=== PATIENT | female | born 1935 | race Caucasian/White ===

== ENCOUNTER 2018-03-27 13:38 | Inpatient (IN) | payer MEDICARE, SELFPAY ==
[2018-03-27 14:05] VITALS: BP 131/97; PULSE 110; TEMP 36.4; O2SAT 95
--- NOTE | 2018-03-27 14:31 | DI.CT_ITS ---
SYMPTOM/DIAGNOSIS: COLOSTOMY, RLQ ABD PAIN 3 WEEKS, WORSENING ABDOMINAL AND PELVIC CT: 03/27 CT examination of the abdomen and pelvis was performed with oral contrast only. Examination is compared with examination of 02/04/15. Images obtained through the lung bases are unremarkable. There is a nodular hepatic contour consistent with cirrhosis. No focal hepatic lesion seen. Multiple splenic calcified granuloma noted. Gallbladder not clearly visualized. Common duct measures about 1 cm which would be within normal range for post cholecystectomy patient but abnormal if the patient has not had a previous cholecystectomy. Pancreas is atrophic but otherwise unremarkable. No gross abnormality of the stomach or duodenum noted. Abdominal aorta is of normal diameter. There is grossly unremarkable appearance of adrenals and kidneys. No urinary tract calcification or obstruction. No gross abdominal or pelvic adenopathy seen. There are multiple complex ventral hernias and a left colostomy. Colostomy appears unremarkable with no evidence of obstruction at the colostomy site. Portion of the descending colon lies in a left lateral ventral hernia sac and is unobstructed. There is moderate dilatation of mid small bowel, distal small bowel is decompressed. There is marked wall thickening of mid small bowel proximal and distal to ventral hernia site. The possibility of inflammatory or ischemic process is raised. CONCLUSION: Multiple complex ventral hernias, normal left colostomy, Moderate small bowel dilatation with wall thickening of approximately 15-20 cm segment of mid small bowel which is associated with ventral hernia sac but wall thickening also involves intraperitoneal small bowel in the main abdominal cavity. The findings are nonspecific but may represent inflammatory ischemic or mechanical process. Surgical consultation recommended and appropriate follow up examinations should be obtained.
[2018-03-27 14:40] LABS: Bilirubin Small (Negative); Blood Negative (Negative); Clarity Clear; Glucose 500 mg/dL (Negative); Ketones Negative (Negative); Leukocyte Esterase Negative (Negative); Nitrite Negative (Negative); Specific Gravity >= 1.030 (1.005-1.025); Urobilinogen 0.2 EU/dL (Up TO 0.2); pH 5.5 (5-8)
[2018-03-27 14:49] LABS: Bacteria Few HPF (Negative); C & S Indicated? No; Casts Negative LPF (Negative); Crystals Few Amorphous HPF (Negative); Epithelial Cells Few HPF (Negative); Mucus Negative (Negative); Other Cells Few Renal (Negative); RBC 0-2 (0-2); WBC 0-2 HPF (0-5)
[2018-03-27] MEDS: Normal Saline 1,000 ML 1000 ML IV (14:49)
[2018-03-27 14:53] LABS: Abs Immature Grans 0.01 k/cumm (0.0-0.09); Absolute Basophil Count 0.02 k/cumm (0.0-0.2); Absolute Eosinophil Count 0.09 k/cumm (0.0-0.7); Absolute Lymphocyte Count 1.41 k/cumm (1.2-3.4); Absolute Monocyte Count 0.51 k/cumm (0.11-0.7); Absolute Neutrophil Count 5.27 k/cumm (1.2-6.7); Basophils % 0.3; Eosinophils % 1.2; HGB 13.1 g/dL (12.0-15.5); Immature Grans % 0.1; Lymphocytes % 19.3; Mean Corp. HGB Concentration 33.6 g/dL (32.0-36.0); Mean Corpuscular Hemoglobin 29.8 pg (27.0-33.0); Mean Corpuscular Volume 88.6 fL (80-95); Mean Platelet Volume 10.9 fL (8.0-11.0); Neutrophils % 72.1; Platelet Count 168 x1000/uL (130-400); RBC Distribution Width 13.6 % (11.7-14.6); White Blood Cell Count 7.31 k/cumm (4.4-10.8)
[2018-03-27 15:05] LABS: ALT 25 U/L (12-78); AST 17 U/L (15-37); Albumin 3.4 g/dL (3.4-5.0); Alkaline Phosphatase 111 U/L (46-116); Anion Gap 10.6 mmol/L (3-11); BUN 35 mg/dL (7-18); Bilirubin, Total 1.6 mg/dL (0.2-1.0); CO2 20.4 mmol/L (21.0-32.0); CREATININE 1.64 mg/dL (0.55-1.02); Calcium 8.8 mg/dL (8.5-10.1); Chloride 101 mmol/L (98-107); Estimated GFR 30.14 (mL/min/1.73m2); Glucose 394 mg/dL (70-100); Lipase 107 U/L (73-393); Potassium 4.4 mmol/L (3.5-5.1); Sodium 132 mmol/L (136-145); Total Protein 7.4 g/dL (6.4-8.2)
[2018-03-27 16:12] VITALS: BP 95/58; PULSE 80; RESP 16; TEMP 36.4; O2SAT 97
--- NOTE | 2018-03-27 17:46 | DI.VRAD_ITS ---
EXAM: CT Abdomen and Pelvis Without Intravenous Contrast EXAM DATE/TIME: 03/27/2018 3:25 PM CLINICAL HISTORY: 82 years old, female; Pain; Abdominal pain; Localized; Right lower quadrant (rlq); Prior surgery; Patient HX: Colostomy; Rlq pain 3 weeks, worsening; Additional info: Po contrast only TECHNIQUE: Axial computed tomography images of the abdomen and pelvis without intravenous contrast. Coronal and sagittal reformatted images were created and reviewed. COMPARISON: CT ABD PELVIS WO CONTRAST 02/04/2015 10:19 AM FINDINGS: Limitations: Evaluation of the intra-abdominal organs and vasculature is limited secondary to the lack of IV contrast. The evaluation of the pelvis is limited secondary to unopacified/collapsed loops of bowel. Lower thorax: Linear atelectasis or scarring at the lung bases. ABDOMEN: Liver: The liver has somewhat nodular margins which should be correlated with any concern for cirrhosis. Gallbladder and bile ducts: The gallbladder is not clearly identified. The common bile duct measures 1 cm, dilated. If the patient has had a cholecystectomy, this may be secondary to the patient's cholecystectomy status. Correlation with history and lab values suggested. Pancreas: Atrophic pancreas. Spleen: Calcifications in the spleen suggestive of old granulomatous disease. Adrenals: Normal adrenal glands. Kidneys and ureters: Trace bilateral perinephric stranding, similar to prior examination. Stomach and bowel: There is some wall prominence to the second portion of the duodenum which can be seen with peristalsis, inflammation, or pathology. There are dilated loops of small bowel most consistent with an obstructive process.The small bowel is very tortuous in appearance and difficult to follow. It appears to enter and exit several anterior abdominal wall hernias which could be contributing to the obstructive process. The most concerning hernia is identified inferiorly on series 3 image 70. There is significant caliber reduction of the bowel as it exits this hernia suggesting that it is the point of the most significant obstruction. A segment of small bowel in the right hemiabdomen on series 3 image 51 demonstrates wall thickening. This is worrisome for bowel compromise. Thickening can also be seen with infection or inflammation. Near this finding, Series 3 image 51 demonstrates a double ring appearance to the small bowel in the right hemiabdomen concerning for an intussusception. Intussusceptions could be transient or persistent. Correlation suggested. There is focal soft tissue density in this region for which a lead point/lesion is possible. An ostomy is noted in the left hemiabdomen with a peristomal hernia. Appendix: Appendix not clearly seen. PELVIS: Bladder: Urinary bladder within normal limits. Reproductive: See Subperitoneal Space Finding. Subperitoneal space: There is presacral stranding with an associated U. shaped density identified on series 3 image 63, similar to prior exam. This could represent postsurgical change or an atrophic uterus. ABDOMEN and PELVIS: Intraperitoneal space: No free air. Bones/joints: Skeletal degenerative changes. Soft tissues: Several anterior abdominal wall hernias containing loops of bowel. Vasculature: Vascular calcifications. Lymph nodes: No enlarged lymph nodes. IMPRESSION: 1. There are dilated loops of small bowel most consistent with an obstructive process.The small bowel is very tortuous in appearance and difficult to follow. It appears to enter and exit several anterior abdominal wall hernias which could be contributing somewhat to the obstructive process. The most concerning hernia is identified inferiorly on series 3 image 70. There is significant caliber reduction of the bowel as it exits this hernia suggesting that it is the point of the most significant obstruction. 2. A segment of small bowel in the right hemiabdomen demonstrates wall thickening. This is worrisome for bowel compromise.Near this finding, the small bowel demonstrates a double ring appearance concerning for an intussusception. Intussusceptions could be transient or persistent. Correlation suggested. There is focal soft tissue density in this region for which a lead point/lesion is possible. 3. Dilated appearance to the common bile duct. Correlation with lab values suggested. Some wall prominence to the duodenum are Other findings as above. Dictated and Authenticated by: Heidy Spear MD. Ordering:NICOLE HERNANDEZ MD
[2018-03-27 17:52] VITALS: BP 100/62; PULSE 92; RESP 16; TEMP 37; O2SAT 95
--- NOTE | 2018-03-27 17:59 | W.ED.GENAD ---
Discharge Plan Disposition Patient Disposition: [facility] INPATIENT Condition: Stable Discharge Details Chief Complaint: Abd Prob Clinical Impression: SBO (small bowel obstruction), Intussusception Primary Care Provider: Stephanie Erwin ED Provider: Endy Corral Home Meds and New Rx's Prescriptions: No Action cholecalciferol (vitamin D3) 1,000 UNIT capsule 1,000 unit PO DAILY RF: 0 colostomy bags [Karaya 5 Drainable Pouch] 1 EACH misc 1 ea Miscellaneous Q72H Qty: 60 RF: 3 insulin syringe-needle U-100 [Comfort EZ Syringe] 1 EACH syringe 1 ea Miscellaneous DAILY Qty: 100 RF: 12 insulin glargine [Lantus U-100 Insulin] 100 UNIT/1 ML solution 55 u Sub-Q DAILY Qty: 5 RF: 5 blood sugar diagnostic [GetO2uch Ultra Test] 1 EACH strip 1 ea Miscellaneous TID Qty: 300 RF: 3 lancets [AzubuTouch UltraSoft Lancets] 1 EACH misc 1 ea Miscellaneous TID Qty: 300 RF: 3 levothyroxine 100 MCG tablet 100 mcg PO DAILY Qty: 90 RF: 3 pregabalin [Lyrica] 75 MG capsule 75 mg PO BID Qty: 60 RF: 3 enalapril maleate 2.5 MG tablet 2.5 mg PO DAILY Qty: 90 RF: 3 magnesium oxide 400 MG tablet 400 mg PO DAILY Qty: 90 RF: 1 epinephrine [EpiPen 2-Mayur] 0.3 MG/0.3 ML auto-injector 0.3 mg IJ DIRECTED Qty: 1 RF: 0 sitagliptin [Januvia] 100 MG tablet 100 mg PO DAILY Qty: 90 RF: 3 meclizine 12.5 MG tablet 12.5 mg PO BID Qty: 10 RF: 0 glimepiride 4 MG tablet 4 mg PO DAILY Qty: 30 RF: 3 Varicella-Zoster Ge/As01b/Pf [Shingrix Vial Kit] 50 MCG INJ 50 mcg IM ONCE Qty: 1 RF: 1 acetaminophen [Mapap Extra Strength] 500 MG tablet 1,000 mg PO Q8H PRN PRNQty: 0 RF: 0 Medical Decision Making This is a pleasant 82-year-old female who presents with abdominal pain distention for the last 3 weeks which is gradually been worsening. She has been able to eat, including yesterday. She has been having liquid stool coming from her ostomy site. She denies any vomiting in the last 24-48 hours. Physical exam demonstrates a distended abdomen. She does have dry mucous membranes. No other significant abnormalities on exam. Laboratory workup was performed she demonstrates evidence of no significant leukocytosis no elevated WBC count. Normal electrolytes, creatinine is 1.64, which is near her baseline. Total bilirubin is slightly elevated at 1.6, however AST, ALT and alk phos are normal. Urinalysis shows no signs of significant infection. CT scan results have returned and demonstrate evidence of small loops of bowel consistent consistent with an obstructive process per virtual radiology. It appears that the focus of this is 1 of the patient's multiple hernias. There is also concern for potential intussusception. These results were reviewed with me by the radiologist. I did contact the surgeon rehab consultant Dr. Oliveira and discussed the case with her. She agrees with the current assessment and plan and the need for admission. Patient will be admitted to [facility] for further surgical evaluation. I have extensively reviewed the treatment plan with the patient. I have addressed all patient concerns at this time. I have also discussed the plan with the admitting physician and they agree with the current assessment and plan and have agreed to assume responsibility for the patient. All parties demonstrate verbal understanding and agreement with our assessment and plan at this time. I did discuss NG tube at this time with Dr. Oliveira, and she agrees that we can hold off secondary to no vomiting currently. Impression: 1. There are dilated loops of small bowel most consistent with an obstructive process.The small bowel is very tortuous in appearance and difficult to follow. It appears to enter and exit several anterior abdominal wall hernias which could be contributing somewhat to the obstructive process. The most concerning hernia is identified inferiorly on series 3 image 70. There is significant caliber reduction of the bowel as it exits this hernia suggesting that it is the point of the most significant obstruction. 2. A segment of small bowel in the right hemiabdomen demonstrates wall thickening. This is worrisome for bowel compromise.Near this finding, the small bowel demonstrates a double ring appearance concerning for an intussusception. Intussusceptions could be transient or persistent. Correlation suggested. There is focal soft tissue density in this region for which a lead point/lesion is possible. 3. Dilated appearance to the common bile duct. Correlation with lab values suggested. Some wall prominence to the duodenum are Other findings as above. Dictated and Authenticated by: Heidy Spear MD. [facility] General Date/Time Provider Initiated Documentation: 03/27/18 14:30. [facility] Narrative: This is an 82-year-old female with a past medical history of colostomy in 1979 secondary to colon cancer, as well as diabetes. She presents today for 3 weeks of abdominal pain that is gradually been worsening. She did have one episode of vomiting 1-2 weeks ago. Over the last 2-3 days she has been having worsening of her abdominal pain, associated nausea, and clear liquid from her ostomy site. She denies any blood or melena. She did eat yesterday without any significant vomiting. She denies any chest back leg or arm pain. She denies any melena, hematochezia, hematemesis. She denies any blood thinner use. She denies any other complaints at this time. She denies any IV or illicit drug use she denies any pertinent family hist Related Data Home Medications Medication Instructions Recorded Confirmed cholecalciferol (vitamin D3) 1,000 unit PO DAILY 11/29/13 02/17/15 acetaminophen [Mapap Extra 1,000 mg PO Q8H PRN PRN #0 02/20/15 02/17/15 Strength] colostomy bags [Karaya Drainable #60 ea 07/08/16 Ostomy Pouch] insulin syringe-needle U-100 #100 syringe 02/24/17 [Comfort Ez] insulin glargine [Lantus Vial] 55 u SUB-Q DAILY #5 vial 08/03/17 blood sugar diagnostic [Onetouch #300 strip 09/09/17 Ultra Test Strips] lancets [Onetouch Lancets] #300 ea 09/09/17 levothyroxine 100 mcg PO DAILY #90 tab-cap 10/05/17 pregabalin [Lyrica] 75 mg PO BID #60 tab-cap 11/24/17 enalapril maleate 2.5 mg PO DAILY #90 tab-cap 12/20/17 epinephrine [Epipen 2-Mayur] 0.3 mg IJ DIRECTED #1 pkt 12/20/17 magnesium oxide 400 mg PO DAILY #90 tab 12/20/17 meclizine 12.5 mg PO BID #10 tab-cap 12/20/17 sitagliptin [Januvia] 100 mg PO DAILY #90 tab-cap 12/20/17 glimepiride 4 mg PO DAILY #30 tab-cap 01/28/18 Previous Rx's Medication Instructions Recorded acetaminophen [Mapap Extra 1,000 mg PO Q8H PRN PRN #0 02/20/15 Strength] insulin glargine [Lantus Vial] 55 u SUB-Q DAILY #5 vial 08/03/17 blood sugar diagnostic [Onetouch #300 strip 09/09/17 Ultra Test Strips] lancets [Onetouch Lancets] #300 ea 09/09/17 levothyroxine 100 mcg PO DAILY #90 tab-cap 10/05/17 pregabalin [Lyrica] 75 mg PO BID #60 tab-cap 11/24/17 enalapril maleate 2.5 mg PO DAILY #90 tab-cap 12/20/17 epinephrine [Epipen 2-Mayur] 0.3 mg IJ DIRECTED #1 pkt 12/20/17 magnesium oxide 400 mg PO DAILY #90 tab 12/20/17 meclizine 12.5 mg PO BID #10 tab-cap 12/20/17 sitagliptin [Januvia] 100 mg PO DAILY #90 tab-cap 12/20/17 glimepiride 4 mg PO DAILY #30 tab-cap 01/28/18 Allergies Allergy/AdvReac Type Severity Reaction Status Date / Time aspartame Allergy Severe anaphylacti Unverified 03/27/18 14:08 c blueberry Allergy Severe anaphylacti Unverified 03/27/18 14:08 c shellfish derived Allergy Severe Anaphylaxsi Unverified 03/27/18 14:08 s banana Allergy hives Unverified 03/27/18 14:08 aspirin AdvReac Severe vomiting/gi Unverified 03/27/18 14:08 bleed/ulcer meperidine AdvReac Severe vomiting Unverified 03/27/18 14:08 docusate AdvReac Mild tinnitus Unverified 03/27/18 14:08 naproxen AdvReac Mild gi upset Unverified 03/27/18 14:08 lorazepam AdvReac Unknown hallucinati Unverified 03/27/18 14:08 ons artificial sugar Allergy Severe anaphylacti Uncoded 03/27/18 14:08 c General Stated Complaint: Abd Prob STEVEN: 3 Review of Systems Review of Systems All systems reviewed & are unremarkable except as noted in HPI and below PFSH Family History Grandmother Personal history of malignant neoplasm Sister No problems noted. Medical History Colorectal cancer Peristomal hernia Small bowel obstruction due to adhesions Tendonitis breast cancer (~1997) rib fractures (01/27/15) type II diabetes Social History Smoking/Tobacco Use Status: Never Surgical History Breast, Lumpectomy Colectectomy External fixator removal, ORIF of left tibia nad fibula (02/14/15) Laparotomy (02/04/15) Left trimalleolar comminuted fracture (01/27/15) Exam Narrative Exam Narrative: 1.Const: Well-nourished, Well-developed, appearing stated age 2.Eyes: PERRL, no conjunctival injection, and symmetrical lids. 3.ENT: Atraumatic external nose and ears. Dry MM. Neck: Symmetric, trachea midline, No thyromegaly. 4.CVS: +S1/S2, No murmurs or gallops. Peripheral pulses 2+ and equal in all extremities. Brisk capillary refill in all extremities. 5.RESP: Unlabored respiratory effort. Clear to auscultation bilaterally. No wheezes rales or rhonchi 6.GI: Soft, distended, multiple scars. Ostomy is in place. Bowel sounds are present. Generalized tenderness on palpation throughout. Ostomy site is pink, no blood. Liquid clear stool is noted coming from ostomy site. Small amount of stool at the edge of the ostomy site. Multiple atypical anterior abdominal hernias. 7.MSK: Normocephalic/Atraumatic, Extremities w/o deformity or ttp No cyanosis or clubbing, Normal movement of all extremities 8.Skin: Warm, Dry. No rashes or lesions. 9.Neuro: motor mechanic II-XII grossly intact. Sensation grossly intact, no focal neurologic deficits. 10.Psych: (AAO) x3. Appropriate mood and affect Course Vital Signs Temperature 36.4 C L 03/27/18 14:05 Pulse 110 H 03/27/18 14:05 Blood Pressure 131/97 H 03/27/18 14:05 Pulse Oximetry 95 03/27/18 14:05 Temperature 37.0 C 03/27/18 17:52 Temperature Source Skin 03/27/18 17:52 Pulse 92 H 03/27/18 17:52 Respiratory Rate 16 03/27/18 17:52 Blood Pressure 100/62 03/27/18 17:52 Blood Pressure Position Sitting 03/27/18 14:05 Pulse Oximetry 95 03/27/18 17:52 Oxygen Delivery Method Room Air 03/27/18 17:52 Oxygen Flow Rate 0 03/27/18 17:52 Pain Level 1 03/27/18 17:52 Comment 03/27/18 17:52 Lab/Test Results Lab/Test Results: Laboratory Tests Range/Units 03/27/18 03/27/18 03/27/18 14:25 14:40 14:40 WBC (4.4-10.8) k/cumm 7.31 RBC (4.00-5.20) m/cumm 4.40 Hgb (12.0-15.5) g/dL 13.1 Hct (36.0-46.0) % 39.0 MCV (80-95) fL 88.6 MCH (27.0-33.0) pg 29.8 MCHC (32.0-36.0) g/dL 33.6 RDW (11.7-14.6) % 13.6 Plt Count (130-400) x1000/uL 168 MPV (8.0-11.0) fL 10.9 Immature Gran % 0.1 Neutrophils % 72.1 Lymphocytes % 19.3 Monocytes % 7.0 Eosinophils % 1.2 Basophils % 0.3 Absolute Neutrophils (1.2-6.7) k/cumm 5.27 Absolute Lymphocytes (1.2-3.4) k/cumm 1.41 Absolute Monocytes (0.11-0.7) k/cumm 0.51 Absolute Eosinophils (0.0-0.7) k/cumm 0.09 Absolute Basophils (0.0-0.2) k/cumm 0.02 Sodium (136-145) mmol/L 132 L Potassium (3.5-5.1) mmol/L 4.4 Chloride (98-107) mmol/L 101 Carbon Dioxide (21.0-32.0) mmol/L 20.4 L Anion Gap (3-11) mmol/L 10.6 BUN (7-18) mg/dL 35 H Creatinine (0.55-1.02) mg/dL 1.64 H Estimated GFR/1.73 m2 (mL/min/1.73m2) 30.14 Glucose (70-100) mg/dL 394 H Calcium (8.5-10.1) mg/dL 8.8 Total Bilirubin (0.2-1.0) mg/dL 1.6 H AST (15-37) U/L 17 ALT (12-78) U/L 25 Alkaline Phosphatase (46-116) U/L 111 Total Protein (6.4-8.2) g/dL 7.4 Albumin (3.4-5.0) g/dL 3.4 Lipase (73-393) U/L 107 Urine Color (Yellow) Yellow Urine Clarity Clear Urine pH (5-8) 5.5 Ur Specific Marshall (1.005-1.025) >= 1.030 H Urine Protein (Negative) mg/dL 30 H Urine Ketones (Negative) mg/dL Negative Urine Blood (Negative) Negative Urine Nitrite (Negative) Negative Urine Bilirubin (Negative) Small H Urine Urobilinogen (Up TO 0.2) EU/dL 0.2 Ur Leukocyte Esterase (Negative) Negative Urine RBC (0-2) 0-2 Urine WBC (0-5) HPF 0-2 Ur Epithelial Cells (Negative) HPF Few Urine Crystals (Negative) HPF Few amorphous Urine Bacteria (Negative) HPF Few Urine Casts (Negative) LPF Negative Urine Mucus (Negative) Negative Urine Other (Negative) Few renal Ur Culture Indicated? No Urine Glucose (Negative) mg/dL 500 H
--- NOTE | 2018-03-27 18:08 | ED.GENADUL_ITS ---
Discharge Plan Disposition Patient Disposition: [facility] INPATIENT Condition: Stable Discharge Details Chief Complaint: Abd Prob Clinical Impression: SBO (small bowel obstruction), Intussusception Primary Care Provider: Stephanie Erwin ED Provider: Endy Corral Home Meds and New Rx's Prescriptions: No Action cholecalciferol (vitamin D3) 1,000 UNIT capsule 1,000 unit PO DAILY RF: 0 colostomy bags [Karaya 5 Drainable Pouch] 1 EACH misc 1 ea Miscellaneous Q72H Qty: 60 RF: 3 insulin syringe-needle U-100 [Comfort EZ Syringe] 1 EACH syringe 1 ea Miscellaneous DAILY Qty: 100 RF: 12 insulin glargine [Lantus U-100 Insulin] 100 UNIT/1 ML solution 55 u Sub-Q DAILY Qty: 5 RF: 5 blood sugar diagnostic [Optimal Radiologyuch Ultra Test] 1 EACH strip 1 ea Miscellaneous TID Qty: 300 RF: 3 lancets [ShareTheTouch UltraSoft Lancets] 1 EACH misc 1 ea Miscellaneous TID Qty: 300 RF: 3 levothyroxine 100 MCG tablet 100 mcg PO DAILY Qty: 90 RF: 3 pregabalin [Lyrica] 75 MG capsule 75 mg PO BID Qty: 60 RF: 3 enalapril maleate 2.5 MG tablet 2.5 mg PO DAILY Qty: 90 RF: 3 magnesium oxide 400 MG tablet 400 mg PO DAILY Qty: 90 RF: 1 epinephrine [EpiPen 2-Mayur] 0.3 MG/0.3 ML auto-injector 0.3 mg IJ DIRECTED Qty: 1 RF: 0 sitagliptin [Januvia] 100 MG tablet 100 mg PO DAILY Qty: 90 RF: 3 meclizine 12.5 MG tablet 12.5 mg PO BID Qty: 10 RF: 0 glimepiride 4 MG tablet 4 mg PO DAILY Qty: 30 RF: 3 Varicella-Zoster Ge/As01b/Pf [Shingrix Vial Kit] 50 MCG INJ 50 mcg IM ONCE Qty: 1 RF: 1 acetaminophen [Mapap Extra Strength] 500 MG tablet 1,000 mg PO Q8H PRN PRNQty: 0 RF: 0 Medical Decision Making This is a pleasant 82-year-old female who presents with abdominal pain distention for the last 3 weeks which is gradually been worsening. She has been able to eat, including yesterday. She has been having liquid stool coming from her ostomy site. She denies any vomiting in the last 24-48 hours. Physical exam demonstrates a distended abdomen. She does have dry mucous membranes. No other significant abnormalities on exam. Laboratory workup was performed she demonstrates evidence of no significant leukocytosis no elevated WBC count. Normal electrolytes, creatinine is 1.64, which is near her baseline. Total bilirubin is slightly elevated at 1.6, however AST, ALT and alk phos are normal. Urinalysis shows no signs of significant infection. CT scan results have returned and demonstrate evidence of small loops of bowel consistent consistent with an obstructive process per virtual radiology. It appears that the focus of this is 1 of the patient's multiple hernias. There is also concern for potential intussusception. These results were reviewed with me by the radiologist. I did contact the surgeon reservoir engineering consultant Dr. Oliveira and discussed the case with her. She agrees with the current assessment and plan and the need for admission. Patient will be admitted to [facility] for further surgical evaluation. I have extensively reviewed the treatment plan with the patient. I have addressed all patient concerns at this time. I have also discussed the plan with the admitting physician and they agree with the current assessment and plan and have agreed to assume responsibility for the patient. All parties demonstrate verbal understanding and agreement with our assessment and plan at this time. I did discuss NG tube at this time with Dr. Oliveira, and she agrees that we can hold off secondary to no vomiting currently. Impression: 1. There are dilated loops of small bowel most consistent with an obstructive process.The small bowel is very tortuous in appearance and difficult to follow. It appears to enter and exit several anterior abdominal wall hernias which could be contributing somewhat to the obstructive process. The most concerning hernia is identified inferiorly on series 3 image 70. There is significant caliber reduction of the bowel as it exits this hernia suggesting that it is the point of the most significant obstruction. 2. A segment of small bowel in the right hemiabdomen demonstrates wall thickening. This is worrisome for bowel compromise.Near this finding, the small bowel demonstrates a double ring appearance concerning for an intussusception. Intussusceptions could be transient or persistent. Correlation suggested. There is focal soft tissue density in this region for which a lead point/lesion is possible. 3. Dilated appearance to the common bile duct. Correlation with lab values suggested. Some wall prominence to the duodenum are Other findings as above. Dictated and Authenticated by: Heidy Spear MD. [facility] General Date/Time Provider Initiated Documentation: 03/27/18 14:30 . [facility] Narrative: This is an 82-year-old female with a past medical history of colostomy in 1979 secondary to colon cancer, as well as diabetes. She presents today for 3 weeks of abdominal pain that is gradually been worsening. She did have one episode of vomiting 1-2 weeks ago. Over the last 2 -3 days she has been having worsening of her abdominal pain, associated nausea, and clear liquid from her ostomy site. She denies any blood or melena. She did eat yesterday without any significant vomiting. She denies any chest back leg or arm pain. She denies any melena, hematochezia, hematemesis. She denies any blood thinner use. She denies any other complaints at this time. She denies any IV or illicit drug use she denies any pertinent family hist Related Data Home Medications Medication Instructions Recorded Confirmed cholecalciferol (vitamin D3) 1,000 unit PO DAILY 11/29/13 02/17/15 acetaminophen [Mapap Extra 1,000 mg PO Q8H PRN PRN #0 02/20/15 02/17/15 Strength] colostomy bags [Karaya Drainable #60 ea 07/08/16 Ostomy Pouch] insulin syringe-needle U-100 #100 syringe 02/24/17 [Comfort Ez] insulin glargine [Lantus Vial] 55 u SUB-Q DAILY #5 vial 08/03/17 blood sugar diagnostic [Onetouch #300 strip 09/09/17 Ultra Test Strips] lancets [Onetouch Lancets] #300 ea 09/09/17 levothyroxine 100 mcg PO DAILY #90 tab-cap 10/05/17 pregabalin [Lyrica] 75 mg PO BID #60 tab-cap 11/24/17 enalapril maleate 2.5 mg PO DAILY #90 tab-cap 12/20/17 epinephrine [Epipen 2-Mayur] 0.3 mg IJ DIRECTED #1 pkt 12/20/17 magnesium oxide 400 mg PO DAILY #90 tab 12/20/17 meclizine 12.5 mg PO BID #10 tab-cap 12/20/17 sitagliptin [Januvia] 100 mg PO DAILY #90 tab-cap 12/20/17 glimepiride 4 mg PO DAILY #30 tab-cap 01/28/18 Previous Rx's Medication Instructions Recorded acetaminophen [Mapap Extra 1,000 mg PO Q8H PRN PRN #0 02/20/15 Strength] insulin glargine [Lantus Vial] 55 u SUB-Q DAILY #5 vial 08/03/17 blood sugar diagnostic [Onetouch #300 strip 09/09/17 Ultra Test Strips] lancets [Onetouch Lancets] #300 ea 09/09/17 levothyroxine 100 mcg PO DAILY #90 tab-cap 10/05/17 pregabalin [Lyrica] 75 mg PO BID #60 tab-cap 11/24/17 enalapril maleate 2.5 mg PO DAILY #90 tab-cap 12/20/17 epinephrine [Epipen 2-Mayur] 0.3 mg IJ DIRECTED #1 pkt 12/20/17 magnesium oxide 400 mg PO DAILY #90 tab 12/20/17 meclizine 12.5 mg PO BID #10 tab-cap 12/20/17 sitagliptin [Januvia] 100 mg PO DAILY #90 tab-cap 12/20/17 glimepiride 4 mg PO DAILY #30 tab-cap 01/28/18 Allergies Allergy/AdvReac Type Severity Reaction Status Date / Time aspartame Allergy Severe anaphylacti Unverified 03/27/18 14:08 c blueberry Allergy Severe anaphylacti Unverified 03/27/18 14:08 c shellfish derived Allergy Severe Anaphylaxsi Unverified 03/27/18 14:08 s banana Allergy hives Unverified 03/27/18 14:08 aspirin AdvReac Severe vomiting/gi Unverified 03/27/18 14:08 bleed/ulcer meperidine AdvReac Severe vomiting Unverified 03/27/18 14:08 docusate AdvReac Mild tinnitus Unverified 03/27/18 14:08 naproxen AdvReac Mild gi upset Unverified 03/27/18 14:08 lorazepam AdvReac Unknown hallucinati Unverified 03/27/18 14:08 ons artificial sugar Allergy Severe anaphylacti Uncoded 03/27/18 14:08 c General Stated Complaint: Abd Prob STEVEN: 3 Review of Systems Review of Systems All systems reviewed & are unremarkable except as noted in HPI and below PFSH Family History Grandmother Personal history of malignant neoplasm Sister No problems noted. Medical History Colorectal cancer Peristomal hernia Small bowel obstruction due to adhesions Tendonitis breast cancer (~1997) rib fractures (01/27/15) type II diabetes Social History Smoking/Tobacco Use Status: Never Surgical History Breast, Lumpectomy Colectectomy External fixator removal, ORIF of left tibia nad fibula (02/14/15) Laparotomy (02/04/15) Left trimalleolar comminuted fracture (01/27/15) Exam Narrative Exam Narrative: 1.Const: Well-nourished, Well-developed, appearing stated age 2.Eyes: PERRL, no conjunctival injection, and symmetrical lids. 3.ENT: Atraumatic external nose and ears. Dry MM. Neck: Symmetric, trachea midline, No thyromegaly. 4.CVS: +S1/S2, No murmurs or gallops. Peripheral pulses 2+ and equal in all extremities. Brisk capillary refill in all extremities. 5.RESP: Unlabored respiratory effort. Clear to auscultation bilaterally. No wheezes rales or rhonchi 6.GI: Soft, distended, multiple scars. Ostomy is in place. Bowel sounds are present. Generalized tenderness on palpation throughout. Ostomy site is pink, no blood. Liquid clear stool is noted coming from ostomy site. Small amount of stool at the edge of the ostomy site. Multiple atypical anterior abdominal hernias. 7.MSK: Normocephalic/Atraumatic, Extremities w/o deformity or ttp No cyanosis or clubbing, Normal movement of all extremities 8.Skin: Warm, Dry. No rashes or lesions. 9.Neuro: douper II-XII grossly intact. Sensation grossly intact, no focal neurologic deficits. 10.Psych: (AAO) x3. Appropriate mood and affect Course Vital Signs Temperature 36.4 C L 03/27/18 14:05 Pulse 110 H 03/27/18 14:05 Blood Pressure 131/97 H 03/27/18 14:05 Pulse Oximetry 95 03/27/18 14:05 Temperature 37.0 C 03/27/18 17:52 Temperature Source Skin 03/27/18 17:52 Pulse 92 H 03/27/18 17:52 Respiratory Rate 16 03/27/18 17:52 Blood Pressure 100/62 03/27/18 17:52 Blood Pressure Position Sitting 03/27/18 14:05 Pulse Oximetry 95 03/27/18 17:52 Oxygen Delivery Method Room Air 03/27/18 17:52 Oxygen Flow Rate 0 03/27/18 17:52 Pain Level 1 03/27/18 17:52 Comment 03/27/18 17:52 Lab/Test Results Lab/Test Results: Laboratory Tests Range/Units 03/27/18 03/27/18 03/27/18 14:25 14:40 14:40 WBC (4.4-10.8) k/cumm 7.31 RBC (4.00-5.20) m/cumm 4.40 Hgb (12.0-15.5) g/dL 13.1 Hct (36.0-46.0) % 39.0 MCV (80-95) fL 88.6 MCH (27.0-33.0) pg 29.8 MCHC (32.0-36.0) g/dL 33.6 RDW (11.7-14.6) % 13.6 Plt Count (130-400) x1000/uL 168 MPV (8.0-11.0) fL 10.9 Immature Gran % 0.1 Neutrophils % 72.1 Lymphocytes % 19.3 Monocytes % 7.0 Eosinophils % 1.2 Basophils % 0.3 Absolute Neutrophils (1.2-6.7) k/cumm 5.27 Absolute Lymphocytes (1.2-3.4) k/cumm 1.41 Absolute Monocytes (0.11-0.7) k/cumm 0.51 Absolute Eosinophils (0.0-0.7) k/cumm 0.09 Absolute Basophils (0.0-0.2) k/cumm 0.02 Sodium (136-145) mmol/L 132 L Potassium (3.5-5.1) mmol/L 4.4 Chloride (98-107) mmol/L 101 Carbon Dioxide (21.0-32.0) mmol/L 20.4 L Anion Gap (3-11) mmol/L 10.6 BUN (7-18) mg/dL 35 H Creatinine (0.55-1.02) mg/dL 1.64 H Estimated GFR/1.73 m2 (mL/min/1.73m2) 30.14 Glucose (70-100) mg/dL 394 H Calcium (8.5-10.1) mg/dL 8.8 Total Bilirubin (0.2-1.0) mg/dL 1.6 H AST (15-37) U/L 17 ALT (12-78) U/L 25 Alkaline Phosphatase (46-116) U/L 111 Total Protein (6.4-8.2) g/dL 7.4 Albumin (3.4-5.0) g/dL 3.4 Lipase (73-393) U/L 107 Urine Color (Yellow) Yellow Urine Clarity Clear Urine pH (5-8) 5.5 Ur Specific [place] (1.005-1.025) >= 1.030 H Urine Protein (Negative) mg/dL 30 H Urine Ketones (Negative) mg/dL Negative Urine Blood (Negative) Negative Urine Nitrite (Negative) Negative Urine Bilirubin (Negative) Small H Urine Urobilinogen (Up TO 0.2) EU/dL 0.2 Ur Leukocyte Esterase (Negative) Negative Urine RBC (0-2) 0-2 Urine WBC (0-5) HPF 0-2 Ur Epithelial Cells (Negative) HPF Few Urine Crystals (Negative) HPF Few amorphous Urine Bacteria (Negative) HPF Few Urine Casts (Negative) LPF Negative Urine Mucus (Negative) Negative Urine Other (Negative) Few renal Ur Culture Indicated? No Urine Glucose (Negative) mg/dL 500 H
[2018-03-27] MEDS: Lactated Ringers 1,000 ML 1000 ML IV (18:22)
[2018-03-27 18:45] VITALS: BP 108/83; PULSE 83; RESP 14; TEMP 36.7; O2SAT 98
[2018-03-27 19:06] VITALS: BP 113/65; PULSE 77; RESP 18; TEMP 36.9; O2SAT 98
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
[2018-03-27] MEDS: Normal Saline 1,000 ML 125 ML IV (22:22)
[2018-03-28] VITALS (8 sets, daily range): BP systolic 98–134; BP diastolic 59–73; PULSE 78–97; RESP 16–20; TEMP 36.6–37.4; O2SAT 93–98
[2018-03-28] MEDS: Dextrose 50%-Water 25 GM/50 ML SYR IVP ×2 (02:05→06:26)
[2018-03-28] MEDS: Normal Saline 1,000 ML 125 ML IV ×2 (05:51→14:20)
[2018-03-28] MEDS: Normal Saline Flush 10 ML SYR IVP ×2 (06:29→17:24)
--- NOTE | 2018-03-28 07:00 | DI.RAD_ITS ---
SYMPTOM/DIAGNOSIS: ABDOMINAL DISTENTION ABDOMEN: 03/28 Two views were obtained. No gross free intraperitoneal air is seen on the upright view. Moderate small bowel dilatation again noted as seen on yesterday's CT. No additional new findings.
[2018-03-28 07:01] LABS: HCT 35.5 % (36.0-46.0); HGB 11.8 g/dL (12.0-15.5); Mean Corp. HGB Concentration 33.2 g/dL (32.0-36.0); Mean Corpuscular Hemoglobin 29.7 pg (27.0-33.0); Mean Corpuscular Volume 89.4 fL (80-95); Platelet Count 135 x1000/uL (130-400); RBC 3.97 m/cumm (4.00-5.20); RBC Distribution Width 13.6 % (11.7-14.6); White Blood Cell Count 7.62 k/cumm (4.4-10.8)
[2018-03-28 07:11] LABS: ALT 18 U/L (12-78); AST 20 U/L (15-37); Albumin 3.1 g/dL (3.4-5.0); Alkaline Phosphatase 90 U/L (46-116); Anion Gap 11.9 mmol/L (3-11); BUN 28 mg/dL (7-18); Bilirubin, Total 1.3 mg/dL (0.2-1.0); CO2 18.1 mmol/L (21.0-32.0); Calcium 8.6 mg/dL (8.5-10.1); Chloride 107 mmol/L (98-107); Estimated GFR 39.41 (mL/min/1.73m2); Glucose 207 mg/dL (70-100); Potassium 4.1 mmol/L (3.5-5.1); Sodium 137 mmol/L (136-145); Total Protein 6.6 g/dL (6.4-8.2)
--- NOTE | 2018-03-28 07:36 | W.PM.PROGNOT ---
Assessment and Plan (1) Bowel obstruction: Current visit: Yes Status: Acute Possible small bowel obstruction/intussusception- DIET- continue NPO. Accuchecks and sliding scale coverage while NPO. May need NG if nausea/vomiting recurs. IMAGING- Follow-up abdominal xrays (Currently Pending) to evaluate passage of oral contrast/bowel distention May consider small bowel series for further evaluation if needed. ACTIVITY- Encouraged ambulation with nsg as tolerated. Subjective Patient reports: denies nausea, vomiting and fever Interval history since last seen: Mrs. Rodriguez reports that she continues to feel uncomfortable and bloated. She denies nausea, vomiting or abdominal pain. She states that her symptoms feel about the same compared to the past few days. Exam Const General: cooperative and comfortable Orientation: alert and awake Resp Effort & Inspection: normal respiratory effort Auscultation: clear to auscultation bilaterally Cardio Rate: regular rate Rhythm: regular rhythm Heart Sounds: no murmurs and no rubs GI Inspection: distended and scar (Midline incision scar with several incisional hernia's that are easily reducible.) Palpation: soft and tender (Mildly tender with palpation. ) in the LLQ and in the RLQ Auscultation: normal bowel sounds Objective Objective Clinical Data: Abnormal lab results 03/27/18 03/27/18 03/28/18 Range/Units 14:25 14:40 06:30 RBC (4.00-5.20) m/cumm Hgb (12.0-15.5) g/dL Hct (36.0-46.0) % Sodium 132 L (136-145) mmol/L Carbon Dioxide 20.4 L 18.1 L (21.0-32.0) mmol/L Anion Gap 11.9 H (3-11) mmol/L BUN 35 H 28 H (7-18) mg/dL Creatinine 1.64 H 1.30 H (0.55-1.02) mg/dL Glucose 394 H 207 H D (70-100) mg/dL Total Bilirubin 1.6 H 1.3 H (0.2-1.0) mg/dL Albumin 3.1 L (3.4-5.0) g/dL Ur Specific [place] >= 1.030 H (1.005-1.025) Urine Protein 30 H (Negative) mg/dL Urine Bilirubin Small H (Negative) Urine Glucose 500 H (Negative) mg/dL 03/28/18 Range/Units 06:30 RBC 3.97 L (4.00-5.20) m/cumm Hgb 11.8 L (12.0-15.5) g/dL Hct 35.5 L (36.0-46.0) % Sodium (136-145) mmol/L Carbon Dioxide (21.0-32.0) mmol/L Anion Gap (3-11) mmol/L BUN (7-18) mg/dL Creatinine (0.55-1.02) mg/dL Glucose (70-100) mg/dL Total Bilirubin (0.2-1.0) mg/dL Albumin (3.4-5.0) g/dL Ur Specific [place] (1.005-1.025) Urine Protein (Negative) mg/dL Urine Bilirubin (Negative) Urine Glucose (Negative) mg/dL Vital Signs Temperature 36.6 C 03/28/18 04:35 Temperature Source Tympanic 03/28/18 04:35 Pulse 79 03/28/18 04:35 Pulse Rhythm Regular 03/28/18 01:55 Respiratory Rate 18 03/28/18 04:35 Respiratory Effort 03/28/18 01:55 Respiratory Depth Normal 03/28/18 01:55 Respiratory Pattern Normal 03/28/18 01:55 Blood Pressure 98/59 L 03/28/18 04:35 Blood Pressure Position Sitting 03/27/18 14:05 Pulse Oximetry 95 03/28/18 04:35 Oxygen Delivery Method Room Air 03/28/18 04:35 Oxygen Flow Rate 0 03/28/18 04:35 Pain Level 1 03/27/18 19:10 Comment 03/28/18 04:35 Intake & Output 03/27/18 03/27/18 03/28/18 11:59 23:59 11:59 Intake Total 1999 935.417 / 935.417 Output Total 1000 / 999 1050 / 1050 Balance 999 / 999 -114.583 / -114.583 Weight 62.596 kg Intake: IV 1999 935.417 / 935.417 Output: Urine 400 / 400 Stool 600 / 600 1050 / 1050 Other: Urine Appearance Clear Clear Urine Odor None Stool Size Large Stool Characteristics Liquid Liquid Brown Voiding Methods Toilet Laboratory Results WBC 7.62 k/cumm (4.4-10.8) 03/28/18 06:30 RBC 3.97 m/cumm (4.00-5.20) L 03/28/18 06:30 Hgb 11.8 g/dL (12.0-15.5) L 03/28/18 06:30 Hct 35.5 % (36.0-46.0) L 03/28/18 06:30 MCV 89.4 fL (80-95) 03/28/18 06:30 MCH 29.7 pg (27.0-33.0) 03/28/18 06:30 MCHC 33.2 g/dL (32.0-36.0) 03/28/18 06:30 RDW 13.6 % (11.7-14.6) 03/28/18 06:30 Plt Count 135 x1000/uL (130-400) 03/28/18 06:30 MPV 11.0 fL (8.0-11.0) 03/28/18 06:30 Immature Gran % 0.1 03/27/18 14:40 Neutrophils % 72.1 03/27/18 14:40 Lymphocytes % 19.3 03/27/18 14:40 Monocytes % 7.0 03/27/18 14:40 Eosinophils % 1.2 03/27/18 14:40 Basophils % 0.3 03/27/18 14:40 Absolute Neutrophils 5.27 k/cumm (1.2-6.7) 03/27/18 14:40 Absolute Lymphocytes 1.41 k/cumm (1.2-3.4) 03/27/18 14:40 Absolute Monocytes 0.51 k/cumm (0.11-0.7) 03/27/18 14:40 Absolute Eosinophils 0.09 k/cumm (0.0-0.7) 03/27/18 14:40 Absolute Basophils 0.02 k/cumm (0.0-0.2) 03/27/18 14:40 Sodium 137 mmol/L (136-145) 03/28/18 06:30 Potassium 4.1 mmol/L (3.5-5.1) 03/28/18 06:30 Chloride 107 mmol/L (98-107) 03/28/18 06:30 Carbon Dioxide 18.1 mmol/L (21.0-32.0) L 03/28/18 06:30 Anion Gap 11.9 mmol/L (3-11) H 03/28/18 06:30 BUN 28 mg/dL (7-18) H 03/28/18 06:30 Creatinine 1.30 mg/dL (0.55-1.02) H 03/28/18 06:30 Estimated GFR/1.73 m2 39.41 (mL/min/1.73m2) 03/28/18 06:30 Glucose 207 mg/dL (70-100) H D 03/28/18 06:30 Calcium 8.6 mg/dL (8.5-10.1) 03/28/18 06:30 Total Bilirubin 1.3 mg/dL (0.2-1.0) H 03/28/18 06:30 AST 20 U/L (15-37) 03/28/18 06:30 ALT 18 U/L (12-78) 03/28/18 06:30 Alkaline Phosphatase 90 U/L (46-116) 03/28/18 06:30 Total Protein 6.6 g/dL (6.4-8.2) 03/28/18 06:30 Albumin 3.1 g/dL (3.4-5.0) L 03/28/18 06:30 Lipase 107 U/L (73-393) 03/27/18 14:40 Urine Color Yellow (Yellow) 03/27/18 14:25 Urine Clarity Clear 03/27/18 14:25 Urine pH 5.5 (5-8) 03/27/18 14:25 Ur Specific [place] >= 1.030 (1.005-1.025) H 03/27/18 14:25 Urine Protein 30 mg/dL (Negative) H 03/27/18 14:25 Urine Ketones Negative mg/dL (Negative) 03/27/18 14:25 Urine Blood Negative (Negative) 03/27/18 14:25 Urine Nitrite Negative (Negative) 03/27/18 14:25 Urine Bilirubin Small (Negative) H 03/27/18 14:25 Urine Urobilinogen 0.2 EU/dL (Up TO 0.2) 03/27/18 14:25 Ur Leukocyte Esterase Negative (Negative) 03/27/18 14:25 Urine RBC 0-2 (0-2) 03/27/18 14:25 Urine WBC 0-2 HPF (0-5) 03/27/18 14:25 Ur Epithelial Cells Few HPF (Negative) 03/27/18 14:25 Urine Crystals Few amorphous HPF (Negative) 03/27/18 14:25 Urine Bacteria Few HPF (Negative) 03/27/18 14:25 Urine Casts Negative LPF (Negative) 03/27/18 14:25 Urine Mucus Negative (Negative) 03/27/18 14:25 Urine Other Few renal (Negative) 03/27/18 14:25 Ur Culture Indicated? No 03/27/18 14:25 Urine Glucose 500 mg/dL (Negative) H 03/27/18 14:25
--- NOTE | 2018-03-28 10:37 | PDOC.CMIN ---
- If Service Date Differs Date of service: 03/28/18 Time of Service: 10:37 Care Management Initial Assess REASON FOR HOSPITALIZATION:: SBO PAST MEDICAL HISTORY/PAST SURGICAL HISTORY:: Colorectal cancer. Peristomal hernia. Small bowel obstruction due to adhesions. Tendonitis. breast cancer (~1997). rib fractures (01/27/15). type II diabetes. Breast, Lumpectomy. Colectectomy. External fixator removal, ORIF of left tibia nad fibula (02/14/15). Laparotomy (02/04/15). Left trimalleolar comminuted fracture (01/27/15) PREVIOUS FUNCTIONAL STATUS/SOCIAL/FAMILY SUPPORTS:: Heath resides with her Hakeem in [place]. She states that they have been for 40 + years. Heath has three children, one whom resides at home as he is disabled. 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 She states that she cares for her at home at this time. Heath is independent at baseline, she drives, and manages ADL's. CURRENT FUNCTIONAL STATUS:: Heath is lying in bed when this board writer visits this morning. She is pleasant and easily engages in discussion. ADVANCE DIRECTIVES:: None on file Has patient been provided with information about the portal?: Yes Did the patient sign up for the portal?: No CODE STATUS:: Full Code INSURANCE COVERAGE / FINANCIAL ISSUES:: MCR CURRENT HOME/COMMUNITY SERVICES/EQUIPMENT:: Currently heath has no services in the community. She states that she has a FWW at home that she does not use. PRIMARY CARE PHYSICIAN:: Stephanie Erwin POTENTIAL DISCHARGE NEEDS:: F/U appointment with Dr. Oliveira and PCP PATIENT/FAMILY EDUCATION NEEDS:: Review DC instructions, any limitations, and ongoing DC planning discussion. Review Ask Me Three ANTICIPATED BARRIERS TO DISCHARGE:: None identified at this time. TRANSPORTATION:: Via private vehicle with family PLAN:: Heath will return home with no anticipated services. She will F/U with Dr. Oliveira, PCP, and plan of care as prescribed. Heath's family will transport when ready.
--- NOTE | 2018-03-28 10:42 | INITIAL_ITS ---
- If Service Date Differs Date of service: 03/28/18 Time of Service: 10:37 Care Management Initial Assess REASON FOR HOSPITALIZATION:: SBO PAST MEDICAL HISTORY/PAST SURGICAL HISTORY:: Colorectal cancer. Peristomal hernia. Small bowel obstruction due to adhesions. Tendonitis. breast cancer ( ~1997). rib fractures (01/27/15). type II diabetes. Breast, Lumpectomy. Colectectomy. External fixator removal, ORIF of left tibia nad fibula (02/14/15 ). Laparotomy (02/04/15). Left trimalleolar comminuted fracture (01/27/15) PREVIOUS FUNCTIONAL STATUS/SOCIAL/FAMILY SUPPORTS:: Heath resides with her Hakeem in [place]. She states that they have been for 40 + years. Heath has three children, one whom resides at home as he is disabled. 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 She states that she cares for her at home at this time. Heath is independent at baseline, she drives, and manages ADL's. CURRENT FUNCTIONAL STATUS:: Heath is lying in bed when this ad writer visits this morning. She is pleasant and easily engages in discussion. ADVANCE DIRECTIVES:: None on file Has patient been provided with information about the portal?: Yes Did the patient sign up for the portal?: No CODE STATUS:: Full Code INSURANCE COVERAGE / FINANCIAL ISSUES:: MCR CURRENT HOME/COMMUNITY SERVICES/EQUIPMENT:: Currently heath has no services in the community. She states that she has a FWW at home that she does not use. PRIMARY CARE PHYSICIAN:: Stephanie Erwin POTENTIAL DISCHARGE NEEDS:: F/U appointment with Dr. Oliveira and PCP PATIENT/FAMILY EDUCATION NEEDS:: Review DC instructions, any limitations, and ongoing DC planning discussion. Review Ask Me Three ANTICIPATED BARRIERS TO DISCHARGE:: None identified at this time. TRANSPORTATION:: Via private vehicle with family PLAN:: Heath will return home with no anticipated services. She will F/U with Dr. Oliveira, PCP, and plan of care as prescribed. Heath's family will transport when ready.
--- NOTE | 2018-03-28 11:18 | PHARADMIT ---
Addendum entered by Marshall Bowles III 03/31/18 12:08: Pharmacy Note Subjective Tolerating clears,No abdominal pain. Advancing diet to Full liquid, NG tube removed. Ambulating in rooom. Objective VS-OK No Labs, FSBS-204 Wgt- 66.2 kg Last BM 03/28 Assessment No med changes Plan Awaiting surgery for when she may be discharged. Original Note: Addendum entered by Sarah Meza 03/30/18 17:10: Pharmacy Note Subjective pt feeling better today per progress note Objective VS okay Cl-111 SCr-1.21(down) BG-146 Assessment had NG tube placed yesterday no med changes today Plan continue to watch VS, labs and for med changes Original Note: Admission Pharmacy Clinical Review Small Bowel Obstruction Code Status Full Code Current Weight Wgt- 63.2 kg Renally Cleared and Narrow Therapeutic Index Meds CrCl~ 24.7 mL/min Meds-OK QTc Value / Action Taken NA BP Control, Fever BP- 122/73 Tmax- 36.9C Electrolytes reviewed Na- 137 K+4.1 DVT Prophylaxis none Opiate Usage / Scheduled Bowel Regimen Ordered none NPO Plt/SCr for Heparin / Enoxaparin Plts-135 SCr-1.30 INR for Warfarin na H/H stable, WBC/Bands H&H- 11.8/35.5 WBC- 7.62 Antibiotic appropriateness NONE Cultures and Sensitivities NONE Surgical ABX d/c within 24 hr na DM control / Insulin Dosing BG-207 Novolog mix 70/30 pen Heart Failure (Check EF%) (RICARDA's, B-Block, Diuretics) none IV to PO Switch No Home Meds Reviewed Yes Home Meds Not Ordered APAP, Vit-D, Vasotec, EpiPen, Glimepiride Lantus, Levothroid, Meclizine, Lyrica, MagOx, Januvia, Comments
[2018-03-28] MEDS: Pantoprazole 40 MG VIAL IVP (17:23)
[2018-03-28] MEDS: Ketorolac 15 MG/ML VIAL IVP (17:23)
[2018-03-28] MEDS: Meclizine 12.5 MG TAB PO (20:21)
[2018-03-28] MEDS: Pregabalin 25 MG CAP 75 MG PO (20:21)
[2018-03-28] MEDS: Simethicone 80 MG CHEW PO (20:27)
[2018-03-28] MEDS: Normal Saline 1,000 ML 80 ML IV (23:32)
[2018-03-29] MEDS: Dextrose 50%-Water 25 GM/50 ML SYR IVP ×2 (01:11→20:59)
[2018-03-29 03:20] VITALS: BP 120/69; PULSE 73; RESP 18; TEMP 36.8; O2SAT 97
[2018-03-29 07:17] VITALS: BP 147/87; PULSE 101; RESP 17; TEMP 36.6; O2SAT 96
[2018-03-29] MEDS: Ondansetron 4 MG/2 ML VIAL IVP (07:56)
[2018-03-29] MEDS: Normal Saline Flush 10 ML SYR IVP ×3 (07:56→21:01)
[2018-03-29] MEDS: Levothyroxine 100 MCG TAB PO (07:57)
[2018-03-29] MEDS: Pregabalin 25 MG CAP 75 MG PO ×2 (08:45→19:52)
[2018-03-29] MEDS: Meclizine 12.5 MG TAB PO ×2 (08:45→19:52)
[2018-03-29] MEDS: Enalapril 5 MG TAB 2.5 MG PO (08:46)
[2018-03-29] MEDS: Metoclopramide 10 MG/2 ML VIAL IVP ×3 (08:49→19:52)
[2018-03-29 09:27] LABS: Abs Immature Grans 0.02 k/cumm (0.0-0.09); Absolute Basophil Count 0.01 k/cumm (0.0-0.2); Absolute Eosinophil Count 0.03 k/cumm (0.0-0.7); Absolute Lymphocyte Count 0.73 k/cumm (1.2-3.4); Absolute Monocyte Count 0.48 k/cumm (0.11-0.7); Absolute Neutrophil Count 6.37 k/cumm (1.2-6.7); Basophils % 0.1; Eosinophils % 0.4; HCT 34.3 % (36.0-46.0); HGB 11.5 g/dL (12.0-15.5); Immature Grans % 0.3; Lactate-non-spesis 0.9 mmol/L (0.6-1.4); Lymphocytes % 9.6; Mean Corp. HGB Concentration 33.5 g/dL (32.0-36.0); Mean Corpuscular Hemoglobin 30.1 pg (27.0-33.0); Mean Corpuscular Volume 89.8 fL (80-95); Mean Platelet Volume 10.7 fL (8.0-11.0); Monocytes % 6.3; Neutrophils % 83.3; Platelet Count 124 x1000/uL (130-400); RBC 3.82 m/cumm (4.00-5.20); RBC Distribution Width 13.7 % (11.7-14.6); White Blood Cell Count 7.64 k/cumm (4.4-10.8)
[2018-03-29 09:47] LABS: ALT 18 U/L (12-78); AST 18 U/L (15-37); Albumin 2.9 g/dL (3.4-5.0); Alkaline Phosphatase 93 U/L (46-116); Anion Gap 11.2 mmol/L (3-11); BUN 22 mg/dL (7-18); Bilirubin, Total 1.1 mg/dL (0.2-1.0); CO2 16.8 mmol/L (21.0-32.0); CREATININE 1.34 mg/dL (0.55-1.02); Chloride 108 mmol/L (98-107); Estimated GFR 38.06 (mL/min/1.73m2); Glucose 222 mg/dL (70-100); Potassium 4.2 mmol/L (3.5-5.1); Sodium 136 mmol/L (136-145); Total Protein 6.4 g/dL (6.4-8.2)
[2018-03-29] MEDS: Acetaminophen 325 MG TAB 650 MG PO (10:21)
--- NOTE | 2018-03-29 10:58 | W.PM.PROGNOT ---
Documented by User: KIMMIE Andrade 03/29/18 12:36 Documented by User: KIMMIE Andrade 03/29/18 12:36 Subjective Patient reports: Interval history since last seen: Mrs. Rodriguez reports that earlier this morning following drinking some clear Ensure she became nauseas and vomited. She was unsure if this was due to the sweetness of the Ensure or if it upset her stomach. Her nausea improved following Zofran and has since tolerated sips of water without any nausea or vomiting. She states that she continues to have cramping abdominal pain that is predominately located in the RLQ. Which she recently received Tylenol for. She states that her colostomy output of stool and gas has slowed in comparison to yesterday. However, she can feel and hear her bowels moving. She has been ambulating to the restroom throughout yesterday afternoon and this morning however has not been ambulating longer distances. Exam Const General: Orientation: Resp Effort & Inspection: Auscultation: Cardio Jugular venous pressure: Rate: Rhythm: Heart Sounds: GI Inspection: Palpation: Auscultation: Objective Objective Clinical Data: Abnormal lab results 03/29/18 03/29/18 Range/Units 09:18 09:18 RBC 3.82 L (4.00-5.20) m/cumm Hgb 11.5 L (12.0-15.5) g/dL Hct 34.3 L (36.0-46.0) % Plt Count 124 L (130-400) x1000/uL Absolute Lymphocytes 0.73 L (1.2-3.4) k/cumm Chloride 108 H (98-107) mmol/L Carbon Dioxide 16.8 L (21.0-32.0) mmol/L Anion Gap 11.2 H (3-11) mmol/L BUN 22 H D (7-18) mg/dL Creatinine 1.34 H (0.55-1.02) mg/dL Glucose 222 H (70-100) mg/dL Calcium 8.0 L (8.5-10.1) mg/dL Total Bilirubin 1.1 H (0.2-1.0) mg/dL Albumin 2.9 L (3.4-5.0) g/dL Vital Signs Temperature 36.6 C 03/29/18 07:17 Temperature Source Tympanic 03/29/18 07:17 Pulse 101 H 03/29/18 07:17 Pulse Rhythm Regular 03/29/18 09:12 Respiratory Rate 17 03/29/18 07:17 Respiratory Effort Non-Labored 03/29/18 09:12 Respiratory Depth Normal 03/29/18 09:12 Respiratory Pattern Normal 03/29/18 09:12 Blood Pressure 147/87 H 03/29/18 07:17 Blood Pressure Position Sitting 03/27/18 14:05 Pulse Oximetry 96 03/29/18 07:17 Oxygen Delivery Method Room Air 03/29/18 07:17 Oxygen Flow Rate 0 03/29/18 07:17 Pain Level 3 03/29/18 10:21 Comment 03/28/18 04:35 Intake & Output 03/28/18 03/28/18 03/29/18 11:59 23:59 11:59 Intake Total 1155.417 / 7282.264 4704.75 / 1678.75 60 / 60 Output Total 1050 / 1050 225 / 225 Balance 105.417 / 418.692 2304.75 / 1453.75 60 / 60 Weight 63.2 kg 64.6 kg Intake: IV 935.417 / 764.869 6711.75 / 1368.75 Oral 220 / 220 310 / 310 60 / 60 Output: Stool 1050 / 1050 225 / 225 Other: Urine Appearance Clear Comment void per patient void x1 in toilet pt gets up to void AD MEGAN Stool Size Moderate Moderate Stool Characteristics Liquid Liquid Brown Brown Voiding Methods Toilet Toilet Laboratory Results WBC 7.64 k/cumm (4.4-10.8) 03/29/18 09:18 RBC 3.82 m/cumm (4.00-5.20) L 03/29/18 09:18 Hgb 11.5 g/dL (12.0-15.5) L 03/29/18 09:18 Hct 34.3 % (36.0-46.0) L 03/29/18 09:18 MCV 89.8 fL (80-95) 03/29/18 09:18 MCH 30.1 pg (27.0-33.0) 03/29/18 09:18 MCHC 33.5 g/dL (32.0-36.0) 03/29/18 09:18 RDW 13.7 % (11.7-14.6) 03/29/18 09:18 Plt Count 124 x1000/uL (130-400) L 03/29/18 09:18 MPV 10.7 fL (8.0-11.0) 03/29/18 09:18 Immature Gran % 0.3 03/29/18 09:18 Neutrophils % 83.3 03/29/18 09:18 Lymphocytes % 9.6 03/29/18 09:18 Monocytes % 6.3 03/29/18 09:18 Eosinophils % 0.4 03/29/18 09:18 Basophils % 0.1 03/29/18 09:18 Absolute Neutrophils 6.37 k/cumm (1.2-6.7) 03/29/18 09:18 Absolute Lymphocytes 0.73 k/cumm (1.2-3.4) L 03/29/18 09:18 Absolute Monocytes 0.48 k/cumm (0.11-0.7) 03/29/18 09:18 Absolute Eosinophils 0.03 k/cumm (0.0-0.7) 03/29/18 09:18 Absolute Basophils 0.01 k/cumm (0.0-0.2) 03/29/18 09:18 Sodium 136 mmol/L (136-145) 03/29/18 09:18 Potassium 4.2 mmol/L (3.5-5.1) 03/29/18 09:18 Chloride 108 mmol/L (98-107) H 03/29/18 09:18 Carbon Dioxide 16.8 mmol/L (21.0-32.0) L 03/29/18 09:18 Anion Gap 11.2 mmol/L (3-11) H 03/29/18 09:18 BUN 22 mg/dL (7-18) H D 03/29/18 09:18 Creatinine 1.34 mg/dL (0.55-1.02) H 03/29/18 09:18 Estimated GFR/1.73 m2 38.06 (mL/min/1.73m2) 03/29/18 09:18 Glucose 222 mg/dL (70-100) H 03/29/18 09:18 Lactate 0.9 mmol/L (0.6-1.4) 03/29/18 09:18 Calcium 8.0 mg/dL (8.5-10.1) L 03/29/18 09:18 Total Bilirubin 1.1 mg/dL (0.2-1.0) H 03/29/18 09:18 AST 18 U/L (15-37) 03/29/18 09:18 ALT 18 U/L (12-78) 03/29/18 09:18 Alkaline Phosphatase 93 U/L (46-116) 03/29/18 09:18 Total Protein 6.4 g/dL (6.4-8.2) 03/29/18 09:18 Albumin 2.9 g/dL (3.4-5.0) L 03/29/18 09:18 Lipase 107 U/L (73-393) 03/27/18 14:40 Urine Color Yellow (Yellow) 03/27/18 14:25 Urine Clarity Clear 03/27/18 14:25 Urine pH 5.5 (5-8) 03/27/18 14:25 Ur Specific [place] >= 1.030 (1.005-1.025) H 03/27/18 14:25 Urine Protein 30 mg/dL (Negative) H 03/27/18 14:25 Urine Ketones Negative mg/dL (Negative) 03/27/18 14:25 Urine Blood Negative (Negative) 03/27/18 14:25 Urine Nitrite Negative (Negative) 03/27/18 14:25 Urine Bilirubin Small (Negative) H 03/27/18 14:25 Urine Urobilinogen 0.2 EU/dL (Up TO 0.2) 03/27/18 14:25 Ur Leukocyte Esterase Negative (Negative) 03/27/18 14:25 Urine RBC 0-2 (0-2) 03/27/18 14:25 Urine WBC 0-2 HPF (0-5) 03/27/18 14:25 Ur Epithelial Cells Few HPF (Negative) 03/27/18 14:25 Urine Crystals Few amorphous HPF (Negative) 03/27/18 14:25 Urine Bacteria Few HPF (Negative) 03/27/18 14:25 Urine Casts Negative LPF (Negative) 03/27/18 14:25 Urine Mucus Negative (Negative) 03/27/18 14:25 Urine Other Few renal (Negative) 03/27/18 14:25 Ur Culture Indicated? No 03/27/18 14:25 Urine Glucose 500 mg/dL (Negative) H 03/27/18 14:25 Documented by User: An Pradhan MD 03/29/18 13:17 Documented by User: An Pradhan MD 03/29/18 13:17 Documented by User: [email or web address] Andrade 03/29/18 12:36 Subjective Patient reports: Interval history since last seen: Mrs. Rodriguez reports that earlier this morning following drinking some clear Ensure she became nauseas and vomited. She was unsure if this was due to the sweetness of the Ensure or if it upset her stomach. Her nausea improved following Zofran and has since tolerated sips of water without any nausea or vomiting. She states that she continues to have cramping abdominal pain that is predominately located in the RLQ. Which she recently received Tylenol for. She states that her colostomy output of stool and gas has slowed in comparison to yesterday. However, she can feel and hear her bowels moving. She has been ambulating to the restroom throughout yesterday afternoon and this morning however has not been ambulating longer distances. Exam Const General: Orientation: Resp Effort & Inspection: Auscultation: Cardio Jugular venous pressure: Rate: Rhythm: Heart Sounds: GI Inspection: Palpation: Auscultation: Objective Objective Clinical Data: Abnormal lab results 03/29/18 03/29/18 Range/Units 09:18 09:18 RBC 3.82 L (4.00-5.20) m/cumm Hgb 11.5 L (12.0-15.5) g/dL Hct 34.3 L (36.0-46.0) % Plt Count 124 L (130-400) x1000/uL Absolute Lymphocytes 0.73 L (1.2-3.4) k/cumm Chloride 108 H (98-107) mmol/L Carbon Dioxide 16.8 L (21.0-32.0) mmol/L Anion Gap 11.2 H (3-11) mmol/L BUN 22 H D (7-18) mg/dL Creatinine 1.34 H (0.55-1.02) mg/dL Glucose 222 H (70-100) mg/dL Calcium 8.0 L (8.5-10.1) mg/dL Total Bilirubin 1.1 H (0.2-1.0) mg/dL Albumin 2.9 L (3.4-5.0) g/dL Vital Signs Temperature 36.6 C 03/29/18 07:17 Temperature Source Tympanic 03/29/18 07:17 Pulse 101 H 03/29/18 07:17 Pulse Rhythm Regular 03/29/18 09:12 Respiratory Rate 17 03/29/18 07:17 Respiratory Effort Non-Labored 03/29/18 09:12 Respiratory Depth Normal 03/29/18 09:12 Respiratory Pattern Normal 03/29/18 09:12 Blood Pressure 147/87 H 03/29/18 07:17 Blood Pressure Position Sitting 03/27/18 14:05 Pulse Oximetry 96 03/29/18 07:17 Oxygen Delivery Method Room Air 03/29/18 07:17 Oxygen Flow Rate 0 03/29/18 07:17 Pain Level 3 03/29/18 10:21 Comment 03/28/18 04:35 Intake & Output 03/28/18 03/28/18 03/29/18 11:59 23:59 11:59 Intake Total 1155.417 / 6432.339 9219.75 / 1678.75 60 / 60 Output Total 1050 / 1050 225 / 225 Balance 105.417 / 102.825 6603.75 / 1453.75 60 / 60 Weight 63.2 kg 64.6 kg Intake: IV 935.417 / 116.438 4706.75 / 1368.75 Oral 220 / 220 310 / 310 60 / 60 Output: Stool 1050 / 1050 225 / 225 Other: Urine Appearance Clear Comment void per patient void x1 in toilet pt gets up to void AD MEGAN Stool Size Moderate Moderate Stool Characteristics Liquid Liquid Brown Brown Voiding Methods Toilet Toilet Laboratory Results WBC 7.64 k/cumm (4.4-10.8) 03/29/18 09:18 RBC 3.82 m/cumm (4.00-5.20) L 03/29/18 09:18 Hgb 11.5 g/dL (12.0-15.5) L 03/29/18 09:18 Hct 34.3 % (36.0-46.0) L 03/29/18 09:18 MCV 89.8 fL (80-95) 03/29/18 09:18 MCH 30.1 pg (27.0-33.0) 03/29/18 09:18 MCHC 33.5 g/dL (32.0-36.0) 03/29/18 09:18 RDW 13.7 % (11.7-14.6) 03/29/18 09:18 Plt Count 124 x1000/uL (130-400) L 03/29/18 09:18 MPV 10.7 fL (8.0-11.0) 03/29/18 09:18 Immature Gran % 0.3 03/29/18 09:18 Neutrophils % 83.3 03/29/18 09:18 Lymphocytes % 9.6 03/29/18 09:18 Monocytes % 6.3 03/29/18 09:18 Eosinophils % 0.4 03/29/18 09:18 Basophils % 0.1 03/29/18 09:18 Absolute Neutrophils 6.37 k/cumm (1.2-6.7) 03/29/18 09:18 Absolute Lymphocytes 0.73 k/cumm (1.2-3.4) L 03/29/18 09:18 Absolute Monocytes 0.48 k/cumm (0.11-0.7) 03/29/18 09:18 Absolute Eosinophils 0.03 k/cumm (0.0-0.7) 03/29/18 09:18 Absolute Basophils 0.01 k/cumm (0.0-0.2) 03/29/18 09:18 Sodium 136 mmol/L (136-145) 03/29/18 09:18 Potassium 4.2 mmol/L (3.5-5.1) 03/29/18 09:18 Chloride 108 mmol/L (98-107) H 03/29/18 09:18 Carbon Dioxide 16.8 mmol/L (21.0-32.0) L 03/29/18 09:18 Anion Gap 11.2 mmol/L (3-11) H 03/29/18 09:18 BUN 22 mg/dL (7-18) H D 03/29/18 09:18 Creatinine 1.34 mg/dL (0.55-1.02) H 03/29/18 09:18 Estimated GFR/1.73 m2 38.06 (mL/min/1.73m2) 03/29/18 09:18 Glucose 222 mg/dL (70-100) H 03/29/18 09:18 Lactate 0.9 mmol/L (0.6-1.4) 03/29/18 09:18 Calcium 8.0 mg/dL (8.5-10.1) L 03/29/18 09:18 Total Bilirubin 1.1 mg/dL (0.2-1.0) H 03/29/18 09:18 AST 18 U/L (15-37) 03/29/18 09:18 ALT 18 U/L (12-78) 03/29/18 09:18 Alkaline Phosphatase 93 U/L (46-116) 03/29/18 09:18 Total Protein 6.4 g/dL (6.4-8.2) 03/29/18 09:18 Albumin 2.9 g/dL (3.4-5.0) L 03/29/18 09:18 Lipase 107 U/L (73-393) 03/27/18 14:40 Urine Color Yellow (Yellow) 03/27/18 14:25 Urine Clarity Clear 03/27/18 14:25 Urine pH 5.5 (5-8) 03/27/18 14:25 Ur Specific [place] >= 1.030 (1.005-1.025) H 03/27/18 14:25 Urine Protein 30 mg/dL (Negative) H 03/27/18 14:25 Urine Ketones Negative mg/dL (Negative) 03/27/18 14:25 Urine Blood Negative (Negative) 03/27/18 14:25 Urine Nitrite Negative (Negative) 03/27/18 14:25 Urine Bilirubin Small (Negative) H 03/27/18 14:25 Urine Urobilinogen 0.2 EU/dL (Up TO 0.2) 03/27/18 14:25 Ur Leukocyte Esterase Negative (Negative) 03/27/18 14:25 Urine RBC 0-2 (0-2) 03/27/18 14:25 Urine WBC 0-2 HPF (0-5) 03/27/18 14:25 Ur Epithelial Cells Few HPF (Negative) 03/27/18 14:25 Urine Crystals Few amorphous HPF (Negative) 03/27/18 14:25 Urine Bacteria Few HPF (Negative) 03/27/18 14:25 Urine Casts Negative LPF (Negative) 03/27/18 14:25 Urine Mucus Negative (Negative) 03/27/18 14:25 Urine Other Few renal (Negative) 03/27/18 14:25 Ur Culture Indicated? No 03/27/18 14:25 Urine Glucose 500 mg/dL (Negative) H 03/27/18 14:25 Documented by User: An Pradhan MD 03/29/18 13:17
--- NOTE | 2018-03-29 11:04 | PGE_ITS ---
Assessment and Plan (1) Ileus: Current visit: Yes Status: Acute A\\ Continues with distention. Continues to have air and liquid stool from the ostomy. All hernias are reducible. Had one episode of emesis after drinking ensure clear. Tolerating water. Abdomen is more distended then yesterday with hyperactive BS ? Partial Obstruction Labs are unremarkable P\\ Will place an NG tube for decompression. And give her 24 more hours to see if she opens up. Increase Iv fluids again. Ambulate at least TID Subjective Interval history since last seen: Patient had one bout of emesis this morning after drinking clear ensure. She has been tolerating water. Still with camping abdominal pain. Still has output from her Ostomy and some air. Bowel sounds are loud. Exam Const General: comfortable and no acute distress Eyes Pupils: PERRL Resp Effort & Inspection: normal respiratory effort Auscultation: clear to auscultation bilaterally and diminished lung sounds bilaterally in the lower lung elizabeth Cardio Rate: regular rate Heart Sounds: no gallops, no murmurs and no rubs GI Inspection: distended, scar (multiple scars in the midline) and other (Ostomy is pink. I am able to place my finger through the fascia.) Palpation: soft, hernia (multiple hernias, all reducible) and tender (mild tenderness throughout) Auscultation: hyperactive bowel sounds Objective Objective Clinical Data: Abnormal lab results 03/29/18 03/29/18 Range/Units 09:18 09:18 RBC 3.82 L (4.00-5.20) m/cumm Hgb 11.5 L (12.0-15.5) g/dL Hct 34.3 L (36.0-46.0) % Plt Count 124 L (130-400) x1000/uL Absolute Lymphocytes 0.73 L (1.2-3.4) k/cumm Chloride 108 H (98-107) mmol/L Carbon Dioxide 16.8 L (21.0-32.0) mmol/L Anion Gap 11.2 H (3-11) mmol/L BUN 22 H D (7-18) mg/dL Creatinine 1.34 H (0.55-1.02) mg/dL Glucose 222 H (70-100) mg/dL Calcium 8.0 L (8.5-10.1) mg/dL Total Bilirubin 1.1 H (0.2-1.0) mg/dL Albumin 2.9 L (3.4-5.0) g/dL Vital Signs Temperature 97.9 F 03/29/18 07:17 Temperature Source Tympanic 03/29/18 07:17 Pulse 101 H 03/29/18 07:17 Pulse Rhythm Regular 03/29/18 09:12 Respiratory Rate 17 03/29/18 07:17 Respiratory Effort Non-Labored 03/29/18 09:12 Respiratory Depth Normal 03/29/18 09:12 Respiratory Pattern Normal 03/29/18 09:12 Blood Pressure 147/87 H 03/29/18 07:17 Blood Pressure Position Sitting 03/27/18 14:05 Pulse Oximetry 96 03/29/18 07:17 Oxygen Delivery Method Room Air 03/29/18 07:17 Oxygen Flow Rate 0 03/29/18 07:17 Pain Level 3 03/29/18 10:21 Comment 03/28/18 04:35 Intake & Output 03/28/18 03/28/18 03/29/18 11:59 23:59 11:59 Intake Total 1155.417 / 2888.226 0847.75 / 1678.75 60 / 60 Output Total 1050 / 1050 225 / 225 Balance 105.417 / 905.063 8303.75 / 1453.75 60 / 60 Weight 139 lb 5.314 oz 142 lb 6.698 oz Intake: IV 935.417 / 543.324 5663.75 / 1368.75 Oral 220 / 220 310 / 310 60 / 60 Output: Stool 1050 / 1050 225 / 225 Other: Urine Appearance Clear Comment void per patient void x1 in toilet pt gets up to void AD MEGAN Stool Size Moderate Moderate Stool Characteristics Liquid Liquid Brown Brown Voiding Methods Toilet Toilet Laboratory Results WBC 7.64 k/cumm (4.4-10.8) 03/29/18 09:18 RBC 3.82 m/cumm (4.00-5.20) L 03/29/18 09:18 Hgb 11.5 g/dL (12.0-15.5) L 03/29/18 09:18 Hct 34.3 % (36.0-46.0) L 03/29/18 09:18 MCV 89.8 fL (80-95) 03/29/18 09:18 MCH 30.1 pg (27.0-33.0) 03/29/18 09:18 MCHC 33.5 g/dL (32.0-36.0) 03/29/18 09:18 RDW 13.7 % (11.7-14.6) 03/29/18 09:18 Plt Count 124 x1000/uL (130-400) L 03/29/18 09:18 MPV 10.7 fL (8.0-11.0) 03/29/18 09:18 Immature Gran % 0.3 03/29/18 09:18 Neutrophils % 83.3 03/29/18 09:18 Lymphocytes % 9.6 03/29/18 09:18 Monocytes % 6.3 03/29/18 09:18 Eosinophils % 0.4 03/29/18 09:18 Basophils % 0.1 03/29/18 09:18 Absolute Neutrophils 6.37 k/cumm (1.2-6.7) 03/29/18 09:18 Absolute Lymphocytes 0.73 k/cumm (1.2-3.4) L 03/29/18 09:18 Absolute Monocytes 0.48 k/cumm (0.11-0.7) 03/29/18 09:18 Absolute Eosinophils 0.03 k/cumm (0.0-0.7) 03/29/18 09:18 Absolute Basophils 0.01 k/cumm (0.0-0.2) 03/29/18 09:18 Sodium 136 mmol/L (136-145) 03/29/18 09:18 Potassium 4.2 mmol/L (3.5-5.1) 03/29/18 09:18 Chloride 108 mmol/L (98-107) H 03/29/18 09:18 Carbon Dioxide 16.8 mmol/L (21.0-32.0) L 03/29/18 09:18 Anion Gap 11.2 mmol/L (3-11) H 03/29/18 09:18 BUN 22 mg/dL (7-18) H D 03/29/18 09:18 Creatinine 1.34 mg/dL (0.55-1.02) H 03/29/18 09:18 Estimated GFR/1.73 m2 38.06 (mL/min/1.73m2) 03/29/18 09:18 Glucose 222 mg/dL (70-100) H 03/29/18 09:18 Lactate 0.9 mmol/L (0.6-1.4) 03/29/18 09:18 Calcium 8.0 mg/dL (8.5-10.1) L 03/29/18 09:18 Total Bilirubin 1.1 mg/dL (0.2-1.0) H 03/29/18 09:18 AST 18 U/L (15-37) 03/29/18 09:18 ALT 18 U/L (12-78) 03/29/18 09:18 Alkaline Phosphatase 93 U/L (46-116) 03/29/18 09:18 Total Protein 6.4 g/dL (6.4-8.2) 03/29/18 09:18 Albumin 2.9 g/dL (3.4-5.0) L 03/29/18 09:18 Lipase 107 U/L (73-393) 03/27/18 14:40 Urine Color Yellow (Yellow) 03/27/18 14:25 Urine Clarity Clear 03/27/18 14:25 Urine pH 5.5 (5-8) 03/27/18 14:25 Ur Specific [place] >= 1.030 (1.005-1.025) H 03/27/18 14:25 Urine Protein 30 mg/dL (Negative) H 03/27/18 14:25 Urine Ketones Negative mg/dL (Negative) 03/27/18 14:25 Urine Blood Negative (Negative) 03/27/18 14:25 Urine Nitrite Negative (Negative) 03/27/18 14:25 Urine Bilirubin Small (Negative) H 03/27/18 14:25 Urine Urobilinogen 0.2 EU/dL (Up TO 0.2) 03/27/18 14:25 Ur Leukocyte Esterase Negative (Negative) 03/27/18 14:25 Urine RBC 0-2 (0-2) 03/27/18 14:25 Urine WBC 0-2 HPF (0-5) 03/27/18 14:25 Ur Epithelial Cells Few HPF (Negative) 03/27/18 14:25 Urine Crystals Few amorphous HPF (Negative) 03/27/18 14:25 Urine Bacteria Few HPF (Negative) 03/27/18 14:25 Urine Casts Negative LPF (Negative) 03/27/18 14:25 Urine Mucus Negative (Negative) 03/27/18 14:25 Urine Other Few renal (Negative) 03/27/18 14:25 Ur Culture Indicated? No 03/27/18 14:25 Urine Glucose 500 mg/dL (Negative) H 03/27/18 14:25
--- NOTE | 2018-03-29 11:05 | PGE_ITS ---
Documented by User: KIMMIE Andrade 03/29/18 12:36 Documented by User: KIMMIE Andrade 03/29/18 12:36 Subjective Patient reports: Interval history since last seen: Mrs. Rodriguez reports that earlier this morning following drinking some clear Ensure she became nauseas and vomited. She was unsure if this was due to the sweetness of the Ensure or if it upset her stomach. Her nausea improved following Zofran and has since tolerated sips of water without any nausea or vomiting. She states that she continues to have cramping abdominal pain that is predominately located in the RLQ. Which she recently received Tylenol for. She states that her colostomy output of stool and gas has slowed in comparison to yesterday. However, she can feel and hear her bowels moving. She has been ambulating to the restroom throughout yesterday afternoon and this morning however has not been ambulating longer distances. Exam Const General: Orientation: Resp Effort & Inspection: Auscultation: Cardio Jugular venous pressure: Rate: Rhythm: Heart Sounds: GI Inspection: Palpation: Auscultation: Objective Objective Clinical Data: Abnormal lab results 03/29/18 03/29/18 Range/Units 09:18 09:18 RBC 3.82 L (4.00-5.20) m/cumm Hgb 11.5 L (12.0-15.5) g/dL Hct 34.3 L (36.0-46.0) % Plt Count 124 L (130-400) x1000/uL Absolute Lymphocytes 0.73 L (1.2-3.4) k/cumm Chloride 108 H (98-107) mmol/L Carbon Dioxide 16.8 L (21.0-32.0) mmol/L Anion Gap 11.2 H (3-11) mmol/L BUN 22 H D (7-18) mg/dL Creatinine 1.34 H (0.55-1.02) mg/dL Glucose 222 H (70-100) mg/dL Calcium 8.0 L (8.5-10.1) mg/dL Total Bilirubin 1.1 H (0.2-1.0) mg/dL Albumin 2.9 L (3.4-5.0) g/dL Vital Signs Temperature 36.6 C 03/29/18 07:17 Temperature Source Tympanic 03/29/18 07:17 Pulse 101 H 03/29/18 07:17 Pulse Rhythm Regular 03/29/18 09:12 Respiratory Rate 17 03/29/18 07:17 Respiratory Effort Non-Labored 03/29/18 09:12 Respiratory Depth Normal 03/29/18 09:12 Respiratory Pattern Normal 03/29/18 09:12 Blood Pressure 147/87 H 03/29/18 07:17 Blood Pressure Position Sitting 03/27/18 14:05 Pulse Oximetry 96 03/29/18 07:17 Oxygen Delivery Method Room Air 03/29/18 07:17 Oxygen Flow Rate 0 03/29/18 07:17 Pain Level 3 03/29/18 10:21 Comment 03/28/18 04:35 Intake & Output 03/28/18 03/28/18 03/29/18 11:59 23:59 11:59 Intake Total 1155.417 / 5495.433 3754.75 / 1678.75 60 / 60 Output Total 1050 / 1050 225 / 225 Balance 105.417 / 148.543 6315.75 / 1453.75 60 / 60 Weight 63.2 kg 64.6 kg Intake: IV 935.417 / 528.161 4075.75 / 1368.75 Oral 220 / 220 310 / 310 60 / 60 Output: Stool 1050 / 1050 225 / 225 Other: Urine Appearance Clear Comment void per patient void x1 in toilet pt gets up to void AD MEGAN Stool Size Moderate Moderate Stool Characteristics Liquid Liquid Brown Brown Voiding Methods Toilet Toilet Laboratory Results WBC 7.64 k/cumm (4.4-10.8) 03/29/18 09:18 RBC 3.82 m/cumm (4.00-5.20) L 03/29/18 09:18 Hgb 11.5 g/dL (12.0-15.5) L 03/29/18 09:18 Hct 34.3 % (36.0-46.0) L 03/29/18 09:18 MCV 89.8 fL (80-95) 03/29/18 09:18 MCH 30.1 pg (27.0-33.0) 03/29/18 09:18 MCHC 33.5 g/dL (32.0-36.0) 03/29/18 09:18 RDW 13.7 % (11.7-14.6) 03/29/18 09:18 Plt Count 124 x1000/uL (130-400) L 03/29/18 09:18 MPV 10.7 fL (8.0-11.0) 03/29/18 09:18 Immature Gran % 0.3 03/29/18 09:18 Neutrophils % 83.3 03/29/18 09:18 Lymphocytes % 9.6 03/29/18 09:18 Monocytes % 6.3 03/29/18 09:18 Eosinophils % 0.4 03/29/18 09:18 Basophils % 0.1 03/29/18 09:18 Absolute Neutrophils 6.37 k/cumm (1.2-6.7) 03/29/18 09:18 Absolute Lymphocytes 0.73 k/cumm (1.2-3.4) L 03/29/18 09:18 Absolute Monocytes 0.48 k/cumm (0.11-0.7) 03/29/18 09:18 Absolute Eosinophils 0.03 k/cumm (0.0-0.7) 03/29/18 09:18 Absolute Basophils 0.01 k/cumm (0.0-0.2) 03/29/18 09:18 Sodium 136 mmol/L (136-145) 03/29/18 09:18 Potassium 4.2 mmol/L (3.5-5.1) 03/29/18 09:18 Chloride 108 mmol/L (98-107) H 03/29/18 09:18 Carbon Dioxide 16.8 mmol/L (21.0-32.0) L 03/29/18 09:18 Anion Gap 11.2 mmol/L (3-11) H 03/29/18 09:18 BUN 22 mg/dL (7-18) H D 03/29/18 09:18 Creatinine 1.34 mg/dL (0.55-1.02) H 03/29/18 09:18 Estimated GFR/1.73 m2 38.06 (mL/min/1.73m2) 03/29/18 09:18 Glucose 222 mg/dL (70-100) H 03/29/18 09:18 Lactate 0.9 mmol/L (0.6-1.4) 03/29/18 09:18 Calcium 8.0 mg/dL (8.5-10.1) L 03/29/18 09:18 Total Bilirubin 1.1 mg/dL (0.2-1.0) H 03/29/18 09:18 AST 18 U/L (15-37) 03/29/18 09:18 ALT 18 U/L (12-78) 03/29/18 09:18 Alkaline Phosphatase 93 U/L (46-116) 03/29/18 09:18 Total Protein 6.4 g/dL (6.4-8.2) 03/29/18 09:18 Albumin 2.9 g/dL (3.4-5.0) L 03/29/18 09:18 Lipase 107 U/L (73-393) 03/27/18 14:40 Urine Color Yellow (Yellow) 03/27/18 14:25 Urine Clarity Clear 03/27/18 14:25 Urine pH 5.5 (5-8) 03/27/18 14:25 Ur Specific Labelle >= 1.030 (1.005-1.025) H 03/27/18 14:25 Urine Protein 30 mg/dL (Negative) H 03/27/18 14:25 Urine Ketones Negative mg/dL (Negative) 03/27/18 14:25 Urine Blood Negative (Negative) 03/27/18 14:25 Urine Nitrite Negative (Negative) 03/27/18 14:25 Urine Bilirubin Small (Negative) H 03/27/18 14:25 Urine Urobilinogen 0.2 EU/dL (Up TO 0.2) 03/27/18 14:25 Ur Leukocyte Esterase Negative (Negative) 03/27/18 14:25 Urine RBC 0-2 (0-2) 03/27/18 14:25 Urine WBC 0-2 HPF (0-5) 03/27/18 14:25 Ur Epithelial Cells Few HPF (Negative) 03/27/18 14:25 Urine Crystals Few amorphous HPF (Negative) 03/27/18 14:25 Urine Bacteria Few HPF (Negative) 03/27/18 14:25 Urine Casts Negative LPF (Negative) 03/27/18 14:25 Urine Mucus Negative (Negative) 03/27/18 14:25 Urine Other Few renal (Negative) 03/27/18 14:25 Ur Culture Indicated? No 03/27/18 14:25 Urine Glucose 500 mg/dL (Negative) H 03/27/18 14:25 Documented by User: An Pradhan MD 03/29/18 13:17 Documented by User: An Pradhan MD 03/29/18 13:17 Documented by User: [email or web address] Andrade 03/29/18 12:36 Subjective Patient reports: Interval history since last seen: Mrs. Rodriguez reports that earlier this morning following drinking some clear Ensure she became nauseas and vomited. She was unsure if this was due to the sweetness of the Ensure or if it upset her stomach. Her nausea improved following Zofran and has since tolerated sips of water without any nausea or vomiting. She states that she continues to have cramping abdominal pain that is predominately located in the RLQ. Which she recently received Tylenol for. She states that her colostomy output of stool and gas has slowed in comparison to yesterday. However, she can feel and hear her bowels moving. She has been ambulating to the restroom throughout yesterday afternoon and this morning however has not been ambulating longer distances. Exam Const General: Orientation: Resp Effort & Inspection: Auscultation: Cardio Jugular venous pressure: Rate: Rhythm: Heart Sounds: GI Inspection: Palpation: Auscultation: Objective Objective Clinical Data: Abnormal lab results 03/29/18 03/29/18 Range/Units 09:18 09:18 RBC 3.82 L (4.00-5.20) m/cumm Hgb 11.5 L (12.0-15.5) g/dL Hct 34.3 L (36.0-46.0) % Plt Count 124 L (130-400) x1000/uL Absolute Lymphocytes 0.73 L (1.2-3.4) k/cumm Chloride 108 H (98-107) mmol/L Carbon Dioxide 16.8 L (21.0-32.0) mmol/L Anion Gap 11.2 H (3-11) mmol/L BUN 22 H D (7-18) mg/dL Creatinine 1.34 H (0.55-1.02) mg/dL Glucose 222 H (70-100) mg/dL Calcium 8.0 L (8.5-10.1) mg/dL Total Bilirubin 1.1 H (0.2-1.0) mg/dL Albumin 2.9 L (3.4-5.0) g/dL Vital Signs Temperature 36.6 C 03/29/18 07:17 Temperature Source Tympanic 03/29/18 07:17 Pulse 101 H 03/29/18 07:17 Pulse Rhythm Regular 03/29/18 09:12 Respiratory Rate 17 03/29/18 07:17 Respiratory Effort Non-Labored 03/29/18 09:12 Respiratory Depth Normal 03/29/18 09:12 Respiratory Pattern Normal 03/29/18 09:12 Blood Pressure 147/87 H 03/29/18 07:17 Blood Pressure Position Sitting 03/27/18 14:05 Pulse Oximetry 96 03/29/18 07:17 Oxygen Delivery Method Room Air 03/29/18 07:17 Oxygen Flow Rate 0 03/29/18 07:17 Pain Level 3 03/29/18 10:21 Comment 03/28/18 04:35 Intake & Output 03/28/18 03/28/18 03/29/18 11:59 23:59 11:59 Intake Total 1155.417 / 5449.663 3828.75 / 1678.75 60 / 60 Output Total 1050 / 1050 225 / 225 Balance 105.417 / 352.538 0745.75 / 1453.75 60 / 60 Weight 63.2 kg 64.6 kg Intake: IV 935.417 / 604.941 7825.75 / 1368.75 Oral 220 / 220 310 / 310 60 / 60 Output: Stool 1050 / 1050 225 / 225 Other: Urine Appearance Clear Comment void per patient void x1 in toilet pt gets up to void AD MEGAN Stool Size Moderate Moderate Stool Characteristics Liquid Liquid Brown Brown Voiding Methods Toilet Toilet Laboratory Results WBC 7.64 k/cumm (4.4-10.8) 03/29/18 09:18 RBC 3.82 m/cumm (4.00-5.20) L 03/29/18 09:18 Hgb 11.5 g/dL (12.0-15.5) L 03/29/18 09:18 Hct 34.3 % (36.0-46.0) L 03/29/18 09:18 MCV 89.8 fL (80-95) 03/29/18 09:18 MCH 30.1 pg (27.0-33.0) 03/29/18 09:18 MCHC 33.5 g/dL (32.0-36.0) 03/29/18 09:18 RDW 13.7 % (11.7-14.6) 03/29/18 09:18 Plt Count 124 x1000/uL (130-400) L 03/29/18 09:18 MPV 10.7 fL (8.0-11.0) 03/29/18 09:18 Immature Gran % 0.3 03/29/18 09:18 Neutrophils % 83.3 03/29/18 09:18 Lymphocytes % 9.6 03/29/18 09:18 Monocytes % 6.3 03/29/18 09:18 Eosinophils % 0.4 03/29/18 09:18 Basophils % 0.1 03/29/18 09:18 Absolute Neutrophils 6.37 k/cumm (1.2-6.7) 03/29/18 09:18 Absolute Lymphocytes 0.73 k/cumm (1.2-3.4) L 03/29/18 09:18 Absolute Monocytes 0.48 k/cumm (0.11-0.7) 03/29/18 09:18 Absolute Eosinophils 0.03 k/cumm (0.0-0.7) 03/29/18 09:18 Absolute Basophils 0.01 k/cumm (0.0-0.2) 03/29/18 09:18 Sodium 136 mmol/L (136-145) 03/29/18 09:18 Potassium 4.2 mmol/L (3.5-5.1) 03/29/18 09:18 Chloride 108 mmol/L (98-107) H 03/29/18 09:18 Carbon Dioxide 16.8 mmol/L (21.0-32.0) L 03/29/18 09:18 Anion Gap 11.2 mmol/L (3-11) H 03/29/18 09:18 BUN 22 mg/dL (7-18) H D 03/29/18 09:18 Creatinine 1.34 mg/dL (0.55-1.02) H 03/29/18 09:18 Estimated GFR/1.73 m2 38.06 (mL/min/1.73m2) 03/29/18 09:18 Glucose 222 mg/dL (70-100) H 03/29/18 09:18 Lactate 0.9 mmol/L (0.6-1.4) 03/29/18 09:18 Calcium 8.0 mg/dL (8.5-10.1) L 03/29/18 09:18 Total Bilirubin 1.1 mg/dL (0.2-1.0) H 03/29/18 09:18 AST 18 U/L (15-37) 03/29/18 09:18 ALT 18 U/L (12-78) 03/29/18 09:18 Alkaline Phosphatase 93 U/L (46-116) 03/29/18 09:18 Total Protein 6.4 g/dL (6.4-8.2) 03/29/18 09:18 Albumin 2.9 g/dL (3.4-5.0) L 03/29/18 09:18 Lipase 107 U/L (73-393) 03/27/18 14:40 Urine Color Yellow (Yellow) 03/27/18 14:25 Urine Clarity Clear 03/27/18 14:25 Urine pH 5.5 (5-8) 03/27/18 14:25 Ur Specific Label[place] >= 1.030 (1.005-1.025) H 03/27/18 14:25 Urine Protein 30 mg/dL (Negative) H 03/27/18 14:25 Urine Ketones Negative mg/dL (Negative) 03/27/18 14:25 Urine Blood Negative (Negative) 03/27/18 14:25 Urine Nitrite Negative (Negative) 03/27/18 14:25 Urine Bilirubin Small (Negative) H 03/27/18 14:25 Urine Urobilinogen 0.2 EU/dL (Up TO 0.2) 03/27/18 14:25 Ur Leukocyte Esterase Negative (Negative) 03/27/18 14:25 Urine RBC 0-2 (0-2) 03/27/18 14:25 Urine WBC 0-2 HPF (0-5) 03/27/18 14:25 Ur Epithelial Cells Few HPF (Negative) 03/27/18 14:25 Urine Crystals Few amorphous HPF (Negative) 03/27/18 14:25 Urine Bacteria Few HPF (Negative) 03/27/18 14:25 Urine Casts Negative LPF (Negative) 03/27/18 14:25 Urine Mucus Negative (Negative) 03/27/18 14:25 Urine Other Few renal (Negative) 03/27/18 14:25 Ur Culture Indicated? No 03/27/18 14:25 Urine Glucose 500 mg/dL (Negative) H 03/27/18 14:25 Documented by User: An Pradhan MD 03/29/18 13:17
[2018-03-29 11:25] VITALS: BP 109/68; PULSE 105; RESP 18; TEMP 36.2; O2SAT 99
[2018-03-29] MEDS: Normal Saline 1,000 ML 80 ML IV ×2 (11:30→19:01)
--- NOTE | 2018-03-29 11:47 | NUR.NOTE ---
Nursing Note: Pt educated by doctor and nursing staff regarding NG tube placement and benefit of having to tube placed to prevent need of possible surgery. Pt wants to think about it and will let staff know. Pt is refusing NG tube at this time.
--- NOTE | 2018-03-29 13:19 | CMPROGNOTE_ITS ---
- If Service Date Differs Date of service: 03/29/18 Time of Service: 13:17 Care Management Progress Note S/O: Fide is lying in bed this morning when this gag writer visits. She is pleasant and open to discussion. Fide states that the provider was in to see her and they discussed placing and NG tube. Fide states that she is unsure of this, and wants to think about it. Fide continues to receive IV fluids, and has been ambulating to and from her bathroom. Fide to start to ambulate more throughout the halls today. A: 82 y/o female admitted 03/27/18 for SBO. P: Fide will return home with no anticipated services once medically cleared. She will F/U with Dr. Oliveira and plan of care as prescribed. LINCOLN spoke with DARRELL, B[employer]ING MACHINE OPERATOR HELPER Bethany, to alert that Fide will need to transition to an inpatient level of care today as she is not ready for DC. Fide's family will transport when medically ready.
[2018-03-29] MEDS: Lidocaine 2% Jelly 5 ML TUBE (14:05)
[2018-03-29 14:17] VITALS: BP 129/63; PULSE 79; RESP 19; TEMP 36.7; O2SAT 96
--- NOTE | 2018-03-29 14:43 | DI.RAD_ITS ---
SYMPTOMS/DIAGNOSIS: Nasogastric tube placement PORTABLE AP CHEST: The heart is mildly enlarged. There is a probable soft tissue calcification projected over the left lung base. There is an NG tube in place, the tip of which lies in the stomach. Lungs are well expanded. CONCLUSION: No evidence of acute disease.
--- NOTE | 2018-03-29 15:06 | CHAPLAIN ---
Fide was in bed when visited. She told me that Dr. Pradhan is considering placing an NG tube in her, and Fide said she is hot sure she wants to do this but told Dr. Pradhan she would consider it. Fide's arrived while I was there. Fide is worried because he didn't bring his many medicines for her to place in a daily pill containers, which she does each week. Her son will be over to visit after work later today. Fide's main concern through all this is supporting her .
--- NOTE | 2018-03-29 15:24 | W.PM.PROGNOT ---
Assessment and Plan (1) Ileus: Current visit: Yes Status: Acute A\\ Abdomen is softer again this afternoon. NO pain again. air in the ostomy bag. Minimal liquid stool. I again was able to reduce all hernias. Labs reassuring P\\ NG placed. Minimal output at this time. XRay's pending at this time. Continue to monitor. Subjective Interval history since last seen: Feeling a little better this afternoon. There is air in her colostomy pouch. Minimal liquid stool. No more N/V since this am Exam GI Palpation: soft (softer then this am) Auscultation: hyperactive bowel sounds and other (ostomy is pink. ) Other: I laid down the patient was able to reduce every hernia again. No signs of incarceration. NG placed to 55 cm without difficulty CXR/Abdo Xray pending at this time. Objective Objective Clinical Data: Abnormal lab results 03/29/18 03/29/18 Range/Units 09:18 09:18 RBC 3.82 L (4.00-5.20) m/cumm Hgb 11.5 L (12.0-15.5) g/dL Hct 34.3 L (36.0-46.0) % Plt Count 124 L (130-400) x1000/uL Absolute Lymphocytes 0.73 L (1.2-3.4) k/cumm Chloride 108 H (98-107) mmol/L Carbon Dioxide 16.8 L (21.0-32.0) mmol/L Anion Gap 11.2 H (3-11) mmol/L BUN 22 H D (7-18) mg/dL Creatinine 1.34 H (0.55-1.02) mg/dL Glucose 222 H (70-100) mg/dL Calcium 8.0 L (8.5-10.1) mg/dL Total Bilirubin 1.1 H (0.2-1.0) mg/dL Albumin 2.9 L (3.4-5.0) g/dL Vital Signs Temperature 98.1 F 03/29/18 14:17 Temperature Source Tympanic 03/29/18 14:17 Pulse 79 03/29/18 14:17 Pulse Rhythm Regular 03/29/18 09:12 Respiratory Rate 19 03/29/18 14:17 Respiratory Effort Non-Labored 03/29/18 09:12 Respiratory Depth Normal 03/29/18 09:12 Respiratory Pattern Normal 03/29/18 09:12 Blood Pressure 129/63 03/29/18 14:17 Blood Pressure Position Sitting 03/27/18 14:05 Pulse Oximetry 96 03/29/18 14:17 Oxygen Delivery Method Room Air 03/29/18 14:17 Oxygen Flow Rate 0 03/29/18 14:17 Pain Level 3 03/29/18 10:21 Comment 03/28/18 04:35 Intake & Output 03/28/18 03/29/18 03/29/18 23:59 11:59 23:59 Intake Total 1678.75 / 1678.75 1017.333 / 1017.333 Output Total 225 / 225 Balance 1453.75 / 1453.75 1017.333 / 1017.333 Weight 142 lb 6.698 oz Intake: IV 1368.75 / 1368.75 957.333 / 957.333 Oral 310 / 310 60 / 60 Output: Stool 225 / 225 Other: Comment void x1 in toilet pt gets up to void AD MEGAN Stool Size Moderate Stool Characteristics Liquid Brown Voiding Methods Toilet Laboratory Results WBC 7.64 k/cumm (4.4-10.8) 03/29/18 09:18 RBC 3.82 m/cumm (4.00-5.20) L 03/29/18 09:18 Hgb 11.5 g/dL (12.0-15.5) L 03/29/18 09:18 Hct 34.3 % (36.0-46.0) L 03/29/18 09:18 MCV 89.8 fL (80-95) 03/29/18 09:18 MCH 30.1 pg (27.0-33.0) 03/29/18 09:18 MCHC 33.5 g/dL (32.0-36.0) 03/29/18 09:18 RDW 13.7 % (11.7-14.6) 03/29/18 09:18 Plt Count 124 x1000/uL (130-400) L 03/29/18 09:18 MPV 10.7 fL (8.0-11.0) 03/29/18 09:18 Immature Gran % 0.3 03/29/18 09:18 Neutrophils % 83.3 03/29/18 09:18 Lymphocytes % 9.6 03/29/18 09:18 Monocytes % 6.3 03/29/18 09:18 Eosinophils % 0.4 03/29/18 09:18 Basophils % 0.1 03/29/18 09:18 Absolute Neutrophils 6.37 k/cumm (1.2-6.7) 03/29/18 09:18 Absolute Lymphocytes 0.73 k/cumm (1.2-3.4) L 03/29/18 09:18 Absolute Monocytes 0.48 k/cumm (0.11-0.7) 03/29/18 09:18 Absolute Eosinophils 0.03 k/cumm (0.0-0.7) 03/29/18 09:18 Absolute Basophils 0.01 k/cumm (0.0-0.2) 03/29/18 09:18 Sodium 136 mmol/L (136-145) 03/29/18 09:18 Potassium 4.2 mmol/L (3.5-5.1) 03/29/18 09:18 Chloride 108 mmol/L (98-107) H 03/29/18 09:18 Carbon Dioxide 16.8 mmol/L (21.0-32.0) L 03/29/18 09:18 Anion Gap 11.2 mmol/L (3-11) H 03/29/18 09:18 BUN 22 mg/dL (7-18) H D 03/29/18 09:18 Creatinine 1.34 mg/dL (0.55-1.02) H 03/29/18 09:18 Estimated GFR/1.73 m2 38.06 (mL/min/1.73m2) 03/29/18 09:18 Glucose 222 mg/dL (70-100) H 03/29/18 09:18 Lactate 0.9 mmol/L (0.6-1.4) 03/29/18 09:18 Calcium 8.0 mg/dL (8.5-10.1) L 03/29/18 09:18 Total Bilirubin 1.1 mg/dL (0.2-1.0) H 03/29/18 09:18 AST 18 U/L (15-37) 03/29/18 09:18 ALT 18 U/L (12-78) 10/02/18 09:18 Alkaline Phosphatase 93 U/L (46-116) 03/29/18 09:18 Total Protein 6.4 g/dL (6.4-8.2) 03/29/18 09:18 Albumin 2.9 g/dL (3.4-5.0) L 03/29/18 09:18 Lipase 107 U/L (73-393) 03/27/18 14:40 Urine Color Yellow (Yellow) 03/27/18 14:25 Urine Clarity Clear 03/27/18 14:25 Urine pH 5.5 (5-8) 03/27/18 14:25 Ur Specific [place] >= 1.030 (1.005-1.025) H 03/27/18 14:25 Urine Protein 30 mg/dL (Negative) H 03/27/18 14:25 Urine Ketones Negative mg/dL (Negative) 03/27/18 14:25 Urine Blood Negative (Negative) 03/27/18 14:25 Urine Nitrite Negative (Negative) 03/27/18 14:25 Urine Bilirubin Small (Negative) H 03/27/18 14:25 Urine Urobilinogen 0.2 EU/dL (Up TO 0.2) 03/27/18 14:25 Ur Leukocyte Esterase Negative (Negative) 03/27/18 14:25 Urine RBC 0-2 (0-2) 03/27/18 14:25 Urine WBC 0-2 HPF (0-5) 03/27/18 14:25 Ur Epithelial Cells Few HPF (Negative) 03/27/18 14:25 Urine Crystals Few amorphous HPF (Negative) 03/27/18 14:25 Urine Bacteria Few HPF (Negative) 03/27/18 14:25 Urine Casts Negative LPF (Negative) 03/27/18 14:25 Urine Mucus Negative (Negative) 03/27/18 14:25 Urine Other Few renal (Negative) 03/27/18 14:25 Ur Culture Indicated? No 03/27/18 14:25 Urine Glucose 500 mg/dL (Negative) H 03/27/18 14:25
[2018-03-29 17:29] VITALS: BP 103/61; PULSE 75; RESP 18; TEMP 36; O2SAT 95
[2018-03-29] MEDS: Pantoprazole 40 MG VIAL IVP (17:34)
[2018-03-29] MEDS: DEXTROSE 5%-0.45% SALINE 1,000 ML 125 ML IV (21:15)
[2018-03-30] VITALS (11 sets, daily range): BP systolic 102–130; BP diastolic 57–68; PULSE 67–75; RESP 16–18; TEMP 36.1–38.1; O2SAT 95–98
[2018-03-30] MEDS: Metoclopramide 10 MG/2 ML VIAL IVP ×4 (02:17→19:36)
[2018-03-30] MEDS: DEXTROSE 5%-0.45% SALINE 1,000 ML 125 ML IV ×3 (05:19→21:29)
--- NOTE | 2018-03-30 07:12 | W.PM.PROGNOT ---
Documented by User: KIMMIE Andrade 03/30/18 10:55 Assessment and Plan (1) Ileus: Current visit: Yes Status: Acute A\\ Abdomen is soft and non-tender this morning. No abdominal pain. Liquid brown stool and air in colostomy. Able to reduce all hernias. P\\ NG in place Continue to monitor. Continue to encourage ambulation with [facility] [place] staff Subjective Patient reports: feels better; denies nausea and vomiting Interval history since last seen: Mrs. Rodriguez reports feeling better today, compared to yesterday since having the NG tube placed. She reports that her abdominal discomfort has decreased and she has noted increased gas in her colostomy. She denies any nausea or vomiting since yesterday morning. She has been ambulating in the hallway with [facility] [place] staff. Exam Const General: cooperative, comfortable and no acute distress Orientation: alert and awake Resp Effort & Inspection: normal respiratory effort Auscultation: clear to auscultation bilaterally, no crackles and no wheezes Cardio Jugular venous pressure: no JVD Rate: regular rate Rhythm: regular rhythm Heart Sounds: S1 normal, S2 normal, no click and no murmurs GI Inspection: distended and visible herniation (Several hernia's noted, all are reducible on exam) Palpation: soft, no guarding, hernia (All are reducible on exam) ventral and other and nontender Auscultation: hyperactive bowel sounds Other: NG tube in place and secured. Objective Objective Clinical Data: Abnormal lab results 03/29/18 03/29/18 Range/Units 09:18 09:18 RBC 3.82 L (4.00-5.20) m/cumm Hgb 11.5 L (12.0-15.5) g/dL Hct 34.3 L (36.0-46.0) % Plt Count 124 L (130-400) x1000/uL Absolute Lymphocytes 0.73 L (1.2-3.4) k/cumm Chloride 108 H (98-107) mmol/L Carbon Dioxide 16.8 L (21.0-32.0) mmol/L Anion Gap 11.2 H (3-11) mmol/L BUN 22 H D (7-18) mg/dL Creatinine 1.34 H (0.55-1.02) mg/dL Glucose 222 H (70-100) mg/dL Calcium 8.0 L (8.5-10.1) mg/dL Total Bilirubin 1.1 H (0.2-1.0) mg/dL Albumin 2.9 L (3.4-5.0) g/dL Vital Signs Temperature 36.6 C 03/30/18 04:05 Temperature Source Tympanic 03/30/18 04:05 Pulse 69 03/30/18 04:05 Pulse Rhythm Regular 03/29/18 20:37 Respiratory Rate 16 03/30/18 04:05 Respiratory Effort Non-Labored 03/29/18 20:37 Respiratory Depth Normal 03/29/18 20:37 Respiratory Pattern Normal 03/29/18 20:37 Blood Pressure 108/64 03/30/18 04:05 Blood Pressure Position Sitting 03/27/18 14:05 Pulse Oximetry 98 03/30/18 04:05 Oxygen Delivery Method Room Air 03/30/18 04:05 Oxygen Flow Rate 0 03/30/18 04:05 Pain Level 0 03/30/18 04:05 Comment 03/30/18 04:05 Intake & Output 03/29/18 03/29/18 03/30/18 11:59 23:59 11:59 Intake Total 1017.333 / 1017.333 601.333 / 195.216 3700 / 1000 Output Total 100 / 100 Balance 1017.333 / 1017.333 501.333 / 968.369 5035 / 1000 Weight 64.6 kg 65 kg Intake: IV 957.333 / 957.333 601.333 / 722.616 0977 / 1000 Oral 60 / 60 Output: Stool 100 / 100 Other: Urine Appearance Clear Comment pt gets up to void AD MEGAN voiding in toilet Laboratory Results WBC 7.64 k/cumm (4.4-10.8) 03/29/18 09:18 RBC 3.82 m/cumm (4.00-5.20) L 03/29/18 09:18 Hgb 11.5 g/dL (12.0-15.5) L 03/29/18 09:18 Hct 34.3 % (36.0-46.0) L 03/29/18 09:18 MCV 89.8 fL (80-95) 03/29/18 09:18 MCH 30.1 pg (27.0-33.0) 03/29/18 09:18 MCHC 33.5 g/dL (32.0-36.0) 03/29/18 09:18 RDW 13.7 % (11.7-14.6) 03/29/18 09:18 Plt Count 124 x1000/uL (130-400) L 03/29/18 09:18 MPV 10.7 fL (8.0-11.0) 03/29/18 09:18 Immature Gran % 0.3 03/29/18 09:18 Neutrophils % 83.3 03/29/18 09:18 Lymphocytes % 9.6 03/29/18 09:18 Monocytes % 6.3 03/29/18 09:18 Eosinophils % 0.4 03/29/18 09:18 Basophils % 0.1 03/29/18 09:18 Absolute Neutrophils 6.37 k/cumm (1.2-6.7) 03/29/18 09:18 Absolute Lymphocytes 0.73 k/cumm (1.2-3.4) L 03/29/18 09:18 Absolute Monocytes 0.48 k/cumm (0.11-0.7) 03/29/18 09:18 Absolute Eosinophils 0.03 k/cumm (0.0-0.7) 03/29/18 09:18 Absolute Basophils 0.01 k/cumm (0.0-0.2) 03/29/18 09:18 Sodium 136 mmol/L (136-145) 03/29/18 09:18 Potassium 4.2 mmol/L (3.5-5.1) 03/29/18 09:18 Chloride 108 mmol/L (98-107) H 03/29/18 09:18 Carbon Dioxide 16.8 mmol/L (21.0-32.0) L 03/29/18 09:18 Anion Gap 11.2 mmol/L (3-11) H 03/29/18 09:18 BUN 22 mg/dL (7-18) H D 03/29/18 09:18 Creatinine 1.34 mg/dL (0.55-1.02) H 03/29/18 09:18 Estimated GFR/1.73 m2 38.06 (mL/min/1.73m2) 03/29/18 09:18 Glucose 222 mg/dL (70-100) H 03/29/18 09:18 Lactate 0.9 mmol/L (0.6-1.4) 03/29/18 09:18 Calcium 8.0 mg/dL (8.5-10.1) L 03/29/18 09:18 Total Bilirubin 1.1 mg/dL (0.2-1.0) H 03/29/18 09:18 AST 18 U/L (15-37) 03/29/18 09:18 ALT 18 U/L (12-78) 03/29/18 09:18 Alkaline Phosphatase 93 U/L (46-116) 03/29/18 09:18 Total Protein 6.4 g/dL (6.4-8.2) 03/29/18 09:18 Albumin 2.9 g/dL (3.4-5.0) L 03/29/18 09:18 Lipase 107 U/L (73-393) 03/27/18 14:40 Urine Color Yellow (Yellow) 03/27/18 14:25 Urine Clarity Clear 03/27/18 14:25 Urine pH 5.5 (5-8) 03/27/18 14:25 Ur Specific [place] >= 1.030 (1.005-1.025) H 03/27/18 14:25 Urine Protein 30 mg/dL (Negative) H 03/27/18 14:25 Urine Ketones Negative mg/dL (Negative) 03/27/18 14:25 Urine Blood Negative (Negative) 03/27/18 14:25 Urine Nitrite Negative (Negative) 03/27/18 14:25 Urine Bilirubin Small (Negative) H 03/27/18 14:25 Urine Urobilinogen 0.2 EU/dL (Up TO 0.2) 03/27/18 14:25 Ur Leukocyte Esterase Negative (Negative) 03/27/18 14:25 Urine RBC 0-2 (0-2) 03/27/18 14:25 Urine WBC 0-2 HPF (0-5) 03/27/18 14:25 Ur Epithelial Cells Few HPF (Negative) 03/27/18 14:25 Urine Crystals Few amorphous HPF (Negative) 03/27/18 14:25 Urine Bacteria Few HPF (Negative) 03/27/18 14:25 Urine Casts Negative LPF (Negative) 03/27/18 14:25 Urine Mucus Negative (Negative) 03/27/18 14:25 Urine Other Few renal (Negative) 03/27/18 14:25 Ur Culture Indicated? No 03/27/18 14:25 Urine Glucose 500 mg/dL (Negative) H 03/27/18 14:25
--- NOTE | 2018-03-30 07:19 | PGE_ITS ---
Documented by User: KIMMIE Andrade 03/30/18 10:55 Assessment and Plan (1) Ileus: Current visit: Yes Status: Acute A\\ Abdomen is soft and non-tender this morning. No abdominal pain. Liquid brown stool and air in colostomy. Able to reduce all hernias. P\\ NG in place Continue to monitor. Continue to encourage ambulation with [facility] [place] staff Subjective Patient reports: feels better; denies nausea and vomiting Interval history since last seen: Mrs. Rodriguez reports feeling better today, compared to yesterday since having the NG tube placed. She reports that her abdominal discomfort has decreased and she has noted increased gas in her colostomy. She denies any nausea or vomiting since yesterday morning. She has been ambulating in the hallway with [facility] [place] staff. Exam Const General: cooperative, comfortable and no acute distress Orientation: alert and awake Resp Effort & Inspection: normal respiratory effort Auscultation: clear to auscultation bilaterally, no crackles and no wheezes Cardio Jugular venous pressure: no JVD Rate: regular rate Rhythm: regular rhythm Heart Sounds: S1 normal, S2 normal, no click and no murmurs GI Inspection: distended and visible herniation (Several hernia's noted, all are reducible on exam) Palpation: soft, no guarding, hernia (All are reducible on exam) ventral and other and nontender Auscultation: hyperactive bowel sounds Other: NG tube in place and secured. Objective Objective Clinical Data: Abnormal lab results 03/29/18 03/29/18 Range/Units 09:18 09:18 RBC 3.82 L (4.00-5.20) m/cumm Hgb 11.5 L (12.0-15.5) g/dL Hct 34.3 L (36.0-46.0) % Plt Count 124 L (130-400) x1000/uL Absolute Lymphocytes 0.73 L (1.2-3.4) k/cumm Chloride 108 H (98-107) mmol/L Carbon Dioxide 16.8 L (21.0-32.0) mmol/L Anion Gap 11.2 H (3-11) mmol/L BUN 22 H D (7-18) mg/dL Creatinine 1.34 H (0.55-1.02) mg/dL Glucose 222 H (70-100) mg/dL Calcium 8.0 L (8.5-10.1) mg/dL Total Bilirubin 1.1 H (0.2-1.0) mg/dL Albumin 2.9 L (3.4-5.0) g/dL Vital Signs Temperature 36.6 C 03/30/18 04:05 Temperature Source Tympanic 03/30/18 04:05 Pulse 69 03/30/18 04:05 Pulse Rhythm Regular 03/29/18 20:37 Respiratory Rate 16 03/30/18 04:05 Respiratory Effort Non-Labored 03/29/18 20:37 Respiratory Depth Normal 03/29/18 20:37 Respiratory Pattern Normal 03/29/18 20:37 Blood Pressure 108/64 03/30/18 04:05 Blood Pressure Position Sitting 03/27/18 14:05 Pulse Oximetry 98 03/30/18 04:05 Oxygen Delivery Method Room Air 03/30/18 04:05 Oxygen Flow Rate 0 03/30/18 04:05 Pain Level 0 03/30/18 04:05 Comment 03/30/18 04:05 Intake & Output 03/29/18 03/29/18 03/30/18 11:59 23:59 11:59 Intake Total 1017.333 / 1017.333 601.333 / 497.141 4670 / 1000 Output Total 100 / 100 Balance 1017.333 / 1017.333 501.333 / 256.346 7422 / 1000 Weight 64.6 kg 65 kg Intake: IV 957.333 / 957.333 601.333 / 498.584 2532 / 1000 Oral 60 / 60 Output: Stool 100 / 100 Other: Urine Appearance Clear Comment pt gets up to void AD MEGAN voiding in toilet Laboratory Results WBC 7.64 k/cumm (4.4-10.8) 03/29/18 09:18 RBC 3.82 m/cumm (4.00-5.20) L 03/29/18 09:18 Hgb 11.5 g/dL (12.0-15.5) L 03/29/18 09:18 Hct 34.3 % (36.0-46.0) L 03/29/18 09:18 MCV 89.8 fL (80-95) 03/29/18 09:18 MCH 30.1 pg (27.0-33.0) 03/29/18 09:18 MCHC 33.5 g/dL (32.0-36.0) 03/29/18 09:18 RDW 13.7 % (11.7-14.6) 03/29/18 09:18 Plt Count 124 x1000/uL (130-400) L 03/29/18 09:18 MPV 10.7 fL (8.0-11.0) 03/29/18 09:18 Immature Gran % 0.3 03/29/18 09:18 Neutrophils % 83.3 03/29/18 09:18 Lymphocytes % 9.6 03/29/18 09:18 Monocytes % 6.3 03/29/18 09:18 Eosinophils % 0.4 03/29/18 09:18 Basophils % 0.1 03/29/18 09:18 Absolute Neutrophils 6.37 k/cumm (1.2-6.7) 03/29/18 09:18 Absolute Lymphocytes 0.73 k/cumm (1.2-3.4) L 03/29/18 09:18 Absolute Monocytes 0.48 k/cumm (0.11-0.7) 03/29/18 09:18 Absolute Eosinophils 0.03 k/cumm (0.0-0.7) 03/29/18 09:18 Absolute Basophils 0.01 k/cumm (0.0-0.2) 03/29/18 09:18 Sodium 136 mmol/L (136-145) 03/29/18 09:18 Potassium 4.2 mmol/L (3.5-5.1) 03/29/18 09:18 Chloride 108 mmol/L (98-107) H 03/29/18 09:18 Carbon Dioxide 16.8 mmol/L (21.0-32.0) L 03/29/18 09:18 Anion Gap 11.2 mmol/L (3-11) H 03/29/18 09:18 BUN 22 mg/dL (7-18) H D 03/29/18 09:18 Creatinine 1.34 mg/dL (0.55-1.02) H 03/29/18 09:18 Estimated GFR/1.73 m2 38.06 (mL/min/1.73m2) 03/29/18 09:18 Glucose 222 mg/dL (70-100) H 03/29/18 09:18 Lactate 0.9 mmol/L (0.6-1.4) 03/29/18 09:18 Calcium 8.0 mg/dL (8.5-10.1) L 03/29/18 09:18 Total Bilirubin 1.1 mg/dL (0.2-1.0) H 03/29/18 09:18 AST 18 U/L (15-37) 03/29/18 09:18 ALT 18 U/L (12-78) 03/29/18 09:18 Alkaline Phosphatase 93 U/L (46-116) 03/29/18 09:18 Total Protein 6.4 g/dL (6.4-8.2) 03/29/18 09:18 Albumin 2.9 g/dL (3.4-5.0) L 03/29/18 09:18 Lipase 107 U/L (73-393) 03/27/18 14:40 Urine Color Yellow (Yellow) 03/27/18 14:25 Urine Clarity Clear 03/27/18 14:25 Urine pH 5.5 (5-8) 03/27/18 14:25 Ur Specific [place] >= 1.030 (1.005-1.025) H 03/27/18 14:25 Urine Protein 30 mg/dL (Negative) H 03/27/18 14:25 Urine Ketones Negative mg/dL (Negative) 03/27/18 14:25 Urine Blood Negative (Negative) 03/27/18 14:25 Urine Nitrite Negative (Negative) 03/27/18 14:25 Urine Bilirubin Small (Negative) H 03/27/18 14:25 Urine Urobilinogen 0.2 EU/dL (Up TO 0.2) 03/27/18 14:25 Ur Leukocyte Esterase Negative (Negative) 03/27/18 14:25 Urine RBC 0-2 (0-2) 03/27/18 14:25 Urine WBC 0-2 HPF (0-5) 03/27/18 14:25 Ur Epithelial Cells Few HPF (Negative) 03/27/18 14:25 Urine Crystals Few amorphous HPF (Negative) 03/27/18 14:25 Urine Bacteria Few HPF (Negative) 03/27/18 14:25 Urine Casts Negative LPF (Negative) 03/27/18 14:25 Urine Mucus Negative (Negative) 03/27/18 14:25 Urine Other Few renal (Negative) 03/27/18 14:25 Ur Culture Indicated? No 03/27/18 14:25 Urine Glucose 500 mg/dL (Negative) H 03/27/18 14:25
[2018-03-30 07:26] LABS: Anion Gap 8.9 mmol/L (3-11); BUN 17 mg/dL (7-18); CO2 20.1 mmol/L (21.0-32.0); CREATININE 1.21 mg/dL (0.55-1.02); Calcium 7.8 mg/dL (8.5-10.1); Chloride 111 mmol/L (98-107); Estimated GFR 42.81 (mL/min/1.73m2); Glucose 146 mg/dL (70-100); Potassium 3.6 mmol/L (3.5-5.1); Sodium 140 mmol/L (136-145)
[2018-03-30] MEDS: Enalapril 5 MG TAB 2.5 MG PO (08:55)
[2018-03-30] MEDS: Meclizine 12.5 MG TAB PO ×2 (08:55→19:35)
[2018-03-30] MEDS: Pregabalin 25 MG CAP 75 MG PO ×2 (08:56→19:34)
[2018-03-30] MEDS: Levothyroxine 100 MCG TAB PO (08:56)
[2018-03-30] MEDS: Normal Saline Flush 10 ML SYR IVP ×3 (09:03→17:02)
--- NOTE | 2018-03-30 10:06 | PDOC.CMPRO ---
- If Service Date Differs Date of service: 03/30/18 Time of Service: 10:06 Care Management Progress Note S/O: Fide is lying in bed this morning when this song writer visits, pleasant and easily engages in discussion. Fide had an NG tube placed yesterday which is clamped at this time. Fide has also been ambulating in the halls with nursing staff. No change in plan at this time. A: 82 y/o female admitted 03/27/18 for SBO. P: Fide will return home with no anticipated services once medically cleared. She will F/U with Dr. Oliveira and plan of care as prescribed. LINCOLN spoke with DARRELL, BUSINESS INTELLIGENCE DEVELOPER Field Sales Representative, to alert that Fide will need to transition to an inpatient level of care today as she is not ready for DC. Fide's family will transport when medically ready.
--- NOTE | 2018-03-30 10:21 | CMPROGNOTE_ITS ---
- If Service Date Differs Date of service: 03/30/18 Time of Service: 10:06 Care Management Progress Note S/O: Fide is lying in bed this morning when this senior technical writer visits, pleasant and easily engages in discussion. Fide had an NG tube placed yesterday which is clamped at this time. Fide has also been ambulating in the halls with nursing staff. No change in plan at this time. A: 82 y/o female admitted 03/27/18 for SBO. P: Fide will return home with no anticipated services once medically cleared. She will F/U with Dr. Oliveira and plan of care as prescribed. LINCOLN spoke with DARRELL, APPLICATION ARCHITECT Radio Mechanic Apprentice, to alert that Fide will need to transition to an inpatient level of care today as she is not ready for DC. Fide's family will transport when medically ready.
--- NOTE | 2018-03-30 15:49 | CHAPLAIN ---
Fide was resting in bed when I visited. She said she agreed to the NG tube, and it was put in yesterday and recently taken out. She believes it did improve how she was feeling. Fide's is visiting this afternoon.
[2018-03-30] MEDS: Pantoprazole 40 MG VIAL IVP (17:02)
[2018-03-30] MEDS: Acetaminophen 325 MG TAB 650 MG PO (19:36)
[2018-03-31 01:17] VITALS: BP 105/64; PULSE 67; RESP 17; TEMP 36.7; O2SAT 95
[2018-03-31] MEDS: Metoclopramide 10 MG/2 ML VIAL IVP ×2 (01:47→09:02)
[2018-03-31] MEDS: DEXTROSE 5%-0.45% SALINE 1,000 ML 125 ML IV (04:40)
[2018-03-31 07:33] VITALS: BP 108/66; PULSE 69; RESP 18; TEMP 36.9; O2SAT 95
--- NOTE | 2018-03-31 08:59 | W.PM.PROGNOT ---
Assessment and Plan (1) Ileus: Current visit: Yes Status: Acute A\\ Tolerating clear liquids. Abdomen is soft and non-tender this morning. No abdominal pain. Liquid brown stool and air in colostomy. Able to reduce all hernias. P\\ Advance diet to full liquid diet. Continue to monitor. Spoke with patient's nurse re: increasing activity, use of incentive spectrometry, being up in the chair and ambulating in the hallways. (2) Bowel obstruction: Current visit: Yes Status: Acute A// NG tube has been removed. No complaints of N/V or abdominal pain since its removal. Tolerating clear liquids. Electrolytes?bicarb improving today on fluids suspect this was the source of nausea and discomfort. We will recheck this question whether bacterial overgrowth is present. P// Advance diet to full liquid diet. Continue to monitor. Subjective Patient reports: feels better and tolerating liquids well; denies nausea, vomiting and fever Interval history since last seen: Mrs. Rodriguez states that she is feeling better today, without any complaints of N/V or abdominal pain. Her colostomy continues to put out minimal brown liquid stool. She reports that she had been ambulating within her room yesterday. Exam Const General: cooperative, comfortable and no acute distress Orientation: awake and oriented x3 Resp Effort & Inspection: normal respiratory effort Auscultation: clear to auscultation bilaterally, no crackles and no wheezes Cardio Jugular venous pressure: no JVD Rate: regular rate Rhythm: regular rhythm Heart Sounds: S1 normal, S2 normal, no click and no murmurs GI Inspection: normal to inspection Palpation: soft, no guarding, hernia ventral (all reducible, nontender.) and nontender Auscultation: normal bowel sounds Objective Objective Clinical Data: Vital Signs Temperature 36.9 C 03/31/18 07:33 Temperature Source Tympanic 03/31/18 07:33 Pulse 69 03/31/18 07:33 Pulse Rhythm Regular 03/31/18 01:17 Respiratory Rate 18 03/31/18 07:33 Respiratory Effort Non-Labored 03/31/18 01:17 Respiratory Depth Normal 03/31/18 01:17 Respiratory Pattern Normal 03/31/18 01:17 Blood Pressure 108/66 03/31/18 07:33 Blood Pressure Position Sitting 03/27/18 14:05 Pulse Oximetry 95 03/31/18 07:33 Oxygen Delivery Method Room Air 03/31/18 07:33 Oxygen Flow Rate 0 03/31/18 07:33 Pain Level 0 03/31/18 07:37 Comment 03/30/18 04:05 Intake & Output 03/30/18 03/30/18 03/31/18 11:59 23:59 11:59 Intake Total 1062 / 1062 Output Total 75 / 75 Balance 987 / 987 Weight 65 kg 66.2 kg Intake: IV 1012 / 1012 1897.917 / Oral 50 / 50 100 / 100 Output: Gastric Drainage 50 / 50 Right Nare 50 / 50 Stool 25 / 25 Other: Urine Color Yellow Urine Appearance Clear Urine Odor Normal Comment void x 3 Voiding Methods Toilet Laboratory Results WBC 7.64 k/cumm (4.4-10.8) 03/29/18 09:18 RBC 3.82 m/cumm (4.00-5.20) L 03/29/18 09:18 Hgb 11.5 g/dL (12.0-15.5) L 03/29/18 09:18 Hct 34.3 % (36.0-46.0) L 03/29/18 09:18 MCV 89.8 fL (80-95) 03/29/18 09:18 MCH 30.1 pg (27.0-33.0) 03/29/18 09:18 MCHC 33.5 g/dL (32.0-36.0) 03/29/18 09:18 RDW 13.7 % (11.7-14.6) 03/29/18 09:18 Plt Count 124 x1000/uL (130-400) L 03/29/18 09:18 MPV 10.7 fL (8.0-11.0) 03/29/18 09:18 Immature Gran % 0.3 03/29/18 09:18 Neutrophils % 83.3 03/29/18 09:18 Lymphocytes % 9.6 03/29/18 09:18 Monocytes % 6.3 03/29/18 09:18 Eosinophils % 0.4 03/29/18 09:18 Basophils % 0.1 03/29/18 09:18 Absolute Neutrophils 6.37 k/cumm (1.2-6.7) 03/29/18 09:18 Absolute Lymphocytes 0.73 k/cumm (1.2-3.4) L 03/29/18 09:18 Absolute Monocytes 0.48 k/cumm (0.11-0.7) 03/29/18 09:18 Absolute Eosinophils 0.03 k/cumm (0.0-0.7) 03/29/18 09:18 Absolute Basophils 0.01 k/cumm (0.0-0.2) 03/29/18 09:18 Sodium 140 mmol/L (136-145) 03/30/18 06:25 Potassium 3.6 mmol/L (3.5-5.1) 03/30/18 06:25 Chloride 111 mmol/L (98-107) H 03/30/18 06:25 Carbon Dioxide 20.1 mmol/L (21.0-32.0) L 03/30/18 06:25 Anion Gap 8.9 mmol/L (3-11) 03/30/18 06:25 BUN 17 mg/dL (7-18) 03/30/18 06:25 Creatinine 1.21 mg/dL (0.55-1.02) H 03/30/18 06:25 Estimated GFR/1.73 m2 42.81 (mL/min/1.73m2) 03/30/18 06:25 Glucose 146 mg/dL (70-100) H D 03/30/18 06:25 Lactate 0.9 mmol/L (0.6-1.4) 03/29/18 09:18 Calcium 7.8 mg/dL (8.5-10.1) L 03/30/18 06:25 Total Bilirubin 1.1 mg/dL (0.2-1.0) H 03/29/18 09:18 AST 18 U/L (15-37) 03/29/18 09:18 ALT 18 U/L (12-78) 03/29/18 09:18 Alkaline Phosphatase 93 U/L (46-116) 03/29/18 09:18 Total Protein 6.4 g/dL (6.4-8.2) 03/29/18 09:18 Albumin 2.9 g/dL (3.4-5.0) L 03/29/18 09:18 Lipase 107 U/L (73-393) 03/27/18 14:40 Urine Color Yellow (Yellow) 03/27/18 14:25 Urine Clarity Clear 03/27/18 14:25 Urine pH 5.5 (5-8) 03/27/18 14:25 Ur Specific [place] >= 1.030 (1.005-1.025) H 03/27/18 14:25 Urine Protein 30 mg/dL (Negative) H 03/27/18 14:25 Urine Ketones Negative mg/dL (Negative) 03/27/18 14:25 Urine Blood Negative (Negative) 03/27/18 14:25 Urine Nitrite Negative (Negative) 03/27/18 14:25 Urine Bilirubin Small (Negative) H 03/27/18 14:25 Urine Urobilinogen 0.2 EU/dL (Up TO 0.2) 03/27/18 14:25 Ur Leukocyte Esterase Negative (Negative) 03/27/18 14:25 Urine RBC 0-2 (0-2) 03/27/18 14:25 Urine WBC 0-2 HPF (0-5) 03/27/18 14:25 Ur Epithelial Cells Few HPF (Negative) 03/27/18 14:25 Urine Crystals Few amorphous HPF (Negative) 03/27/18 14:25 Urine Bacteria Few HPF (Negative) 03/27/18 14:25 Urine Casts Negative LPF (Negative) 03/27/18 14:25 Urine Mucus Negative (Negative) 03/27/18 14:25 Urine Other Few renal (Negative) 03/27/18 14:25 Ur Culture Indicated? No 03/27/18 14:25 Urine Glucose 500 mg/dL (Negative) H 03/27/18 14:25
[2018-03-31] MEDS: Meclizine 12.5 MG TAB PO (09:01)
[2018-03-31] MEDS: Levothyroxine 100 MCG TAB PO (09:01)
[2018-03-31] MEDS: Pregabalin 25 MG CAP 75 MG PO (09:01)
[2018-03-31] MEDS: Enalapril 5 MG TAB 2.5 MG PO (09:01)
[2018-03-31] MEDS: Normal Saline Flush 10 ML SYR IVP (09:02)
[2018-03-31 11:42] VITALS: BP 116/58; PULSE 60; RESP 19; TEMP 37.3; O2SAT 95
--- NOTE | 2018-03-31 12:21 | PDOC.CMPRO ---
- If Service Date Differs Date of service: 03/31/18 Time of Service: 12:21 Care Management Progress Note S/O: Fide is sitting up in bed this morning, pleasant and open to discussion. NG tube has been removed, and Fide is tolerating a clear liquid diet at this time. Diet to be advanced. Fide is hopeful to return home soon, as she cares for her at home. No change in DC plan. A: 82 y/o female admitted 03/27/18 for SBO. P: Fide will return home with no anticipated services once medically cleared. She will F/U with Dr. Oliveira and plan of care as prescribed. Fide's family will transport when medically ready.
--- NOTE | 2018-03-31 12:30 | DSE_ITS ---
Date of service: 03/31/18 Time of Service: 12:29 DS: Diagnosis Discharge Diagnosis (1) Ileus: Status: Acute (2) Bowel obstruction: Status: Acute Discharge Plan Disposition Patient Disposition: HOME Condition: Stable Discharge Details Chief Complaint: Abd Prob Reason For Visit: SBO Admit Date/Time: 03/29/18 16:07 Admit Provider: Marquise Oliveira Attending Provider: An Pradhan Primary Care Provider: Stephanie Erwin ED Provider: Endy Corral Hospital Course Hospital Course: Mrs. Rodriguez was admitted on 03/27/18 with complaints of abdominal pain, nausea and liquid stood from her colostomy. On admission, CT scan suggested that she had a small bowel obstruction; possible intussception. She was NPO x 2 days, with continued abdominal pain, abdominal distention and N/V. On 03/28/18, Abdominal xray showed air in the small bowel and that the contrast from CT scan from admission had passed. NG tube was placed on 03/29/18, for decompression of the bowel, this produced minimal output. Mrs. Rodriguez's abdominal pain was improving following the NG tube placement. NG was clamped and later removed on 03/30/18. Patient tolerated clear liquids overnight, without any complaints of N/V or abdominal pain. She was progressed to a full liquid diet on 03/31/18, which the patient tolerated. Her N/V and abdominal pain has since resolved and she is having brown, liquid stool from her colostomy. She will be discharged home on a soft diet for 2-3 days. Discussed slowly progressing her diet while at home. Home Meds and New Rx's Prescriptions: Continued cholecalciferol (vitamin D3) 1,000 UNIT capsule 1,000 unit PO DAILY RF: 0 Karaya 5 Drainable Pouch 1 EACH misc 1 ea Miscellaneous Q72H Qty: 60 RF: 3 Lantus U-100 Insulin 100 UNIT/1 ML solution 55 u Sub-Q DAILY Qty: 5 RF: 5 lancets [OneTouch UltraSoft Lancets] 1 EACH misc 1 ea Miscellaneous TID Qty: 300 RF: 3 levothyroxine 100 MCG tablet 100 mcg PO DAILY Qty: 90 RF: 3 Lyrica 75 MG capsule 75 mg PO BID Qty: 60 RF: 3 enalapril maleate 2.5 MG tablet 2.5 mg PO DAILY Qty: 90 RF: 3 epinephrine [EpiPen 2-Mayur] 0.3 MG/0.3 ML auto-injector 0.3 mg IJ DIRECTED Qty: 1 RF: 0 Januvia 100 MG tablet 100 mg PO DAILY Qty: 90 RF: 3 meclizine 12.5 MG tablet 12.5 mg PO BID Qty: 10 RF: 0 glimepiride 4 MG tablet 4 mg PO DAILY Qty: 30 RF: 3 Varicella-Zoster Ge/As01b/Pf [Shingrix Vial Kit] 50 MCG INJ 50 mcg IM ONCE Qty: 1 RF: 1 acetaminophen [Mapap Extra Strength] 500 MG tablet 1,000 mg PO Q8H PRN PRNQty: 0 RF: 0 No Action OneTouch Ultra Test strip 1 ea Miscellaneous TID Qty: 300 RF: 3 insulin syringe-needle U-100 [Comfort EZ Syringe] 1 mL 30 gauge x 1/2 syringe 1 ea Miscellaneous DAILY Qty: 100 RF: 3 Discharge Instructions Instructions: Soft Diet (DC), Soft Diet (GEN), Bowel Obstruction (DC) Stand Alone Forms: Nursing Discharge Form Referrals: Jose Alberto Deng DO [OSTEOPATHIC DOCTOR] - 04/14/18 2:00 pm (1-2 Weeks ) Activity:: Activity as Tolerated Equipment/Supplies:: No Equipment Needed Diet:: Soft Diet; progress as tolerated after 2-3 days Discharge Orders Discharge Orders: Discharge Order (Routine); Ordered 03/31/18 Ordered By: Janell Colby Discharge Data Discharge Date/Time-TO BE ENTERED AT DEPARTURE: 03/31/18 14:39 DS: Data Vitals/I&O Vitals and I&O: Vital Signs Temperature 37.3 C 03/31/18 11:42 Temperature Source Tympanic 03/31/18 11:42 Pulse 60 03/31/18 11:42 Pulse Rhythm Regular 03/31/18 07:37 Respiratory Rate 19 03/31/18 11:42 Respiratory Effort Non-Labored 03/31/18 07:37 Respiratory Depth Normal 03/31/18 07:37 Respiratory Pattern Normal 03/31/18 07:37 Blood Pressure 116/58 L 03/31/18 11:42 Blood Pressure Position Sitting 03/27/18 14:05 Pulse Oximetry 95 03/31/18 11:42 Oxygen Delivery Method Room Air 03/31/18 11:42 Oxygen Flow Rate 0 03/31/18 11:42 Pain Level 0 03/31/18 07:37 Comment 03/30/18 04:05 Intake & Output 03/30/18 03/31/18 03/31/18 23:59 11:59 23:59 Intake Total 2967.917 / 2967.917 Balance 2967.917 / 2967.917 Weight 66.2 kg Intake: IV 333 1917.917 / 1917.917 Oral 1050 / 1050 Other: Urine Color Yellow Urine Appearance Clear Urine Odor Normal Comment Void x1 in the toilet. Voiding Methods Toilet Pending studies at discharge: D & C NEC (07/09/04) ELECTROCARDIOGRAM (07/08/04) ENDOSC LG BOWEL THROUGH STOMA (06/01/06) EXCISE AXILLARY NODE (06/19/97) Endoscopy of large intestine through artificial stoma (07/14/11) HYSTEROSCOPY (07/09/04) Insertion of other (naso-)gastric tube (02/03/15) LOCAL EXCIS BREAST LES (06/19/97) MAMMOGRAPHY NEC (06/19/97) OTH CHEST CAGE OSTECTOMY (09/05/08) OTH LYSIS-PERITONEAL ADHES (09/05/01) Open reduction of fracture with internal fixation, tibia and fibula (02/03/15) Other lysis of peritoneal adhesions (02/03/15) Other oxygen enrichment (02/03/15) Other repair of shoulder (09/05/08) PERICOLOST HERNIA REPAIR (09/05/01) Removal of implanted devices from bone, tibia and fibula (02/03/15) Repair of pericolostomy hernia (02/03/15) Transfusion of packed cells (02/03/15) Venous catheterization, not elsewhere classified (02/03/15) WBC 7.64 k/cumm (4.4-10.8) 03/29/18 09:18 RBC 3.82 m/cumm (4.00-5.20) L 03/29/18 09:18 Hgb 11.5 g/dL (12.0-15.5) L 03/29/18 09:18 Hct 34.3 % (36.0-46.0) L 03/29/18 09:18 MCV 89.8 fL (80-95) 03/29/18 09:18 MCH 30.1 pg (27.0-33.0) 03/29/18 09:18 MCHC 33.5 g/dL (32.0-36.0) 03/29/18:18 RDW 13.7 % (11.7-14.6) 03/29/18 09:18 Plt Count 124 x1000/uL (130-400) L 03/29/18 09:18 MPV 10.7 fL (8.0-11.0) 03/29/18:18 Immature Gran % 0.3 03/29/18 09:18 Neutrophils % 83.3 03/29/18 09:18 Lymphocytes % 9.6 03/29/18 09:18 Monocytes % 6.3 03/29/18 09:18 Eosinophils % 0.4 03/29/18 09:18 Basophils % 0.1 03/29/18 09:18 Absolute Neutrophils 6.37 k/cumm (1.2-6.7) 03/29/18 09:18 Absolute Lymphocytes 0.73 k/cumm (1.2-3.4) L 03/29/18 09:18 Absolute Monocytes 0.48 k/cumm (0.11-0.7) 03/29/18 09:18 Absolute Eosinophils 0.03 k/cumm (0.0-0.7) 03/29/18 09:18 Absolute Basophils 0.01 k/cumm (0.0-0.2) 03/29/18 09:18 Sodium 140 mmol/L (136-145) 03/30/18 06:25 Potassium 3.6 mmol/L (3.5-5.1) 03/30/18 06:25 Chloride 111 mmol/L (98-107) H 03/30/18 06:25 Carbon Dioxide 20.1 mmol/L (21.0-32.0) L 03/30/18 06:25 Anion Gap 8.9 mmol/L (3-11) 03/30/18 06:25 BUN 17 mg/dL (7-18) 03/30/18 06:25 Creatinine 1.21 mg/dL (0.55-1.02) H 03/30/18 06:25 Estimated GFR/1.73 m2 42.81 (mL/min/1.73m2) 03/30/18 06:25 Glucose 146 mg/dL (70-100) H D 03/30/18 06:25 Lactate 0.9 mmol/L (0.6-1.4) 03/29/18 09:18 Calcium 7.8 mg/dL (8.5-10.1) L 03/30/18 06:25 Total Bilirubin 1.1 mg/dL (0.2-1.0) H 03/29/18 09:18 AST 18 U/L (15-37) 03/29/18:18 ALT 18 U/L (12-78) 03/29/18 09:18 Alkaline Phosphatase 93 U/L (46-116) 03/29/18 09:18 Total Protein 6.4 g/dL (6.4-8.2) 03/29/18 09:18 Albumin 2.9 g/dL (3.4-5.0) L 03/29/18 09:18 Lipase 107 U/L (73-393) 03/27/18 14:40 Urine Color Yellow (Yellow) 03/27/18 14:25 Urine Clarity Clear 03/27/18 14:25 Urine pH 5.5 (5-8) 03/27/18 14:25 Ur Specific [place] >= 1.030 (1.005-1.025) H 03/27/18 14:25 Urine Protein 30 mg/dL (Negative) H 03/27/18 14:25 Urine Ketones Negative mg/dL (Negative) 03/27/18 14:25 Urine Blood Negative (Negative) 03/27/18 14:25 Urine Nitrite Negative (Negative) 03/27/18 14:25 Urine Bilirubin Small (Negative) H 03/27/18 14:25 Urine Urobilinogen 0.2 EU/dL (Up TO 0.2) 03/27/18 14:25 Ur Leukocyte Esterase Negative (Negative) 03/27/18 14:25 Urine RBC 0-2 (0-2) 03/27/18 14:25 Urine WBC 0-2 HPF (0-5) 03/27/18 14:25 Ur Epithelial Cells Few HPF (Negative) 03/27/18 14:25 Urine Crystals Few amorphous HPF (Negative) 03/27/18 14:25 Urine Bacteria Few HPF (Negative) 03/27/18 14:25 Urine Casts Negative LPF (Negative) 03/27/18 14:25 Urine Mucus Negative (Negative) 03/27/18 14:25 Urine Other Few renal (Negative) 03/27/18 14:25 Ur Culture Indicated? No 03/27/18 14:25 Urine Glucose 500 mg/dL (Negative) H 03/27/18 14:25
== END 2018-03-31 14:39 | disposition home or self-care (01) | DRG 390 ==
LOC: ER 18:39 → MS 03-28 09:43 → ER 03-29 16:20
PROVIDERS: Admitting Provider Surgery; Emergency Provider Student in an Organized Health Care Education/Training Program; PCP Nurse Practitioner; Visit Provider Surgery
DX: K56.7 Ileus, unspecified (principal); Z93.3 Colostomy status; Z85.038 Personal history of other malignant neoplasm of large intestine; E11.9 Type 2 diabetes mellitus without complications; Z79.4 Long term (current) use of insulin; E03.9 Hypothyroidism, unspecified; I10 Essential (primary) hypertension
CPT/HCPCS: 36415; 71045; 80048; 80053; 83690; 85027; 93005; 96360; 96361; 99219; 99222; 99225; 99232; 99233; 99238; 99285; NC; 74019; 74176; 81003; 81015; 83605; 85025; 87324; 93010; G0378; J1885; J2405; J2765; J3490

== ENCOUNTER 2018-06-09 11:15 | Outpatient (REF) | payer MEDICARE, SELFPAY | END 2018-06-09 11:35 | LOC: LBN 11:15 | PROVIDERS: PCP Nurse Practitioner; Visit Provider Nurse Practitioner | DX: R35.0 Frequency of micturition (principal) | CPT/HCPCS: 87077; 87086; 87186 ==

== ENCOUNTER 2019-02-08 10:04 | Outpatient (CLI) | payer MEDICARE, SELFPAY ==
[2019-02-08 10:49] LABS: HCT 37.3 % (36.0-46.0); HGB 12.5 g/dL (12.0-15.5); Mean Corp. HGB Concentration 33.5 g/dL (32.0-36.0); Mean Corpuscular Volume 89.4 fL (80-95); Mean Platelet Volume 11.3 fL (8.0-11.0); Platelet Count 126 x1000/uL (130-400); RBC 4.17 m/cumm (4.00-5.20); RBC Distribution Width 13.3 % (11.7-14.6); White Blood Cell Count 5.01 k/cumm (4.4-10.8)
[2019-02-08 10:58] LABS: Hemoglobin A1C 9.1 % (4.5-6.2)
[2019-02-08 11:38] LABS: Microalb ug/mg Crea 25.6 ug/mg Cr
[2019-02-08 11:44] LABS: ALT 28 U/L (12-78); AST 20 U/L (15-37); Albumin 3.8 g/dL (3.4-5.0); Alkaline Phosphatase 134 U/L (46-116); Anion Gap 12.2 mmol/L (3-11); BUN 41 mg/dL (7-18); Bilirubin, Total 0.8 mg/dL (0.2-1.0); CO2 22.8 mmol/L (21.0-32.0); CREATININE 1.59 mg/dL (0.55-1.02); Calcium 8.9 mg/dL (8.5-10.1); Calculated LDL 95 mg/dL; Chloride 104 mmol/L (98-107); Cholesterol 170 mg/dL (50-200); Estimated GFR 31.16 (mL/min/1.73m2); Glucose 182 mg/dL (70-100); HDL Cholesterol 41 mg/dL (40-60); Potassium 4.8 mmol/L (3.5-5.1); Sodium 139 mmol/L (136-145); Total Protein 7.5 g/dL (6.4-8.2); Triglyceride 171 mg/dL (30-150)
== END 2019-02-08 10:24 ==
PROVIDERS: PCP Nurse Practitioner; Visit Provider Nurse Practitioner
DX: E03.9 Hypothyroidism, unspecified (principal); E11.22 Type 2 diabetes mellitus with diabetic chronic kidney disease; I10 Essential (primary) hypertension; N18.3 Chronic kidney disease, stage 3 (moderate); E11.9 Type 2 diabetes mellitus without complications
CPT/HCPCS: 36415; 80053; 80061; 83721; 85027; 82043; 82570; 83036; 84439; 84443

== ENCOUNTER 2019-05-16 15:13 | Outpatient (REF) | payer MEDICARE, SELFPAY ==
[2019-05-16 19:17] LABS: ALT 31 U/L (14-59); AST 27 U/L (15-37); Albumin 3.8 g/dL (3.4-5.0); Alkaline Phosphatase 100 U/L (46-116); Anion Gap 10.5 mmol/L (3-11); BUN 27 mg/dL (7-18); Bilirubin, Total 0.7 mg/dL (0.2-1.0); CO2 23.5 mmol/L (21.0-32.0); CREATININE 1.47 mg/dL (0.55-1.02); Calcium 8.8 mg/dL (8.5-10.1); Chloride 105 mmol/L (98-107); Estimated GFR 34.11 (mL/min/1.73m2); Glucose 192 mg/dL (74-106); Potassium 4.5 mmol/L (3.5-5.1); Sodium 139 mmol/L (136-145); TSH (W/Ref FT4) 1.26 uIU/mL (0.36-3.74); Total Protein 7.3 g/dL (6.4-8.2)
== END 2019-05-16 15:33 ==
LOC: LBN 15:13
PROVIDERS: PCP Nurse Practitioner; Visit Provider Nurse Practitioner
DX: E03.9 Hypothyroidism, unspecified (principal); E11.22 Type 2 diabetes mellitus with diabetic chronic kidney disease; I10 Essential (primary) hypertension; N18.3 Chronic kidney disease, stage 3 (moderate)
CPT/HCPCS: 80053; 84443

== ENCOUNTER 2019-07-18 01:04 | Outpatient (CLI) | payer MEDICARE, SELFPAY ==
--- NOTE | 2019-07-18 13:16 | DI.MAMMO_ITS ---
EXAM: MG MAMMO SCREENING 60 MIN DUR CLINICAL HISTORY: screening Z12.39, PERSONAL H/O BREAST CA TECHNIQUE: Mammograms were interpreted according to the usual protocol including computer analysis w [employer] system, tomosynthesis and C-view imaging. FINDINGS: Note is made of a prior left lumpectomy. There is post lumpectomy scarring. Multiple macrocalcifica tions seen bilaterally. Benign ductal calcifications noted on the left. No new mass or clumped micr ocalcification seen in either breast in comparison with previous examinations including December 2017. IMPRESSION: No specific evidence of malignancy at this time. Routine screening examinations are suggested at year ly intervals due to the history of breast carcinoma. Category 1. Breast density, category B. BI-RADS Cat 1 - Negative. Breast Density - Category B - Scattered areas of fibroglandular density.
== END 2019-07-18 01:24 ==
PROVIDERS: PCP Nurse Practitioner; Visit Provider Nurse Practitioner
DX: Z12.31 Encounter for screening mammogram for malignant neoplasm of breast (principal); Z85.3 Personal history of malignant neoplasm of breast; Z98.890 Other specified postprocedural states
CPT/HCPCS: 77063; 77067

== ENCOUNTER 2020-05-29 16:51 | Outpatient (REF) | payer MEDICARE, SELFPAY ==
[2020-05-29 19:42] LABS: HCT 36.5 % (36.0-46.0); HGB 12.1 g/dL (11.2-15.7); MCHC 33.2 % (32.0-36.0); MCV 90.6 fL (80-95); MPV 11.2 fL (8.0-11.0); Platelet Count 151 10^3/uL (130-400); RBC 4.03 10^6/uL (3.93-5.22); RDW 12.9 % (11.7-14.6); RDW-SD 42.6 fL; WBC 5.73 10^3/uL (4.4-10.8)
[2020-05-29 20:07] LABS: ALT 32 U/L (14-59); AST 30 U/L (15-37); Albumin 3.8 g/dL (3.4-5.0); Alkaline Phosphatase 131 U/L (46-116); Anion Gap 8.3 mmol/L (3-11); BUN 27 mg/dL (7-18); Bilirubin, Total 1.1 mg/dL (0.2-1.0); CO2 26.7 mmol/L (21.0-32.0); CREATININE 1.52 mg/dL (0.55-1.02); Calcium 8.9 mg/dL (8.5-10.1); Calculated LDL 93 mg/dL (<100); Chloride 102 mmol/L (98-107); Cholesterol 170 mg/dL (<200); Estimated GFR 32.74 (mL/min/1.73m2); Glucose 376 mg/dL (74-106); HDL Cholesterol 48 mg/dL (40-60); Potassium 4.5 mmol/L (3.5-5.1); Sodium 137 mmol/L (136-145); TSH (W/Ref FT4) 0.16 uIU/mL (0.36-3.74); Total Protein 7.5 g/dL (6.4-8.2); Triglyceride 145 mg/dL (<150)
[2020-05-29 20:53] LABS: Hemoglobin A1C 10.3 % (<5.7)
[2020-05-29 21:19] LABS: FREE T4 1.79 ng/dL (0.76-1.46)
== END 2020-05-29 17:11 ==
LOC: LBO 16:51
PROVIDERS: PCP Nurse Practitioner; Visit Provider Nurse Practitioner
DX: I10 Essential (primary) hypertension (principal); E11.9 Type 2 diabetes mellitus without complications; E03.9 Hypothyroidism, unspecified; N18.30 Chronic kidney disease, stage 3 unspecified; J18.9 Pneumonia, unspecified organism
CPT/HCPCS: 80053; 80061; 85027; 83036; 84439; 84443

== ENCOUNTER 2020-12-04 16:24 | Outpatient (REF) | payer MEDICARE, SELFPAY | END 2020-12-04 16:25 | disposition home or self-care (01) | LOC: LBN 16:24 | PROVIDERS: PCP Nurse Practitioner; Visit Provider Nurse Practitioner | DX: R30.0 Dysuria (principal) | CPT/HCPCS: 87086 ==

== ENCOUNTER 2021-02-03 18:52 | Outpatient (REF) | payer MEDICARE, SELFPAY ==
[2021-02-03 21:31] LABS: Bilirubin Negative (Negative); Blood Large (Negative); Glucose Negative (Negative); Ketones Negative (Negative); Leukocyte Esterase Moderate (Negative); Nitrite Positive (Negative); Urobilinogen 0.2 EU/dL (Up TO 0.2)
[2021-02-03 21:53] LABS: C & S Indicated? C&S Done As Ordered; RBC >50 HPF (0-2)
[2021-02-03 21:54] LABS: Clarity CLOUDY (Clear)
== END 2021-02-03 18:53 | disposition home or self-care (01) ==
LOC: LBN 18:52
PROVIDERS: PCP Nurse Practitioner; Visit Provider Nurse Practitioner Family
DX: N30.01 Acute cystitis with hematuria (principal)
CPT/HCPCS: 81003; 81015; 87086

== ENCOUNTER 2021-05-02 02:23 | Outpatient (CLI) | payer MEDICARE, SELFPAY ==
--- NOTE | 2021-05-02 07:15 | DI.MAMMO_ITS ---
Exam(s) MG MAMMO SCREENING 60 MIN DUR EXAM: MG MAMMO SCREENING 60 MIN DUR CLINICAL HISTORY: breast cancer screening,personal h/o breast ca,c50.919,z12.39 TECHNIQUE: Mammograms were interpreted according to the usual protocol including computer analysis w [employer] CAD system, tomosynthesis and C-view imaging. COMPARISON: 2012 through 2019 FINDINGS: The breasts are composed of scattered fibroglandular densities, Breast Density category B. The patient is status post left lumpectomy. Scarring is again noted, stable. No suspicious masses o r suspicious microcalcifications are seen. There are coarse calcifications bilaterally, left greater than right. No abnormal axillary lymph nodes are seen. There has been no significant change from prior exams. IMPRESSION: BI-RADS Cat 2 - Benign Findings-postlumpectomy changes. Yearly screening mammography is recommended. Breast Density - Category B, scattered fibroglandular densities. A negative radiographic report should not delay biopsy if a dominant or clinically suspicious mass is present. Up to ten percent of cancers are not identified on mammography. A negative report may reinforce clinical impression. Adenosis and dense breasts may obscure an underlying neoplasm. False positive reports average 6 to 10%. Patient will receive a letter notifying them of these results.
== END 2021-05-02 02:43 ==
PROVIDERS: PCP Nurse Practitioner; Visit Provider Nurse Practitioner
DX: Z12.31 Encounter for screening mammogram for malignant neoplasm of breast (principal); Z85.3 Personal history of malignant neoplasm of breast
CPT/HCPCS: 77063; 77067

== ENCOUNTER 2021-06-04 15:20 | Outpatient (REF) | payer MEDICARE, SELFPAY ==
[2021-06-04 18:38] LABS: HCT 37.3 % (36.0-46.0); HGB 12.3 g/dL (11.2-15.7); MCH 29.8 pg (27.0-33.0); MCV 90.3 fL (80-95); MPV 10.9 fL (8.0-11.0); Platelet Count 186 10^3/uL (130-400); RBC 4.13 10^6/uL (3.93-5.22); RDW 12.7 % (11.7-14.6); WBC 8.46 10^3/uL (4.4-10.8)
[2021-06-04 18:53] LABS: ALT 25 U/L (14-59); AST 23 U/L (15-37); Albumin 3.5 g/dL (3.4-5.0); Alkaline Phosphatase 116 U/L (46-116); Anion Gap 3.8 mmol/L (3-11); BUN 25 mg/dL (7-18); Bilirubin, Total 1.1 mg/dL (0.2-1.0); CO2 28.2 mmol/L (21.0-32.0); CREATININE 1.2 mg/dL (0.55-1.02); Calcium 9.3 mg/dL (8.5-10.1); Calculated LDL 112 mg/dL (<100); Chloride 97 mmol/L (98-107); Cholesterol 148 mg/dL (<200); Glucose 147 mg/dL (74-106); HDL Cholesterol 25 mg/dL (40-60); Potassium 3.9 mmol/L (3.5-5.1); Sodium 129 mmol/L (136-145); TSH (W/Ref FT4) 0.15 uIU/mL (0.36-3.74); Total Protein 7.3 g/dL (6.4-8.2); Triglyceride 55 mg/dL (<150)
[2021-06-04 19:18] LABS: FREE T4 2.01 ng/dL (0.76-1.46)
[2021-06-05 21:52] LABS: Hemoglobin A1C 10.7 % (<5.7)
== END 2021-06-04 15:21 | disposition home or self-care (01) ==
LOC: LBN 15:20
PROVIDERS: PCP Nurse Practitioner; Visit Provider Nurse Practitioner
DX: E03.8 Other specified hypothyroidism (principal); E04.1 Nontoxic single thyroid nodule; E11.65 Type 2 diabetes mellitus with hyperglycemia; E78.5 Hyperlipidemia, unspecified; I10 Essential (primary) hypertension; E11.9 Type 2 diabetes mellitus without complications; J18.9 Pneumonia, unspecified organism
CPT/HCPCS: 80053; 80061; 85027; 83036; 84439; 84443

== ENCOUNTER 2021-11-20 15:17 | Outpatient (REF) | payer MEDICARE, SELFPAY ==
[2021-11-20 19:33] LABS: Anion Gap 7.9 mmol/L (3-11); BUN 22 mg/dL (7-18); CO2 28.1 mmol/L (21.0-32.0); CREATININE 1.2 mg/dL (0.55-1.02); Calcium 8.8 mg/dL (8.5-10.1); Chloride 102 mmol/L (98-107); Glucose 349 mg/dL (74-106); Potassium 4.5 mmol/L (3.5-5.1); Sodium 138 mmol/L (136-145); TSH (W/Ref FT4) 0.04 uIU/mL (0.36-3.74)
[2021-11-20 19:52] LABS: FREE T4 1.87 ng/dL (0.76-1.46)
== END 2021-11-20 15:18 | disposition home or self-care (01) ==
LOC: LBN 15:17
PROVIDERS: PCP Nurse Practitioner; Visit Provider Nurse Practitioner
DX: E03.9 Hypothyroidism, unspecified (principal); R79.89 Other specified abnormal findings of blood chemistry; R10.9 Unspecified abdominal pain; R30.0 Dysuria; R31.9 Hematuria, unspecified
CPT/HCPCS: 80048; 84439; 84443; 87086

== ENCOUNTER 2022-09-03 11:41 | Outpatient (REF) | payer MEDICARE, SELFPAY ==
[2022-09-03 16:26] LABS: Abs Immature Grans 0.04 10^3/uL (0.0-0.06); Absolute Basophil Count 0.04 10^3/uL (0.0-0.2); Absolute Eosinophil Count 0.17 10^3/uL (0.0-0.7); Absolute Lymphocyte Count 2.45 10^3/uL (1.2-3.4); Absolute Monocyte Count 0.78 10^3/uL (0.1-0.8); Absolute Neutrophil Count 5.53 10^3/uL (1.2-6.7); Basophils % 0.4; Eosinophils % 1.9; HCT 32.3 % (36.0-46.0); HGB 11.4 g/dL (11.2-15.7); Immature Grans % 0.4; Lymphocytes % 27.2; MCH 31.6 pg (27.0-33.0); MCHC 35.3 % (32.0-36.0); MCV 90 fL (80-95); MPV 10.1 fL (8.0-11.0); Monocytes % 8.7; Neutrophils % 61.4; Platelet Count 195 10^3/uL (130-400); RBC 3.61 10^6/uL (3.93-5.22); RDW 13.6 % (11.7-14.6); RDW-SD 42.3 fL; WBC 9.01 10^3/uL (4.4-10.8)
[2022-09-03 16:42] LABS: ALT 16 U/L (14-59); AST 16 U/L (15-37); Alkaline Phosphatase 135 U/L (46-116); Anion Gap 7.4 mmol/L (3-11); BUN 21 mg/dL (7-18); Bilirubin, Total 0.6 mg/dL (0.2-1.0); CO2 32.6 mmol/L (21.0-32.0); CREATININE 1.3 mg/dL (0.55-1.02); Calculated LDL 65 mg/dL (<100); Chloride 99 mmol/L (98-107); Cholesterol 132 mg/dL (<200); Glucose 176 mg/dL (74-106); HDL Cholesterol 59 mg/dL (40-60); Potassium 4.2 mmol/L (3.5-5.1); Sodium 139 mmol/L (136-145); TSH (W/Ref FT4) 3.68 uIU/mL (0.36-3.74); Total Protein 8.2 g/dL (6.4-8.2); Triglyceride 43 mg/dL (<150)
[2022-09-03 17:41] LABS: COVID-19 PCR Negative (Negative); Influenza A PCR Negative (Negative); Influenza B PCR Negative (Negative); RSV PCR Negative (Negative)
[2022-09-03 18:05] LABS: Source Nasopharynx
== END 2022-09-03 11:42 | disposition home or self-care (01) ==
LOC: LBN 11:41
PROVIDERS: PCP Nurse Practitioner; Visit Provider Nurse Practitioner
DX: E03.8 Other specified hypothyroidism (principal); I10 Essential (primary) hypertension; E11.3293 Type 2 diabetes mellitus with mild nonproliferative diabetic retinopathy without macular edema, bilateral; J15.9 Unspecified bacterial pneumonia; R05.8 Other specified cough; R30.9 Painful micturition, unspecified; Z20.822 Contact with and (suspected) exposure to COVID-19
CPT/HCPCS: 80053; 80061; 87637; 84443; 85025; 87086

== ENCOUNTER 2022-09-23 15:48 | Outpatient (REF) | payer MEDICARE, SELFPAY | END 2022-09-23 15:49 | disposition home or self-care (01) | LOC: LBN 15:48 | PROVIDERS: PCP Nurse Practitioner; Referring Provider Nurse Practitioner; Visit Provider Nurse Practitioner | DX: N30.01 Acute cystitis with hematuria (principal) | CPT/HCPCS: 87086 ==

== ENCOUNTER 2022-10-27 20:59 | Inpatient (IN) | payer MEDICARE, SELFPAY ==
[2022-10-27] VITALS (25 sets, daily range): BP systolic 128–155; BP diastolic 59–116; PULSE 72–103; RESP 16–27; TEMP 35.9; O2SAT 98–100
--- NOTE | 2022-10-27 20:45 | RT.EKG_ITS ---
APPROVED REPORT Exam: Resting ECG Reason for Exam: [facility] Patient Location: E HR:96 bpm ECG Measurements Heart Rate 96 AXIS UT 160 P 37 QRSd 93 QRS -39 QT 368 T 116 QTc 466 Conclusion Sinus rhythm...normal P axis, V-rate 60- 99 Probable left atrial enlargement...P >50mS, <-0.10mV V1 Inferior infarct, old...Q >35mS, II III aVF Nonspecific T abnormalities, lateral leads...T <-0.10mV, I aVL V5 V6
--- NOTE | 2022-10-27 21:09 | ED.GENADUL_ITS ---
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 Carbon monox detector in home: Yes Do you feel safe at home: Yes Exam <Payton Cardenas NP - Last Filed: 10/29/22 08:04> Narrative Exam Narrative: Constitutional: Alert and oriented x3. Appears stated age. Thin body habitus. Patient is disheveled, dirty close. Head: Normocephalic, no trauma. Eyes: Pupils PERRL, Red reflex noted, EOM's intact. Eyelids symmetrical without lesions, discharge, or swelling. ENT: Bilateral TM's WNL, External ear normal to inspection, no mastoid TTP, swelling, or erythema, Nasal turbinates WNL, no nasal discharge. Poor dentition, Posterior pharynx WNL, no exudate. Chest: RRR, Normal S1, S2, distal pulses intact. Resp: Lungs clear to auscultation bilaterally, no wheezes, rales, or rhonchi. Abdomen: Soft, non-distended, Normoactive bowel sounds all 4 quads. 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 No surrounding erythema or swelling. Musculoskeletal: Unable to assess gait, 3/5 strength to all four extremities. Skin: No suspicious rashes or lesions. Capillary refill less than 2 sec. Neurologic: Cranial nerves II-XII intact. Alert and oriented x 3. Motor: No deficits noted. Sensory: Intact bilaterally all 4 extremities. Reflexes: DTR's intact bilaterally.. No facial droop noted, slow to respond no focal neurodeficits noted no facial droop. Hematologic/Lymphatic: No ecchymosis, no lymphadenopathy. Sign Out <Payton Cardenas NP - Last Filed: 10/29/22 08:04> Sign Out Data: Sign Out Comment: Pending admission. Patient is on an insulin drip, has BMP ordered every 2 hour, and1 hour BGL checks. Awaiting MedSurg placement after insulin drip can be discontinued per Hospitalist. Last updated by Payton Cardenas NP at 10/28/22 00:03 Sign Out Comment: uti with dka, failure to thrive. No icu beds, pending transition from iv insulin to sq Last updated by Blaise Taylor MD at 10/28/22 07:09
[2022-10-27 21:11] LABS: Abs Immature Grans 0.23 10^3/uL (0.0-0.06); Absolute Basophil Count 0.04 10^3/uL (0.0-0.2); Basophils % 0.2; HCT 35.5 % (36.0-46.0); HGB 12.3 g/dL (11.2-15.7); Immature Grans % 1.2; Lymphocytes % 5.8; MCH 28.5 pg (27.0-33.0); MCHC 34.6 % (32.0-36.0); MCV 82 fL (80-95); Monocytes % 4.7; Neutrophils % 88.1; Platelet Count 305 10^3/uL (130-400); RBC 4.31 10^6/uL (3.93-5.22); RDW 13.3 % (11.7-14.6); RDW-SD 40.6 fL; WBC 19.67 10^3/uL (4.4-10.8)
[2022-10-27 21:12] LABS: Absolute Lymphocyte Count 1.14 10^3/uL (1.2-3.4); Absolute Monocyte Count 0.92 10^3/uL (0.1-0.8); Absolute Neutrophil Count 17.33 10^3/uL (1.2-6.7)
[2022-10-27 21:29] LABS: ALT 16 U/L (14-59); AST 8 U/L (15-37); Albumin 2.7 g/dL (3.4-5.0); Alkaline Phosphatase 150 U/L (46-116); Anion Gap 20.2 mmol/L (3-11); Bilirubin, Total 0.8 mg/dL (0.2-1.0); CO2 13.8 mmol/L (21.0-32.0); CREATININE 2.3 mg/dL (0.55-1.02); Calcium 9.1 mg/dL (8.5-10.1); Chloride 90 mmol/L (98-107); Estimated GFR 20.32 (mL/min/1.73m2); Magnesium 2.2 mg/dL (1.8-2.4); Potassium 4.8 mmol/L (3.5-5.1); Total Protein 7.6 g/dL (6.4-8.2); Troponin I < 50 ng/L (<or=60)
--- NOTE | 2022-10-27 21:30 | DI.CT_ITS ---
Exam(s) CT HEAD WO EXAM: CT HEAD WO CLINICAL HISTORY: Confusion. TECHNIQUE: Imaging Protocol: Axial computed tomography images with coronal and sagittal reformatted images were created and reviewed COMPARISON: CT HEAD AND CSPINE W/O CONTRAST from 01/26/2015 FINDINGS: Ventricles and Extra axial spaces: Normal in size and morphology for the patient's age. Hemorrhage: None. Cerebral parenchyma: No evidence of an acute territorial infarct. Midline shift: None. Brainstem/Cerebellum: Normal. Calvarium: Normal. Visualized Paranasal sinuses/Mastoids: Clear. Soft Tissues: Unremarkable. IMPRESSION: No acute intracranial process. RADIATION DOSE DELIVERED: 712.96mGy.cm Total DLP DATA REPOSITORY: All CT scans at this facility are submitted to the National Radiology Data Registry (NRDR) Dose Index Registry (DIR) with the [employer] ([employer]). RADIATION OPTIMIZATION: All CT scans at this facility use at least one of these dose optimization te chniques: automated exposure control; mA and/or kV adjustment per patient size (includes targeted exa ms where dose is matched to clinical indication); or iterative reconstruction.
[2022-10-27 21:33] LABS: BE (Venous) -16 mmol/L (-2-3); HCO3 (Venous) 13 mmol/L (23-28); O2 Sat (Venous) 64 %; TCO2 (Venous) 12 mmol/L (24-29); pCO2 (Venous) 35 mmHg (41-51); pO2 (Venous) 39 mmHg
[2022-10-27 21:34] LABS: BUN 96 mg/dL (7-18); Glucose 651 mg/dL (74-106); Sodium 124 mmol/L (136-145)
[2022-10-27 21:38] LABS: pH (Venous) 7.16 (7.31-7.41)
[2022-10-27] MEDS: Lactated Ringers 1,000 ML 1000 ML IV (21:44)
--- NOTE | 2022-10-27 21:45 | DI.RAD_ITS ---
Exam(s) XR CHEST 1V IN DI DEPT EXAM: XR CHEST 1V IN DI DEPT CLINICAL HISTORY: Weakness TECHNIQUE: 2D digital imaging was performed of the chest. One image was obtained. An AP view was ob tained. COMPARISON: CR RIBS BILATERAL TO INCLUDE CXR from 08/22/2011 CR LEFT RIBS TO INCLUDE CXR from 08/25/2011 CR XR PORTABLE CHEST AP POST LINE from 03/29/2018 FINDINGS: MEDIASTINUM: Normal. HEART: Normal. PULMONARY VASCULATURE: Normal. LUNGS: There is a 1.2 cm nodule overlying the right lung base. It does not definitely reflect the ni pple shadow. This may represent a pulmonary nodule. PLEURAL SPACE: No pleural effusion or pneumothorax. BONE:Within normal limits for the patient's age. OTHER FINDINGS:Calcifications are again seen overlying the left hemithorax. These can be seen on the chest x-ray from 03/29/2018. Surgical clips are again seen in the left axilla. IMPRESSION: 1. Question of a right basilar pulmonary nodule versus nipple shadow. A chest x-ray with nipple jose ers may be obtained for further evaluation. A follow-up CT scan of the chest may be required at that time. 2. No acute infiltrate. Unexpected findings DATA REPOSITORY: RADIATION DOSE DELIVERED:
[2022-10-27 21:48] LABS: Bilirubin Negative (Negative); Blood Large (Negative); Clarity Cloudy (Clear); Glucose 500 mg/dL (Negative); Ketones 15 mg/dL (Negative); Leukocyte Esterase Small (Negative); Nitrite Negative (Negative); Specific Gravity 1.015 (1.005-1.025); Urobilinogen 0.2 mg/dL (Up to 0.2)
[2022-10-27 21:51] LABS: C & S Indicated? Yes; RBC >50 HPF (0-2)
[2022-10-27 21:55] LABS: Creatine Kinase 67 U/L (26-192)
--- NOTE | 2022-10-27 22:17 | DI.VRAD_ITS ---
PROCEDURE INFORMATION: Exam: CT Head Without Contrast Exam date and time: 10/27/2022 10:05 PM Age: 87 years old Clinical indication: Stroke-like symptoms; Altered mental status/memory loss TECHNIQUE: Imaging protocol: Computed tomography of the head without contrast. Radiation optimization: All CT scans at this facility use at least one of these dose optimization techniques: automated exposure control; mA and/or kV adjustment per patient size (includes targeted exams where dose is matched to clinical indication); or iterative reconstruction. Other technique: STROKE PROTOCOL was implemented. COMPARISON: No relevant prior studies available. FINDINGS: Brain: Mild volume loss No hemorrhage. Mild white matter disease. No mass effect. Cerebral ventricles: No ventriculomegaly. Paranasal sinuses: Visualized sinuses are unremarkable. No fluid levels. Mastoid air cells: Visualized mastoid air cells are well aerated. Bones/joints: Unremarkable. No acute fracture. Soft tissues: Unremarkable. IMPRESSION: No acute intracranial abnormality. ASSESSMENT: ASPECTS ([facility] Stroke Program Early CT Score) is 10. Dictated and Authenticated by: Kirill Umanzor MD. Ordering:NANI Cain MD
--- NOTE | 2022-10-27 22:18 | DI.VRAD_ITS ---
PROCEDURE INFORMATION: Exam: XR Chest Exam date and time: 10/27/2022 10:14 PM Age: 87 years old Clinical indication: Other: Weakness TECHNIQUE: Imaging protocol: Radiologic exam of the chest. Views: 1 view. COMPARISON: CR XR PORTABLE CHEST AP POST LINE 03/29/2018 3:39 PM FINDINGS: Lungs: Unremarkable. No consolidation. Pleural spaces: Unremarkable. No pleural effusion. No pneumothorax. Heart/Mediastinum: Tortuous aorta. No cardiomegaly. Bones/joints: Unremarkable. Surgical clips in the left axilla IMPRESSION: No acute findings. Dictated and Authenticated by: Kirill Umanzor MD. Ordering:NANI Cain MD
[2022-10-27 23:04] LABS: PHOSPHORUS 6.1 mg/dL (2.6-4.7)
[2022-10-27] MEDS: cefTRIAXone 1 GM/50 ML BAG IVPB (23:20)
[2022-10-27] MEDS: INSULIN REGULAR IN 0.9 % NACL 100 UNIT/100 ML BAG IV (23:21)
[2022-10-27] MEDS: Normal Saline 1,000 ML 1000 ML IV (23:40)
[2022-10-28] VITALS (203 sets, daily range): BP systolic 91–152; BP diastolic 36–101; PULSE 75–114; RESP 7–33; TEMP 37–37.2; O2SAT 94–99
[2022-10-28] MEDS: POTASSIUM CHLORIDE/0.9% NACL 1,000 ML 350 MEQ IV ×2 (00:14→04:09)
[2022-10-28 00:18] LABS: Anion Gap 17.3 mmol/L (3-11); BUN 12 mg/dL (7-18); CO2 15.7 mmol/L (21.0-32.0); Calcium 8.8 mg/dL (8.5-10.1); Chloride 92 mmol/L (98-107); Estimated GFR 24.03 (mL/min/1.73m2); Potassium 4.8 mmol/L (3.5-5.1); Sodium 125 mmol/L (136-145); Troponin I < 50 ng/L (<or=60)
[2022-10-28 00:24] LABS: Glucose 588 mg/dL (74-106)
--- NOTE | 2022-10-28 00:31 | NUR.NOTE ---
Nursing Note:Patient placed on insulin drip per hospitalist order. ! hour has passed and has been titrated down per protocol. Patient has been started on 20MEQ KCl+NS. Patient is vitally stable at this time. MD and RN continuing close observation of patient status.
[2022-10-28 01:53] LABS: Anion Gap 15.2 mmol/L (3-11); CO2 16.8 mmol/L (21.0-32.0); Calcium 8.8 mg/dL (8.5-10.1); Chloride 95 mmol/L (98-107); Estimated GFR 24.03 (mL/min/1.73m2); Glucose 472 mg/dL (74-106); Potassium 4.3 mmol/L (3.5-5.1); Sodium 127 mmol/L (136-145)
[2022-10-28 02:13] LABS: BUN 93 mg/dL (7-18)
[2022-10-28] MEDS: Insulin Glargine 300 UNITS/3 ML PEN 30 UNITS SC (02:45)
[2022-10-28 04:20] LABS: Anion Gap 14.4 mmol/L (3-11); CO2 18.6 mmol/L (21.0-32.0); Calcium 8.5 mg/dL (8.5-10.1); Chloride 96 mmol/L (98-107); Estimated GFR 24.03 (mL/min/1.73m2); Glucose 374 mg/dL (74-106); Potassium 4.5 mmol/L (3.5-5.1); Sodium 129 mmol/L (136-145)
[2022-10-28 04:21] LABS: BUN 91 mg/dL (7-18)
[2022-10-28] MEDS: Insulin Aspart 300 UNITS/3 ML PEN 10 UNITS SC (05:02)
[2022-10-28 05:34] LABS: Anion Gap 13.7 mmol/L (3-11); CO2 18.3 mmol/L (21.0-32.0); CREATININE 1.9 mg/dL (0.55-1.02); Calcium 8.5 mg/dL (8.5-10.1); Chloride 99 mmol/L (98-107); Estimated GFR 25.56 (mL/min/1.73m2); Glucose 308 mg/dL (74-106); Potassium 4.6 mmol/L (3.5-5.1); Sodium 131 mmol/L (136-145)
[2022-10-28 05:37] LABS: BUN 89 mg/dL (7-18)
--- NOTE | 2022-10-28 05:40 | NUR.NOTE ---
Nursing Note: Per Insulin protocol patient gluc increased and is requiring that RN double the rate that the insulin is going. states that we are to leave the drip where it is at (3u/hr). RN will maintain 3u/hr on the insulin drip.
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
[2022-10-28] MEDS: Ondansetron 4 MG/2 ML VIAL IVP (07:12)
[2022-10-28] MEDS: POTASSIUM CHLORIDE/0.9% NACL 1,000 ML 150 MEQ IV (07:25)
[2022-10-28 07:38] LABS: BE (Venous) -10 mmol/L (-2-3); HCO3 (Venous) 17 mmol/L (23-28); O2 Sat (Venous) 91 %; TCO2 (Venous) 16 mmol/L (24-29); pCO2 (Venous) 38 mmHg (41-51); pH (Venous) 7.26 (7.31-7.41); pO2 (Venous) 63 mmHg
[2022-10-28] MEDS: DEXTROSE 5%-0.45% SALINE 1,000 ML 150 ML IV (07:56)
[2022-10-28 08:01] LABS: Hemoglobin A1C 11.4 % (<5.7)
[2022-10-28] MEDS: Enalapril 5 MG TAB 2.5 MG PO (08:08)
[2022-10-28] MEDS: Levothyroxine 125 MCG TAB PO (08:08)
[2022-10-28] MEDS: Enoxaparin 40 MG/0.4 ML SYR SC (08:09)
[2022-10-28 08:21] LABS: Lab Add On Test DONE
[2022-10-28 08:40] LABS: CREATININE 1.7 mg/dL (0.55-1.02); Calcium 8.8 mg/dL (8.5-10.1); Chloride 106 mmol/L (98-107); Estimated GFR 29.21 (mL/min/1.73m2); Glucose 179 mg/dL (74-106); Potassium 4.5 mmol/L (3.5-5.1); Sodium 136 mmol/L (136-145)
[2022-10-28 08:43] LABS: BUN 84 mg/dL (7-18)
[2022-10-28 09:37] LABS: Anion Gap 10.2 mmol/L (3-11); BUN 79 mg/dL (7-18); CO2 19.8 mmol/L (21.0-32.0); CREATININE 1.6 mg/dL (0.55-1.02); Calcium 8.8 mg/dL (8.5-10.1); Chloride 106 mmol/L (98-107); Estimated GFR 31.41 (mL/min/1.73m2); Glucose 167 mg/dL (74-106); Potassium 4.2 mmol/L (3.5-5.1); Sodium 136 mmol/L (136-145)
[2022-10-28 11:11] LABS: Anion Gap 10.1 mmol/L (3-11); BUN 77 mg/dL (7-18); CO2 18.9 mmol/L (21.0-32.0); CREATININE 1.6 mg/dL (0.55-1.02); Calcium 8.7 mg/dL (8.5-10.1); Chloride 107 mmol/L (98-107); Estimated GFR 31.41 (mL/min/1.73m2); Glucose 187 mg/dL (74-106); Potassium 4.3 mmol/L (3.5-5.1); Sodium 136 mmol/L (136-145)
[2022-10-28] MEDS: Insulin Aspart 100 UNITS/ML UNIT SC (12:26)
[2022-10-28 13:15] LABS: Anion Gap 9.9 mmol/L (3-11); BUN 73 mg/dL (7-18); CO2 19.1 mmol/L (21.0-32.0); CREATININE 1.5 mg/dL (0.55-1.02); Calcium 8.7 mg/dL (8.5-10.1); Chloride 106 mmol/L (98-107); Estimated GFR 33.94 (mL/min/1.73m2); Glucose 218 mg/dL (74-106); Potassium 4.3 mmol/L (3.5-5.1); Sodium 135 mmol/L (136-145)
[2022-10-28] MEDS: DEXTROSE 5%-0.45% SALINE 1,000 ML 100 ML IV (15:14)
[2022-10-28 15:28] LABS: Anion Gap 9.4 mmol/L (3-11); BUN 69 mg/dL (7-18); CO2 18.6 mmol/L (21.0-32.0); CREATININE 1.6 mg/dL (0.55-1.02); Calcium 8.5 mg/dL (8.5-10.1); Chloride 106 mmol/L (98-107); Estimated GFR 31.41 (mL/min/1.73m2); Glucose 307 mg/dL (74-106); Potassium 4.1 mmol/L (3.5-5.1); Sodium 134 mmol/L (136-145)
[2022-10-28] MEDS: Insulin Aspart 300 UNITS/3 ML PEN SC ×3 (17:03→23:53)
[2022-10-28 17:34] LABS: Anion Gap 8.3 mmol/L (3-11); BUN 67 mg/dL (7-18); CO2 20.7 mmol/L (21.0-32.0); CREATININE 1.5 mg/dL (0.55-1.02); Calcium 8.9 mg/dL (8.5-10.1); Chloride 106 mmol/L (98-107); Estimated GFR 33.94 (mL/min/1.73m2); Glucose 286 mg/dL (74-106); Potassium 4.3 mmol/L (3.5-5.1); Sodium 135 mmol/L (136-145)
[2022-10-28 19:49] LABS: Abs Immature Grans 0.05 10^3/uL (0.0-0.06); Absolute Basophil Count 0.01 10^3/uL (0.0-0.2); Absolute Eosinophil Count 0.02 10^3/uL (0.0-0.7); Absolute Lymphocyte Count 1.32 10^3/uL (1.2-3.4); Absolute Monocyte Count 0.78 10^3/uL (0.1-0.8); Absolute Neutrophil Count 7.44 10^3/uL (1.2-6.7); BE (Venous) -7 mmol/L (-2-3); Basophils % 0.1; Eosinophils % 0.2; HCO3 (Venous) 20 mmol/L (23-28); HCT 31.7 % (36.0-46.0); Immature Grans % 0.5; Lymphocytes % 13.7; MCH 28.2 pg (27.0-33.0); MCHC 34.7 % (32.0-36.0); MCV 81 fL (80-95); MPV 9.7 fL (8.0-11.0); Monocytes % 8.1; Neutrophils % 77.4; O2 Sat (Venous) 77 %; Platelet Count 203 10^3/uL (130-400); RDW 13.7 % (11.7-14.6); RDW-SD 40.4 fL; TCO2 (Venous) 18 mmol/L (24-29); WBC 9.62 10^3/uL (4.4-10.8); pCO2 (Venous) 38 mmHg (41-51); pH (Venous) 7.32 (7.31-7.41); pO2 (Venous) 42 mmHg
[2022-10-28 20:11] LABS: Anion Gap 10.4 mmol/L (3-11); BUN 62 mg/dL (7-18); CO2 19.6 mmol/L (21.0-32.0); CREATININE 1.7 mg/dL (0.55-1.02); Calcium 8.6 mg/dL (8.5-10.1); Chloride 106 mmol/L (98-107); Estimated GFR 29.21 (mL/min/1.73m2); Glucose 345 mg/dL (74-106); Potassium 4.3 mmol/L (3.5-5.1); Sodium 136 mmol/L (136-145)
[2022-10-28] MEDS: VANCOMYCIN 500 MG in Normal Saline 100 ML 100 MG IVPB (20:17)
[2022-10-28] MEDS: Normal Saline 1,000 ML 125 ML IV (20:17)
[2022-10-28] MEDS: Normal Saline Flush 10 ML SYR IVP (20:19)
[2022-10-28 20:24] LABS: PHOSPHORUS 2.4 mg/dL (2.6-4.7)
[2022-10-28] MEDS: DULoxetine 30 MG CAP PO (21:25)
[2022-10-28 22:38] LABS: Anion Gap 8.8 mmol/L (3-11); BUN 58 mg/dL (7-18); CO2 20.2 mmol/L (21.0-32.0); CREATININE 1.5 mg/dL (0.55-1.02); Calcium 8.6 mg/dL (8.5-10.1); Chloride 105 mmol/L (98-107); Estimated GFR 33.94 (mL/min/1.73m2); Glucose 374 mg/dL (74-106); Potassium 4.4 mmol/L (3.5-5.1); Sodium 134 mmol/L (136-145)
[2022-10-28] MEDS: cefTRIAXone 1 GM/50 ML BAG IVPB (23:08)
[2022-10-28] MEDS: QUEtiapine 25 MG TAB PO (23:38)
[2022-10-29] VITALS (35 sets, daily range): BP systolic 78–130; BP diastolic 39–70; PULSE 67–102; RESP 16–28; TEMP 36.5–37.4; O2SAT 94–97
[2022-10-29] MEDS: Normal Saline 1,000 ML 125 ML IV (02:55)
[2022-10-29 05:53] LABS: HGB 9.2 g/dL (11.2-15.7); MCH 28.5 pg (27.0-33.0); MCHC 34.1 % (32.0-36.0); MCV 84 fL (80-95); MPV 9.8 fL (8.0-11.0); Platelet Count 152 10^3/uL (130-400); RBC 3.23 10^6/uL (3.93-5.22); RDW 13.8 % (11.7-14.6); RDW-SD 42.3 fL; WBC 6.43 10^3/uL (4.4-10.8)
[2022-10-29 06:06] LABS: Anion Gap 6.7 mmol/L (3-11); BUN 47 mg/dL (7-18); CO2 21.3 mmol/L (21.0-32.0); CREATININE 1.3 mg/dL (0.55-1.02); Calcium 8.2 mg/dL (8.5-10.1); Chloride 110 mmol/L (98-107); Glucose 90 mg/dL (74-106); Potassium 3.9 mmol/L (3.5-5.1); Sodium 138 mmol/L (136-145)
[2022-10-29 06:07] LABS: Magnesium 1.6 mg/dL (1.8-2.4)
[2022-10-29 06:10] LABS: PHOSPHORUS 2.3 mg/dL (2.6-4.7)
--- NOTE | 2022-10-29 06:47 | W.PULMCC ---
General Date of Service Date of service: 10/29/22 Time of Service: 06:47 Reason for Admission to ICU: DKA Hypotension Assessment and Plan Assessment and plan (1) DKA (diabetic ketoacidosis): Status: Acute (2) UTI (urinary tract infection): Status: Acute (3) Hypotension: Status: Acute (4) Confusion: Status: Acute (5) Iron deficiency anemia, unspecified: Status: Acute (6) Metabolic acidosis: Status: Acute (7) Chronic kidney disease, stage III (moderate): Status: Acute (8) Hypophosphatasia: Status: Acute Assessment and plan: This is a 87 yo admitted to the ICU for DKA with a UTI. She was able to be liberated from the insulin infusion and is now on basal bolus. She does have UTI receiving ceftriaxone. She had 1/2 blood cultures return with a gram positive cocci and so was started on vancomycin. It seems likely that this is a contaminant and recommend a repeat culture. She has had hypotension and on POCUS exam this morning she did not appear to be intravascularly volume overloaded, however there were some left sided B-lines. She remained off oxygen and so I did order a 500cc bolud of LR to see if this helped with her BP, which it seems to have. (9) Hypothyroidism, unspecified: Status: Chronic Recommendations Pulmonary: No acute concerns Cardiac: Hypotension - presumably due to dehydration - s/p IVF resucitation - remind conservative fluid treatment given age and some left sided pulmonary edema present on POCUS - lactate ordered - hold enalapril Renal: CKD - creatinine stable Hypomagnesemia - recommend replacement to 2.0 Hypophosphatemia - recommend replacement until 4.0 Metabolic acidosis - improved - in setting of DKA I&O: Intake & Output 10/26/22 10/27/22 10/28/22 10/29/22 23:59 23:59 23:59 23:59 Intake Total 1000 / 1000 4089.451 / 4139.451 / Output Total 2024 485 / 485 Balance 1000 / 1000 2064.451 / 2114.451 1544.167 / 1544.167 Weight 56.699 kg 54.7 kg 58.4 kg Daily Fluid Goal:: even to slightly positive GI Nutrition: on diabetic diet Date of Last Bowel Movement: 10/29/22 Infectious Disease: Gram positive cocci in blood - possible contaminent - repeat blood culture ordered - on vancomycin UTI - on ceftriaxone Hematologic: Chronic Anemia - continue to monitor Neurologic: Confusion - due to metabolic issues Endocrine: DKA - s/p insulin infusion - on basal bolus therapy - perioperative educator Hypothyroidism - on Synthroid - TSH ordered Lines: PIV Gaspar Prophylaxis: Lovenox Code Status: Resuscitation Status Full Code Subjective Critical and life-threatening events over the past 24 hours: This is an 87 yo admitted to the ICU for DKA. She is off of the insulin drip currently. Her blood pressure does remain low. It seems as though the trigger for her DKA is a UTI, although the colony count was <10,000. She did have 1/2 culture bottles return positive with gram positive cocci and was started on vancomycin overnight. She was also given some fluid for hypotension. She denies pain this morning and tells me she feels fine. Exam Narrative Exam Narrative: Gen: NAD, normal respiratory effort, well-nourished HENT: PERRL Chest: No respiratory distress, normal appearance of chest, clear to auscultation bilaterally, no crackles or wheezes, normal inspiratory effort Heart: regular rate and rhythym, no murmurs, rubs or gallops Abdomen: Non-distended, soft, non tender Extremities: No clubbing, edema, cyanosis, rashes Neuro: AAOx3 , non focal Psych: cooperative, appropriate mental affect Most Recent VS/Results Last Vital Signs Temp 36.6 C 10/29/22 06:30 Pulse 95 H 10/29/22 05:00 Resp 22 10/29/22 05:00 BP 92/46 L 10/29/22 05:00 Pulse Ox 97 10/29/22 04:00 Laboratory Results - last 24 hr 10/28/22 10/28/22 10/28/22 02:45 04:45 06:25 WBC RBC Hgb Hct MCV MCH MCHC RDW Plt Count MPV Immature Gran % Neutrophils % Lymphocytes % Monocytes % Eosinophils % Basophils % Nucleated RBC % Absolute Neutrophils Absolute Lymphocytes Absolute Monocytes Absolute Eosinophils Absolute Basophils VBG pH VBG pCO2 VBG pO2 VBG HCO3 VBG Total CO2 VBG O2 Saturation VBG Base Excess Sodium Cancelled Cancelled Cancelled Potassium Cancelled Cancelled Cancelled Chloride Cancelled Cancelled Cancelled Carbon Dioxide Cancelled Cancelled Cancelled Anion Gap Cancelled Cancelled Cancelled BUN Cancelled Cancelled Cancelled Creatinine Cancelled Cancelled Cancelled Est GFR (CKD-EPI 2020) Cancelled Cancelled Cancelled Glucose Cancelled Cancelled Cancelled Hemoglobin A1c Calcium Cancelled Cancelled Cancelled Phosphorus Magnesium Add-On Test Request 10/28/22 10/28/22 10/28/22 06:45 07:30 07:30 WBC RBC Hgb Hct MCV MCH MCHC RDW Plt Count MPV Immature Gran % Neutrophils % Lymphocytes % Monocytes % Eosinophils % Basophils % Nucleated RBC % Absolute Neutrophils Absolute Lymphocytes Absolute Monocytes Absolute Eosinophils Absolute Basophils VBG pH 7.26 L VBG pCO2 38 L VBG pO2 63 VBG HCO3 17 L VBG Total CO2 16 L VBG O2 Saturation 91 VBG Base Excess -10 L Sodium Cancelled Potassium Cancelled Chloride Cancelled Carbon Dioxide Cancelled Anion Gap Cancelled BUN Cancelled Creatinine Cancelled Est GFR (CKD-EPI 2020) Cancelled Glucose Cancelled Hemoglobin A1c 11.4 H Calcium Cancelled Phosphorus Magnesium Add-On Test Request 10/28/22 10/28/22 10/28/22 07:30 07:30 08:49 WBC RBC Hgb Hct MCV MCH MCHC RDW Plt Count MPV Immature Gran % Neutrophils % Lymphocytes % Monocytes % Eosinophils % Basophils % Nucleated RBC % Absolute Neutrophils Absolute Lymphocytes Absolute Monocytes Absolute Eosinophils Absolute Basophils VBG pH VBG pCO2 VBG pO2 VBG HCO3 VBG Total CO2 VBG O2 Saturation VBG Base Excess Sodium 136 136 Potassium 4.5 4.2 Chloride 106 106 Carbon Dioxide 18.0 L 19.8 L Anion Gap 12.0 H 10.2 BUN 84 H* 79 H Creatinine 1.7 H 1.6 H Est GFR (CKD-EPI 2020) 29.21 31.41 Glucose 179 H 167 H Hemoglobin A1c Calcium 8.8 8.8 Phosphorus Magnesium Add-On Test Request DONE 10/28/22 10/28/22 10/28/22 10:25 10:46 13:00 WBC RBC Hgb Hct MCV MCH MCHC RDW Plt Count MPV Immature Gran % Neutrophils % Lymphocytes % Monocytes % Eosinophils % Basophils % Nucleated RBC % Absolute Neutrophils Absolute Lymphocytes Absolute Monocytes Absolute Eosinophils Absolute Basophils VBG pH VBG pCO2 VBG pO2 VBG HCO3 VBG Total CO2 VBG O2 Saturation VBG Base Excess Sodium Cancelled 136 135 L Potassium Cancelled 4.3 4.3 Chloride Cancelled 107 106 Carbon Dioxide Cancelled 18.9 L 19.1 L Anion Gap Cancelled 10.1 9.9 BUN Cancelled 77 H 73 H Creatinine Cancelled 1.6 H 1.5 H Est GFR (CKD-EPI 2020) Cancelled 31.41 33.94 Glucose Cancelled 187 H 218 H Hemoglobin A1c Calcium Cancelled 8.7 8.7 Phosphorus Magnesium Add-On Test Request 10/28/22 10/28/22 10/28/22 14:25 15:04 17:14 WBC RBC Hgb Hct MCV MCH MCHC RDW Plt Count MPV Immature Gran % Neutrophils % Lymphocytes % Monocytes % Eosinophils % Basophils % Nucleated RBC % Absolute Neutrophils Absolute Lymphocytes Absolute Monocytes Absolute Eosinophils Absolute Basophils VBG pH VBG pCO2 VBG pO2 VBG HCO3 VBG Total CO2 VBG O2 Saturation VBG Base Excess Sodium Cancelled 134 L 135 L Potassium Cancelled 4.1 4.3 Chloride Cancelled 106 106 Carbon Dioxide Cancelled 18.6 L 20.7 L Anion Gap Cancelled 9.4 8.3 BUN Cancelled 69 H 67 H Creatinine Cancelled 1.6 H 1.5 H Est GFR (CKD-EPI 2020) Cancelled 31.41 33.94 Glucose Cancelled 307 H 286 H Hemoglobin A1c Calcium Cancelled 8.5 8.9 Phosphorus Magnesium Add-On Test Request 10/28/22 10/28/22 10/28/22 18:25 19:30 19:30 WBC RBC Hgb Hct MCV MCH MCHC RDW Plt Count MPV Immature Gran % Neutrophils % Lymphocytes % Monocytes % Eosinophils % Basophils % Nucleated RBC % Absolute Neutrophils Absolute Lymphocytes Absolute Monocytes Absolute Eosinophils Absolute Basophils VBG pH 7.32 VBG pCO2 38 L VBG pO2 42 VBG HCO3 20 L VBG Total CO2 18 L VBG O2 Saturation 77 VBG Base Excess -7 L Sodium Cancelled 136 Potassium Cancelled 4.3 Chloride Cancelled 106 Carbon Dioxide Cancelled 19.6 L Anion Gap Cancelled 10.4 BUN Cancelled 62 H Creatinine Cancelled 1.7 H Est GFR (CKD-EPI 2020) Cancelled 29.21 Glucose Cancelled 345 H Hemoglobin A1c Calcium Cancelled 8.6 Phosphorus Magnesium Add-On Test Request 10/28/22 10/28/22 10/28/22 19:30 19:30 22:15 WBC 9.62 RBC 3.90 L Hgb 11.0 L Hct 31.7 L MCV 81 MCH 28.2 MCHC 34.7 RDW 13.7 Plt Count 203 MPV 9.7 Immature Gran % 0.5 Neutrophils % 77.4 Lymphocytes % 13.7 Monocytes % 8.1 Eosinophils % 0.2 Basophils % 0.1 Nucleated RBC % 0.0 Absolute Neutrophils 7.44 H Absolute Lymphocytes 1.32 Absolute Monocytes 0.78 Absolute Eosinophils 0.02 Absolute Basophils 0.01 VBG pH VBG pCO2 VBG pO2 VBG HCO3 VBG Total CO2 VBG O2 Saturation VBG Base Excess Sodium 134 L Potassium 4.4 Chloride 105 Carbon Dioxide 20.2 L Anion Gap 8.8 BUN 58 H Creatinine 1.5 H Est GFR (CKD-EPI 2020) 33.94 Glucose 374 H Hemoglobin A1c Calcium 8.6 Phosphorus 2.4 L Magnesium Add-On Test Request 10/29/22 10/29/22 10/29/22 00:45 02:45 04:45 WBC RBC Hgb Hct MCV MCH MCHC RDW Plt Count MPV Immature Gran % Neutrophils % Lymphocytes % Monocytes % Eosinophils % Basophils % Nucleated RBC % Absolute Neutrophils Absolute Lymphocytes Absolute Monocytes Absolute Eosinophils Absolute Basophils VBG pH VBG pCO2 VBG pO2 VBG HCO3 VBG Total CO2 VBG O2 Saturation VBG Base Excess Sodium Cancelled Cancelled Cancelled Potassium Cancelled Cancelled Cancelled Chloride Cancelled Cancelled Cancelled Carbon Dioxide Cancelled Cancelled Cancelled Anion Gap Cancelled Cancelled Cancelled BUN Cancelled Cancelled Cancelled Creatinine Cancelled Cancelled Cancelled Est GFR (CKD-EPI 2020) Cancelled Cancelled Cancelled Glucose Cancelled Cancelled Cancelled Hemoglobin A1c Calcium Cancelled Cancelled Cancelled Phosphorus Magnesium Add-On Test Request 10/29/22 10/29/22 10/29/22 05:30 05:30 05:30 WBC 6.43 RBC 3.23 L Hgb 9.2 L Hct 27.0 L MCV 84 MCH 28.5 MCHC 34.1 RDW 13.8 Plt Count 152 MPV 9.8 Immature Gran % Neutrophils % Lymphocytes % Monocytes % Eosinophils % Basophils % Nucleated RBC % Absolute Neutrophils Absolute Lymphocytes Absolute Monocytes Absolute Eosinophils Absolute Basophils VBG pH VBG pCO2 VBG pO2 VBG HCO3 VBG Total CO2 VBG O2 Saturation VBG Base Excess Sodium Potassium Chloride Carbon Dioxide Anion Gap BUN Creatinine Est GFR (CKD-EPI 2020) Glucose Hemoglobin A1c Calcium Phosphorus 2.3 L Magnesium 1.6 L Add-On Test Request 10/29/22 10/29/22 10/29/22 05:30 06:45 08:45 WBC RBC Hgb Hct MCV MCH MCHC RDW Plt Count MPV Immature Gran % Neutrophils % Lymphocytes % Monocytes % Eosinophils % Basophils % Nucleated RBC % Absolute Neutrophils Absolute Lymphocytes Absolute Monocytes Absolute Eosinophils Absolute Basophils VBG pH VBG pCO2 VBG pO2 VBG HCO3 VBG Total CO2 VBG O2 Saturation VBG Base Excess Sodium 138 Cancelled Cancelled Potassium 3.9 Cancelled Cancelled Chloride 110 H Cancelled Cancelled Carbon Dioxide 21.3 Cancelled Cancelled Anion Gap 6.7 Cancelled Cancelled BUN 47 H Cancelled Cancelled Creatinine 1.3 H Cancelled Cancelled Est GFR (CKD-EPI 2020) 40.30 Cancelled Cancelled Glucose 90 Cancelled Cancelled Hemoglobin A1c Calcium 8.2 L Cancelled Cancelled Phosphorus Magnesium Add-On Test Request 10/29/22 10/29/22 10/29/22 10:45 12:45 14:45 WBC RBC Hgb Hct MCV MCH MCHC RDW Plt Count MPV Immature Gran % Neutrophils % Lymphocytes % Monocytes % Eosinophils % Basophils % Nucleated RBC % Absolute Neutrophils Absolute Lymphocytes Absolute Monocytes Absolute Eosinophils Absolute Basophils VBG pH VBG pCO2 VBG pO2 VBG HCO3 VBG Total CO2 VBG O2 Saturation VBG Base Excess Sodium Cancelled Cancelled Cancelled Potassium Cancelled Cancelled Cancelled Chloride Cancelled Cancelled Cancelled Carbon Dioxide Cancelled Cancelled Cancelled Anion Gap Cancelled Cancelled Cancelled BUN Cancelled Cancelled Cancelled Creatinine Cancelled Cancelled Cancelled Est GFR (CKD-EPI 2020) Cancelled Cancelled Cancelled Glucose Cancelled Cancelled Cancelled Hemoglobin A1c Calcium Cancelled Cancelled Cancelled Phosphorus Magnesium Add-On Test Request 10/29/22 10/29/22 10/29/22 16:45 18:45 20:45 WBC RBC Hgb Hct MCV MCH MCHC RDW Plt Count MPV Immature Gran % Neutrophils % Lymphocytes % Monocytes % Eosinophils % Basophils % Nucleated RBC % Absolute Neutrophils Absolute Lymphocytes Absolute Monocytes Absolute Eosinophils Absolute Basophils VBG pH VBG pCO2 VBG pO2 VBG HCO3 VBG Total CO2 VBG O2 Saturation VBG Base Excess Sodium Cancelled Cancelled Cancelled Potassium Cancelled Cancelled Cancelled Chloride Cancelled Cancelled Cancelled Carbon Dioxide Cancelled Cancelled Cancelled Anion Gap Cancelled Cancelled Cancelled BUN Cancelled Cancelled Cancelled Creatinine Cancelled Cancelled Cancelled Est GFR (CKD-EPI 2020) Cancelled Cancelled Cancelled Glucose Cancelled Cancelled Cancelled Hemoglobin A1c Calcium Cancelled Cancelled Cancelled Phosphorus Magnesium Add-On Test Request Review of Systems All systems reviewed & are unremarkable except as noted in HPI and below Time spent with patient Time spent in Critical Care: 50 Time spent in Critical care included: Performing procedures not included in c.c time, Chart review, Documenting critically ill care, Time at immediate bedside and Discussing critically ill care with other medical staff Pocus Exam Limited Cardiac Exam DATE OF EXAM: 10/29/22 TIME OF EXAM: 07:15 PROVIDER THAT PERFORMED THE STUDY: Fina Mathew IS THIS A REPEAT EXAM DURING THIS ENCOUNTER: no REASON FOR EXAM: Hypotension VISUALIZED STRUCTURES: left atrium, left ventricle, right atrium, right ventricle, aortic valve, mitral valve, Interventricular septum and IVC VIEW OBTAINED: Apical 4-Chamber, Parasternal long-axis, Parasternal short-axis and Subxiphoid PERTINENT FINDINGS/IMPRESSION: Plethoric IVC; no IVC inspiratory collapsability, No LV dysfunction, No pericardial effusion, No RV dilation and No RV dysfunction DIFFERENTIAL DIAGNOSES: Normal cardiac POCUS IVC normal size, but plethoric Exam complete Limited Thoracic Lung Exam DATE OF EXAM: 10/29/22 TIME OF EXAM: 07:05 PROVIDER THAT PERFORMED THE STUDY: Fina TURCIOS A REPEAT EXAM DURING THIS ENCOUNTER: No REASON FOR EXAM: Hypotension VISUALIZED STRUCTURES: right anterior and left anterior PERTINENT FINDINGS/IMPRESSION: B-lines/left side; lung sliding left side, lung sliding left side and no B-lines/left side DIFFERENTIAL DIAGNOSES: Mild left sided B-lines, possible mild pulmonary edema on left Exam complete Multi-Disciplinary Checklist Lines/Tubes CENTRAL LINE: no ARTERIAL LINE: no GASPAR: yes, Gaspar Day#: 1 ENDOTRACHEAL TUBE: no ICU Maintenance GLUCOSE 140-180mg/dL: no, Reason/Intervention: slightly low, insulin being adjusted PRESSURE ULCER: no RESTRAINTS: no ANTIBIOTICS(if yes, consider Stewardship): Yes Social Issues FAMILY UPDATED: no, Reason/Intervention: defer to hospitalist team GOALS/DISPOSITION/PAPER TWISTER: yes CODE STATUS: Full Prophylaxis DVT PROPHYLAXIS: yes GI PROPHYLAXIS: no
[2022-10-29] MEDS: Levothyroxine 125 MCG TAB PO (07:08)
[2022-10-29] MEDS: Enoxaparin 40 MG/0.4 ML SYR SC (07:40)
--- NOTE | 2022-10-29 07:45 | NUR.NOTE ---
Pt had two rings on the left hand that were removed due to swelling. Rings were placed in a bag to go into the safe and will be given to the family.
--- NOTE | 2022-10-29 08:52 | OT.INNT ---
Occupational Therapy Notes 10/29/22 OT consult received and pts chart was reviewed. OT did attempt consult today which pt in unable to participate in at this time due to increased fatigue. OT will attempt to initiate services tomorrow. PRASANNA Hudson/L
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
[2022-10-29] MEDS: Lactated Ringers 500 ML 250 ML IV (09:27)
[2022-10-29 11:41] LABS: Lactate 0.6 mmol/L (0.6-1.4)
[2022-10-29 12:06] LABS: TSH (W/Ref FT4) 0.58 uIU/mL (0.36-3.74)
--- NOTE | 2022-10-29 12:10 | W.PM.PROGNOT ---
Date of Service Date of service: 10/29/22 Time of Service: 12:11 Assessment and Plan Assessment and plan (1) DKA (diabetic ketoacidosis): Start date: 10/27/22 Status: Acute Assessment and plan: Patient with DM2, uncontrolled by history, presented with DKA and dehydration with severe hyperglycemia and acidosis treated with DKA protocol. NOw off insulin drip. Basal insulin initiated at 1/2 her home dose but held this AM d/t glucose of 86 and lack of appetite/intake. Diabetic education; would be helpful if a family member also present. (2) UTI (urinary tract infection): Start date: 10/27/22 Status: Acute Assessment and plan: Patient has history of recurrent UTIs Cont IV Rocephin with urine culture pending / growing gram positive eri. (3) Confusion: Start date: 10/27/22 Status: Acute Assessment and plan: Patient's confusional state appears to be acute but may be a manifestation of early dementia which need to be reviewed especially when reviewing competency of decision-making with difficult social issues present. Palliative care consulted. (4) Dehydration: Start date: 10/27/22 Status: Acute Assessment and plan: hyperglycemia and DKA. Now appx 4.5L up on I's&O's but BP MAP <60. Was given a 250ml LR bolus this AM. Still lethargic from the seroquel given last PM so not eating/drinking adequately. Intermittent LR boluses as needed. (5) Uncontrolled diabetes mellitus: Status: Chronic Assessment and plan: A1c 11.4. She may do better in a chcf type environment or with increased care at home though her home appears uninhabitable at this time. (6) Anxiety and depression: Status: Chronic Assessment and plan: Continue Cymbalta and as patient recovers consider reevaluation of mental status and decision making along with signs and symptoms of dementia with her depression. She appears to be very controlling by history obtained from son and the may be some abnormal psychiatric issues such as personality disorder at play. (7) Hypothyroidism, unspecified: Status: Chronic Assessment and plan: Continue thyroid supplement following up lab and adjust as needed. Compliance may be an issue and I would adjust her medical therapy slowly until they are sure that she is on her medicine and being taken appropriately. Subjective Subjective Patient reports: no new complaints; denies nausea, vomiting or shortness of breath Interval history since last seen: Poor appetite Exam Narrative Exam Narrative: Asleep. Arouses and answers questions; keeps eyes closed. Lethargic. Const General: cooperative and no acute distress Nutritional Appearance: average body habitus Neck Neck: no JVD Resp Effort & Inspection: normal respiratory effort Auscultation: clear to auscultation bilaterally Cardio Rate: tachycardic (mildly rapid in the low 90's. ) Rhythm: regular rhythm GI Palpation: soft and nontender Skin General skin exam: no rashes or lesions noted Extrem General: no pedal edema and no calf tenderness Objective Last Vital Signs Temp 37.4 C 10/29/22 08:30 Pulse 90 10/29/22 10:11 Resp 24 10/29/22 10:11 BP 109/54 L 10/29/22 10:11 Pulse Ox 97 10/29/22 04:00 Laboratory Results - last 24 hr 10/28/22 10/28/22 10/28/22 13:00 15:04 17:14 WBC RBC Hgb Hct MCV MCH MCHC RDW Plt Count MPV Immature Gran % Neutrophils % Lymphocytes % Monocytes % Eosinophils % Basophils % Nucleated RBC % Absolute Neutrophils Absolute Lymphocytes Absolute Monocytes Absolute Eosinophils Absolute Basophils VBG pH VBG pCO2 VBG pO2 VBG HCO3 VBG Total CO2 VBG O2 Saturation VBG Base Excess VBG Lactate Sodium 135 L 134 L 135 L Potassium 4.3 4.1 4.3 Chloride 106 106 106 Carbon Dioxide 19.1 L 18.6 L 20.7 L Anion Gap 9.9 9.4 8.3 BUN 73 H 69 H 67 H Creatinine 1.5 H 1.6 H 1.5 H Est GFR (CKD-EPI 2020) 33.94 31.41 33.94 Glucose 218 H 307 H 286 H Calcium 8.7 8.5 8.9 Phosphorus Magnesium TSH 10/28/22 10/28/22 10/28/22 19:30 19:30 19:30 WBC RBC Hgb Hct MCV MCH MCHC RDW Plt Count MPV Immature Gran % Neutrophils % Lymphocytes % Monocytes % Eosinophils % Basophils % Nucleated RBC % Absolute Neutrophils Absolute Lymphocytes Absolute Monocytes Absolute Eosinophils Absolute Basophils VBG pH 7.32 VBG pCO2 38 L VBG pO2 42 VBG HCO3 20 L VBG Total CO2 18 L VBG O2 Saturation 77 VBG Base Excess -7 L VBG Lactate Sodium 136 Potassium 4.3 Chloride 106 Carbon Dioxide 19.6 L Anion Gap 10.4 BUN 62 H Creatinine 1.7 H Est GFR (CKD-EPI 2020) 29.21 Glucose 345 H Calcium 8.6 Phosphorus 2.4 L Magnesium TSH 10/28/22 10/28/22 10/29/22 19:30 22:15 00:45 WBC 9.62 RBC 3.90 L Hgb 11.0 L Hct 31.7 L MCV 81 MCH 28.2 MCHC 34.7 RDW 13.7 Plt Count 203 MPV 9.7 Immature Gran % 0.5 Neutrophils % 77.4 Lymphocytes % 13.7 Monocytes % 8.1 Eosinophils % 0.2 Basophils % 0.1 Nucleated RBC % 0.0 Absolute Neutrophils 7.44 H Absolute Lymphocytes 1.32 Absolute Monocytes 0.78 Absolute Eosinophils 0.02 Absolute Basophils 0.01 VBG pH VBG pCO2 VBG pO2 VBG HCO3 VBG Total CO2 VBG O2 Saturation VBG Base Excess VBG Lactate Sodium 134 L Cancelled Potassium 4.4 Cancelled Chloride 105 Cancelled Carbon Dioxide 20.2 L Cancelled Anion Gap 8.8 Cancelled BUN 58 H Cancelled Creatinine 1.5 H Cancelled Est GFR (CKD-EPI 2020) 33.94 Cancelled Glucose 374 H Cancelled Calcium 8.6 Cancelled Phosphorus Magnesium TSH 10/29/22 10/29/22 10/29/22 02:45 04:45 05:30 WBC RBC Hgb Hct MCV MCH MCHC RDW Plt Count MPV Immature Gran % Neutrophils % Lymphocytes % Monocytes % Eosinophils % Basophils % Nucleated RBC % Absolute Neutrophils Absolute Lymphocytes Absolute Monocytes Absolute Eosinophils Absolute Basophils VBG pH VBG pCO2 VBG pO2 VBG HCO3 VBG Total CO2 VBG O2 Saturation VBG Base Excess VBG Lactate Sodium Cancelled Cancelled Potassium Cancelled Cancelled Chloride Cancelled Cancelled Carbon Dioxide Cancelled Cancelled Anion Gap Cancelled Cancelled BUN Cancelled Cancelled Creatinine Cancelled Cancelled Est GFR (CKD-EPI 2020) Cancelled Cancelled Glucose Cancelled Cancelled Calcium Cancelled Cancelled Phosphorus Magnesium 1.6 L TSH 10/29/22 10/29/22 10/29/22 05:30 05:30 05:30 WBC 6.43 RBC 3.23 L Hgb 9.2 L Hct 27.0 L MCV 84 MCH 28.5 MCHC 34.1 RDW 13.8 Plt Count 152 MPV 9.8 Immature Gran % Neutrophils % Lymphocytes % Monocytes % Eosinophils % Basophils % Nucleated RBC % Absolute Neutrophils Absolute Lymphocytes Absolute Monocytes Absolute Eosinophils Absolute Basophils VBG pH VBG pCO2 VBG pO2 VBG HCO3 VBG Total CO2 VBG O2 Saturation VBG Base Excess VBG Lactate Sodium 138 Potassium 3.9 Chloride 110 H Carbon Dioxide 21.3 Anion Gap 6.7 BUN 47 H Creatinine 1.3 H Est GFR (CKD-EPI 2020) 40.30 Glucose 90 Calcium 8.2 L Phosphorus 2.3 L Magnesium TSH 10/29/22 10/29/22 10/29/22 06:45 08:45 10:45 WBC RBC Hgb Hct MCV MCH MCHC RDW Plt Count MPV Immature Gran % Neutrophils % Lymphocytes % Monocytes % Eosinophils % Basophils % Nucleated RBC % Absolute Neutrophils Absolute Lymphocytes Absolute Monocytes Absolute Eosinophils Absolute Basophils VBG pH VBG pCO2 VBG pO2 VBG HCO3 VBG Total CO2 VBG O2 Saturation VBG Base Excess VBG Lactate Sodium Cancelled Cancelled Cancelled Potassium Cancelled Cancelled Cancelled Chloride Cancelled Cancelled Cancelled Carbon Dioxide Cancelled Cancelled Cancelled Anion Gap Cancelled Cancelled Cancelled BUN Cancelled Cancelled Cancelled Creatinine Cancelled Cancelled Cancelled Est GFR (CKD-EPI 2020) Cancelled Cancelled Cancelled Glucose Cancelled Cancelled Cancelled Calcium Cancelled Cancelled Cancelled Phosphorus Magnesium TSH 10/29/22 10/29/22 10/29/22 11:35 11:35 12:45 WBC RBC Hgb Hct MCV MCH MCHC RDW Plt Count MPV Immature Gran % Neutrophils % Lymphocytes % Monocytes % Eosinophils % Basophils % Nucleated RBC % Absolute Neutrophils Absolute Lymphocytes Absolute Monocytes Absolute Eosinophils Absolute Basophils VBG pH VBG pCO2 VBG pO2 VBG HCO3 VBG Total CO2 VBG O2 Saturation VBG Base Excess VBG Lactate 0.6 Sodium Cancelled Potassium Cancelled Chloride Cancelled Carbon Dioxide Cancelled Anion Gap Cancelled BUN Cancelled Creatinine Cancelled Est GFR (CKD-EPI 2020) Cancelled Glucose Cancelled Calcium Cancelled Phosphorus Magnesium TSH 0.58 10/29/22 10/29/22 10/29/22 14:45 16:45 18:45 WBC RBC Hgb Hct MCV MCH MCHC RDW Plt Count MPV Immature Gran % Neutrophils % Lymphocytes % Monocytes % Eosinophils % Basophils % Nucleated RBC % Absolute Neutrophils Absolute Lymphocytes Absolute Monocytes Absolute Eosinophils Absolute Basophils VBG pH VBG pCO2 VBG pO2 VBG HCO3 VBG Total CO2 VBG O2 Saturation VBG Base Excess VBG Lactate Sodium Cancelled Cancelled Cancelled Potassium Cancelled Cancelled Cancelled Chloride Cancelled Cancelled Cancelled Carbon Dioxide Cancelled Cancelled Cancelled Anion Gap Cancelled Cancelled Cancelled BUN Cancelled Cancelled Cancelled Creatinine Cancelled Cancelled Cancelled Est GFR (CKD-EPI 2020) Cancelled Cancelled Cancelled Glucose Cancelled Cancelled Cancelled Calcium Cancelled Cancelled Cancelled Phosphorus Magnesium TSH 10/29/22 20:45 WBC RBC Hgb Hct MCV MCH MCHC RDW Plt Count MPV Immature Gran % Neutrophils % Lymphocytes % Monocytes % Eosinophils % Basophils % Nucleated RBC % Absolute Neutrophils Absolute Lymphocytes Absolute Monocytes Absolute Eosinophils Absolute Basophils VBG pH VBG pCO2 VBG pO2 VBG HCO3 VBG Total CO2 VBG O2 Saturation VBG Base Excess VBG Lactate Sodium Cancelled Potassium Cancelled Chloride Cancelled Carbon Dioxide Cancelled Anion Gap Cancelled BUN Cancelled Creatinine Cancelled Est GFR (CKD-EPI 2020) Cancelled Glucose Cancelled Calcium Cancelled Phosphorus Magnesium TSH Time Spent with Patient Time Spent with Patient: 25-34 minutes Time was spent: preparing to see the patient(eg.review tests), obtaining and/or reviewing separately otained hiistory, ordering medications,tests, procedures, referring, communicating with other health aged or disabled care worker and indepentently interpreting results
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
[2022-10-29] MEDS: Insulin Aspart 300 UNITS/3 ML PEN SC (17:02)
[2022-10-29] MEDS: Insulin Aspart 100 UNITS/ML UNIT SC (17:04)
[2022-10-29] MEDS: Lactated Ringers 1,000 ML 100 ML IV (17:11)
[2022-10-29] MEDS: MAGNESIUM SULFATE 2 GM/50 ML BAG IVPB (19:12)
[2022-10-30] VITALS (9 sets, daily range): BP systolic 111–125; BP diastolic 65–70; PULSE 98–121; RESP 16–20; TEMP 36.6–37.6; O2SAT 95–98
[2022-10-30] MEDS: cefTRIAXone 1 GM/50 ML BAG IVPB (01:40)
[2022-10-30] MEDS: Levothyroxine 125 MCG TAB PO (06:13)
[2022-10-30 07:04] LABS: Anion Gap 8.6 mmol/L (3-11); BUN 30 mg/dL (7-18); CO2 21.4 mmol/L (21.0-32.0); CREATININE 1.1 mg/dL (0.55-1.02); Calcium 8.5 mg/dL (8.5-10.1); Chloride 107 mmol/L (98-107); Estimated GFR 49.24 (mL/min/1.73m2); Glucose 235 mg/dL (74-106); Magnesium 1.9 mg/dL (1.8-2.4); Potassium 4.2 mmol/L (3.5-5.1); Sodium 137 mmol/L (136-145)
[2022-10-30] MEDS: Enoxaparin 40 MG/0.4 ML SYR SC (08:25)
[2022-10-30] MEDS: Normal Saline Flush 10 ML SYR IVP (08:30)
[2022-10-30 09:08] LABS: Glucose 451 mg/dL (74-106)
[2022-10-30] MEDS: Insulin Glargine 300 UNITS/3 ML PEN 40 UNITS SC (09:18)
[2022-10-30] MEDS: Insulin Aspart 300 UNITS/3 ML PEN SC ×4 (09:19→20:53)
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
[2022-10-30 12:14] LABS: Glucose 454 mg/dL (74-106)
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
--- NOTE | 2022-10-30 14:49 | CMPROGNOTE_ITS ---
- If Service Date Differs Date of service: 10/30/22 Time of Service: 14:49 Care Management Progress Note S/O: Fide was lying in bed when CM met with her. She is awake and engages in conversation. Per pt, she will be going home when she is able to discharge. She refuses SNF for STR and also refuses to discharge home with [facility] services. Her son Miguelito and LAURA have also offered to have Fide stay at their home [facility] and pt also refuses this offer. 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 Her daughter in law shares with CM that the family has been trying to convince Fide to leave her home (which is basically a camp) for several years and she consistently refuses. A: 87 year old female admitted to [facility] on 10/29/22 for DKA, UTI, Confusion, Dehydration P: Fide continues to be closely monitored and treated. Per OT, SNF for STR is recommended. Fide refuses SNF and advises CM that she will be going home on discharge, with NO CHH Services. CM will continue to follow.
--- NOTE | 2022-10-30 16:47 | W.PM.PROGNOT ---
Date of Service Date of service: 10/30/22 Time of Service: 16:48 Assessment and Plan Assessment and plan (1) DKA (diabetic ketoacidosis): Start date: 10/27/22 Status: Acute Assessment and plan: Patient with DM2, uncontrolled by history, presented with DKA and dehydration with severe hyperglycemia and acidosis treated with DKA protocol. Now off insulin drip. Did not eat yesterday d/t somnolence from Seroquel the night before. Today, alert and eating well. Blood glucose elevated. Adjust insulin. . (2) UTI (urinary tract infection): Start date: 10/27/22 Status: Acute Assessment and plan: Patient has history of recurrent UTIs Stop abx. Cx growing gram positive eri. (3) Confusion: Start date: 10/27/22 Status: Acute Assessment and plan: Much improved. Undxd formally but likely with a degree of dementia. (4) Dehydration: Start date: 10/27/22 Status: Acute Assessment and plan: Resolved. (5) Uncontrolled diabetes mellitus: Status: Chronic Assessment and plan: A1c 11.4. She may do better in a longterm type environment or with increased care at home though her home appears uninhabitable at this time. (6) Anxiety and depression: Status: Chronic Assessment and plan: Continue Cymbalta and as patient recovers consider reevaluation of mental status and decision making along with signs and symptoms of dementia with her depression. She appears to be very controlling by history obtained from son and the may be some abnormal psychiatric issues such as personality disorder at play. (7) Hypothyroidism, unspecified: Status: Chronic Assessment and plan: Continue thyroid supplement following up lab and adjust as needed. Compliance may be an issue and I would adjust her medical therapy slowly until they are sure that she is on her medicine and being taken appropriately. Subjective Subjective Patient reports: feels better, tolerating a regular diet and afebrile; denies nausea, vomiting or shortness of breath Interval history since last seen: Pt states she would like to go home. Exam Narrative Exam Narrative: Awake. Interactive. Const General: cooperative and no acute distress Nutritional Appearance: average body habitus Orientation: alert and oriented to person Eyes General: appearance normal, both eyes and all related structures Sclera: sclerae normal Neck Neck: no JVD Resp Effort & Inspection: normal respiratory effort Auscultation: clear to auscultation bilaterally Cardio Rate: tachycardic (mildly rapid in the low 90's. ) Rhythm: regular rhythm GI Palpation: soft and nontender Skin General skin exam: no rashes or lesions noted Extrem General: no pedal edema and no calf tenderness Objective Last Vital Signs Temp 37.1 C 10/30/22 15:12 Pulse 113 H 10/30/22 15:12 Resp 16 10/30/22 15:12 BP 112/65 10/30/22 15:12 Pulse Ox 98 10/30/22 15:12 Laboratory Results - last 24 hr 10/30/22 10/30/22 10/30/22 05:58 08:45 11:53 Sodium 137 Potassium 4.2 Chloride 107 Carbon Dioxide 21.4 Anion Gap 8.6 BUN 30 H Creatinine 1.1 H Est GFR (CKD-EPI 2020) 49.24 Glucose 235 H 451 H 454 H Calcium 8.5 Magnesium 1.9 Time Spent with Patient Time Spent with Patient: 25-34 minutes Time was spent: preparing to see the patient(eg.review tests), ordering medications,tests, procedures, referring, communicating with other health resident care associate and indepentently interpreting results
[2022-10-30] MEDS: DULoxetine 30 MG CAP PO (20:52)
[2022-10-31] VITALS (10 sets, daily range): BP systolic 100–112; BP diastolic 57–66; PULSE 86–109; RESP 14–20; TEMP 37.3–37.5; O2SAT 96–98
[2022-10-31] MEDS: Levothyroxine 125 MCG TAB PO (06:26)
[2022-10-31] MEDS: Insulin Glargine 300 UNITS/3 ML PEN 40 UNITS SC (07:58)
[2022-10-31] MEDS: Enoxaparin 40 MG/0.4 ML SYR SC (07:59)
[2022-10-31] MEDS: Insulin Aspart 300 UNITS/3 ML PEN SC ×4 (07:59→22:05)
--- NOTE | 2022-10-31 14:17 | PGE_ITS ---
Date of Service Date of service: 10/31/22 Time of Service: 14:17 Assessment and Plan Assessment and plan (1) DKA (diabetic ketoacidosis): Start date: 10/27/22 Status: Acute Assessment and plan: Patient with DM2, uncontrolled by history, presented with DKA and dehydration with severe hyperglycemia and acidosis treated with DKA protocol. Off insulin drip. Today, alert and eating well. Blood glucose elevated but better. Adjust insulin. . (2) UTI (urinary tract infection): Start date: 10/27/22 Status: Acute Assessment and plan: Patient has history of recurrent UTIs Stop abx. Cx growing gram positive eri. (3) Confusion: Start date: 10/27/22 Status: Acute Assessment and plan: Much improved. Undxd formally but likely with a degree of dementia. (4) Dehydration: Start date: 10/27/22 Status: Acute Assessment and plan: Resolved. (5) Uncontrolled diabetes mellitus: Status: Chronic Assessment and plan: A1c 11.4. She may do better in a intermediate type environment or with increased care at home though her home appears uninhabitable at this time. (6) Anxiety and depression: Status: Chronic Assessment and plan: Continue Cymbalta and as patient recovers consider reevaluation of mental status and decision making along with signs and symptoms of dementia with her depression. She appears to be very controlling by history obtained from son and the may be some abnormal psychiatric issues such as personality disorder at play. (7) Hypothyroidism, unspecified: Status: Chronic Assessment and plan: Continue thyroid supplement following up lab and adjust as needed. Compliance may be an issue and I would adjust her medical therapy slowly until they are sure that she is on her medicine and being taken appropriately. Subjective Subjective Patient reports: no new complaints and tolerating a regular diet; denies shortness of breath or afebrile Exam Narrative Exam Narrative: Awake. Interactive. Eating breakfast. Const General: cooperative and no acute distress Nutritional Appearance: average body habitus Orientation: alert and oriented to person Eyes General: appearance normal, both eyes and all related structures Sclera: sclerae normal Neck Neck: no JVD Resp Effort & Inspection: normal respiratory effort Auscultation: clear to auscultation bilaterally Cardio Rate: tachycardic (mildly rapid in the low 90's. ) Rhythm: regular rhythm GI Palpation: soft and nontender Skin General skin exam: no rashes or lesions noted Extrem General: no pedal edema and no calf tenderness Objective Last Vital Signs Temp 37.4 C 10/31/22 11:12 Pulse 102 H 10/31/22 11:12 Resp 14 10/31/22 11:12 BP 105/63 10/31/22 11:12 Pulse Ox 96 10/31/22 11:12 Time Spent with Patient Time Spent with Patient: <25 minutes Time was spent: preparing to see the patient(eg.review tests), ordering medications,tests, procedures, referring, communicating with other health overnight caregiver, indepentently interpreting results and counseling the patient
[2022-10-31] MEDS: DULoxetine 30 MG CAP PO (22:05)
[2022-11-01] VITALS: PULSE 105
[2022-11-01 03:08] VITALS: BP 123/73; PULSE 103; RESP 16; TEMP 37.7; O2SAT 97
[2022-11-01] MEDS: Levothyroxine 125 MCG TAB PO (06:24)
[2022-11-01 06:37] VITALS: BP 97/61; PULSE 107; RESP 18; TEMP 37.1; O2SAT 99
[2022-11-01 07:04] VITALS: PULSE 103
[2022-11-01] MEDS: Insulin Aspart 300 UNITS/3 ML PEN SC ×4 (08:41→11:58)
[2022-11-01] MEDS: Enoxaparin 40 MG/0.4 ML SYR SC (08:42)
[2022-11-01] MEDS: Insulin Glargine 300 UNITS/3 ML PEN 40 UNITS SC (08:43)
[2022-11-01 11:09] LABS: Abs Immature Grans 0.04 10^3/uL (0.0-0.06); Absolute Basophil Count 0.01 10^3/uL (0.0-0.2); Absolute Eosinophil Count 0.08 10^3/uL (0.0-0.7); Absolute Lymphocyte Count 1.39 10^3/uL (1.2-3.4); Absolute Monocyte Count 0.58 10^3/uL (0.1-0.8); Absolute Neutrophil Count 5.65 10^3/uL (1.2-6.7); Basophils % 0.1; HCT 28.7 % (36.0-46.0); HGB 9.8 g/dL (11.2-15.7); Immature Grans % 0.5; Lymphocytes % 17.9; MCH 28.3 pg (27.0-33.0); MCHC 34.1 % (32.0-36.0); MCV 83 fL (80-95); MPV 10.1 fL (8.0-11.0); Monocytes % 7.5; Platelet Count 145 10^3/uL (130-400); RBC 3.46 10^6/uL (3.93-5.22); RDW 13.3 % (11.7-14.6); RDW-SD 40.5 fL; WBC 7.75 10^3/uL (4.4-10.8)
[2022-11-01 11:24] LABS: ALT 20 U/L (14-59); AST 19 U/L (15-37); Albumin 2.1 g/dL (3.4-5.0); Alkaline Phosphatase 89 U/L (46-116); Anion Gap 5.3 mmol/L (3-11); BUN 21 mg/dL (7-18); Bilirubin, Total 0.4 mg/dL (0.2-1.0); CO2 27.7 mmol/L (21.0-32.0); CREATININE 1.2 mg/dL (0.55-1.02); Calcium 8.4 mg/dL (8.5-10.1); Chloride 99 mmol/L (98-107); Estimated GFR 44.36 (mL/min/1.73m2); Glucose 296 mg/dL (74-106); Potassium 3.7 mmol/L (3.5-5.1); Sodium 132 mmol/L (136-145); Total Protein 6.2 g/dL (6.4-8.2)
[2022-11-01 11:31] VITALS: BP 112/61; PULSE 107; RESP 28; TEMP 36.6; O2SAT 97
[2022-11-01] MEDS: Normal Saline 500 ML 1000 ML IV (12:01)
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
[2022-11-01 14:11] VITALS: PULSE 116
--- NOTE | 2022-11-01 14:29 | PDOC.CMDIS ---
- If Service Date Differs Date of service: 11/01/22 Time of Service: 14:29 LACE Index Scoring Tool - Questions: Length of Stay (in days): 4 - 6 Acuity (Admit via E.D.?): Yes Comorbidities: Diabetes w/o Complication, Any Tumor, Liver or Renal Disease E.D. Visits: 1 - Answers: Total Score: 13 Risk of Readmission: High Risk Care Management Discharge Reason for Hospitalization: DKA, UTI, Confusion, Dehydration Discharge Plan: Fide will discharge home with no new services. She has refused to condsider SNF and has declined the offer of home health services. She will transport with her son and follow up with her PCP and plan of care as prescribed. Patient/Family Education Needs: Review discharge instructions, limitations and plan to follow up with community providers. Discuss ask me three.
== END 2022-11-01 15:05 | disposition home or self-care (01) | DRG 638 ==
LOC: ER 10-28 07:46 → ICU 10-28 14:34 → MS 10-29 14:00
PROVIDERS: Family Medicine; Nurse Practitioner Family; Registered Nurse Emergency; Student in an Organized Health Care Education/Training Program; Admitting Provider Family Medicine; Emergency Provider Physician Assistant; PCP Nurse Practitioner; Visit Provider Family Medicine
DX: E11.10 Type 2 diabetes mellitus with ketoacidosis without coma (principal); E85.3 Secondary systemic amyloidosis; N39.0 Urinary tract infection, site not specified; E86.0 Dehydration; E11.22 Type 2 diabetes mellitus with diabetic chronic kidney disease; N18.30 Chronic kidney disease, stage 3 unspecified; Z93.3 Colostomy status; I12.9 Hypertensive chronic kidney disease with stage 1 through stage 4 chronic kidney disease, or unspecified chronic kidney disease; E83.42 Hypomagnesemia; E03.9 Hypothyroidism, unspecified; K21.9 Gastro-esophageal reflux disease without esophagitis; F41.8 Other specified anxiety disorders; M54.42 Lumbago with sciatica, left side; E11.3293 Type 2 diabetes mellitus with mild nonproliferative diabetic retinopathy without macular edema, bilateral; Z85.038 Personal history of other malignant neoplasm of large intestine; E78.5 Hyperlipidemia, unspecified; I95.9 Hypotension, unspecified; D50.9 Iron deficiency anemia, unspecified; E83.39 Other disorders of phosphorus metabolism; F03.90 Unspecified dementia, unspecified severity, without behavioral disturbance, psychotic disturbance, mood disturbance, and anxiety; Z79.84 Long term (current) use of oral hypoglycemic drugs; Z79.4 Long term (current) use of insulin
CPT/HCPCS: 36415; 36416; 76604; 80048; 80053; 82550; 82805; 82947; 82962; 85027; 87040; 87077; 87081; 93005; 93308; 96361; 96365; 96366; 96367; 96368; 96372; 96375; 97166; 99285; J1650; 70450; 71045; 81003; 81015; 83036; 83605; 83735; 84100; 84443; 84484; 85025; 87086; 93010; 99223; 99232; 99239; J0696; J1815; J2405

== ENCOUNTER 2022-11-17 16:28 | Emergency (ER) | payer MEDICARE, SELFPAY ==
[2022-11-17 16:26] VITALS: BP 112/58; PULSE 74; RESP 18; TEMP 36.7; O2SAT 98
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
[2022-11-17 16:59] VITALS: BP 119/58; PULSE 70; RESP 16; O2SAT 99
--- NOTE | 2022-11-17 17:02 | NUR.NOTE ---
Pt answering orientation questions appropriately at this time. Ostomy bag full on arrival and this nurse emptied bag appropriately. Pt provided with warm blankets and call light within reach. Pt understands use of call light. Pt thanked this nurse.
[2022-11-17] MEDS: Normal Saline 1,000 ML 1000 ML IV (17:20)
[2022-11-17 17:23] LABS: Abs Immature Grans 0.05 10^3/uL (0.0-0.06); Absolute Basophil Count 0.02 10^3/uL (0.0-0.2); Absolute Eosinophil Count 0.02 10^3/uL (0.0-0.7); Absolute Lymphocyte Count 0.67 10^3/uL (1.2-3.4); Absolute Monocyte Count 0.44 10^3/uL (0.1-0.8); Basophils % 0.3; Eosinophils % 0.3; HCT 30.8 % (36.0-46.0); HGB 9.8 g/dL (11.2-15.7); Immature Grans % 0.6; Lymphocytes % 8.4; MCH 27.3 pg (27.0-33.0); MCHC 31.8 % (32.0-36.0); MCV 86 fL (80-95); MPV 9.6 fL (8.0-11.0); Monocytes % 5.5; Neutrophils % 84.9; Platelet Count 252 10^3/uL (130-400); RBC 3.59 10^6/uL (3.93-5.22); RDW 13.7 % (11.7-14.6); RDW-SD 43.1 fL
[2022-11-17 17:37] LABS: ALT 42 U/L (14-59); AST 38 U/L (15-37); Albumin 2.3 g/dL (3.4-5.0); Alkaline Phosphatase 107 U/L (46-116); Anion Gap 8.6 mmol/L (3-11); BUN 16 mg/dL (7-18); Bilirubin, Total 0.5 mg/dL (0.2-1.0); CO2 23.4 mmol/L (21.0-32.0); CREATININE 1.2 mg/dL (0.55-1.02); Calcium 8.7 mg/dL (8.5-10.1); Chloride 102 mmol/L (98-107); Creatine Kinase 28 U/L (26-192); Estimated GFR 44.36 (mL/min/1.73m2); Glucose 275 mg/dL (74-106); Magnesium 1.4 mg/dL (1.8-2.4); Potassium 3.8 mmol/L (3.5-5.1); Sodium 134 mmol/L (136-145); Total Protein 7.1 g/dL (6.4-8.2)
--- NOTE | 2022-11-17 17:41 | NUR.NOTE ---
Nursing Note: Pt provided with food and juice. Pt thanked this nurse for care. This RN updated son and daughter with expected plan of care.
--- NOTE | 2022-11-17 18:08 | NUR.NOTE ---
Nursing Note: Pt reminded to activate call light when pt needs to use bathroom and that a urine sample is necessary.
[2022-11-17 18:10] VITALS: BP 110/61; PULSE 77; RESP 16; O2SAT 98
[2022-11-17 18:35] LABS: Bilirubin Negative (Negative); Blood Large (Negative); Clarity Cloudy (Clear); Glucose 250 mg/dL (Negative); Ketones Negative (Negative); Leukocyte Esterase Large (Negative); Nitrite Positive (Negative); Specific Gravity <= 1.005 (1.005-1.025); Urobilinogen 0.2 mg/dL (Up to 0.2)
[2022-11-17 18:44] LABS: Bacteria Many HPF (Negative); C & S Indicated? Yes; Casts Negative LPF (Negative); Crystals Negative HPF (Negative); Epithelial Cells Few HPF (Negative); Mucus Negative (Negative); WBC 20-50 HPF (0-5)
[2022-11-17 19:17] VITALS: BP 106/57; PULSE 80; RESP 16; O2SAT 99
[2022-11-17] MEDS: Amoxicillin 500/Clav. 125 TAB PO (19:26)
== END 2022-11-17 19:54 | disposition home or self-care (01) ==
PROVIDERS: Emergency Provider Emergency Medicine Emergency Medical Services; PCP Nurse Practitioner
DX: E11.649 Type 2 diabetes mellitus with hypoglycemia without coma (principal); N39.0 Urinary tract infection, site not specified; E86.0 Dehydration
CPT/HCPCS: 36416; 80053; 82550; 82962; 87077; 96360; 99284; 81003; 81015; 83735; 85025; 87086; 87186; 99283

== ENCOUNTER 2022-12-05 00:09 | Inpatient (IN) | payer MEDICARE, SELFPAY ==
[2022-12-05] VITALS (60 sets, daily range): BP systolic 105–129; BP diastolic 49–87; PULSE 74–115; RESP 13–33; TEMP 36.2–37.1; O2SAT 94–100
--- NOTE | 2022-12-05 | DI.CT_ITS ---
Exam(s) CT UPPER EXTREMITY LT WO EXAM: CT UPPER EXTREMITY LT WO CLINICAL HISTORY: left arm pain. TECHNIQUE: Imaging Protocol: Axial computed tomography images with coronal and sagittal reformatted images were created and reviewed. COMPARISON: CT CT CHEST/ABD/PEL W from 12/05/2022 FINDINGS: Bones: No acute fracture or dislocation. Bony alignment is satisfactory. There is calcific tendini tis adjacent to the humeral head. Soft Tissues: Normal. IMPRESSION: No acute fracture or dislocation. RADIATION DOSE DELIVERED: 1,084mGy.cm Total DLP 1,084mGy.cm Total DLP DATA REPOSITORY: All CT scans at this facility are submitted to the National Radiology Data Registry (NRDR) Dose Index Registry (DIR) with the [employer] (ACR). RADIATION OPTIMIZATION: All CT scans at this facility use at least one of these dose optimization te chniques: automated exposure control; mA and/or kV adjustment per patient size (includes targeted exa ms where dose is matched to clinical indication); or iterative reconstruction.
--- NOTE | 2022-12-05 00:15 | DI.CT_ITS ---
Exam(s) CT CHEST/ABD/PEL W EXAM: CT CHEST/ABD/PEL W CLINICAL HISTORY: fall, confusion, left back and arm pain TECHNIQUE: Imaging Protocol: Axial computed tomography images with coronal and sagittal reformatted images were created and reviewed CONTRAST MATERIAL: Intravenous: Omnipaque 350 contrast volume:100 mL Oral: No COMPARISON: CT DI.CTAPWO from 03/27/[address] UPPER EXTREMITY LT WO from 12/05/[address] HEAD WO from 12/05/2022 FINDINGS: CHEST: Tracheobronchial tree: Patent where visualized. Pulmonary parenchyma: No consolidation or dominant measurable mass. Chronic pulmonary fibrosis and br onchiectasis in the lungs predominantly the bases. Mediastinum and Barbara: Mildly enlarged mediastinal lymph nodes are present. The esophagus is unremark able. Pleura: No effusion or pneumothorax. Heart: The heart is not dilated. Marked coronary artery calcification is present. No pericardial eff usion. Pulmonary arteries: No central or 1st order pulmonary embolus is identified. Aorta: Thoracic aorta non-dilated. Atherosclerosis. Lymph nodes: Within normal limits. There are surgical clips in the left axilla. Soft tissues: Unremarkable. Bones:Within normal limits for the patient's age. Please see the CT scan of the left upper extremity . ABDOMEN: Liver: Normal density. There is a lobulated contour of the liver suggesting hepatic cirrhosis. No di screte hepatic masses present. Portal, Superior Mesenteric, and Splenic Veins: Unremarkable. Gallbladder and Biliary Tract: Gallbladder is absent. There is unchanged dilatation of the extrahepa tic bile ducts. This can be seen following cholecystectomy. Pancreas: Normal density, no abnormal calcifications or inflammatory process. Spleen: Calcified granuloma are seen in the spleen. There is a splenic cyst noted. Adrenals: No masses seen. Kidneys: Normal size, contour and axis. No nephrolithiasis. Bilateral hydroureteronephrosis. No mas ses seen. Abdominal Aorta: Abdominal portion non-dilated. Atherosclerosis. Bowel: The patient has had a prior distal colonic resection. 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 There is a left anterior abdominal wall hernia lateral to the colostomy containing both small and large bowel loops. There is no evidence of bowel obstruction. There is no significant bowel wall t hickening. No evidence of appendicitis. There is also a midline anterior abdominal wall hernia infe rior to the umbilicus containing unremarkable loop of small bowel. Peritoneal Cavity: No ascites, collection or mesenteric inflammatory response. No free air. Lymph Nodes: Within normal limits. Bones: Within normal limits for the patient's age. Soft Tissues: Unremarkable. PELVIS: Bladder: There is diffuse thickening and enhancement of the wall of the urinary bladder. Urinary efren dder and adjacent cecum in are closely opposed. There is a question of communication between the 2 s tructures such as a fistula. The uterus lies posterior and superior to the urinary bladder. There i s a 1.7 x 4.2 cm thick walled fluid collection posterior and superior to the bladder and inferior to the uterus. This may represent the distended inflamed vagina versus an abscess. There are inflammat ory changes in the posterior pelvis. There is loss of delineation between the urinary bladder, above described fluid collection and uterus in the presacral soft tissues. Reproductive Organs: Unremarkable as visualized. Lymph Nodes: Within normal limits. Bones: Within normal limits. IMPRESSION: 1. No evidence of acute thoracic injury. 2. No evidence of acute abdominal or pelvic organ injury. Fracture. 3. Findings suspicious for inflammatory involvement of the urinary bladder such as cystitis. Neoplas tic process cannot be excluded. 4. Question of communication between the cecum and the urinary bladder by fistula. 5. Fluid collection posterior and superior to the urinary bladder. Differential considerations inclu de abscess, bladder diverticulum hydroureteronephrosis to the level of the soft tissue, inflamed vagi na or neoplasm. 6. Bilateral hydroureteronephrosis to the level of the inflammation/soft tissue mass in the pelvis. 7. Anterior abdominal wall bowel containing hernias without evidence of obstruction. RADIATION DOSE DELIVERED: Total DLP DATA REPOSITORY: All CT scans at this facility are submitted to the National Radiology Data Registry (NRDR) Dose Index Registry (DIR) with the [employer] ([employer]). RADIATION OPTIMIZATION: All CT scans at this facility use at least one of these dose optimization te chniques: automated exposure control; mA and/or kV adjustment per patient size (includes targeted exa ms where dose is matched to clinical indication); or iterative reconstruction.
--- NOTE | 2022-12-05 00:15 | DI.CT_ITS ---
Exam(s) CT HEAD WO EXAM: CT HEAD WO CLINICAL HISTORY: falls, confusion, altered. TECHNIQUE: Imaging Protocol: Axial computed tomography images with coronal and sagittal reformatted images were created and reviewed COMPARISON: CT CT HEAD WO from 10/27/2022 FINDINGS: Ventricles and Extra axial spaces: Normal in size and morphology for the patient's age. Hemorrhage: None. Cerebral parenchyma: There is no acute territorial infarct. Findings of chronic microvascular ischem ic changes are noted. Midline shift: None. Brainstem/Cerebellum: Normal. Calvarium: Normal. Visualized Paranasal sinuses/Mastoids: Clear. Soft Tissues: Unremarkable. IMPRESSION: No acute intracranial process. RADIATION DOSE DELIVERED: 647.26mGy.cm Total DLP DATA REPOSITORY: All CT scans at this facility are submitted to the National Radiology Data Registry (NRDR) Dose Index Registry (DIR) with the [employer] ([employer]). RADIATION OPTIMIZATION: All CT scans at this facility use at least one of these dose optimization te chniques: automated exposure control; mA and/or kV adjustment per patient size (includes targeted exa ms where dose is matched to clinical indication); or iterative reconstruction.
--- NOTE | 2022-12-05 00:15 | RT.EKG_ITS ---
APPROVED REPORT Exam: Resting ECG Reason for Exam: confusion Patient Location: E HR:81 bpm ECG Measurements Heart Rate 81 AXIS NE 153 P 46 QRSd 87 QRS -32 QT 373 T 53 QTc 434 Conclusion Sinus rhythm...normal P axis, V-rate 60- 99 PHysician: no stemi, unchanged from prior ekg
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
[2022-12-05] MEDS: Normal Saline 1,000 ML 1000 ML IV (00:30)
[2022-12-05 00:41] LABS: Abs Immature Grans 0.03 10^3/uL (0.0-0.06); Absolute Basophil Count 0.03 10^3/uL (0.0-0.2); Absolute Eosinophil Count 0.04 10^3/uL (0.0-0.7); Absolute Lymphocyte Count 1.84 10^3/uL (1.2-3.4); Absolute Monocyte Count 0.64 10^3/uL (0.1-0.8); Absolute Neutrophil Count 6.55 10^3/uL (1.2-6.7); BE (Venous) 4 mmol/L (-2-3); Basophils % 0.3; Eosinophils % 0.4; HCO3 (Venous) 30 mmol/L (23-28); HCT 37.2 % (36.0-46.0); HGB 11.6 g/dL (11.2-15.7); Immature Grans % 0.3; Lymphocytes % 20.2; MCH 26.9 pg (27.0-33.0); MCHC 31.2 % (32.0-36.0); MCV 86 fL (80-95); MPV 10.1 fL (8.0-11.0); Neutrophils % 71.8; O2 Sat (Venous) 39 %; Platelet Count 328 10^3/uL (130-400); RBC 4.32 10^6/uL (3.93-5.22); RDW 14.4 % (11.7-14.6); RDW-SD 45.1 fL; TCO2 (Venous) 28 mmol/L (24-29); WBC 9.13 10^3/uL (4.4-10.8); pCO2 (Venous) 51 mmHg (41-51); pH (Venous) 7.37 (7.31-7.41); pO2 (Venous) 25 mmHg
[2022-12-05 00:44] LABS: Bilirubin Negative (Negative); Blood Large (Negative); Clarity Clear (Clear); Glucose Negative (Negative); Ketones Negative (Negative); Leukocyte Esterase Large (Negative); Nitrite Positive (Negative); Urobilinogen 0.2 mg/dL (Up to 0.2); pH 7.5 (5-8)
[2022-12-05 00:44] LABS: Lactate 1.7 mmol/L (0.6-1.4)
[2022-12-05 00:52] LABS: WBC >50 HPF (0-5)
[2022-12-05 00:53] LABS: C & S Indicated? Yes
[2022-12-05 01:06] LABS: ALT 14 U/L (14-59); AST 17 U/L (15-37); Albumin 2.9 g/dL (3.4-5.0); Alkaline Phosphatase 116 U/L (46-116); Anion Gap 7.2 mmol/L (3-11); BUN 17 mg/dL (7-18); Bilirubin, Total 0.8 mg/dL (0.2-1.0); CO2 29.8 mmol/L (21.0-32.0); CREATININE 1.3 mg/dL (0.55-1.02); Calcium 9.3 mg/dL (8.5-10.1); Chloride 100 mmol/L (98-107); Glucose 175 mg/dL (74-106); Potassium 3.9 mmol/L (3.5-5.1); Sodium 137 mmol/L (136-145); TSH (W/Ref FT4) 0.09 uIU/mL (0.36-3.74); Total Protein 8.2 g/dL (6.4-8.2); Troponin I < 50 ng/L (<or=60)
[2022-12-05 01:08] LABS: ETHANOL BLOOD < 3.0 mg/dL (<10)
[2022-12-05] MEDS: levoFLOXacin 750 MG/150 ML BAG 100 MG IVPB (01:16)
[2022-12-05 01:27] LABS: FREE T4 2.34 ng/dL (0.76-1.46)
[2022-12-05 01:34] LABS: COVID-19 PCR Negative (Negative); Influenza A PCR Negative (Negative); Influenza B PCR Negative (Negative); RSV PCR Negative (Negative); Source Nasopharynx
[2022-12-05] MEDS: Normal Saline - Diluent 50 ML VIAL IJ (01:51)
[2022-12-05] MEDS: Omnipaque 350 MG/ML 100 ML BTL IJ (01:51)
--- NOTE | 2022-12-05 03:07 | DI.VRAD_ITS ---
PROCEDURE INFORMATION: Exam: CT Head Without Contrast Exam date and time: 12/05/2022 1:37 AM Age: 87 years old Clinical indication: Injury or trauma; Concussion/head injury and other: Falls, confusion, altered; Without loss of consciousness TECHNIQUE: Imaging protocol: Computed tomography of the head without contrast. Radiation optimization: All CT scans at this facility use at least one of these dose optimization techniques: automated exposure control; mA and/or kV adjustment per patient size (includes targeted exams where dose is matched to clinical indication); or iterative reconstruction. COMPARISON: CT HEAD WO 10/27/2022 10:05 PM FINDINGS: Brain: No intracranial hemorrhage appreciated. No significant focal mass effect or significant midline shift. Generalized parenchymal volume loss. Chronic ischemic changes are noted. Cerebral ventricles: No disproportionate ventriculomegaly. Paranasal sinuses: No air-fluid levels seen. Mastoid air cells: No mastoid effusion. Bones/joints: No acute cranial vault fracture seen. Soft tissues: No acute findings. Vasculature: Arterial calcifications. IMPRESSION: 1. No acute intracranial abnormality is appreciated. 2. Nonacute findings as outlined above. Dictated and Authenticated by: Della Osman MD. Ordering:NICOLE Schumacher MD
[2022-12-05 03:27] LABS: Troponin I < 50 ng/L (<or=60)
--- NOTE | 2022-12-05 03:37 | DI.VRAD_ITS ---
PROCEDURE INFORMATION: Exam: CT Chest With Contrast; Diagnostic Exam date and time: 12/05/2022 1:42 AM Age: 87 years old Clinical indication: Other: Fall, confusion, left back and arm pain TECHNIQUE: Imaging protocol: Diagnostic computed tomography of the chest with contrast. 3D rendering (Not supervised by radiologist): MIP and/or 3D reconstructed images were created by the technologist. Radiation optimization: All CT scans at this facility use at least one of these dose optimization techniques: automated exposure control; mA and/or kV adjustment per patient size (includes targeted exams where dose is matched to clinical indication); or iterative reconstruction. Contrast material: OMNI 350; Contrast volume: 100 ml; Contrast route: INTRAVENOUS (IV); COMPARISON: CR XR CHEST 1V IN DI DEPT 10/27/2022 10:14 PM FINDINGS: Lungs: Peripheral scarring and bronchiectasis throughout the lungs, most significant in the lower lobes. Pleural spaces: Unremarkable. No pneumothorax. No pleural effusion. Heart: Heart size is normal. A few scattered coronary artery calcifications are present. Lymph nodes: Unremarkable. No enlarged lymph nodes. Vasculature: Unremarkable. No aortic aneurysm. Bones/joints: Scattered degenerative changes are present. No aggressive appearing bony abnormalities are present. No acute fractures appreciated. Soft tissues: Unremarkable. IMPRESSION: 1. No CT findings of acute intrathoracic injury. 2. Peripheral scarring of the lungs with bronchiectasis throughout, most significant in the lower lobes. Correlate clinically. PROCEDURE INFORMATION: Exam: CT Abdomen And Pelvis With Contrast Exam date and time: 12/05/2022 1:42 AM Age: 87 years old Clinical indication: Other: Fall, confusion, left back and arm pain TECHNIQUE: Imaging protocol: Computed tomography of the abdomen and pelvis with contrast. 3D rendering (Not supervised by radiologist): MIP and/or 3D reconstructed images were created by the technologist. Radiation optimization: All CT scans at this facility use at least one of these dose optimization techniques: automated exposure control; mA and/or kV adjustment per patient size (includes targeted exams where dose is matched to clinical indication); or iterative reconstruction. Contrast material: OMNI 350; Contrast volume: 100 ml; Contrast route: INTRAVENOUS (IV); COMPARISON: CR XR abdomen flat upright 03/28/2018 7:30 AM FINDINGS: Liver: Normal. No mass. Gallbladder and bile ducts: The gallbladder is not discretely identified and may be decompressed or surgically absent. Common bile duct is prominent measuring up to 1 cm in diameter which may be secondary to a post cholecystectomy reservoir syndrome. Pancreas: Normal. No ductal dilation. Spleen: There are multiple calcifications noted within the spleen. There is a 1.7 cm cyst present within the mid spleen. Adrenal glands: Normal. No mass. Kidneys and ureters: Bilateral mild hydronephrosis is present with prominent dilatation of the ureters. The kidneys are otherwise unremarkable. Stomach and bowel: A large left-sided partial colectomy is present with a left lower quadrant colostomy in place. Appendix: No evidence of appendicitis. Intraperitoneal space: Unremarkable. No free air. No significant fluid collection. Vasculature: Unremarkable. No abdominal aortic aneurysm. Lymph nodes: Unremarkable. No enlarged lymph nodes. Urinary bladder: The urinary bladder wall is thickened and irregular with prominent surrounding inflammatory changes. 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 Just superior to the urinary bladder and slightly to the left of midline is a 1.8 x 2.3 by 2.3 cm fluid collection that may represent an abscess however this is in the vicinity of the distal left ureter and may represent some hydronephrosis. Reproductive: Unremarkable as visualized. Bones/joints: No aggressive appearing bony lesions. Prominent inflammatory changes are present in the lower pelvis. Soft tissues: There is a large midline ventral hernia present that contains multiple loops of small bowel. No evidence of obstruction at this time. IMPRESSION: 1. No CT findings of acute intra-abdominal injury. 2. 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 3. 2.3 cm fluid collection just superior left midline from the urinary bladder that may represent an intra-abdominal abscess however this is in the vicinity of the distal left ureter and may represent distal ureterectasis. Given the surrounding inflammatory changes, the soft tissue structures in this region are not well delineated. 4. Mild bilateral hydronephrosis with prominent dilatation of the proximal ureters. 5. Other chronic changes as described. Dictated and Authenticated by: Zhao Leo MD. Ordering:NICOLE Schumacher MD
--- NOTE | 2022-12-05 03:38 | DI.VRAD_ITS ---
PROCEDURE INFORMATION: Exam: CT Left Upper Extremity Without Contrast Exam date and time: 12/05/2022 1:42 AM Age: 87 years old Clinical indication: Pain; Lower or forearm and upper arm and shoulder; Left; Right; Additional info: Fall, confusion, left arm pain TECHNIQUE: Imaging protocol: Computed tomography of the left upper extremity without contrast. Radiation optimization: All CT scans at this facility use at least one of these dose optimization techniques: automated exposure control; mA and/or kV adjustment per patient size (includes targeted exams where dose is matched to clinical indication); or iterative reconstruction. COMPARISON: CR XR CHEST 1V IN DI DEPT 10/27/2022 10:14 PM FINDINGS: Bones/joints: No CT evidence of acute bony abnormality. There is some calcification present about the superior aspect of the humeral head that likely represents calcific rotator cuff tendinitis. Soft tissues: No soft tissue abnormalities. IMPRESSION: No acute findings Dictated and Authenticated by: Zhao Leo MD. Ordering:NICOLE Schumacher MD
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
[2022-12-05] MEDS: Glimepiride 1 MG TAB 4 MG PO (07:33)
[2022-12-05] MEDS: Enoxaparin 30 MG/0.3 ML SYR SC (07:33)
[2022-12-05] MEDS: Dextrose 50%-Water 25 GM/50 ML SYR IVP (07:56)
[2022-12-05] MEDS: Insulin Aspart 300 UNITS/3 ML PEN SC ×3 (09:22→17:14)
[2022-12-05] MEDS: Enalapril 5 MG TAB 2.5 MG PO (09:23)
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
[2022-12-05] MEDS: DULoxetine 30 MG CAP PO (21:32)
[2022-12-06] VITALS (7 sets, daily range): BP systolic 86–112; BP diastolic 49–66; PULSE 77–93; RESP 14–20; TEMP 36.6–37.6; O2SAT 97–98
[2022-12-06 07:31] LABS: Anion Gap 7.1 mmol/L (3-11); BUN 20 mg/dL (7-18); CO2 26.9 mmol/L (21.0-32.0); CREATININE 1.3 mg/dL (0.55-1.02); Calcium 9.1 mg/dL (8.5-10.1); Chloride 103 mmol/L (98-107); Glucose 200 mg/dL (74-106); Potassium 4.2 mmol/L (3.5-5.1); Sodium 137 mmol/L (136-145)
[2022-12-06] MEDS: Enoxaparin 30 MG/0.3 ML SYR SC (07:59)
[2022-12-06] MEDS: Enalapril 5 MG TAB 2.5 MG PO (07:59)
[2022-12-06] MEDS: Insulin Aspart 300 UNITS/3 ML PEN SC ×3 (08:00→16:42)
[2022-12-06] MEDS: Glimepiride 1 MG TAB 4 MG PO (08:04)
[2022-12-06] MEDS: Insulin Glargine 300 UNITS/3 ML PEN 40 UNITS SC (08:25)
--- NOTE | 2022-12-06 10:11 | PGE_ITS ---
Date of Service Date of service: 12/06/22 Time of Service: 10:11 Assessment and Plan Assessment and plan (1) Urinary tract infection: Status: Acute Assessment and plan: Associated with mental status changes related to toxic metabolic encephalopathy a/w the infection. She does not appear septic. MS has now normalized. Fide has had 3 UTIs in the past month and now imaging shows urinary bladder wall thickening with a fluid collection near the bladder and uterus. Questionable vaginal involvement and questionable colovesicular fistula. No don fecal material in urine but urine is cloudy with white sediment. Continue levofloxacin going off the most recent urine culture with repeat growing gram neg rudi and mixed gram positive and negative eri. Surgery consult appreciated. No surgical intervention recommended at this time. Recommends urology evaluation / consult placed. She has had these 3 UTIs since starting SGLT2i; consider stopping but her risk for bladder infection may be more anatomical. 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 Cecum in close proximity to the thickened-walled bladder, but the cecum doesn't appear inflammed. Urology consulted to discuss whether or not a cystoscopy is warranted. (3) Uncontrolled diabetes mellitus: Status: Chronic Assessment and plan: This is poorly controlled and getting worse. She is experiencing hypoglycemia as well. She is not in DKA this time. She likely needs a more supportive care environment to manage her medical issues. She is on high dose basal insulin and will likely need to be transitioned to bolus insulin in addition Also on glimepiride. Stopping SGLT2i given recurrent UTI. This is a weak DM medication, especially in setting of CKD, though it may improved CKD prognosis. GLP-1 would be option but may be difficult tolerating this with her complicated GI history. (4) Chronic kidney disease, stage III (moderate): Status: Acute Assessment and plan: SHe is at her baseline GFR. (5) Hyperthyroidism: Assessment and plan: She has been overcorrected. TSH 0.09. Holding her levothyroxine. She should resume at lower dose upon discharge. (6) DVT prophylaxis: Status: Acute Assessment and plan: LMWH (7) Discharge planning issues: Status: Acute Assessment and plan: As above she may need SNF level of care. Work with . Subjective Subjective Patient reports: no new complaints, tolerating a regular diet and afebrile; denies diarrhea, nausea, vomiting or shortness of breath Interval history since last seen: Denies abd/pelvic pain. Exam Narrative Exam Narrative: GEN: Pleasant. NAD. Sitting in chair. HEENT: Sclera clear. MMM LUNGS: CTAB with normal effort CV: RRR with no murmur ABD: +BS, soft. scars noted. not distended. NT Colostomy site benign appearing EXT: no edema. No calf tenderness. MSK: No joint redness or swelling NEURO: Normal movement of 4 extremities. Normal speech SKIN: No rashes or open wounds. PSYCH: normal affect. Objective Last Vital Signs Temp 36.6 C 12/06/22 06:30 Pulse 81 12/06/22 06:30 Resp 16 12/06/22 06:30 BP 112/66 12/06/22 06:30 Pulse Ox 98 12/06/22 06:30 Laboratory Results - last 24 hr 12/06/22 06:30 Sodium 137 Potassium 4.2 Chloride 103 Carbon Dioxide 26.9 Anion Gap 7.1 BUN 20 H Creatinine 1.3 H Est GFR (CKD-EPI 2020) 40.30 Glucose 200 H Calcium 9.1 Time Spent with Patient Time Spent with Patient: 25-34 minutes Time was spent: preparing to see the patient(eg.review tests), obtaining and/or reviewing separately otained hiistory, ordering medications,tests, procedures, referring, communicating with other health care center manager and indepentently interpreting results
[2022-12-06] MEDS: Acetaminophen 500 MG TAB 1000 MG PO (21:54)
[2022-12-06] MEDS: DULoxetine 30 MG CAP PO (21:54)
[2022-12-06] MEDS: levoFLOXacin 750 MG/150 ML BAG 100 MG IVPB (21:55)
[2022-12-06] MEDS: Normal Saline 500 ML 50 ML IV (21:58)
[2022-12-07] VITALS (7 sets, daily range): BP systolic 95–105; BP diastolic 56–67; PULSE 84–127; RESP 14–18; TEMP 36.1–36.8; O2SAT 96–99
[2022-12-07 07:21] LABS: Anion Gap 5.2 mmol/L (3-11); BUN 21 mg/dL (7-18); CO2 27.8 mmol/L (21.0-32.0); CREATININE 1.4 mg/dL (0.55-1.02); Calcium 9.1 mg/dL (8.5-10.1); Chloride 102 mmol/L (98-107); Estimated GFR 36.87 (mL/min/1.73m2); Glucose 178 mg/dL (74-106); Magnesium 1.6 mg/dL (1.8-2.4); Potassium 4.5 mmol/L (3.5-5.1); Sodium 135 mmol/L (136-145)
[2022-12-07] MEDS: Enoxaparin 30 MG/0.3 ML SYR SC (08:08)
[2022-12-07] MEDS: Glimepiride 1 MG TAB 4 MG PO (08:08)
[2022-12-07] MEDS: Enalapril 5 MG TAB 2.5 MG PO (08:09)
[2022-12-07] MEDS: Insulin Aspart 300 UNITS/3 ML PEN SC ×4 (08:35→17:37)
[2022-12-07] MEDS: Insulin Glargine 300 UNITS/3 ML PEN 40 UNITS SC (08:36)
--- NOTE | 2022-12-07 10:39 | PDOC.CMPRO ---
Date of service: 12/07/22 Time of Service: 10:39 Care Management Progress Note Progress Note Text Progress Note Text: S/O: Fide was sitting in her recliner watching a quilting show on TV when CM met with her. She is awake and easily engages in conversation. Urology consult is ordered, cystoscopy is being considered. PT evaluation is ordered, recommendation to follow. Fide is clear to CM that she will be going home without HH services on discharge. CM will follow. A: 87 year old female admitted to [facility] on 12/05/22 for Urinary tract infection, [place]-vesical fistula, CKD P: Discharge home, follow up with PCP and plan of care as instructed.? Per pt, her son Dominguez or her sister will drive her home. She refuses SNF for STR and HH services at this time. PT consult ordered, recommendations to follow. ? CM will continue to follow.
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
--- NOTE | 2022-12-07 13:50 | W.PM.PROGNOT ---
Date of Service Date of service: 12/07/22 Time of Service: 13:50 Assessment and Plan Assessment and plan (1) Urinary tract infection: Status: Acute Assessment and plan: Associated with mental status changes related to toxic metabolic encephalopathy a/w the infection. She does not appear septic. MS has now normalized. Fide has had 3 UTIs in the past month and now imaging shows urinary bladder wall thickening with a fluid collection near the bladder and uterus. Questionable vaginal involvement and questionable colovesicular fistula. No don fecal material in urine but urine is cloudy with white sediment. Continue levofloxacin going off the most recent urine culture with repeat growing gram neg rudi and mixed gram positive and negative eri. Surgery consult appreciated. No surgical intervention recommended at this time. Urology consulted. See. Dr. Durán's notes. per Dr. 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 Cecum in close proximity to the thickened-walled bladder, but the cecum doesn't appear inflammed. Urology has indicated that cystoscopy is indicated. I expect this will take place in the next day, depending on Dr. Durán's schedule. (3) Uncontrolled diabetes mellitus: Status: Chronic Assessment and plan: dc glimepiride. Her Jardiance was stopped in light of her recurrent UTI. I have increased her moderated dose SSI to insulin resistant levels, adjusted her Lantus and addec CHO coverage (4) Chronic kidney disease, stage III (moderate): Status: Acute Assessment and plan: SHe is at her baseline GFR. (5) Hyperthyroidism: Assessment and plan: She has been overcorrected. TSH 0.09. Holding her levothyroxine. She should resume at lower dose upon discharge. (6) DVT prophylaxis: Status: Acute Assessment and plan: LMWH (7) Discharge planning issues: Status: Acute Assessment and plan: As above she may need SNF level of care. Work with . Subjective Subjective Interval history since last seen: No new complaints. She is no longer confused. She was admitted w/ UTI, acute delirium and was found to have inflammatory changes of her urinary bladder on CT scan along w/ pelvic fluid collection posteior and superior to her urinary bladder along w/ possible vesiculocecal fistula. patient has hx of colorectal cancer and has a colostomy. she is followed by Dr. Deng, general surgeon from [facility] regarding her colon CA. Dr. Pradhan, general surgery, has evaluated her CT scan and did not see any inflammtory changes involving the cecum. Dr. Durán consulted on her today. See his notes for details. He feels that a cystoscopy and retrograde pyelogram is indicated in this case to evaluate for any fistula between the urinary bladder and cecum. He also has indicated that if none is seen then it may be worthwhile for her to have IR guided drainage of the pelvic fluid, to culture and obtain cytology. Exam Narrative Exam Narrative: Dagmar is sitting up in her chair she is alert seems to be appropriate and oriented. She is in no acute distress. Lungs clear to auscultation anteriorly posteriorly she had some diminished breath sounds at the bases no rhonchi or rales Heart is regular rate and rhythm Abdomen soft nondistended nontender normal bowel sounds colostomy appears to be intact mucosa appears to be healthy Lower extremities without peripheral cyanosis or edema Objective Last Vital Signs Temp 36.7 C 12/07/22 11:16 Pulse 110 H 12/07/22 11:16 Resp 16 12/07/22 11:16 BP 100/60 12/07/22 11:16 Pulse Ox 97 12/07/22 11:16 Laboratory Results - last 24 hr 12/07/22 06:25 Sodium 135 L Potassium 4.5 Chloride 102 Carbon Dioxide 27.8 Anion Gap 5.2 BUN 21 H Creatinine 1.4 H Est GFR (CKD-EPI 2020) 36.87 Glucose 178 H Calcium 9.1 Magnesium 1.6 L Time Spent with Patient Time Spent with Patient: 35-49 minutes Time was spent: preparing to see the patient(eg.review tests), obtaining and/or reviewing separately otained hiistory, referring, communicating with other health palliative care physician (discussion w/ nursing and w/ Dr. Emmanuel Barrera from general surgery), indepentently interpreting results, counseling the patient and care coordination
[2022-12-07] MEDS: Magnesium Oxide 400 MG TAB 800 MG PO ×2 (14:19→20:14)
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
[2022-12-07] MEDS: DULoxetine 30 MG CAP PO (20:15)
[2022-12-07] MEDS: Normal Saline Flush 10 ML SYR IVP (21:05)
[2022-12-07] MEDS: Normal Saline 250 ML 500 ML IV (21:07)
[2022-12-08] VITALS (56 sets, daily range): BP systolic 71–177; BP diastolic 32–70; PULSE 54–108; RESP 16–36; TEMP 36.1–37.2; O2SAT 92–100; BMI 22.9
[2022-12-08] MEDS: Normal Saline 500 ML IV (00:06)
[2022-12-08 06:47] LABS: Abs Immature Grans 0.03 10^3/uL (0.0-0.06); Absolute Basophil Count 0.04 10^3/uL (0.0-0.2); Absolute Eosinophil Count 0.21 10^3/uL (0.0-0.7); Absolute Lymphocyte Count 2.25 10^3/uL (1.2-3.4); Absolute Monocyte Count 0.73 10^3/uL (0.1-0.8); Absolute Neutrophil Count 4.44 10^3/uL (1.2-6.7); Basophils % 0.5; Eosinophils % 2.7; HCT 32.6 % (36.0-46.0); HGB 10.4 g/dL (11.2-15.7); Immature Grans % 0.4; Lymphocytes % 29.2; MCH 26.9 pg (27.0-33.0); MCHC 31.9 % (32.0-36.0); MCV 85 fL (80-95); MPV 10.2 fL (8.0-11.0); Monocytes % 9.5; Neutrophils % 57.7; Platelet Count 267 10^3/uL (130-400); RBC 3.86 10^6/uL (3.93-5.22); RDW 14.6 % (11.7-14.6); RDW-SD 44.2 fL
[2022-12-08 07:01] LABS: Magnesium 1.8 mg/dL (1.8-2.4)
[2022-12-08 07:03] LABS: Anion Gap 7.5 mmol/L (3-11); BUN 28 mg/dL (7-18); CO2 26.5 mmol/L (21.0-32.0); CREATININE 1.4 mg/dL (0.55-1.02); Calcium 9.4 mg/dL (8.5-10.1); Chloride 103 mmol/L (98-107); Estimated GFR 36.87 (mL/min/1.73m2); Glucose 95 mg/dL (74-106); Sodium 137 mmol/L (136-145)
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
--- NOTE | 2022-12-08 08:44 | NUR.NOTE ---
Nursing Note: At approximately 0835 on 12/08/22, this RN spoke with Armando Osman CRNA regarding which morning medications were to be administered prior to surgery. Per TIRE LAYER, enalapril and enoxaparin to be administered, other medications to be held.
[2022-12-08] MEDS: Enalapril 5 MG TAB 2.5 MG PO (08:56)
[2022-12-08] MEDS: Enoxaparin 30 MG/0.3 ML SYR SC (08:57)
--- NOTE | 2022-12-08 12:45 | DI.RAD_ITS ---
Exam(s) XR RETROGRADE IN OR EXAM: XR RETROGRADE IN OR CLINICAL HISTORY: PELVIC MASS. TECHNIQUE: 2D digital imaging was performed. COMPARISON: No exams were available for comparison FINDINGS: Fluoroscopy was provided during retrograde study. See procedure report for details. Total fluoroscopy time 18.8 seconds Radiation exposure index/cumulative dose:Sindir= 2.88 mGy IMPRESSION: DATA REPOSITORY: RADIATION DOSE DELIVERED:
[2022-12-08] MEDS: Lactated Ringers 1,000 ML 30 ML IV ×2 (13:15→16:27)
[2022-12-08] MEDS: ceFAZolin 2 GM/50 ML BAG 100 GM (13:21)
--- NOTE | 2022-12-08 13:27 | PDOC.CMPRO ---
Date of service: 12/08/22 Time of Service: 13:27 Care Management Progress Note Progress Note Text Progress Note Text: S/O: Fide went to the OR today for a cystoscopy with bladder biopsies. CM did not meet with Fide today, no change in discharge plan to report. Fide was very clear to this property underwriter and PT that she will be going home without HH services on discharge. CM will continue to follow. CM to follow.? A: 87 year old female admitted to [facility] on 12/05/22 for Urinary tract infection, [place]-vesical fistula, CKD P: PT recommends: Home with no services. Anticipate. Fide will discharge home, with no [facility] services and follow up with PCP and plan of care as instructed.? Per pt,? her son Dominguez or her sister will drive her home. Fide refuses SNF for STR and HH services.? CM will continue to follow.
--- NOTE | 2022-12-08 13:38 | BLADDER_PTH ---
PATIENT: Fide Rodriguez LOC: U#:[id number] AGE/SX: 87/F ROOM: RE12/05/[address]: Gabe Alejandra : 1935 BED: A DIS: 12/12/2022 SPEC #: [id number] RECD: 12/08/22 16:51 STATUS: SOURaina REQ #: [id number] WAYNE: 12/08/22 13:[address]: Gabe Alejandra DEPT: Surgical Specimen RECD BY: Alyssa Walker ENTERED: 12/08/22 16:54 SP TYPE: Bladder OTHR DR: KIMMIE Ruelas IV, KIMMIE Urbina,MD Bobby Sandhu MD Patrick Fitzpatrick, MD Jenny Buckley, HIS Guy Xavier, Tsering Blandon, MD Castro,Marsha Carrillo, MD Nugent,German Barrera, MD Enriquez,Maira Irwin, DO Stephanie Erwin, CAROLIN Black Tissues: 1 - BLADDER BIOPSY 2 - BLADDER BIOPSY Procedures: GROSS AND MICRO LEVEL 4 Comments: [id number]
[2022-12-08] MEDS: Omnipaque 300 MG/ML 50 ML BTL (13:42)
[2022-12-08] MEDS: Lidocaine 2% Jelly 6 ML SYR (13:42)
--- NOTE | 2022-12-08 14:00 | ROE_ITS ---
Date of service: 12/08/22 Time of Service: 14:00 Operative Note Operative Note DATE OF PROCEDURE: 12/08/22 PRE-OP DIAGNOSIS: Pelvic mass POST-OP DIAGNOSIS: same PROCEDURE: cystoscopy, bladder biopsies, cystogram, exam under anesthesia SURGEON: Bobby Durán ANESTHESIA TYPE: General:No Airway Refer to Anesthesia Record ESTIMATED BLOOD LOSS: 20 PATHOLOGY: other (1. bladder biopsies at possible fistula site 2. white necrotic appearing tissue from bladder base) COMPLICATIONS: None Patient was transported to: PACU Patient's condition: stable Implants: 16 Kittitian jimenez with 10 cc sterile water in balloon Indications: This is an 87-year-old woman who has a history of rectal cancer. She has been treated for multiple urinary tract infections although her urine cultures have not necessarily shown the growth of uropathogens. On a recent CT scan, there was a large amount of inflammation surrounding her bladder and extending into the pelvis. There was a question of a fistula. There seems to be a mass superior and posterior to the bladder which was thought could potentially be an abscess, a bladder diverticulum, vaginal inflammation or a dilated distal ureter. She presents now for cystoscopy with retrograde pyelogram to further evaluate any connection between the urinary tract and this pelvic mass seen on CT scan Findings: Diffuse erythema throughout the bladder with thick white necrotic appearing tissue especially at the base and across the trigone Mucosal defect in the bladder wall posteriorly with no definite connection to the bowel Unable to identify ureteral orifices Procedure Description: The patient was brought to the operating room on 12/08/2022. She was given preoperative IV antibiotics. After successful induction of general anesthesia without intubation, she was placed in the dorsal lithotomy position. Her indwelling catheter was removed. Her genitalia was prepped and draped. Pelvic examination revealed no vaginal masses. Her anus had been previously oversewn from her previous rectal cancer surgery A 22 Kittitian rigid cystoscope was passed through the urethra into the bladder. The bladder was inspected with a 30 degree lens. The bladder was quite erythematous throughout. There were no specific papillary or nodular lesions identified, but along the trigone on and base of the bladder, there was a thick layer of adherent white necrotic appearing tissue. I was unable to irrigate this tissue off, so I did remove some of the tissue with biopsy forceps and we sent the tissue for pathology. On the posterior bladder wall, there was a small defect in the bladder mucosa with some surrounding erythematous tissue. The opening was no more than 2 or 3 mm. I initially passed a 5 [place]itian access catheter into this opening and injected Omnipaque. I did not see any connection between this area in the bladder and the bowel. It seemed to be a blind ending area. I did take biopsies of the mucosa surrounding the site. These biopsies were sent separate from the initial necrotic appearing tissue. After clearing off some of the necrotic tissue from the trigone area, I was still unable to visualize ureteral orifices. I did not do retrograde pyelograms. I did did place a 16 Kitt[place] Jimenez catheter back through the urethra into the bladder. The catheter balloon was inflated with 10 cc of sterile water. I then did a cystogram by injecting Omnipaque through the catheter under fluoroscopic guidance. Again, I found no evidence of extravasation of contrast outside of the bladder. The catheter was then hooked to gravity drainage. The patient tolerated this procedure well with no complications.
[2022-12-08] MEDS: ePHEDrine 25 MG/5 ML Syringe IVP ×3 (14:08→14:42)
--- NOTE | 2022-12-08 14:52 | W.PM.PROGNOT ---
Date of Service Date of service: 12/08/22 Time of Service: 14:52 Assessment and Plan Assessment and plan (1) Hypotension: Status: Acute Assessment and plan: likely hypovolemia; I discussed her case w/ Armando Osman CRNA, I am recommending 500 to 1000 mL fluid bolus and if she remains hypotensive she should be brought up to ICU and I will re-evaluate and put her on N.E. overnight. I also asked that a repeat hemogram be checked although clinically she is showing no signs of bleeding. Critical care time spent interviewing and examining the patient, reviewing studies, discussing case with patient's nurse and consulting physicians was 30 minutes (2) Urinary tract infection: Status: Acute Assessment and plan: patient has had multiple UTI in recent past. current urine culture positive for Citrobacter freundii, she is on Levaquin which it is sensitive to. 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 I am awaiting results of her cysto from Dr. Durán. He did give her Ceftriaxone perioperatively but she had been on Levaquin at renal adjusted doses. She will probably need IR guided drainage of this fluid collection. 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 Cecum in close proximity to the thickened-walled bladder, but the cecum doesn't appear inflammed. await results of Dr. Durán's cystoscopy (4) Uncontrolled diabetes mellitus: Status: Chronic Assessment and plan: dc glimepiride. Her Jardiance was stopped in light of her recurrent UTI. I have increased her moderated dose SSI to insulin resistant levels, adjusted her Lantus and addec CHO coverage (5) Chronic kidney disease, stage III (moderate): Status: Acute Assessment and plan: SHe is at her baseline GFR. (6) Hyperthyroidism: Assessment and plan: She has been overcorrected. TSH 0.09. Holding her levothyroxine. She should resume at lower dose upon discharge. (7) DVT prophylaxis: Status: Acute Assessment and plan: LMWH (8) Discharge planning issues: Status: Acute Assessment and plan: As above she may need SNF level of care. Work with . patient remains full code Subjective Subjective Interval history since last seen: Patient had cystoscopy performed this afternoon. I do not know details yet as I have not spoken w/ Dr. Durán since her procedure. I did speak w/ Malik Osman CRNA and he indicated that the patient had problems w/ hypotension perioperatively and in PACU despite small fluid boluses of 200 mL each x 2 and giving her phenylephrine and ephredine doses. I was called to evaluate her in PACU. She denies any CP or dyspnea and no abdominal pain. Exam Narrative Exam Narrative: Fide is alert and oriented. no acute distress, SBP in the low 80s's to high 70's Lungs: clear Heart: RRR Abdomen: soft, nontender, colostomy w/ minimal light brown stool in bag and gas; no blood legs: no edema Objective Last Vital Signs Temp 36.4 C L 12/08/22 14:15 Pulse 81 12/08/22 14:40 Resp 24 12/08/22 14:40 BP 73/32 L 12/08/22 14:40 Pulse Ox 98 12/08/22 14:40 Laboratory Results - last 24 hr 12/08/22 12/08/22 12/08/22 06:10 06:10 06:10 WBC 7.70 RBC 3.86 L Hgb 10.4 L Hct 32.6 L MCV 85 MCH 26.9 L MCHC 31.9 L RDW 14.6 Plt Count 267 MPV 10.2 Immature Gran % 0.4 Neutrophils % 57.7 Lymphocytes % 29.2 Monocytes % 9.5 Eosinophils % 2.7 Basophils % 0.5 Nucleated RBC % 0.0 Absolute Neutrophils 4.44 Absolute Lymphocytes 2.25 Absolute Monocytes 0.73 Absolute Eosinophils 0.21 Absolute Basophils 0.04 Sodium 137 Potassium 4.0 Chloride 103 Carbon Dioxide 26.5 Anion Gap 7.5 BUN 28 H Creatinine 1.4 H Est GFR (CKD-EPI 2020) 36.87 Glucose 95 Calcium 9.4 Magnesium 1.8 Reviewed Pertinent PMH: Yes Objective Narrative Objective Narrative: Bedside POCUS done of her heart using anesthesias US device, she has underfilled RV and small IVC that collapses over 50% w/ inspiration. Time Spent with Patient Time Spent with Patient: 25-34 minutes Time was spent: preparing to see the patient(eg.review tests), ordering medications,tests, procedures, referring, communicating with other health careers adviser, indepentently interpreting results, counseling the patient and care coordination
[2022-12-08] MEDS: ePHEDrine 25 MG/5 ML Syringe IM (15:04)
--- NOTE | 2022-12-08 15:23 | W.ANESPOSTOP ---
Postoperative Evaluation Date, Time and Location Date Performed: 12/08/22 Time Performed: : Patient Location: PACU Vital Signs Most Recent Imported Vital Signs: Most Recent Vital Signs Temp Pulse Resp BP Pulse Ox 36.6 C 102 H 22 105/46 L 99 12/08/22 15:15 12/08/22 15:15 12/08/22 15:15 12/08/22 15:15 12/08/22 15:15 Pain Score Most Recent Pain Score: Most Recent Pain Score Pain Level [Generalized] 0 12/08/22 10:36 Pain Level 0 12/08/22 15:15 Assessment Mental Status: Awake (Alert & Oriented to Patient Baseline) Airway and Respiratory Function: Patent airway with normal (patient baseline) respiratory exam Cardiovascular Function: Hemodynamically Stable (Ephedrine IM due to hypotension doing well now) and Receiving care as an inpatient Hydration Status: Adequately Hydrated Nausea & Vomiting: No Nausea or Vomiting Pain: Pt. Denies Any Pain Peripheral Nerve Block: Patient did not receive a nerve block
[2022-12-08] MEDS: cefTRIAXone 1 GM/50 ML BAG IVPB (16:13)
--- NOTE | 2022-12-08 17:00 | RT.EKG_ITS ---
APPROVED REPORT Exam: Resting ECG Reason for Exam: hypotension Patient Location: I HR:98 bpm ECG Measurements Heart Rate [address] 179 P 0 QRSd 93 QRS -34 QT 363 T 72 QTc 464 Conclusion Sinus rhythm...normal P axis, V-rate 50- 99 Abnormal R-wave progression, late transition...QRS area<0 in V5/V6 Inferior infarct, old...Q >35mS, II III aVF
[2022-12-08] MEDS: Normal Saline 500 ML 999 ML IV (18:31)
[2022-12-08 18:51] LABS: Abs Immature Grans 0.02 10^3/uL (0.0-0.06); Absolute Basophil Count 0.02 10^3/uL (0.0-0.2); Absolute Eosinophil Count 0.15 10^3/uL (0.0-0.7); Absolute Lymphocyte Count 1.77 10^3/uL (1.2-3.4); Absolute Monocyte Count 0.48 10^3/uL (0.1-0.8); Basophils % 0.4; Eosinophils % 2.9; Immature Grans % 0.4; Lymphocytes % 33.8; MCH 27.1 pg (27.0-33.0); MCHC 31.9 % (32.0-36.0); MCV 85 fL (80-95); MPV 9.8 fL (8.0-11.0); Monocytes % 9.2; Neutrophils % 53.3; Platelet Count 201 10^3/uL (130-400); RBC 2.91 10^6/uL (3.93-5.22); RDW 14.6 % (11.7-14.6); RDW-SD 45.5 fL; WBC 5.24 10^3/uL (4.4-10.8)
[2022-12-08 18:52] LABS: HCT 24.8 % (36.0-46.0); HGB 7.9 g/dL (11.2-15.7)
[2022-12-08 19:08] LABS: ALT 9 U/L (14-59); AST 16 U/L (15-37); Alkaline Phosphatase 69 U/L (46-116); Anion Gap 6.2 mmol/L (3-11); BUN 23 mg/dL (7-18); Bilirubin, Total 0.2 mg/dL (0.2-1.0); CO2 26.8 mmol/L (21.0-32.0); CREATININE 1.3 mg/dL (0.55-1.02); Calcium 8.3 mg/dL (8.5-10.1); Chloride 106 mmol/L (98-107); Glucose 96 mg/dL (74-106); Potassium 3.5 mmol/L (3.5-5.1); Sodium 139 mmol/L (136-145); Total Protein 5.9 g/dL (6.4-8.2); Troponin I < 50 ng/L (<or=60)
--- NOTE | 2022-12-08 19:26 | W.POCUS ---
Pocus Exam Limited Cardiac Exam DATE OF EXAM: 12/08/22 TIME OF EXAM: 19:26 PROVIDER THAT PERFORMED THE STUDY: Jose Alberto Jerry IS THIS A REPEAT EXAM DURING THIS ENCOUNTER: no REASON FOR EXAM: Hypovolemic shock VISUALIZED STRUCTURES: four chambers, LVOT, aortic valve, mitral valve, Interventricular septum and IVC VIEW OBTAINED: Apical 4-Chamber, Parasternal long-axis, Parasternal short-axis and Subxiphoid PERTINENT FINDINGS/IMPRESSION: IVC inspiratory collapsability; No LV dysfunction, No pericardial effusion, No plethoric IVC, No RV dilation and No RV dysfunction Exam complete
[2022-12-08] MEDS: Normal Saline 500 ML 1000 ML IV (19:30)
[2022-12-08] MEDS: Norepinephrine in D5W 8 MG/250 ML BAG 9.375 MG IV (20:15)
[2022-12-08] MEDS: Lactated Ringers 1,000 ML 100 ML IV (20:23)
[2022-12-08] MEDS: VANCOMYCIN 1,250 MG in Normal Saline 250 ML 166.667 MG IVPB (21:45)
[2022-12-08] MEDS: Normal Saline Flush 10 ML SYR IVP (21:49)
[2022-12-08] MEDS: Magnesium Oxide 400 MG TAB 800 MG PO (22:16)
[2022-12-08] MEDS: DULoxetine 30 MG CAP PO (22:16)
[2022-12-08 22:23] LABS: HCT 29.2 % (36.0-46.0); HGB 9.2 g/dL (11.2-15.7)
[2022-12-08 22:26] LABS: Lactate 2.2 mmol/L (0.6-1.4)
[2022-12-08] MEDS: Pantoprazole 40 MG VIAL IVP (23:05)
[2022-12-08] MEDS: Insulin Glargine 300 UNITS/3 ML PEN 10 UNITS SC (23:13)
[2022-12-09] VITALS (87 sets, daily range): BP systolic 87–139; BP diastolic 37–61; PULSE 58–108; RESP 13–30; TEMP 36.7–37.8; O2SAT 91–100
[2022-12-09] MEDS: Acetaminophen 500 MG TAB 1000 MG PO (00:04)
[2022-12-09] MEDS: MEROPENEM 1 GM in Normal Saline 100 ML IVPB ×2 (00:30→12:25)
[2022-12-09] MEDS: Lactated Ringers 1,000 ML 100 ML IV ×2 (05:18→15:26)
[2022-12-09 06:51] LABS: Lactate 1.4 mmol/L (0.6-1.4)
[2022-12-09 06:56] LABS: Abs Immature Grans 0.04 10^3/uL (0.0-0.06); Absolute Basophil Count 0.03 10^3/uL (0.0-0.2); Absolute Eosinophil Count 0.28 10^3/uL (0.0-0.7); Absolute Lymphocyte Count 1.91 10^3/uL (1.2-3.4); Absolute Monocyte Count 0.63 10^3/uL (0.1-0.8); Absolute Neutrophil Count 3.41 10^3/uL (1.2-6.7); Basophils % 0.5; Eosinophils % 4.4; HCT 29.1 % (36.0-46.0); HGB 9.2 g/dL (11.2-15.7); Immature Grans % 0.6; Lymphocytes % 30.3; MCHC 31.6 % (32.0-36.0); MCV 85 fL (80-95); MPV 9.9 fL (8.0-11.0); Neutrophils % 54.2; Platelet Count 248 10^3/uL (130-400); RBC 3.41 10^6/uL (3.93-5.22); RDW 14.6 % (11.7-14.6); RDW-SD 45.4 fL
[2022-12-09 07:27] LABS: ALT 10 U/L (14-59); AST 15 U/L (15-37); Alkaline Phosphatase 94 U/L (46-116); BUN 19 mg/dL (7-18); Bilirubin, Total 0.2 mg/dL (0.2-1.0); CREATININE 1.3 mg/dL (0.55-1.02); Calcium 8.2 mg/dL (8.5-10.1); Chloride 108 mmol/L (98-107); Glucose 197 mg/dL (74-106); Potassium 4.1 mmol/L (3.5-5.1); Sodium 142 mmol/L (136-145); Total Protein 6.1 g/dL (6.4-8.2)
[2022-12-09 07:35] LABS: Procalcitonin < 0.1 ng/mL
--- NOTE | 2022-12-09 07:41 | W.PM.PROGNOT ---
Date of Service Date of service: 12/09/22 Time of Service: 07:41 Assessment and Plan Assessment and plan (1) Hypotension: Status: Acute Assessment and plan: I think her hypotension is a volume +/- sepsis, although she is afebrile, and has no leukocytosis and normal procalcitonin level, although she had a mild elevation of her lactate level up to 2.2 last night which has since resolved, now 1.4. She may have had transient release of bacteria from the cystoscopy proceduer yesterday. I would not resume her norepinephrine unless she has clinical symptoms of shock, i..e acute confusion, decreased urine output to <30 mL/hr, dizziness associated w/ SBP <85 mm Critical care time spent interviewing and examining the patient, reviewing studies, discussing case with patient's nurse and consulting physicians was 30 minutes (2) Urinary tract infection: Status: Acute Assessment and plan: patient has had multiple UTI in recent past. current urine culture positive for Citrobacter freundii, she is on Levaquin which it is sensitive to. 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 Cystoscopy done yesterday by Dr. Durán and he saw a small defect in the posterior wall of the bladder about 2 to 3 mm in size but he could not pass a catheter and he injected omnipaque which did not confirm any vesico-colon fistula. he did obtain biopsies from this area. No extravasation of omnipaque was seen from the bladder. I spoke w/ DR. Nayely Garcia (spelling?), I.R. fellow/resident at [facility]. She reviewed the case and the CT findings and discussed this w/ her attending. They feel that they could sample the pelvic fluid but that there is not enough to put a drain into it. They will set up a down and back IR CT guided fluid sampling of the pelvic fluid. I asked them to send off fluid for gram stain, bacterial and fungal cultures, cell count w/ diff, LDH, protein, glucose and cytology. She says that there may not be enough fluid to obtain adequate cytology and that the patient may need a bx procedure later once the acute inflammation has resolved. 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 Cecum in close proximity to the thickened-walled bladder, but the cecum doesn't appear inflammed. procede w/ IR sampling of fluid from pelvis as noted above. No extravasation of omnipaque seen on cystogram yesterday. (4) Uncontrolled diabetes mellitus: Status: Chronic Assessment and plan: dc glimepiride. Her Jardiance was stopped in light of her recurrent UTI. I have increased her moderated dose SSI to insulin resistant levels, adjusted her Lantus and addec CHO coverage (5) Chronic kidney disease, stage III (moderate): Status: Acute Assessment and plan: SHe is at her baseline GFR. (6) Hyperthyroidism: Assessment and plan: She has been overcorrected. TSH 0.09. Holding her levothyroxine. She should resume at lower dose upon discharge. (7) DVT prophylaxis: Status: Acute Assessment and plan: LMWH (8) Discharge planning issues: Status: Acute Assessment and plan: As above she may need SNF level of care. Work with CM. patient remains full code Subjective Subjective Interval history since last seen: Patient required norepinephrine infusion overnight to maintain her BP. She also got fluid boluses. She was weaned off the NE for awhile but then was put back on this for low MAP of less than 60. However her left arm became infiltrated and this was the site of the NE infusion. I had nursing inject phentolamine in the area and dc the NE drip. Her SBP so far have been acceptable in the low to mid 90's but occasionally dipping into the upper 80s'. She denies any dizziness or CP or dyspnea. Exam Narrative Exam Narrative: Fide is alert and oriented, she is visiting w/ her daughter in law. Neck veins are flat Lungs: clear Heart: regular, no tachycardia Abdomen: soft, nontender [place] draining bloody colored urine but urine output has been adequate, avg about 100 mL/hr Objective Last Vital Signs Temp 36.8 C 12/09/22 04:03 Pulse 62 12/09/22 07:15 Resp 20 12/09/22 07:16 BP 98/41 L 12/09/22 07:15 Pulse Ox 91 L 12/09/22 07:16 Laboratory Results - last 24 hr 12/08/22 12/08/22 12/08/22 18:34 18:34 18:34 WBC 5.24 RBC 2.91 L Hgb 7.9 L D Hct 24.8 L MCV 85 MCH 27.1 MCHC 31.9 L RDW 14.6 Plt Count 201 MPV 9.8 Immature Gran % 0.4 Neutrophils % 53.3 Lymphocytes % 33.8 Monocytes % 9.2 Eosinophils % 2.9 Basophils % 0.4 Nucleated RBC % 0.0 Absolute Neutrophils 2.80 Absolute Lymphocytes 1.77 Absolute Monocytes 0.48 Absolute Eosinophils 0.15 Absolute Basophils 0.02 VBG Lactate 2.0 H Sodium 139 Potassium 3.5 Chloride 106 Carbon Dioxide 26.8 Anion Gap 6.2 BUN 23 H Creatinine 1.3 H Est GFR (CKD-EPI 2020) 40.30 Glucose 96 Calcium 8.3 L Total Bilirubin 0.2 AST 16 ALT 9 L Alkaline Phosphatase 69 Troponin I < 50 Total Protein 5.9 L Albumin 2.0 L Procalcitonin Random Vancomycin Patient ABO/Rh Antibody Screen 12/08/22 12/08/22 12/08/22 19:33 22:10 22:10 WBC RBC Hgb 9.2 L Hct 29.2 L MCV MCH MCHC RDW Plt Count MPV Immature Gran % Neutrophils % Lymphocytes % Monocytes % Eosinophils % Basophils % Nucleated RBC % Absolute Neutrophils Absolute Lymphocytes Absolute Monocytes Absolute Eosinophils Absolute Basophils VBG Lactate 2.2 H* Sodium Potassium Chloride Carbon Dioxide Anion Gap BUN Creatinine Est GFR (CKD-EPI 2020) Glucose Calcium Total Bilirubin AST ALT Alkaline Phosphatase Troponin I Total Protein Albumin Procalcitonin Random Vancomycin Patient ABO/Rh O Positive Antibody Screen NEGATIVE 12/09/22 12/09/22 12/09/22 06:30 06:30 06:30 WBC RBC Hgb Hct MCV MCH MCHC RDW Plt Count MPV Immature Gran % Neutrophils % Lymphocytes % Monocytes % Eosinophils % Basophils % Nucleated RBC % Absolute Neutrophils Absolute Lymphocytes Absolute Monocytes Absolute Eosinophils Absolute Basophils VBG Lactate 1.4 Sodium 142 Potassium 4.1 Chloride 108 H Carbon Dioxide 27.0 Anion Gap 7.0 BUN 19 H Creatinine 1.3 H Est GFR (CKD-EPI 2020) 40.30 Glucose 197 H Calcium 8.2 L Total Bilirubin 0.2 AST 15 ALT 10 L Alkaline Phosphatase 94 Troponin I Total Protein 6.1 L Albumin 2.0 L Procalcitonin < 0.1 Random Vancomycin 17.0 Patient ABO/Rh Antibody Screen 12/09/22 06:30 WBC 6.30 RBC 3.41 L Hgb 9.2 L Hct 29.1 L MCV 85 MCH 27.0 MCHC 31.6 L RDW 14.6 Plt Count 248 MPV 9.9 Immature Gran % 0.6 Neutrophils % 54.2 Lymphocytes % 30.3 Monocytes % 10.0 Eosinophils % 4.4 Basophils % 0.5 Nucleated RBC % 0.0 Absolute Neutrophils 3.41 Absolute Lymphocytes 1.91 Absolute Monocytes 0.63 Absolute Eosinophils 0.28 Absolute Basophils 0.03 VBG Lactate Sodium Potassium Chloride Carbon Dioxide Anion Gap BUN Creatinine Est GFR (CKD-EPI 2020) Glucose Calcium Total Bilirubin AST ALT Alkaline Phosphatase Troponin I Total Protein Albumin Procalcitonin Random Vancomycin Patient ABO/Rh Antibody Screen Time Spent with Patient Time Spent with Patient: 25-34 minutes Time was spent: preparing to see the patient(eg.review tests), ordering medications,tests, procedures, referring, communicating with other health critical care technician, indepentently interpreting results, counseling the patient and care coordination
--- NOTE | 2022-12-09 08:14 | PDOC.CMPRO ---
Date of service: 12/09/22 Time of Service: 08:14 Care Management Progress Note Progress Note Text Progress Note Text: S/O: ? Fide was transferred to the ICU after her cystoscopy procedure. Per provider, Fide needs a down and back to [facility] IR Radiology on Wednesday. Fide was very clear to this script writer and PT that she will be going home without HH services on discharge.? CM will continue to follow. A: 87 year old female admitted to [facility] on 12/05/22 for Urinary tract infection, [place]-vesical fistula, CKD P: PT recommends: Home with no services when medically cleared by hospitalist. Anticipate. Fide will discharge home, with no [facility] services and follow up with PCP and plan of care as instructed.? Per pt,? her son Dominguez or her sister will drive her home. Fide refuses SNF for STR and HH services.? CM will continue to follow.
[2022-12-09] MEDS: Magnesium Oxide 400 MG TAB 800 MG PO ×2 (09:17→19:53)
[2022-12-09] MEDS: Insulin Aspart 300 UNITS/3 ML PEN SC ×5 (09:17→17:47)
[2022-12-09] MEDS: Insulin Glargine 300 UNITS/3 ML PEN 40 UNITS SC (09:21)
[2022-12-09] MEDS: VANCOMYCIN/WATER (PEG) 750 MG/150 ML BAG 150 MG IVPB (19:53)
[2022-12-09] MEDS: Insulin Glargine 300 UNITS/3 ML PEN 10 UNITS SC (21:29)
[2022-12-09] MEDS: DULoxetine 30 MG CAP PO (21:29)
[2022-12-10] VITALS (10 sets, daily range): BP systolic 93–146; BP diastolic 49–78; PULSE 56–88; RESP 16–18; TEMP 36.4–37.6; O2SAT 92–98
[2022-12-10] MEDS: MEROPENEM 1 GM in Normal Saline 100 ML IVPB ×3 (00:17→23:40)
[2022-12-10] MEDS: Dextrose 50%-Water 25 GM/50 ML SYR IVP ×2 (08:00→17:06)
[2022-12-10 08:44] LABS: Anion Gap 4.5 mmol/L (3-11); BUN 14 mg/dL (7-18); CO2 29.5 mmol/L (21.0-32.0); CREATININE 1.1 mg/dL (0.55-1.02); Calcium 8.8 mg/dL (8.5-10.1); Chloride 107 mmol/L (98-107); Estimated GFR 49.24 (mL/min/1.73m2); Potassium 3.9 mmol/L (3.5-5.1); Sodium 141 mmol/L (136-145)
[2022-12-10 08:58] LABS: Abs Immature Grans 0.03 10^3/uL (0.0-0.06); Absolute Basophil Count 0.02 10^3/uL (0.0-0.2); Absolute Eosinophil Count 0.09 10^3/uL (0.0-0.7); Absolute Lymphocyte Count 0.99 10^3/uL (1.2-3.4); Absolute Monocyte Count 0.47 10^3/uL (0.1-0.8); Absolute Neutrophil Count 3.48 10^3/uL (1.2-6.7); Basophils % 0.4; Eosinophils % 1.8; HCT 27.5 % (36.0-46.0); HGB 8.6 g/dL (11.2-15.7); Immature Grans % 0.6; Lymphocytes % 19.5; MCH 26.7 pg (27.0-33.0); MCHC 31.3 % (32.0-36.0); MCV 85 fL (80-95); MPV 10.3 fL (8.0-11.0); Monocytes % 9.3; Neutrophils % 68.4; Platelet Count 198 10^3/uL (130-400); RBC 3.22 10^6/uL (3.93-5.22); RDW 14.2 % (11.7-14.6); RDW-SD 44.6 fL; WBC 5.08 10^3/uL (4.4-10.8)
--- NOTE | 2022-12-10 09:03 | CMPROGNOTE_ITS ---
Date of service: 12/10/22 Time of Service: 09:03 Care Management Progress Note Progress Note Text Progress Note Text: S/O: ? Fide was sitting up in bed when CM met with her. She informed CM that she is feeling much better. Fide is scheduled to go to [facility] tomorrow for a down and back procedure in IR to obtain a sample of the intra-abdominal fluid for culture and cytology. CM asked Fide about the plan and she did not seem to know it was scheduled. The provider plans to discuss this with her again today. Fide has been made Med-Surg level of care and will be transferred out of the ICU today. A: 87 year old female admitted to [facility] on 12/05/22 for Urinary tract infection, [place]-vesical fistula, CKD P: PT recommends: Home with no services when medically cleared by hospitalist. Anticipate. Fide will discharge home, with no CHH services and follow up with PCP and plan of care as instructed.? Per pt,? her son Dominguez or her sister will drive her home. Fide refuses SNF for STR and HH services.? CM will continue to follow.
[2022-12-10 09:08] LABS: Glucose 36 mg/dL (74-106)
[2022-12-10] MEDS: Magnesium Oxide 400 MG TAB 800 MG PO ×2 (09:33→20:01)
[2022-12-10] MEDS: Pantoprazole 20 MG TABCR PO (09:33)
[2022-12-10] MEDS: Insulin Aspart 300 UNITS/3 ML PEN SC ×2 (09:34→13:09)
[2022-12-10] MEDS: Insulin Glargine 300 UNITS/3 ML PEN 20 UNITS SC (09:36)
--- NOTE | 2022-12-10 12:59 | PGE_ITS ---
Date of Service Date of service: 12/10/22 Time of Service: 12:59 Assessment and Plan Assessment and plan (1) Hypotension: Status: Resolved Assessment and plan: hypotension has resolved and patient has been off vasopressors for more than 24h. BP running low 100's to 120 systolic. As she will be NPO tonight for her CT guided aspiration of her pelvic fluid, I will resume iv fluids tonight at bedtime. As she has had some hypoglycemia spells, I have stopped her night time Lantus, reduced her daytime Lantus (which we will hold tomorrow morning) and I added D5 to her LR fluids. Professional time spent interviewing and examining patient, discussion of goals of care with hospital team (care management, nursing and consulting professionals) was 30 minutes. (2) Urinary tract infection: Status: Acute Assessment and plan: patient has had multiple UTI in recent past. current urine culture positive for Citrobacter freundii, treated initially w/ Levaquin but changed to Vancomycin and Meropenem when she came back from cystoscopy two days ago hypotensive. I will keep her on current regimen and repeat her urine cultures and wait for pelvic fluid cultures to be obtained, then decide on final antibiotics. I spoke w/ DR. Nayely Garcia (iva?), I.R. fellow/resident at [facility] yesterday . She reviewed the case and the CT findings and discussed this w/ her attending. They feel that they could sample the pelvic fluid but that there is not enough to put a drain into it. They will set up a down and back IR CT guided fluid sampling of the pelvic fluid. I asked them to send off fluid for gram stain, bacterial and fungal cultures, cell count w/ diff, LDH, protein, glucose and cytology. She says that there may not be enough fluid to obtain adequate cytology and that the patient may need a bx procedure later once the acute inflammation has resolved. Patient to go to [facility] radiology desk 3Z, patient to arrive at [facility] by 08:30 am. Patient should leave [facility] by 7 am tomorrow. 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 Cecum in close proximity to the thickened-walled bladder, but the cecum doesn't appear inflammed. procede w/ IR sampling of fluid from pelvis as noted above. No extravasation of omnipaque seen on cystogram two days ago. (4) Uncontrolled diabetes mellitus: Status: Chronic Assessment and plan: home oral hypoglycemic agents on hold. She has been on Lantus and sliding scale novolog along w/ CHO coverage but has had hypoglycemia. I have reduced her Lantus dosing and we will put her sliding scale on hold for tomororow morning so she does not have hypoglycemia for her procedure. (5) Chronic kidney disease, stage III (moderate): Status: Acute Assessment and plan: SHe is at her baseline GFR. (6) Hyperthyroidism: Assessment and plan: She has been overcorrected. TSH 0.09. Holding her levothyroxine. She should resume at lower dose upon discharge. (7) DVT prophylaxis: Status: Acute Assessment and plan: LMWH (8) Discharge planning issues: Status: Acute Assessment and plan: As above she may need SNF level of care. Work with CM. patient remains full code Subjective Subjective Interval history since last seen: Patient is feeling better, she is not faigued like yesterday. No abdominal pain or dyspnea. [place] is start to improve in clarity, less blood, just a few strands of clots but mostly clear. I explained to the patient in detail that she would go to [facility] for interventional radiologist to perform CT guided aspiration of the fluid in her pelvis so we can determine whether or not that is an abscess. She will remain on parenteral antibiotics until we get that fluid culture back. In the meanwhile, I will repeat he urine culture to be sure that her urinary tract infection is clearing. She had been on Levaquin 750 mg every 48 hr but when she transferred to the ICU 2 days ago after her cystoscopy, I broadened her coverage and included Vancomycin and changed her Levaquin to Meropenem. I did this out of concern that the instrumentation may have contributed to some transient bacteremia and her prior urine cultures from 11/17/22 had Staph aureus and Enterococcus faecalis. Her cultures from admission were primarily Citrobacter freundii but also had some other gram negative rudi and mixed gram positive eri. Clinically she is much better. She was moved out of ICU to med/surg today although she was downgraded to med/surg status yesterday. Exam Narrative Exam Narrative: General sitting up in her chair she is alert and oriented to person place time circumstance Lungs are clear to auscultation Heart regular rate rhythm Abdomen soft nondistended nontender. Colostomy is draining light brown soft unformed stool but not liquid Extremities without peripheral cyanosis or edema Objective Last Vital Signs Temp 36.4 C L 12/10/22 12:39 Pulse 76 12/10/22 12:39 Resp 18 12/10/22 12:39 BP 146/69 H 12/10/22 12:39 Pulse Ox 98 12/10/22 12:39 Laboratory Results - last 24 hr 12/10/22 12/10/22 06:10 06:10 WBC 5.08 RBC 3.22 L Hgb 8.6 L Hct 27.5 L MCV 85 MCH 26.7 L MCHC 31.3 L RDW 14.2 Plt Count 198 MPV 10.3 Immature Gran % 0.6 Neutrophils % 68.4 Lymphocytes % 19.5 Monocytes % 9.3 Eosinophils % 1.8 Basophils % 0.4 Nucleated RBC % 0.0 Absolute Neutrophils 3.48 Absolute Lymphocytes 0.99 L Absolute Monocytes 0.47 Absolute Eosinophils 0.09 Absolute Basophils 0.02 Sodium 141 Potassium 3.9 Chloride 107 Carbon Dioxide 29.5 Anion Gap 4.5 BUN 14 Creatinine 1.1 H Est GFR (CKD-EPI 2020) 49.24 Glucose 36 L* Calcium 8.8 Time Spent with Patient Time Spent with Patient: 25-34 minutes Time was spent: preparing to see the patient(eg.review tests), ordering medications,tests, procedures, referring, communicating with other health home care associate, indepentently interpreting results, counseling the patient and care coordination
[2022-12-10] MEDS: Normal Saline Flush 10 ML SYR IVP ×2 (17:08→20:02)
[2022-12-10 18:12] LABS: Lab Add On Test DONE
[2022-12-10 19:17] LABS: Reticulocyte 2.4 % (0.5-2.4)
[2022-12-10 19:29] LABS: Iron 22 ug/dL (50-170); Total Iron Binding Capacity 197 ug/dL (250-450); Transferrin Sat 11 % (15-50)
[2022-12-10 19:44] LABS: LDH 176 U/L (81-234)
[2022-12-10] MEDS: VANCOMYCIN/WATER (PEG) 750 MG/150 ML BAG 150 MG IVPB (20:02)
[2022-12-10 20:26] LABS: Ferritin 148 ng/mL (8-252); Folate 4.4 ng/mL (8.6-20.0); Vitamin B12 170 pg/mL (193-986)
[2022-12-10] MEDS: DULoxetine 30 MG CAP PO (21:35)
[2022-12-10] MEDS: DEXTROSE 5%-LACTATED RINGERS 1,000 ML 125 ML IV (22:04)
[2022-12-11 03:05] VITALS: BP 95/54; PULSE 75; RESP 18; TEMP 36.6; O2SAT 97
[2022-12-11] MEDS: DEXTROSE 5%-LACTATED RINGERS 1,000 ML 125 ML IV (06:47)
[2022-12-11 07:18] VITALS: BP 108/61; PULSE 70; RESP 12; TEMP 36.4; O2SAT 94
--- NOTE | 2022-12-11 07:48 | W.PM.PROGNOT ---
Date of Service Date of service: 12/11/22 Time of Service: 08:00 Assessment and Plan Assessment and plan (1) Pelvic mass in female: Status: Acute (2) Urinary tract infection: Status: Inactive Assessment and plan: We are still awaiting the results of her bladder biopsies. I did not find any clear evidence of a colovesical fistula either cystoscopically or by cystogram. Her bladder mucosa was diffusely erythematous and abnormal looking, but its not clear to me whether the appearance is related to her bacterial infection or due to an underlying malignancy. The biopsies should help decipher this issue. If the biopsies truly are consistent with chronic inflammation/infection. I might suggest a longer term low dose antibiotic once her current course of antibiotic is completed. Based on her urine culture and sensitivity, something like Macrodantin 50 mg daily for a month would seem reasonable. We would then plan to see her back in a month and perhaps reimage her to see if all of the inflammatory changes and mass in the pelvis have improved. Subjective Subjective Interval history since last seen: The patient underwent cystoscopy could be and biopsy of her bladder. She has had interventional radiology performed a percutaneous biopsy/aspiration of her previously identified fluid collection at [facility]. Exam Narrative Exam Narrative: She appears comfortable She is awake and alert Objective Last Vital Signs Temp 36.4 C L 12/11/22 07:18 Pulse 70 12/11/22 07:18 Resp 12 12/11/22 07:18 BP 108/61 12/11/22 07:18 Pulse Ox 94 12/11/22 07:18 Laboratory Results - last 24 hr 12/10/22 12/10/22 12/10/22 06:10 06:10 06:10 WBC 5.08 RBC 3.22 L Hgb 8.6 L Hct 27.5 L MCV 85 MCH 26.7 L MCHC 31.3 L RDW 14.2 Plt Count 198 MPV 10.3 Reticulocyte % (Auto) Immature Gran % 0.6 Neutrophils % 68.4 Lymphocytes % 19.5 Monocytes % 9.3 Eosinophils % 1.8 Basophils % 0.4 Nucleated RBC % 0.0 Absolute Neutrophils 3.48 Absolute Lymphocytes 0.99 L Absolute Monocytes 0.47 Absolute Eosinophils 0.09 Absolute Basophils 0.02 Sodium 141 Potassium 3.9 Chloride 107 Carbon Dioxide 29.5 Anion Gap 4.5 BUN 14 Creatinine 1.1 H Est GFR (CKD-EPI 2020) 49.24 Glucose 36 L* Calcium 8.8 Iron TIBC Transferrin % Sat Ferritin 148 Lactate Dehydrogenase 176 Vitamin B12 170 L Folate 4.4 L Add-On Test Request 12/10/22 12/10/22 12/10/22 06:10 06:10 18:11 WBC RBC Hgb Hct MCV MCH MCHC RDW Plt Count MPV Reticulocyte % (Auto) 2.4 Immature Gran % Neutrophils % Lymphocytes % Monocytes % Eosinophils % Basophils % Nucleated RBC % Absolute Neutrophils Absolute Lymphocytes Absolute Monocytes Absolute Eosinophils Absolute Basophils Sodium Potassium Chloride Carbon Dioxide Anion Gap BUN Creatinine Est GFR (CKD-EPI 2020) Glucose Calcium Iron 22 L TIBC 197 L Transferrin % Sat 11 L Ferritin Lactate Dehydrogenase Vitamin B12 Folate Add-On Test Request DONE Time Spent with Patient Time Spent with Patient: <25 minutes Time was spent: other
--- NOTE | 2022-12-11 08:11 | NUR.NOTE ---
Addendum entered by Lisa Harris RN 12/11/22 10:54: unable to do complete physical assessment before patient left with [facility] at 0715; VSS, BG 200, catheter and ostomy emptied, and patient awake and understanding of where she is going. Original Note: Nursing Note: report called to [facility] interventional radiology.
--- NOTE | 2022-12-11 10:36 | CMPROGNOTE_ITS ---
Date of service: 12/11/22 Time of Service: 10:36 Care Management Progress Note Progress Note Text Progress Note Text: S/O: ? Fide was sitting up in bed when CM met with her. She informed CM that she is feeling much better. Fide went to [facility] today for a down and back procedure in IR to obtain a sample of the intra-abdominal fluid for culture and cytology. CM met with her when she returned. She stated that the procedure went well and that she did not experience any pain. Fide asked for clarification about what the specimen was for and CM explained that it was to rule out infection and other conditions that might not be apparent, such as cancer. She indicated that she found the explanation helpful. Fide informed CM that she really would like to be able to go home. She feels much better and misses being home. CM discussed this with the provider who shared that it is likely she can be discharged tomorrow. Follow up blood work will be ordered for the morning. When Fide was given the good news, she was visibly pleased. A: 87 year old female admitted to [facility] for Urinary tract infection, [place]-vesical fistula, CKD P: PT recommends: Home with no services when medically cleared by hospitalist. Anticipate. Fide will discharge home, with no [facility] services and follow up with PCP and plan of care as instructed.? Per pt,? her son Dominguez or her sister will drive her home. Fide refuses SNF for STR and HH services.? CM will continue to follow.
[2022-12-11 12:37] VITALS: BP 95/59; PULSE 82; RESP 16; TEMP 36.3; O2SAT 96
--- NOTE | 2022-12-11 12:42 | W.PM.PROGNOT ---
Date of Service Date of service: 12/11/22 Time of Service: 12:42 Assessment and Plan Assessment and plan (1) Urinary tract infection: Status: Inactive Assessment and plan: patient has had multiple UTI in recent past. current urine culture positive for Citrobacter freundii, treated initially w/ Levaquin but changed to Vancomycin and Meropenem when she came back from cystoscopy two days ago hypotensive. I will keep her on current regimen and repeat her urine cultures and wait for pelvic fluid cultures to be obtained, then decide on final antibiotics. had pelvic IR drainage today at [facility], has returned without incident. 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 Cecum in close proximity to the thickened-walled bladder, but the cecum doesn't appear inflammed. s/p IR sampling of fluid from pelvis as noted above. No extravasation of omnipaque seen on cystogram two days ago. (3) Uncontrolled diabetes mellitus: Status: Chronic Assessment and plan: home oral hypoglycemic agents on hold. She has been on Lantus and sliding scale novolog along w/ CHO coverage but has had hypoglycemia. continue reduced her Lantus dosing and sliding scale (4) Chronic kidney disease, stage III (moderate): Status: Acute Assessment and plan: SHe is at her baseline GFR. (5) Hyperthyroidism: Assessment and plan: She has been overcorrected. TSH 0.09. Holding her levothyroxine. She should resume at lower dose upon discharge. (6) DVT prophylaxis: Status: Acute Assessment and plan: LMWH (7) Discharge planning issues: Status: Acute Assessment and plan: As above she may need SNF level of care. Work with CM. patient remains full code Discussed with Dr Jerry Subjective Subjective Patient reports: no new complaints and afebrile Exam Const General: comfortable, no acute distress and frail appearing (slightly younger than stated age) Nutritional Appearance: average body habitus Orientation: alert, awake and oriented x3 HENMT Head: normocephalic and atraumatic General nose exam: external nose normal Face and sinus: normal facial exam Teeth and gingiva: other (missing teeth) Chest Chest: normal inspection of the chest Resp Effort & Inspection: normal respiratory effort Auscultation: clear to auscultation bilaterally Cardio Rate: regular rate Rhythm: regular rhythm GI Inspection: normal to inspection Palpation: soft and nontender Skin General skin exam: no rashes or lesions noted Neuro General: patient alert, patient awake, patient oriented x3 and no focal motor deficits Extrem General: normal to inspection, full ROM and no pedal edema Psych Mental Status: mental status grossly normal Speech and Movement: speech and movement normal Mood: congruent mood Affect: normal affect Objective Last Vital Signs Temp 36.3 C L 12/11/22 12:37 Pulse 82 12/11/22 12:37 Resp 16 12/11/22 12:37 BP 95/59 L 12/11/22 12:37 Pulse Ox 96 12/11/22 12:37 Laboratory Results - last 24 hr 12/10/22 12/10/22 12/10/22 06:10 06:10 06:10 Reticulocyte % (Auto) 2.4 Iron 22 L TIBC 197 L Transferrin % Sat 11 L Ferritin 148 Lactate Dehydrogenase 176 Vitamin B12 170 L Folate 4.4 L Add-On Test Request 12/10/22 18:11 Reticulocyte % (Auto) Iron TIBC Transferrin % Sat Ferritin Lactate Dehydrogenase Vitamin B12 Folate Add-On Test Request DONE Time Spent with Patient Time Spent with Patient: 25-34 minutes Time was spent: preparing to see the patient(eg.review tests), ordering medications,tests, procedures, referring, communicating with other health healthcare administrator, indepentently interpreting results, counseling the patient and care coordination
[2022-12-11] MEDS: MEROPENEM 1 GM in Normal Saline 100 ML IVPB ×2 (12:49→23:55)
[2022-12-11] MEDS: Normal Saline Flush 10 ML SYR IVP ×2 (12:49→23:55)
[2022-12-11 15:13] VITALS: BP 109/65; PULSE 73; TEMP 36.7; O2SAT 98
[2022-12-11] MEDS: Insulin Aspart 300 UNITS/3 ML PEN SC ×2 (17:11→21:52)
[2022-12-11] MEDS: VANCOMYCIN/WATER (PEG) 750 MG/150 ML BAG 150 MG IVPB (19:36)
[2022-12-11] MEDS: Magnesium Oxide 400 MG TAB 800 MG PO (19:36)
[2022-12-11 20:21] VITALS: BP 118/68; PULSE 81; RESP 17; TEMP 36.7; O2SAT 96
[2022-12-11] MEDS: DULoxetine 30 MG CAP PO (21:28)
[2022-12-11] MEDS: Insulin Glargine 300 UNITS/3 ML PEN 20 UNITS SC (21:30)
[2022-12-11] MEDS: Normal Saline 500 ML 25 ML IV (23:55)
[2022-12-12] MEDS: Normal Saline Flush 10 ML SYR IVP ×2 (01:30→03:55)
[2022-12-12 03:30] VITALS: BP 151/85; PULSE 121; RESP 20; TEMP 36.6; O2SAT 96
[2022-12-12] MEDS: Prochlorperazine 10 MG/2 ML VIAL 5 MG IVP (03:55)
[2022-12-12 04:30] VITALS: PULSE 90; O2SAT 100
[2022-12-12] MEDS: Pantoprazole 20 MG TABCR PO (07:21)
[2022-12-12 08:00] VITALS: BP 152/78; PULSE 84; RESP 16; TEMP 36.7; O2SAT 96
[2022-12-12] MEDS: Insulin Aspart 300 UNITS/3 ML PEN SC ×4 (08:31→12:01)
[2022-12-12 08:45] LABS: Abs Immature Grans 0.04 10^3/uL (0.0-0.06); Absolute Basophil Count 0.02 10^3/uL (0.0-0.2); Absolute Eosinophil Count 0.16 10^3/uL (0.0-0.7); Absolute Lymphocyte Count 2.02 10^3/uL (1.2-3.4); Absolute Monocyte Count 0.51 10^3/uL (0.1-0.8); Absolute Neutrophil Count 6.06 10^3/uL (1.2-6.7); Basophils % 0.2; Eosinophils % 1.8; HCT 31.3 % (36.0-46.0); Immature Grans % 0.5; Lymphocytes % 22.9; MCHC 31.9 % (32.0-36.0); MCV 85 fL (80-95); MPV 9.7 fL (8.0-11.0); Monocytes % 5.8; Neutrophils % 68.8; Platelet Count 201 10^3/uL (130-400); RDW 14.4 % (11.7-14.6); RDW-SD 44.3 fL; WBC 8.81 10^3/uL (4.4-10.8)
[2022-12-12 08:53] LABS: Anion Gap 7.7 mmol/L (3-11); BUN 19 mg/dL (7-18); CO2 27.3 mmol/L (21.0-32.0); CREATININE 1.1 mg/dL (0.55-1.02); Calcium 8.6 mg/dL (8.5-10.1); Chloride 103 mmol/L (98-107); Estimated GFR 49.24 (mL/min/1.73m2); Glucose 307 mg/dL (74-106); Magnesium 1.4 mg/dL (1.8-2.4); Potassium 4.8 mmol/L (3.5-5.1); Sodium 138 mmol/L (136-145)
[2022-12-12] MEDS: Magnesium Oxide 400 MG TAB 800 MG PO (09:33)
[2022-12-12] MEDS: MAGNESIUM SULFATE 2 GM/50 ML BAG IVPB (09:59)
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
[2022-12-12 11:26] VITALS: BP 105/64; PULSE 101; RESP 17; TEMP 36.8; O2SAT 95
[2022-12-12] MEDS: MEROPENEM 1 GM in Normal Saline 100 ML IVPB (12:00)
--- NOTE | 2022-12-12 12:08 | CMDISCH_ITS ---
Date of service: 12/12/22 Time of Service: 12:08 LACE Index Scoring Tool Questions: Length of Stay (in days): 7 - 13 Was the patient admitted via the E.D.?: Yes Comorbidities: Diabetes w/o Complication, Any Tumor and Liver or Renal Disease Care Management Discharge Plan Reason for Hospitalization: Colonic vesicular fistula, UTI Discharge Plan: Fide is discharged home with no new services via private vehicle with son. Recommend follow up with Urology, PCP and plan of care as instructed. Fide refuses to consider SNF and has declined the offer of home health services. Patient/Family Education Needs: Review discharge instructions, limitations and plan to follow up with community providers. Discuss ask me three. Services Needed at Discharge: Home Health Care Services (Refuses HH services) and Detention Facility (Refuses SNF for STR)
[2022-12-14 11:00] LABS: Transferrin 178 mg/dL (201-352)
== END 2022-12-12 15:12 | disposition home or self-care (01) | DRG 668 ==
LOC: ER 05:44 → MS 05:53 → ICU 12-08 17:03 → MS 12-10 12:37
PROVIDERS: Family Medicine; Internal Medicine; Urology; Admitting Provider Family Medicine; Emergency Provider Student in an Organized Health Care Education/Training Program; PCP Nurse Practitioner; Visit Provider Family Medicine
PROC: 0TBB8ZX Excision of Bladder, Via Natural or Artificial Opening Endoscopic, Diagnostic (ICD-10-PCS; CPT 74450; principal; 2022-12-08 12:00)
DX: N30.01 Acute cystitis with hematuria (principal); G92.8 Other toxic encephalopathy; N32.1 Vesicointestinal fistula; F05 Delirium due to known physiological condition; E11.65 Type 2 diabetes mellitus with hyperglycemia; N18.30 Chronic kidney disease, stage 3 unspecified; E05.90 Thyrotoxicosis, unspecified without thyrotoxic crisis or storm; I95.9 Hypotension, unspecified; E11.22 Type 2 diabetes mellitus with diabetic chronic kidney disease; Z79.4 Long term (current) use of insulin; R29.6 Repeated falls; Z93.3 Colostomy status; S40.012A Contusion of left shoulder, initial encounter; W19.XXXA Unspecified fall, initial encounter; E86.0 Dehydration; E11.3293 Type 2 diabetes mellitus with mild nonproliferative diabetic retinopathy without macular edema, bilateral; M54.42 Lumbago with sciatica, left side; F41.8 Other specified anxiety disorders; E78.5 Hyperlipidemia, unspecified; E11.40 Type 2 diabetes mellitus with diabetic neuropathy, unspecified; Z85.3 Personal history of malignant neoplasm of breast; D50.9 Iron deficiency anemia, unspecified; E83.42 Hypomagnesemia; I12.9 Hypertensive chronic kidney disease with stage 1 through stage 4 chronic kidney disease, or unspecified chronic kidney disease; E06.3 Autoimmune thyroiditis; Z85.048 Personal history of other malignant neoplasm of rectum, rectosigmoid junction, and anus; E11.649 Type 2 diabetes mellitus with hypoglycemia without coma; B95.61 Methicillin susceptible Staphylococcus aureus infection as the cause of diseases classified elsewhere; B96.89 Other specified bacterial agents as the cause of diseases classified elsewhere; Z87.440 Personal history of urinary (tract) infections; E05.80 Other thyrotoxicosis without thyrotoxic crisis or storm; T38.1X5A Adverse effect of thyroid hormones and substitutes, initial encounter; N32.89 Other specified disorders of bladder
CPT/HCPCS: 52204; 10160; 36410; 36415; 74177; 80048; 80053; 82805; 84145; 86850; 86900; 86901; 87040; 87077; 87637; 88305; 93005; 93308; 96361; 96365; 96366; 97161; 97530; 99222; 99285; J2760; 70450; 71260; 73200; 74420; 80202; 80320; 81003; 81015; 82607; 82728; 82746; 83036; 83540; 83550; 83605; 83615; 83735; 84439; 84443; 84466; 84484; 85014; 85018; 85025; 85045; 87086; 87186; 93010; 93306; 99232; 99238; 99291; J0690; J0696; J0780; J1650; J1956; J2704; J3490; Q9967

== ENCOUNTER → 2022-12-08 08:56 | Outpatient (BNVA) | payer MEDICARE, SELFPAY | PROVIDERS: PCP Nurse Practitioner; Referring Provider Nurse Practitioner; Visit Provider Urology ==

== ENCOUNTER → 2023-01-11 15:10 | Outpatient (BNVA) | payer MEDICARE, SELFPAY | PROVIDERS: PCP Nurse Practitioner; Referring Provider Nurse Practitioner; Visit Provider Urology | DX: R19.09 Other intra-abdominal and pelvic swelling, mass and lump (principal); Z87.440 Personal history of urinary (tract) infections; Z96.0 Presence of urogenital implants; E11.42 Type 2 diabetes mellitus with diabetic polyneuropathy | CPT/HCPCS: 99214 ==

== ENCOUNTER → 2023-06-17 15:36 | Outpatient (BNVA) | payer MEDICARE, SELFPAY | PROVIDERS: PCP Nurse Practitioner; Referring Provider Nurse Practitioner; Visit Provider Nurse Practitioner Gerontology | DX: R30.0 Dysuria (principal) | CPT/HCPCS: 99213 ==

== ENCOUNTER 2023-08-18 14:15 | Outpatient (CLI) | payer MEDICARE, SELFPAY ==
[2023-08-18 14:14] LABS: Abs Immature Grans 0.03 10^3/uL (0.0-0.06); Absolute Basophil Count 0.03 10^3/uL (0.0-0.2); Absolute Eosinophil Count 0.07 10^3/uL (0.0-0.7); Absolute Lymphocyte Count 1.18 10^3/uL (1.2-3.4); Absolute Monocyte Count 0.48 10^3/uL (0.1-0.8); Absolute Neutrophil Count 4.86 10^3/uL (1.2-6.7); Basophils % 0.5; Eosinophils % 1.1; HCT 28.9 % (36.0-46.0); HGB 9.2 g/dL (11.2-15.7); Immature Grans % 0.5; Lymphocytes % 17.7; MCH 27.5 pg (27.0-33.0); MCHC 31.8 % (32.0-36.0); MCV 87 fL (80-95); MPV 9.7 fL (8.0-11.0); Monocytes % 7.2; Platelet Count 214 10^3/uL (130-400); RBC 3.34 10^6/uL (3.93-5.22); RDW 14.1 % (11.7-14.6); WBC 6.65 10^3/uL (4.4-10.8)
[2023-08-18 14:16] LABS: Bilirubin Negative (Negative); Blood Large (Negative); Clarity Cloudy (Clear); Glucose >=1000 mg/dL (Negative); Ketones Negative (Negative); Leukocyte Esterase Small (Negative); Nitrite Negative (Negative); Specific Gravity 1.015 (1.005-1.025); Urobilinogen 0.2 mg/dL (Up to 0.2)
[2023-08-18 14:26] LABS: C & S Indicated? C&S Done As Ordered; WBC >50 HPF (0-5)
[2023-08-18 15:11] LABS: ALT 14 U/L (14-59); AST 12 U/L (15-37); Albumin 2.8 g/dL (3.4-5.0); Alkaline Phosphatase 162 U/L (46-116); Anion Gap 10.6 mmol/L (3-11); BUN 22 mg/dL (7-18); Bilirubin, Total 0.4 mg/dL (0.2-1.0); CO2 25.4 mmol/L (21.0-32.0); CREATININE 1.8 mg/dL (0.55-1.02); Calcium 8.6 mg/dL (8.5-10.1); Chloride 96 mmol/L (98-107); Ferritin 95 ng/mL (8-252); Magnesium 1.3 mg/dL (1.8-2.4); Potassium 3.9 mmol/L (3.5-5.1); Sodium 132 mmol/L (136-145); TSH (W/Ref FT4) 79.34 uIU/mL (0.36-3.74); Total Protein 7.7 g/dL (6.4-8.2); Vitamin B12 844 pg/mL (193-986)
[2023-08-18 15:17] LABS: Glucose 604 mg/dL (74-106)
[2023-08-18 15:24] LABS: Vitamin D 25 Total 33.5 ng/mL (30-100)
[2023-08-18 15:36] LABS: FREE T4 0.77 ng/dL (0.76-1.46)
== END 2023-08-18 14:16 | disposition home or self-care (01) ==
LOC: LBO 14:16
PROVIDERS: Nurse Practitioner Gerontology; PCP Nurse Practitioner; Visit Provider Nurse Practitioner
DX: D64.9 Anemia, unspecified (principal); E11.9 Type 2 diabetes mellitus without complications; E55.9 Vitamin D deficiency, unspecified; E53.8 Deficiency of other specified B group vitamins; R79.89 Other specified abnormal findings of blood chemistry; J45.909 Unspecified asthma, uncomplicated; R30.0 Dysuria
CPT/HCPCS: 36415; 80053; 82306; 87077; 81003; 81015; 82607; 82728; 82746; 83036; 83735; 84439; 84443; 85025; 87086; 87186

== ENCOUNTER 2023-08-18 16:48 | Inpatient (IN) | payer MEDICARE, SELFPAY ==
[2023-08-18] VITALS (13 sets, daily range): BP systolic 90–165; BP diastolic 52–77; PULSE 62–103; RESP 18–23; TEMP 36.6; O2SAT 93–100
--- NOTE | 2023-08-18 17:07 | ED.GENADUL_ITS ---
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 300 3RF Rx Instructions: E11.22 to adjust insulin per slididng scale, testing bs tid, to maintain Hemoglobin A1C less than 8 (DME) blood-glucose meter [OneTouch Verio Flex meter] Misc See Rx Instructions .Route Qty: 1 0RF Rx Instructions: Use TID to keep A1c less than 8 (DME) insulin syringe-needle U-100 [Comfort EZ Insulin Syringe] 1 mL 30 gauge x 1/2 syringe 1 ea Miscellaneous DAILY Qty: 50 0RF Rx Instructions: BD 31g, 11/10 Use daily with insulin enalapril maleate 2.5 mg tablet See Rx Instructions .ROUTE .COMPLEX Qty: 30 0RF Dose Instruction: TAKE ONE TABLET BY MOUTH EVERY DAY Rx Instructions: TAKE ONE TABLET BY MOUTH EVERY DAY acetaminophen [Mapap Extra Strength] 500 MG tablet 1,000 mg PO Q8H PRN PRNQty: 0 0RF Rx Instructions: no more than 3000 mg or 6 tabs daily insulin glargine [Lantus U-100 Insulin] 100 unit/mL solution 40 unit Sub-Q DAILY Qty: 5 5RF Rx Instructions: Or as directed for DM E11.22 to maintain A1C <8 levothyroxine 125 mcg tablet 62.5 mcg PO DAILY Qty: 90 3RF
[2023-08-18 18:01] LABS: Abs Immature Grans 0.02 10^3/uL (0.0-0.06); Absolute Basophil Count 0.02 10^3/uL (0.0-0.2); Absolute Eosinophil Count 0.04 10^3/uL (0.0-0.7); Absolute Lymphocyte Count 1.06 10^3/uL (1.2-3.4); Absolute Neutrophil Count 4.04 10^3/uL (1.2-6.7); BE (Venous) -1 mmol/L (-2-3); Basophils % 0.4; Eosinophils % 0.7; HCO3 (Venous) 24 mmol/L (23-28); HCT 29.2 % (36.0-46.0); HGB 9.2 g/dL (11.2-15.7); Immature Grans % 0.4; MCH 26.9 pg (27.0-33.0); MCHC 31.5 % (32.0-36.0); MCV 85 fL (80-95); MPV 9.9 fL (8.0-11.0); Monocytes % 7.2; Neutrophils % 72.3; O2 Sat (Venous) 52 %; Platelet Count 197 10^3/uL (130-400); RBC 3.42 10^6/uL (3.93-5.22); RDW 13.9 % (11.7-14.6); RDW-SD 43.1 fL; TCO2 (Venous) 24 mmol/L (24-29); WBC 5.58 10^3/uL (4.4-10.8); pCO2 (Venous) 43 mmHg (41-51); pH (Venous) 7.36 (7.31-7.41); pO2 (Venous) 30 mmHg
[2023-08-18 18:03] LABS: Lactate 1.4 mmol/L (0.6-1.4)
[2023-08-18 18:03] LABS: Bilirubin Negative (Negative); Blood Large (Negative); Clarity Cloudy (Clear); Glucose >=1000 mg/dL (Negative); Ketones Negative (Negative); Leukocyte Esterase Moderate (Negative); Nitrite Negative (Negative); Specific Gravity 1.015 (1.005-1.025); Urobilinogen 0.2 mg/dL (Up to 0.2)
[2023-08-18 18:11] LABS: Bacteria Moderate HPF (Negative); C & S Indicated? Yes; Casts Negative LPF (Negative); Crystals Negative HPF (Negative); Epithelial Cells Rare HPF (Negative); Mucus Negative (Negative); WBC >50 HPF (0-5)
[2023-08-18 18:28] LABS: ALT 17 U/L (14-59); AST 11 U/L (15-37); Albumin 2.8 g/dL (3.4-5.0); Alkaline Phosphatase 146 U/L (46-116); Anion Gap 9.1 mmol/L (3-11); BUN 22 mg/dL (7-18); Bilirubin, Direct 0.2 mg/dL (0.0-0.2); Bilirubin, Total 0.5 mg/dL (0.2-1.0); CO2 23.9 mmol/L (21.0-32.0); CREATININE 1.7 mg/dL (0.55-1.02); Calcium 8.2 mg/dL (8.5-10.1); Chloride 98 mmol/L (98-107); Creatine Kinase 68 U/L (26-192); Estimated GFR 29.02 (mL/min/1.73m2); Lipase 75 U/L (16-77); Magnesium 1.4 mg/dL (1.8-2.4); NT-proBNP 334 pg/mL (<300); Potassium 4.3 mmol/L (3.5-5.1); Sodium 131 mmol/L (136-145); TSH (W/Ref FT4) 74.67 uIU/mL (0.36-3.74); Total Protein 7.4 g/dL (6.4-8.2); Troponin I < 50 ng/L (< or =60)
[2023-08-18 18:30] LABS: Glucose 510 mg/dL (74-106)
[2023-08-18] MEDS: Insulin REGULAR-Human 100 UNITS/ML UNIT 10 UNITS SC (19:06)
[2023-08-18] MEDS: MAGNESIUM SULFATE 2 GM/50 ML BAG IVPB (19:28)
[2023-08-18] MEDS: Normal Saline 1,000 ML 1000 ML IV ×2 (19:29→19:43)
--- NOTE | 2023-08-18 19:30 | DI.RAD_ITS ---
Exam(s) XR PORTABLE CHEST AP EXAM: XR PORTABLE CHEST AP CLINICAL HISTORY: cough TECHNIQUE: 2D digital imaging was performed of the chest. One image was obtained. An AP view was ob tained. COMPARISON: CR XR PORTABLE CHEST AP POST LINE from 03/29/2018 FINDINGS: MEDIASTINUM: Normal. HEART: Normal. PULMONARY VASCULATURE: Normal. LUNGS: No focal consolidating infiltrates are seen. There is chronic interstitial fibrosis predomina ntly in the left lower lobe. Mild peribronchial thickening is seen in the bilaterally. PLEURAL SPACE: There is now blunting of the left costophrenic angle suggesting a small pleural effusi on. BONE:Within normal limits for the patient's age. OTHER FINDINGS:There are surgical clips in the left axilla. IMPRESSION: 1. Bilateral perihilar peribronchial thickening which can be seen with bronchitis/bronchiolitis, reac tive airway disease or pneumonitis. 2. New small left pleural effusion. DATA REPOSITORY: RADIATION DOSE DELIVERED:
--- NOTE | 2023-08-18 20:04 | DI.VRAD_ITS ---
PROCEDURE INFORMATION: Exam: XR Chest Exam date and time: 08/18/2023 7:38 PM Age: 88 years old Clinical indication: Cough TECHNIQUE: Imaging protocol: Radiologic exam of the chest. Views: 1 view. Total images: 1 COMPARISON: CT CHEST/ABD/PEL W 12/05/2022 1:42 AM FINDINGS: Tubes, catheters and devices: Surgical clips over the left upper chest/axilla. Lungs: Chronic interstitial scarring predominantly in the periphery of the lungs is stable. There is chronic bilateral perihilar peribronchial thickening consistent with bronchitis/bronchiolitis, pneumonitis or reactive airways disease, stable. Pulmonary vascularity is normal. Pleural spaces: There is no pleural effusion or pneumothorax. Heart/Mediastinum: Heart size is normal. Bones/joints: No acute osseous abnormalities. IMPRESSION: 1. Bilateral perihilar peribronchial thickening consistent with bronchitis/ bronchiolitis, pneumonitis or reactive airways disease, stable. 2. Chronic interstitial scarring predominantly in the periphery of the lungs is stable. Dictated and Authenticated by: Polina Morin MD. Ordering:ELSA Schumacher MD
--- NOTE | 2023-08-18 20:12 | DI.CT_ITS ---
Exam(s) CT RENAL COLIC WO EXAM: CT RENAL COLIC WO CLINICAL HISTORY: L sided renal colic, proteinuria, UTI. TECHNIQUE: Imaging Protocol: Axial computed tomography images with coronal and sagittal reformatted images were created and reviewed. COMPARISON: CT DI.CTAPWO from 03/27/[address] UPPER EXTREMITY LT WO from 12/05/[address] CHEST/ABD/PEL W from 12/05/2022 FINDINGS: The examination is limited due to patient motion artifact. ABDOMEN: Lung Bases: Interstitial fibrosis is seen in the lung bases. Cardiomegaly. There is a small pericar dial effusion. The pericardial effusion measures up to 1.4 cm in thickness. Coronary artery calcifi cations and/or stents are present. There is a new trace left pleural effusion. Liver: There is a nodular contour of the liver suggesting hepatic cirrhosis. No measurable mass. Gallbladder and biliary tract: The gallbladder is not visualized. The common duct is stable in size. Pancreas: Normal density, no abnormal calcifications or inflammatory process. Spleen: Calcified granuloma are seen in the spleen. A splenic cyst is again seen. Splenomegaly. Kidneys: Normal size, contour and axis.No radiodense stone. Mild persistent dilatation of the renal collecting systems bilaterally. No masses seen. Adrenal glands: No mass is seen. Lymph nodes: Within normal limits. Abdominal Aorta: Abdominal portion non-dilated. Atherosclerotic calcification. PELVIS: Bladder:There is a small amount of air in the urinary bladder. The urinary bladder wall is diffusely thickened. There is some mildly dense material in the dependent portion of the urinary bladder. Th ere is again seen a thick-walled fluid collection posterior and superior to the urinary bladder. It measures 2.2 x 3.4 x 3.9 cm. There is a tiny focus of air again seen within the collection. 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 There is a peristo mal hernia containing an unremarkable loop of bowel. No evidence of incarceration or obstruction of the bowel loop is seen. There is also a midline anterior abdominal wall bowel containing hernia infe rior to the umbilicus. No evidence of incarceration/obstruction. There is no bowel wall thickening. No evidence of appendicitis. Peritoneal cavity: There is persistent soft tissue thickening in the presacral soft tissues. The are a involves the urinary bladder and uterus which is inseparable from the soft tissue. It appears jayson sly unchanged. No free air. Reproductive organs: Please see the above section under peritoneal cavity. Bones: No change in appearance of the bones compared to the prior examinations. Soft Tissues: Please see the above section under bowel. IMPRESSION: 1. Small pericardial effusion and tiny left pleural effusion. Chronic appearing interstitial changes in the lung bases. Superimposed acute pneumonia, edema or metastatic disease cannot be excluded. 2. Stable presacral soft tissue swelling with a stable thick-walled fluid collection measuring 2.2 x 3.4 x 3.9 cm posterior and superior to the urinary bladder. There is a small focus of air again seen in the collection. This may be contiguous with the urinary bladder. But abscess or metastatic dise ase cannot be excluded. 3. Thick-walled urinary bladder. Cystitis, chronic bladder outlet obstruction, radiation changes or neoplasm. 4. Sigmoid and rectal resection with left lower quadrant colostomy. There is a peristomal hernia. N o evidence of obstruction. 5. Midline infraumbilical bowel containing hernia without evidence of obstruction. 6. Mild persistent dilatation of the renal collecting system. No obstructing stone is seen. This ma y be due to mechanical obstruction by the presacral soft tissue thickening in the pelvis as described above. RADIATION DOSE DELIVERED: 569.91mGy.cm Total DLP DATA REPOSITORY: All CT scans at this facility are submitted to the National Radiology Data Registry (NRDR) Dose Index Registry (DIR) with the [employer] (ACR). RADIATION OPTIMIZATION: All CT scans at this facility use at least one of these dose optimization te chniques: automated exposure control; mA and/or kV adjustment per patient size (includes targeted exa ms where dose is matched to clinical indication); or iterative reconstruction.
--- NOTE | 2023-08-18 21:13 | DI.VRAD_ITS ---
PROCEDURE INFORMATION: Exam: CT Abdomen And Pelvis Without Contrast Exam date and time: 08/18/2023 20:05 Age: 88 years old Clinical indication: Abdominal pain; Generalized; Patient HX: L sided renal colic, proteinuria, UTI TECHNIQUE: Imaging protocol: Computed tomography of the abdomen and pelvis without contrast. Radiation optimization: All CT scans at this facility use at least one of these dose optimization techniques: automated exposure control; mA and/or kV adjustment per patient size (includes targeted exams where dose is matched to clinical indication); or iterative reconstruction. COMPARISON: CT CHEST/ABD/PEL W 12/05/2022 01:42 FINDINGS: Lungs: Favor chronic [id number] pulmonary fibrosis, however lymphangitic disease or other interstitial disease can have this appearance. Heart: Small to moderate pericardial fluid is partially imaged, pericardium as visualized appears likely at least mildly thickened which would be new. A left pleural effusion and/or pleural thickening appears trace and would also be new. Liver: Cirrhosis. Nodular liver. No hepatic masses on noncontrast imaging. Gallbladder and bile ducts: No calcified stones. No ductal dilation. Pancreas: No gross pathology in the pancreas on noncontrast imaging. Spleen: Splenomegaly consistent with portal hypertension. Small splenic calcifications compatible with benign granulomata. Benign-appearing likely splenic cyst. Adrenal glands: No mass. Kidneys and ureters: Mild bilateral hydronephrosis. Stomach and bowel: Difficult to tell but parts of rectum may be present. There is a poorly defined thick-walled structure in the presacral space, which could reflect portions of rectum, versus a fluid collection, the latter would measure 39 x 18 x 18 mm. Descending colostomy, large amount of peristomal herniation of small bowel. Mild distension of small bowel in hernia sac, mild distension of left-sided intraperitoneal small bowel without a focal transition point. It is difficult to exclude some left-sided small bowel wall thickening. Appendix: No evidence of appendicitis. Intraperitoneal space: There is no convincing drainable free fluid on these noncontrast images. No gross abscess or free air. Vasculature: See Spleen finding. Lymph nodes: See Lungs finding. Urinary bladder: Pelvic prolapse of the urinary bladder. Moderately thick-walled urinary bladder, mild surrounding edema, scattered small mixed density material in the dependent portion. Reproductive: Difficult to tell if the uterus is present. Extraperitoneal space: Moderate indistinct wall thickening presacral space extending anterior to the presumed perirectal space. Bones/joints: Chronic bony changes with no acute fracture. Soft tissues: Moderate generalized body wall edema worst distally and dependently. Diastasis recti. Large midline ventral hernia containing fat and relatively decompressed small bowel. Other findings: Motion artifact in the abdomen. IMPRESSION: 1. Abnormal pericardium and left pleura as above. This could be malignant, metastatic, infectious and/or inflammatory. 2. Abnormal urinary bladder could reflect cystitis, malignancy, post radiation changes among other entities. 3. This is likely the cause of mild bilateral hydronephrosis. 4. Difficult to tell but parts of rectum may be present. There is a poorly defined thick-walled structure in the presacral space, which could reflect portions of rectum, versus a fluid collection, the latter would measure 39 x 18 x 18 mm. 5. Descending colostomy. Mild left-sided enteritis is suspected associated with ileus however no mechanical obstruction. 6. Additional findings as described. Dictated and Authenticated by: Ju Fajardo MD. Ordering:ELSA Schumacher MD
--- NOTE | 2023-08-18 21:30 | RT.EKG_ITS ---
APPROVED REPORT Exam: Resting ECG Reason for Exam: thickened pericardium w small chronic effusion Patient Location: E HR:82 bpm ECG Measurements Heart Rate 82 AXIS IL 182 P 48 QRSd 87 QRS -25 QT 371 T [id number] QTc 435 Conclusion Sinus rhythm...normal P axis, V-rate 60- 99 Inferior infarct, old...Q >35mS, II III aVF There are no significant changes compared to prior EKG performed on 12/08/2022 at 17:05.
[2023-08-18] MEDS: POTASSIUM CHLORIDE 20 MEQ/100 ML BAG 50 MEQ IVPB (21:39)
--- NOTE | 2023-08-18 22:12 | W.EDPROG ---
Date of service: 08/18/23 Time of Service: 22:12 Medical Decision Making This patient was signed out to me. Please see previous notes for H&P and initial eval. In brief, 88yo F presents with malaise, hyperglycemia, difficulty ambulating. Workup thus far significant for UTI, bilateral hydronephrosis, elevated blood glucose without DKA, electrolyte abnormalities, pericardial thickening. Signed out to me pending repeat labs, admit vs observation for further workup and management, PT/OT, likely echo. No running water at home, poorly heated. Labs reviewed, Hg 7.4 (down from 9.2 after fluids), BMP improved now with Cr 1.3, Mg normalized at 1.8. Discussed with hospitalist and accepted to medicine service for observation. Likely boarding in the ED overnight due to nursing capacity upstairs. Lab Data Lab results reviewed: Yes I reviewed the patient's lab results. Labs: 08/18/23 17:55 Urine - Reflex from Ua Urine Culture - Pending Laboratory Tests Range/Units 08/18/23 08/18/23 08/18/23 17:40 17:55 21:50 WBC (4.4-10.8) 10^3/uL 5.58 RBC (3.93-5.22) 10^6/uL 3.42 L Hgb (11.2-15.7) g/dL 9.2 L Cancelled Hct (36.0-46.0) % 29.2 L Cancelled MCV (80-95) fL 85 MCH (27.0-33.0) pg 26.9 L MCHC (32.0-36.0) % 31.5 L RDW (11.7-14.6) % 13.9 Plt Count (130-400) 10^3/uL 197 MPV (8.0-11.0) fL 9.9 Immature Gran % 0.4 Neutrophils % 72.3 Lymphocytes % 19.0 Monocytes % 7.2 Eosinophils % 0.7 Basophils % 0.4 Nucleated RBC % (0.0-0.3) % 0.0 Absolute Neutrophils (1.2-6.7) 10^3/uL 4.04 Absolute Lymphocytes (1.2-3.4) 10^3/uL 1.06 L Absolute Monocytes (0.1-0.8) 10^3/uL 0.40 Absolute Eosinophils (0.0-0.7) 10^3/uL 0.04 Absolute Basophils (0.0-0.2) 10^3/uL 0.02 VBG pH (7.31-7.41) 7.36 VBG pCO2 (41-51) mmHg 43 VBG pO2 mmHg 30 VBG HCO3 (23-28) mmol/L 24 VBG Total CO2 (24-29) mmol/L 24 VBG O2 Saturation % 52 VBG Base Excess (-2-3) mmol/L -1 VBG Lactate (0.6-1.4) mmol/L 1.4 Sodium (136-145) mmol/L 131 L Cancelled Potassium (3.5-5.1) mmol/L 4.3 Cancelled Chloride (98-107) mmol/L 98 Cancelled Carbon Dioxide (21.0-32.0) mmol/L 23.9 Cancelled Anion Gap (3-11) mmol/L 9.1 Cancelled BUN (7-18) mg/dL 22 H Cancelled Creatinine (0.55-1.02) mg/dL 1.7 H Cancelled Est GFR (CKD-EPI 2020) (mL/min/1.73m2) 29.02 Cancelled Glucose (74-106) mg/dL 510 H* Cancelled Calcium (8.5-10.1) mg/dL 8.2 L Cancelled Magnesium (1.8-2.4) mg/dL 1.4 L Cancelled Total Bilirubin (0.2-1.0) mg/dL 0.5 Conjugated Bilirubin (0.0-0.2) mg/dL 0.2 AST (15-37) U/L 11 L ALT (14-59) U/L 17 Alkaline Phosphatase (46-116) U/L 146 H Creatine Kinase (26-192) U/L 68 Troponin I (< or =60) ng/L < 50 NT-Pro-B Natriuret Pep (<300) pg/mL 334 H Total Protein (6.4-8.2) g/dL 7.4 Albumin (3.4-5.0) g/dL 2.8 L Lipase (16-77) U/L 75 TSH (0.36-3.74) uIU/mL 74.67 H Urine Color (Yellow) Yellow Urine Clarity (Clear) Cloudy Urine pH (5-8) 7.0 Ur Specific [place] (1.005-1.025) 1.015 Urine Protein (Neg-Trace) mg/dL 100 H Urine Ketones (Negative) mg/dL Negative Urine Blood (Negative) Large H Urine Nitrite (Negative) Negative Urine Bilirubin (Negative) Negative Urine Urobilinogen (Up to 0.2) mg/dL 0.2 Ur Leukocyte Esterase (Negative) Moderate H Urine RBC (0-2) HPF 10-20 H Urine WBC (0-5) HPF >50 H Ur Epithelial Cells (Negative) HPF Rare Urine Crystals (Negative) HPF Negative Urine Bacteria (Negative) HPF Moderate Urine Casts (Negative) LPF Negative Urine Mucus (Negative) Negative Ur Culture Indicated? Yes Urine Glucose (Negative) mg/dL >=1000 H Range/Units 08/18/23 22:10 WBC (4.4-10.8) 10^3/uL RBC (3.93-5.22) 10^6/uL Hgb (11.2-15.7) g/dL 7.4 L Hct (36.0-46.0) % 23.2 L MCV (80-95) fL MCH (27.0-33.0) pg MCHC (32.0-36.0) % RDW (11.7-14.6) % Plt Count (130-400) 10^3/uL MPV (8.0-11.0) fL Immature Gran % Neutrophils % Lymphocytes % Monocytes % Eosinophils % Basophils % Nucleated RBC % (0.0-0.3) % Absolute Neutrophils (1.2-6.7) 10^3/uL Absolute Lymphocytes (1.2-3.4) 10^3/uL Absolute Monocytes (0.1-0.8) 10^3/uL Absolute Eosinophils (0.0-0.7) 10^3/uL Absolute Basophils (0.0-0.2) 10^3/uL VBG pH (7.31-7.41) VBG pCO2 (41-51) mmHg VBG pO2 mmHg VBG HCO3 (23-28) mmol/L VBG Total CO2 (24-29) mmol/L VBG O2 Saturation % VBG Base Excess (-2-3) mmol/L VBG Lactate (0.6-1.4) mmol/L Sodium (136-145) mmol/L 137 Potassium (3.5-5.1) mmol/L 4.0 Chloride (98-107) mmol/L 106 Carbon Dioxide (21.0-32.0) mmol/L 22.8 Anion Gap (3-11) mmol/L 8.2 BUN (7-18) mg/dL 18 Creatinine (0.55-1.02) mg/dL 1.3 H Est GFR (CKD-EPI 2020) (mL/min/1.73m2) 40.05 Glucose (74-106) mg/dL 203 H Calcium (8.5-10.1) mg/dL 7.6 L Magnesium (1.8-2.4) mg/dL 1.8 Total Bilirubin (0.2-1.0) mg/dL Conjugated Bilirubin (0.0-0.2) mg/dL AST (15-37) U/L ALT (14-59) U/L Alkaline Phosphatase (46-116) U/L Creatine Kinase (26-192) U/L Troponin I (< or =60) ng/L NT-Pro-B Natriuret Pep (<300) pg/mL Total Protein (6.4-8.2) g/dL Albumin (3.4-5.0) g/dL Lipase (16-77) U/L TSH (0.36-3.74) uIU/mL Urine Color (Yellow) Urine Clarity (Clear) Urine pH (5-8) Ur Specific [place] (1.005-1.025) Urine Protein (Neg-Trace) mg/dL Urine Ketones (Negative) mg/dL Urine Blood (Negative) Urine Nitrite (Negative) Urine Bilirubin (Negative) Urine Urobilinogen (Up to 0.2) mg/dL Ur Leukocyte Esterase (Negative) Urine RBC (0-2) HPF Urine WBC (0-5) HPF Ur Epithelial Cells (Negative) HPF Urine Crystals (Negative) HPF Urine Bacteria (Negative) HPF Urine Casts (Negative) LPF Urine Mucus (Negative) Ur Culture Indicated? Urine Glucose (Negative) mg/dL Quality:SDOH Health Related Social Needs: Health related social needs inadequate housing, material hardship Sign Out Sign Out Data: Sign Out Comment: Pending repeat hyperglycemia, hypomagnesemia labs. Treating for UTI. Needs ECHO arranged, PT/OT qAM, Home Health re-initiation, possible OBS Hospitalist aware Last updated by Endy Machado PA at 08/18/23 22:12 Discharge Plan Discharge Details Chief Complaint: [employer] Primary Care Provider: Stephanie Erwin ED Provider: Heidy Motley Home Meds and New Rx's Prescriptions: No Action Shingrix (PF) 50 mcg/0.5 mL suspension for reconstitution 50 mcg IM ONCE Qty: 1 1RF Jardiance 10 mg tablet 10 mg PO DAILY Qty: 90 3RF duloxetine 30 mg capsule,delayed release(DR/EC) 30 mg PO QHS Qty: 90 3RF glimepiride 4 mg tablet 4 mg PO DAILY Qty: 90 3RF Rx Instructions: to lower blood sugar epinephrine [EpiPen 2-Mayur] 0.3 mg/0.3 mL auto-injector 0.3 mg IJ DIRECTED Qty: 2 12RF magnesium oxide 400 mg magnesium capsule 400 mg PO DAILY Qty: 90 0RF Rx Instructions: Administer at least 2 hours apart from other medications cyanocobalamin (vitamin B-12) 1,000 mcg tablet 1,000 mcg PO DAILY Qty: 90 3RF (DME) OneTouch Verio test strips Strip See Rx Instructions .Route Qty: 100 12RF Rx Instructions: Use TID to keep A1c less than 8 (DME) Karaya 5 Drainable Pouch 1 EACH misc 1 ea Miscellaneous Q72H Qty: 60 Rx Instructions: [place] 1.5 colostomy bag # [id number] to change q3days to maintain bowel function and skin integrity, Z43.3 (DME) lancets [OneTouch UltraSoft Lancets] Misc 1 ea Miscellaneous TID Qty: 300 3RF Rx Instructions: E11.22 to adjust insulin per slididng scale, testing bs tid, to maintain Hemoglobin A1C less than 8 (DME) blood-glucose meter [OneTouch Verio Flex meter] Misc See Rx Instructions .Route Qty: 1 0RF Rx Instructions: Use TID to keep A1c less than 8 (DME) insulin syringe-needle U-100 [Comfort EZ Insulin Syringe] 1 mL 30 gauge x 1/2 syringe 1 ea Miscellaneous DAILY Qty: 50 0RF Rx Instructions: BD 31g, 5/16 Use daily with insulin enalapril maleate 2.5 mg tablet See Rx Instructions .ROUTE .COMPLEX Qty: 30 0RF Dose Instruction: TAKE ONE TABLET BY MOUTH EVERY DAY Rx Instructions: TAKE ONE TABLET BY MOUTH EVERY DAY acetaminophen [Mapap Extra Strength] 500 MG tablet 1,000 mg PO Q8H PRN PRNQty: 0 0RF Rx Instructions: no more than 3000 mg or 6 tabs daily insulin glargine [Lantus U-100 Insulin] 100 unit/mL solution 40 unit Sub-Q DAILY Qty: 5 5RF Rx Instructions: Or as directed for DM E11.22 to maintain A1C <8 levothyroxine 125 mcg tablet 62.5 mcg PO DAILY Qty: 90 3RF
[2023-08-18 22:21] LABS: HCT 23.2 % (36.0-46.0); HGB 7.4 g/dL (11.2-15.7)
[2023-08-18] MEDS: cefTRIAXone 2 GM/50 ML BAG IVPB (22:27)
[2023-08-18 22:31] LABS: Anion Gap 8.2 mmol/L (3-11); BUN 18 mg/dL (7-18); CO2 22.8 mmol/L (21.0-32.0); CREATININE 1.3 mg/dL (0.55-1.02); Calcium 7.6 mg/dL (8.5-10.1); Chloride 106 mmol/L (98-107); Estimated GFR 40.05 (mL/min/1.73m2); Glucose 203 mg/dL (74-106); Magnesium 1.8 mg/dL (1.8-2.4); Sodium 137 mmol/L (136-145)
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
[2023-08-19] VITALS (73 sets, daily range): BP systolic 77–128; BP diastolic 37–78; PULSE 71–108; RESP 15–29; TEMP 36.5–37.3; O2SAT 91–100
[2023-08-19 02:06] LABS: Procalcitonin < 0.1 ng/mL
[2023-08-19 06:07] LABS: HCT 28.5 % (36.0-46.0); HGB 9.1 g/dL (11.2-15.7); MCH 27.8 pg (27.0-33.0); MCHC 31.9 % (32.0-36.0); MCV 87 fL (80-95); MPV 9.9 fL (8.0-11.0); Platelet Count 171 10^3/uL (130-400); RBC 3.27 10^6/uL (3.93-5.22); RDW-SD 44.7 fL; WBC 6.16 10^3/uL (4.4-10.8)
[2023-08-19 06:17] LABS: INR 1.1 (0.9-1.1); Prothrombin Time 10.8 sec (9.1-11.1)
[2023-08-19 06:26] LABS: ALT 9 U/L (14-59); AST 11 U/L (15-37); Albumin 2.2 g/dL (3.4-5.0); Alkaline Phosphatase 83 U/L (46-116); Anion Gap 10.2 mmol/L (3-11); BUN 16 mg/dL (7-18); Bilirubin, Total 0.8 mg/dL (0.2-1.0); CO2 19.8 mmol/L (21.0-32.0); CREATININE 1.3 mg/dL (0.55-1.02); Calcium 7.8 mg/dL (8.5-10.1); Chloride 108 mmol/L (98-107); Estimated GFR 40.05 (mL/min/1.73m2); Glucose 141 mg/dL (74-106); Magnesium 1.7 mg/dL (1.8-2.4); Potassium 4.1 mmol/L (3.5-5.1); Sodium 138 mmol/L (136-145); Total Protein 6.1 g/dL (6.4-8.2)
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
--- NOTE | 2023-08-19 08:00 | DI.US_ITS ---
APPROVED REPORT EXAM: Comprehensive 2D, Doppler, and color-flow Echocardiogram Patient Location: In-Patient Room/Bed: 229 [employer]ote[employer]ologist Supervisor: Karissa Mireles RDCS (AE) Indications: Pericardial effusion Other Information Study Quality: Adequate. Technically limited study due to exam done bedside. Conclusion Normal left ventricular wall thickness. Ejection fraction is 55%. Wall motion is normal Normal right ventricular size and function Both atria are normal in size Trileaflet aortic valve with mild regurgitation Normal mitral valve with mild regurgitation Trivial pericardial effusion Wall motion Left Ventricle The left ventricle is normal size. The left ventricular systolic function is normal. The left ventric ular ejection fraction is within the normal range. There is normal left ventricular wall thickness. T here is normal LV segmental wall motion. There is no ventricular septal defect visualized. LVEF is 55 %. Right Ventricle The right ventricle is normal size. The right ventricular systolic function is normal. Atria The left atrium size is normal. The right atrium size is normal. The interatrial septum is intact wit h no evidence for an atrial septal defect. Aortic Valve The aortic valve is normal in structure. Aortic valve is trileaflet. There is no aortic valvular sten osis. Mild aortic regurgitation. Mitral Valve The mitral valve is normal in structure. No evidence of mitral valve stenosis. Mild mitral regurgita tion. Tricuspid Valve The tricuspid valve is normal in structure. There is no tricuspid valve stenosis. Mild tricuspid reg urgitation. The RVSP is 29.7 mmHg. Pulmonic Valve The pulmonary valve is normal in structure. There is no pulmonic valvular stenosis. Trace pulmonic re gurgitation. Great Vessels The aortic root is normal in size. The ascending aorta is normal in size. Aortic arch is normal in ca liber. IVC is normal in size and collapses >50% with inspiration. Pericardium Trivial circumferential pericardial effusion. 2D Dimensions IVSD d PLAX 0.72 cm F: 0.6-1.0 Ao Root d 3.03 cm F: 2.7 - 3.3 LVPW d PLAX 0.75 cm F: 0.6 - 1.0 Ao Asc Diam d 3.15 cm F: 2.3 - 3.1 LVID d PLAX 4.03 cm F: 3.8 - 5.2 LVDs 2.83 cm F: 2.2 - 3.5 LV EF Teichholz 57.4 % FS 29.73 % LV EDV (Teich) 71.1 mL LV ESV (Teich) 30.3 mL M-Mode TAPSE 1.38 cm (M/F) >1.7 Auto EF LV EDV A4C 52.6 mL LV EDV A2C 70.2 mL LV EDV BP 61.7 mL LV ESV A4C 24.2 mL LV ESV A2C 31.5 mL LV ESV BP 28.0 mL LVEF(%) A4C 54.1 % LVEF(%) A2C 55.1 % LVEF(%) BP 54.5 % LV SV A4C 28.5 ml LV SV A2C 38.7 ml LV SV BP 33.6 ml LV CO A4C 2.2 L/min LV CO A2C 3.4 L/min LV CO BP 2.8 L/min HR A4C 77.76 BPM HR A2C 86.76 BPM LV EDV Index (BP) LV Strain Long Pk Overal Avg (s) 14.48 RV Strain Global Peak Long. Strain A4C 10.21 Global Peak Long. Strain A4C FW 9.25 LA Volume LA Length A4C 4.8 cm LA Length A2C 4.5 cm LA Area A4C s 13.03 cm2 LA Area A2C s 13.09 cm2 LA Vol A4C A-L 29.90 mL LA Vol A2C A-L 32.10 mL LA Vol Biplane A-L 32.0 mL LA Vol/BSA A4C A-L LA Vol/BSA A2C A-L LA Vol/BSA BP A-L 21.2 mL/m2 LA Vol A4C MOD 27.3 mL LA Vol A2C MOD 29.4 mL LA Vol BP MOD 29.1 mL RA Volume RA Area A4C 10.4 cm2 RA ESV A4C (A-L) 20.2mL RA Vol/BSA A4C A-L RA Length A4C 4.6 cm RA ESV A4C (MOD) 18.8mL LV Diastology MV E' medial 0.077 (>0.07 m/s) MV E Vmax 0.86 (0.4-1.3 m/s) MV E/E' MED 11.23 (<14) MV A Vmax 1.15 (0.4-1.3 m/s) MV E' lateral 0.082 (>0.1 m/s) E/A Ratio 0.7 MV E/E' LAT 10.50 (<14) MV E' Average 0.079 m/s MV E/E'(average) 10.85 Aortic Valve AoV Vmax 1.12 m/s LVOT Vmax 0.97 m/s AoV Peak Grad 5.0 mmHg LVOT Peak Grad 3.7 mmHg AoV Area (Vmax) 2.25 cm2 LVOT VTI 0.177 m AoV VTI 0.216 m LVOT Mean Grad 1.9 mmHg AoV Mean Alex. 0.75 m/s LVOT SV 46.20 mL AoV Mean Grad 2.6 mmHg LVOT Diam s 1.80 cm AoV Area (VTI) 2.14 cm2 Velocity Ratio 0.87 Mitral Valve MV DT 265 (160-240 msec) MV Vmax TIPS 1.19 m/s MV Mean Grad 2.4 (<2mmHg) MV VTI 0.293 m Pulmonary Valve PV Vmax 0.91 (0.5-1.5 m/s) RVOT Vmax 0.67 m/s PV Peak Grad 3.3 mmHg RVOT Peak Gr. 1.8 mmHg PV Mean Alex 0.61 m/s RVOT VTI 0.124 m PV Mean Grad 1.8 mmHg RVOT Mean Gr. 0.9 mmHg Tricuspid Valve RA Pressure 3.00 mmHg TR Vmax 2.58 m/s TV S' 0.10 m/s TR Peak Grad 26.6 mmHg RVSP (TR) 29.7 mmHg
[2023-08-19 08:03] LABS: Lactate 0.6 mmol/L (0.6-1.4)
[2023-08-19 08:13] LABS: Ammonia 39 umol/L (11-32)
[2023-08-19] MEDS: Heparin 5,000 UNITS/ML VIAL 5000 UNITS SC ×3 (08:26→23:32)
[2023-08-19] MEDS: Cyanocobalamin 500 MCG TAB 1000 MCG PO (08:27)
[2023-08-19] MEDS: Magnesium Chloride 64 MG TABCR PO ×2 (08:27→20:49)
[2023-08-19] MEDS: Magnesium Oxide 400 MG TAB PO (08:27)
[2023-08-19] MEDS: MAGNESIUM SULFATE 2 GM/50 ML BAG IVPB (08:28)
[2023-08-19] MEDS: Insulin Aspart 300 UNITS/3 ML PEN SC ×4 (08:35→22:13)
[2023-08-19 11:15] LABS: ESR 29 mm/hr (0-30)
[2023-08-19 11:21] LABS: C-Reactive Protein 4.49 mg/dL (<or=0.5)
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
--- NOTE | 2023-08-19 11:43 | DI.CT_ITS ---
Exam(s) CT CHEST WO EXAM: CT CHEST WO CLINICAL HISTORY: pericardial and pleural thickening. TECHNIQUE: Imaging protocol: Axial computed tomography images were obtained and coronal and sagittal reformatted images were created and reviewed. COMPARISON: CT CT CHEST/ABD/PEL W from 12/05/[address] RENAL COLIC WO from 08/18/2023 FINDINGS: Tracheobronchial tree: Patent where visualized. There is bronchiectasis present. The findings are mo st marked in the lower lobes, left greater than right. Pulmonary parenchyma: There is stable multifocal interstitial thickening in the lungs. There are hyp erlucent areas of the lung suggesting underlying COPD. No new focal consolidating infiltrates are se en. Mediastinum and Barbara: No dominant adenopathy or fluid collection. The esophagus is unremarkable. Thyroid gland: Unremarkable. Pleura: There are new small bilateral pleural effusions. No pneumothorax. Heart: Mild cardiomegaly. Coronary artery calcifications and/or stents. There is a pericardial effu sally present. The effusion measures 1.6 cm maximally. Aorta: Thoracic aorta non-dilated. Atherosclerotic calcifications. Upper abdomen: There is a nodular contour of the liver suggesting hepatic cirrhosis. The spleen hira ears enlarged. Lymph nodes: Within normal limits. Soft tissues: Status post left lumpectomy. Bones:Within normal limits for the patient's age. IMPRESSION: 1. Stable multifocal interstitial fibrosis and bronchiectasis. COPD. 2. New small bilateral pleural effusions. 3. Pericardial effusion measuring up to 1.6 cm maximally. RADIATION DOSE DELIVERED: 357.1mGy.cm Total DLP 357.1mGy.cm Total DLP DATA REPOSITORY: All CT scans at this facility are submitted to the National Radiology Data Registry (NRDR) Dose Index Registry (DIR) with the [employer] (ACR). RADIATION OPTIMIZATION: All CT scans at this facility use at least one of these dose optimization te chniques: automated exposure control; mA and/or kV adjustment per patient size (includes targeted exa ms where dose is matched to clinical indication); or iterative reconstruction.
--- NOTE | 2023-08-19 13:20 | PHA.REVIEW2 ---
Pharmacy Admission Review Admission Clinical Review Admission Pharmacy Review: (Updated 08/19/23 @ 10:19 by Fina Mathew MD) Pulmonary fibrosis (Acute) Elevated TSH (Acute) Pleural effusion (Acute) Pleural thickening (Acute) Pericardial effusion (Acute) Dehydration (Acute) UTI (urinary tract infection) (Acute) aspartame Allergy (Severe, Verified 08/18/23 17:02) anaphylactic blueberry Allergy (Severe, Verified 08/18/23 17:02) anaphylactic shellfish derived Allergy (Severe, Verified 08/18/23 17:02) Anaphylaxsis banana Allergy (Verified 08/18/23 17:02) hives aspirin Adverse Reaction (Severe, Verified 08/18/23 17:02) vomiting/gi bleed/ulcer meperidine Adverse Reaction (Severe, Verified 08/18/23 17:02) vomiting docusate Adverse Reaction (Mild, Verified 08/18/23 17:02) tinnitus naproxen Adverse Reaction (Mild, Verified 08/18/23 17:02) gi upset lorazepam Adverse Reaction (Unknown, Verified 08/18/23 17:02) hallucinations cigarette smoke Adverse Reaction (Verified 08/18/23 17:02) feels she will pass out artificial sugar Allergy (Severe, Uncoded 08/18/23 17:02) anaphylactic macrobid Adverse Reaction (Intermediate, Uncoded 08/18/23 17:02) Dizziness/Lighthead Resuscitation Status Full Code Height 5 ft Weight 52.88 kg Pharmacy Admission Review Renal Dosing Renal Dosing: BUN 16 mg/dL (7-18) 08/19/23 05:40 Creatinine 1.3 mg/dL (0.55-1.02) H 08/19/23 05:40 Medications needing adjustments: Reviewed (CrCl 25.93 mL/min) List of meds needing interventions: Current meds okay Anticoagulation Anticoagulation: Hgb 9.1 g/dL (11.2-15.7) L 08/19/23 05:40 Hct 28.5 % (36.0-46.0) L 08/19/23 05:40 Plt Count 171 10^3/uL (130-400) 08/19/23 05:40 INR 1.1 (0.9-1.1) 08/19/23 05:40 Creatinine 1.3 mg/dL (0.55-1.02) H 08/19/23 05:40 DVT Prophylaxis: Reviewed Medications: Heparin (q8h) Relevant Labs Relevant Labs: ESR 29 mm/hr (0-30) 08/19/23 05:40 Sodium 138 mmol/L (136-145) 08/19/23 05:40 Potassium 4.1 mmol/L (3.5-5.1) 08/19/23 05:40 Chloride 108 mmol/L (98-107) H 08/19/23 05:40 Magnesium 1.7 mg/dL (1.8-2.4) L 08/19/23 05:40 C-Reactive Protein 4.49 mg/dL (<or=0.5) H 08/19/23 05:40 Electrolytes, C-Reactive P, ESR: Reviewed (SCr 1.3, Mg 1.7 - repleting, Hgb increased from 7.4 to 9.1) DM Control DM Control: Glucose 141 mg/dL (74-106) H 08/19/23 05:40 Finger Stick Blood Glucose 338 1212 Finger Stick Blood Glucose 338 1150 Finger Stick Blood Glucose 338 1150 Finger Stick Blood Glucose 145 0835 Finger Stick Blood Glucose 145 0809 Finger Stick Blood Glucose 145 0809 DM Control: Reviewed (A1C 13%, glucose was 604 at 1404 when patient presented to ER) Insulin Dosing, Diabetic Medication: Patient currently has orders for SS insulin and insulin glargine 20 units at bedtime. Patients home med list has Jardiance and glimepiride. But Jardiance has not been filled since September of 2022 so it doesn't not seem like patient is taking this. Cardiac Review Cardiac Review: Troponin I < 50 ng/L (< or =60) 08/18/23 17:40 NT-Pro-B Natriuret Pep 334 pg/mL (<300) H 08/18/23 17:40 BP, HR, EF%: Reviewed (BP WNL, HR 92) QTc Review QTc: Reviewed (435 from 08/18/23) IV to PO Switch IV Medications: Reviewed (IV ceftriaxone) Home Meds Home Med List reviewed: Intervened Relevent Home Meds Not ordered & why?: On home med list but not ordered: Jardiance (last filled in September 2022, unlikely patient is still taking this), glimepiride, enalapril Reached out to provider about glimepiride and enalapril, glimepiride on hold while in patient. She has orders for SS insulin and enalapril is on hold due to low BPs during this admission. Current Meds Current Medication Order Review: Reviewed Pharmacy Antibiotic Review Relevant Labs: Relevant Labs 08/19/23 08/18/23 05:40 22:10 C-Reactive Protein 4.49 H Procalcitonin < 0.1 Pharmacy Antibiotic Activity: C/S review and Reviewed, no change Comments: Currently on ceftriaxone 1g q24h, day 1 for UTI. Urine culture growing E. coli, sensitivities pending.
[2023-08-19] MEDS: Acetaminophen 325 MG TAB PO ×2 (13:41→22:08)
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
--- NOTE | 2023-08-19 16:52 | W.PM.PROGNOT ---
Date of Service Date of service: 08/19/23 Time of Service: 16:52 Assessment and Plan Assessment and plan (1) UTI (urinary tract infection): Start date: 08/18/23 Status: Acute Assessment and plan: The patient has frequently recurrent UTIs in setting of chronic bilateral hydronephrosis. Continue empiric ceftriaxone. The patient was not taking her chronic suppressive antibiotic due to having nightmares. At this point we have decided that we will continue ceftriaxone for a total of 1 week, after which point she will be switched with different chronic suppressive antibiotic. There is no role for a Keene catheter per my conversation with Dr. Durán. Qualifiers: Urinary tract infection type: acute cystitis Hematuria presence: with hematuria Qualified Code(s): N30.01 - Acute cystitis with hematuria (2) Dehydration: Start date: 08/18/23 Status: Resolved Assessment and plan: The patient's creatinine is near her baseline at this point. She is able to take p.o. No longer requiring IV fluids. (3) Pericardial effusion: Start date: 08/18/23 Status: Acute Assessment and plan: This was interrogated with an echocardiogram. The pericardial effusion was deemed trivial. It is certainly not causing any hemodynamic instability at this time. It could be related to her high TSH and undertreated hypothyroidism. Patient is (4) Hypomagnesemia: Status: Chronic Assessment and plan: Replete and recheck in the morning. (5) Uncontrolled diabetes mellitus: Status: Chronic Assessment and plan: Her A1c is 13.0. I have added carb coverage and long-acting insulin to her moderate sliding scale. We will titrate dose to achieve target glucoses of 140-180 while in the hospital. Qualifiers: Diabetes mellitus type: type 2 Glycemic state: with hyperglycemia Qualified Code(s): E11.65 - Type 2 diabetes mellitus with hyperglycemia (6) Anemia: Status: Chronic Assessment and plan: No evidence of active bleeding. She is status post total monitor for bleeding. She does have some hematuria on her urinalysis, but I do not believe that it is sufficient to explain the degree of her anemia. Check anemia studies. Transfusion of 1 unit of packed red blood cells in the emergency department. Qualifiers: Anemia type: other cause Other causes of anemia: chronic disease, other Qualified Code(s): D63.8 - Anemia in other chronic diseases classified elsewhere (7) Chronic kidney disease, stage III (moderate): Status: Chronic Assessment and plan: Her creatinine is back to normal to her baseline. Continue to monitor. Qualifiers: Chronic kidney disease stage 3 subtype: stage 3b (GFR 30-44) Qualified Code(s): N18.32 - Chronic kidney disease, stage 3b (8) Hypertension: Status: Chronic Assessment and plan: She does not require antihypertensives normally. While in the hospital, we need to be on the look out for low blood pressures right now actually given history of hypothyroidism. Consider empiric stress dose steroids. Qualifiers: Hypertension type: primary hypertension Qualified Code(s): I10 - Essential (primary) hypertension (9) Acquired autoimmune hypothyroidism: Status: Chronic Assessment and plan: Plan evaluation of the patient, I do not feel that she quite meets criteria for myxedema coma, but I am concerned about her very high TSH. The patient does endorse compliance. We have doubled her levothyroxine dose while she is in the hospital. We will await the T3 level. Consider empiric steroids while I am checking her morning cortisol level to ensure that she does not have underlying adrenal insufficiency. (10) Cirrhosis of liver: Status: Chronic Assessment and plan: The patient was not aware of this diagnosis. Check hepatitis panel. 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 Elizabeth. CT chest was obtained per her recommendation. This per official radiology read did not reveal pleural thickening, however it did show interstitial fibrosis and bronchiectasis as well as COPD. Will defer to pulmonology for further workup. (12) Pleural effusion: Status: Acute Assessment and plan: These are minor. At this point I think they can be attributed to her low thyroid, very high TSH. We will try to diurese her as blood pressures permit. (13) Pulmonary fibrosis: Status: Acute Assessment and plan: Deferred to pulmonology. (14) DVT prophylaxis: Status: Acute Assessment and plan: Subcutaneous heparin. Okay to discontinue serial compression devices (15) Discharge planning issues: Status: Acute Assessment and plan: Full code. Consult palliative care as well as physical and Occupational Therapy. Subjective Subjective Interval history since last seen: Ms Rodriguez states that she is feeling much better today. Her energy is better. She states that her abdomen, which was bothering her before, is no longer bothering her. She cannot tell me specifically what was wrong despite my multiple attempts to clarify this, but it appears that her appetite has picked up. She denies dizziness, chest pain, shortness of breath. She did report a cough previously, but states this has resolved now. She endorses dysuria. She denies nausea or vomiting. She states that the diarrhea that she has had a couple weeks ago has resolved. She has ambulated with physical therapy. She was evaluated by pulmonology and urology. The findings as far as her Bladder and kidneys on the CAT scan are actually chronic for her. No Keene catheter is recommended. On discharge, she is anticipated to be on a different chronic suppressive antibiotic. Evidently she was not taking her previous antibiotic due to nightmares. Exam Narrative Exam Narrative: General: a pleasant elderly female who appears comfortable in bed, A&Ox3, NAD, on RA HEENT: EOMI, MMM Heart: RRR, no m/r/g Lungs: CTAB Abdomen: soft, nontender, nondistended. Extremities: no edema BLEs Objective Last Vital Signs Temp 37.0 C 08/19/23 15:36 Pulse 87 08/19/23 15:36 Resp 17 08/19/23 15:36 BP 128/71 08/19/23 15:36 Pulse Ox 98 08/19/23 15:36 Laboratory Results - last 24 hr 08/18/23 08/18/23 08/18/23 17:40 17:55 21:50 WBC 5.58 RBC 3.42 L Hgb 9.2 L Cancelled Hct 29.2 L Cancelled MCV 85 MCH 26.9 L MCHC 31.5 L RDW 13.9 Plt Count 197 MPV 9.9 Immature Gran % 0.4 Neutrophils % 72.3 Lymphocytes % 19.0 Monocytes % 7.2 Eosinophils % 0.7 Basophils % 0.4 Nucleated RBC % 0.0 Absolute Neutrophils 4.04 Absolute Lymphocytes 1.06 L Absolute Monocytes 0.40 Absolute Eosinophils 0.04 Absolute Basophils 0.02 ESR PT INR VBG pH 7.36 VBG pCO2 43 VBG pO2 30 VBG HCO3 24 VBG Total CO2 24 VBG O2 Saturation 52 VBG Base Excess -1 VBG Lactate 1.4 Sodium 131 L Cancelled Potassium 4.3 Cancelled Chloride 98 Cancelled Carbon Dioxide 23.9 Cancelled Anion Gap 9.1 Cancelled BUN 22 H Cancelled Creatinine 1.7 H Cancelled Est GFR (CKD-EPI 2020) 29.02 Cancelled Glucose 510 H* Cancelled Calcium 8.2 L Cancelled Magnesium 1.4 L Cancelled Total Bilirubin 0.5 Conjugated Bilirubin 0.2 AST 11 L ALT 17 Alkaline Phosphatase 146 H [place] Creatine Kinase 68 Troponin I < 50 C-Reactive Protein NT-Pro-B Natriuret Pep 334 H Total Protein 7.4 Albumin 2.8 L Lipase 75 Procalcitonin TSH 74.67 H Urine Color Yellow Urine Clarity Cloudy Urine pH 7.0 Ur Specific [place] 1.015 Urine Protein 100 H Urine Ketones Negative Urine Blood Large H Urine Nitrite Negative Urine Bilirubin Negative Urine Urobilinogen 0.2 Ur Leukocyte Esterase Moderate H Urine RBC 10-20 H Urine WBC >50 H Ur Epithelial Cells Rare Urine Crystals Negative Urine Bacteria Moderate Urine Casts Negative Urine Mucus Negative Ur Culture Indicated? Yes Urine Glucose >=1000 H Patient ABO/Rh Antibody Screen Crossmatch 08/18/23 08/18/23 08/19/23 22:10 23:30 05:40 WBC 6.16 RBC 3.27 L Hgb 7.4 L 9.1 L Hct 23.2 L 28.5 L MCV 87 MCH 27.8 MCHC 31.9 L RDW 14.0 Plt Count 171 MPV 9.9 Immature Gran % Neutrophils % Lymphocytes % Monocytes % Eosinophils % Basophils % Nucleated RBC % Absolute Neutrophils Absolute Lymphocytes Absolute Monocytes Absolute Eosinophils Absolute Basophils ESR 29 PT 10.8 INR 1.1 VBG pH VBG pCO2 VBG pO2 VBG HCO3 VBG Total CO2 VBG O2 Saturation VBG Base Excess VBG Lactate Sodium 137 138 Potassium 4.0 4.1 Chloride 106 108 H Carbon Dioxide 22.8 19.8 L Anion Gap 8.2 10.2 BUN 18 16 Creatinine 1.3 H 1.3 H Est GFR (CKD-EPI 2020) 40.05 40.05 Glucose 203 H 141 H Calcium 7.6 L 7.8 L Magnesium 1.8 1.7 L Total Bilirubin 0.8 Conjugated Bilirubin AST 11 L ALT 9 L Alkaline Phosphatase 83 [place] Creatine Kinase Troponin I C-Reactive Protein 4.49 H NT-Pro-B Natriuret Pep Total Protein 6.1 L Albumin 2.2 L Lipase Procalcitonin < 0.1 TSH Urine Color Urine Clarity Urine pH Ur Specific [place] Urine Protein Urine Ketones Urine Blood Urine Nitrite Urine Bilirubin Urine Urobilinogen Ur Leukocyte Esterase Urine RBC Urine WBC Ur Epithelial Cells Urine Crystals Urine Bacteria Urine Casts Urine Mucus Ur Culture Indicated? Urine Glucose Patient ABO/Rh O Positive Antibody Screen NEGATIVE Crossmatch See Detail 08/19/23 07:56 WBC RBC Hgb Hct MCV MCH MCHC RDW Plt Count MPV Immature Gran % Neutrophils % Lymphocytes % Monocytes % Eosinophils % Basophils % Nucleated RBC % Absolute Neutrophils Absolute Lymphocytes Absolute Monocytes Absolute Eosinophils Absolute Basophils ESR PT INR VBG pH VBG pCO2 VBG pO2 VBG HCO3 VBG Total CO2 VBG O2 Saturation VBG Base Excess VBG Lactate 0.6 Sodium Potassium Chloride Carbon Dioxide Anion Gap BUN Creatinine Est GFR (CKD-EPI 2020) Glucose Calcium Magnesium Total Bilirubin Conjugated Bilirubin AST ALT Alkaline Phosphatase Ammonia 39 H Creatine Kinase Troponin I C-Reactive Protein NT-Pro-B Natriuret Pep Total Protein Albumin Lipase Procalcitonin TSH Urine Color Urine Clarity Urine pH Ur Specific [place] Urine Protein Urine Ketones Urine Blood Urine Nitrite Urine Bilirubin Urine Urobilinogen Ur Leukocyte Esterase Urine RBC Urine WBC Ur Epithelial Cells Urine Crystals Urine Bacteria Urine Casts Urine Mucus Ur Culture Indicated? Urine Glucose Patient ABO/Rh Antibody Screen Crossmatch Time Spent with Patient Time Spent with Patient: 35-49 minutes Time was spent: preparing to see the patient(eg.review tests), obtaining and/or reviewing separately otained hiistory, ordering medications,tests, procedures, referring, communicating with other health health and social care teacher, indepentently interpreting results, counseling the patient and care coordination
[2023-08-19 18:06] LABS: T3,Free 1.7 pg/mL (2.8-5.3)
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
[2023-08-19] MEDS: Normal Saline Flush 10 ML SYR IVP ×2 (20:49→22:11)
[2023-08-19] MEDS: cefTRIAXone 1 GM/50 ML BAG IVPB (22:08)
[2023-08-19] MEDS: DULoxetine 30 MG CAP PO (22:08)
[2023-08-19] MEDS: Insulin Glargine 300 UNITS/3 ML PEN 20 UNITS SC (22:11)
[2023-08-20 03:15] VITALS: BP 103/60; PULSE 70; RESP 15; TEMP 36.5; O2SAT 98
[2023-08-20] MEDS: Levothyroxine 125 MCG TAB PO (06:02)
[2023-08-20 07:02] LABS: Abs Immature Grans 0.03 10^3/uL (0.0-0.06); Absolute Basophil Count 0.03 10^3/uL (0.0-0.2); Absolute Eosinophil Count 0.12 10^3/uL (0.0-0.7); Absolute Monocyte Count 0.41 10^3/uL (0.1-0.8); Basophils % 0.6; Eosinophils % 2.3; HCT 30.1 % (36.0-46.0); HGB 9.6 g/dL (11.2-15.7); Immature Grans % 0.6; Lymphocytes % 30.8; MCH 27.4 pg (27.0-33.0); MCHC 31.9 % (32.0-36.0); MCV 86 fL (80-95); Monocytes % 7.9; Neutrophils % 57.8; Platelet Count 195 10^3/uL (130-400); RDW 14.3 % (11.7-14.6); RDW-SD 44.9 fL; WBC 5.19 10^3/uL (4.4-10.8)
[2023-08-20 07:10] LABS: Anion Gap 11.6 mmol/L (3-11); BUN 19 mg/dL (7-18); CO2 22.4 mmol/L (21.0-32.0); CREATININE 1.7 mg/dL (0.55-1.02); Calcium 8.5 mg/dL (8.5-10.1); Chloride 103 mmol/L (98-107); Estimated GFR 29.02 (mL/min/1.73m2); Glucose 120 mg/dL (74-106); Magnesium 1.8 mg/dL (1.8-2.4); Potassium 4.9 mmol/L (3.5-5.1); Sodium 137 mmol/L (136-145)
[2023-08-20 07:26] LABS: Iron 18 ug/dL (50-170); Total Iron Binding Capacity 216 ug/dL (250-450); Transferrin Sat 8 % (15-50)
[2023-08-20 07:42] LABS: Ferritin 108 ng/mL (8-252); Folate 11.6 ng/mL (8.6-20.0); Vitamin B12 710 pg/mL (193-986)
[2023-08-20 07:57] VITALS: BP 106/66; PULSE 76; RESP 16; TEMP 36.5; O2SAT 98
[2023-08-20] MEDS: Insulin Aspart 300 UNITS/3 ML PEN SC ×7 (09:33→21:13)
[2023-08-20] MEDS: Magnesium Chloride 64 MG TABCR PO ×2 (09:34→21:08)
[2023-08-20] MEDS: Normal Saline Flush 10 ML SYR IVP (09:35)
[2023-08-20] MEDS: Cyanocobalamin 500 MCG TAB 1000 MCG PO (09:35)
[2023-08-20] MEDS: Heparin 5,000 UNITS/ML VIAL 5000 UNITS SC ×2 (09:35→16:50)
[2023-08-20 11:06] VITALS: BP 96/57; PULSE 89; RESP 16; TEMP 36.7; O2SAT 99
--- NOTE | 2023-08-20 11:25 | PDOC.CMPRO ---
Date of service: 08/20/23 Time of Service: 11:25 Care Management Progress Note Progress Note Text Progress Note Text: S/O:Fide was sitting up in a chair when CM met with her. She was cooperative and agreeable to conversation. Fide stated that she is feeling good today but is tired as she did not sleep well last night. Her SBP has been between 96 and 110 most of the day and she remains afebrile. She is being treated with oral antibiotics for a uti and will likely be placed on Trimethoprim prophylaxis. CM received a call from the [facility] at Fide's PCP office. She informed CM about the community efforts to collaborate about Fide's living conditions. She shared additional information about how dilapidated the house is and the fact that she has no running water and that her furnace is broken.. Fide's son Td who, lives with her is a PRODUCT COMMUNICATIONS MANAGER client and her daughter is an [employer] client. Fide has resisted any and all efforts from the community partners for assistance and/or services. She will likley be discharged home tomorrow. A: Fide was admitted on 08/18/23 with hyperglycemia P:Anticipate Fide will be discharged home, likely with no new services, when medically cleared. She will follow up with her PCP and plan of care and transport with family. SDOH(Care Management) Screening Will the Patient Participate in the Screening?: Yes Do you worry about having a steady place to live?: no Problems where you live: mold, unsafe sharon/stairs and other In the past 12 months, have you had to go without electric, gas, oil or water in your home?: no Have you or anyone in your house had to go without enough food to eat?: no Has lack of transportation kept you from medical appointments or from doing things needed for daily living?: no Has anyone in your support network made you feel unsafe for any reason?: no Health Related Social Needs Health related social needs: inadequate housing(Z59.1)
--- NOTE | 2023-08-20 13:54 | PT.INTREAT ---
PT Notes Visit Reasons: UTI,Deydration with CKD, uncontrolled type 2 diabe Inpatient Physical Therapy Treatment Note [facility] Date: 08/20/23 PRECAUTIONS:fall, standard SUBJECTIVE: Fide states that she is tired. She has been up to the bathroom with nursing several times today, but declined PT x 3 this am. She's agreeable to working with me this afternoon. OBJECTIVE: ? Therapeutic Activities (47523u5): Direct one-on-one instruction in dynamic activities to improve functional performance. ? BED MOBILITY/TRANSFERS? Rolling L/R: independent Supine-sit: SBA? Sit-supine: SBA ? Sit-stand: SBA? Stand-sit: SBA ? Bed-Chair: SBA with FWW, with decreased safety awareness. Leaves walker behind to transfer, reaching for furniture for support ? Provided skilled cues and instruction on performance and technique throughout. FWW fitted to patient height Instructed in FWW management for transfers and navigating in bathroom Assisted with toileting and changing brief; requires mod A for management and cues for safety throughout ? Therapeutic Exercises ([id number]): Direct one-on-one instruction in therapeutic exercises to develop strength, endurance, range of motion and flexibility. ? Provided skilled instruction in proper exercise performance Provided skilled manual cues to facilitate proper muscle recruitment and/or form: standing hip AB with UE support to FWW, 10x, CGA small CHRISTOPHER standing without UE support, CGA, 20 seconds x 3 HR 10x ? Ambulation ? Assistive Device: FWW? Weight bearing: full Assist: SBA ? Distance:? 150'x1 ? Deviation: cues for navigating around obstacles, FWW management ? ASSESSMENT/PLAN:? Improved safety with use of FWW, but limited safety awareness with transfers. Will benefit from continued PT intervention in acute care setting, with transition to PT once medically stable for discharge. TREATMENT CODE/TIME: as above. [id number] Ofe Harry, PT, DPT [facility]
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
[2023-08-20 15:33] VITALS: BP 110/62; PULSE 85; RESP 18; TEMP 37.6; O2SAT 98
--- NOTE | 2023-08-20 16:43 | W.PM.PROGNOT ---
Date of Service Date of service: 08/20/23 Time of Service: 12:00 Assessment and Plan Assessment and plan (1) UTI (urinary tract infection): Start date: 08/18/23 Status: Acute Assessment and plan: The patient with history of frequent recurrent UTIs in setting of chronic bilateral hydronephrosis with history of mutiple past intra-abdominal processes( no jimenez rquirement) Growing E-coli sensitive to cephalosporin. Will start cefpodoxime 200mg PO BID for a total of 7 days of coverage including the ceftriaxone course then will use Trimethoprim 100 mg PO daily for prophylaxis as per discussion with Dr. Durán -F/u in 6 weeks with urologgy Patient will have to f/u with PCP for monitoring of potassium levels as she is also on ACEI's at home Qualifiers: Hematuria presence: with hematuria Urinary tract infection type: acute cystitis Qualified Code(s): N30.01 - Acute cystitis with hematuria (2) Dehydration: Start date: 08/18/23 Status: Resolved Assessment and plan: Continue to encourage oral fluids Monitor for adequate urine output BMP in AM (3) Pericardial effusion: Start date: 08/18/23 Status: Acute Assessment and plan: As per echocardiogram:Trivial pericardial effusion , no hemodynamic instability Might be related to undertreated hypothyroidism Discontinue telemetry (4) Hypomagnesemia: Status: Chronic Assessment and plan: Resolved; mag in AM (5) Uncontrolled diabetes mellitus: Status: Chronic Assessment and plan: Her A1c is 13.0. Glucs 142 to 217 improved from prior with added carb coverage and long-acting insulin to her moderate sliding scale. Insulin Glargine increased to 25 units SC HS to achieve target glucoses of 140-180 while in the hospital. Continue Gluc AC and HS Qualifiers: Diabetes mellitus type: type 2 Glycemic state: with hyperglycemia Qualified Code(s): E11.65 - Type 2 diabetes mellitus with hyperglycemia (6) Anemia: Status: Chronic Assessment and plan: No evidence of active bleeding except for some hematuria on her urinalysis. Transfusion of 1 unit of packed red blood cells in the emergency department and stable H&H. Will order stool for occult blood Anemia studies: Fe 18, transferrin 8 -patient will benefit from IV iron once (PRBC X1 already given)and will premedicate with oral prednisone d/t multiple allergies- Oral iron supplementation as out patient Qualifiers: Anemia type: other cause Other causes of anemia: chronic disease, other Qualified Code(s): D63.8 - Anemia in other chronic diseases classified elsewhere (7) Chronic kidney disease, stage III (moderate): Status: Chronic Assessment and plan: Cr 1.7 from 1.3, will encourage oral fluid and monitor for addition of IVF BMP in AM Qualifiers: Chronic kidney disease stage 3 subtype: stage 3b (GFR 30-44) Qualified Code(s): N18.32 - Chronic kidney disease, stage 3b (8) Hypertension: Status: Chronic Assessment and plan: On Enalapril at home but none required during this stay, lowest MAP 66 today will continue to monitor, considering stress steroid dose in the setting of hypothyroidism Qualifiers: Hypertension type: primary hypertension Qualified Code(s): I10 - Essential (primary) hypertension (9) Acquired autoimmune hypothyroidism: Status: Chronic Assessment and plan: Continue Levothyroxine 125 mcg to be reevaluated by PCP in 4-6 weeks (10) Cirrhosis of liver: Status: Chronic Assessment and plan: The patient was not aware of this diagnosis. 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 Elizabeth: As per result of recommended CT :no official pleural thickening on read ( but might have been d/t scaring form past processes) -interstitial fibrosis non-ILD,with bronchiectasis and COPD Considering pulmonology in and outpatient f/u for further mangement (12) Pulmonary fibrosis: Status: Acute Assessment and plan: As above (13) Pleural effusion: Status: Acute Assessment and plan: Minimal and considering that it might be d/t low thyroid fucntion , very high TSH. Consider diuresing her as blood pressures permit. (14) DVT prophylaxis: Status: Acute Assessment and plan: Continue subcutaneous heparin. (15) Discharge planning issues: Status: Acute Assessment and plan: Palliative consut Home with HH services : need to convince patient as she states she is not sure if HH can come to her house Can be discharged after having a BM and ok on oral antibiotics overnight CM is f/u Subjective Subjective Patient reports: no new complaints, feels better, tolerating liquids well, tolerating a regular diet, voiding w/o difficulty, flatus and afebrile (reports night sweats and chills ); denies still having pain (no chest pain, back pain last night resolved with pain medicine), bowel movement (since admission day ), diarrhea, nausea, vomiting, shortness of breath (no cough, ) or fever Exam Narrative Exam Narrative: Constitutional The patient is comfortable and without acute distress HENMT: Head is atraumatic, normocephalic, no lymphadenopathy. Facial structures with normal appearance Eyes: Well aligned, intact ROM Neck: Normal ROM, no meningeal signs Neuro:alert and oriented to self, person, place,time. No neurological focal deficit Resp: Normal respiratory pattern, clear lung bilaterally Cardio:Tele NSR HR 80, regular rhythm, S1, S2, no murmur, positive pulses to all 4 extremities. GI: Abdomen is not distended, soft and non tender, bowel sounds are present : Negative Costovertebral angle tenderness, no bladder distension Back/spine/Pelvis: No back tenderness, normal alignment Integumentary: No skin lesions or rash Extremities: strength 5/5 to bilateral lower and upper extremities Psych: RASS 0, congruent mood and normal affect. Objective Last Vital Signs Temp 37.6 C H 08/20/23 15:33 Pulse 85 08/20/23 15:33 Resp 18 08/20/23 15:33 BP 110/62 08/20/23 15:33 Pulse Ox 98 08/20/23 15:33 Laboratory Results - last 24 hr 08/19/23 08/19/23 08/20/23 05:40 Unknown 06:10 WBC 5.19 RBC 3.50 L Hgb 9.6 L Hct 30.1 L MCV 86 MCH 27.4 MCHC 31.9 L RDW 14.3 Plt Count 195 MPV 10.0 Immature Gran % 0.6 Neutrophils % 57.8 Lymphocytes % 30.8 Monocytes % 7.9 Eosinophils % 2.3 Basophils % 0.6 Nucleated RBC % 0.0 Absolute Neutrophils 3.00 Absolute Lymphocytes 1.60 Absolute Monocytes 0.41 Absolute Eosinophils 0.12 Absolute Basophils 0.03 Sodium 137 Potassium 4.9 Chloride 103 Carbon Dioxide 22.4 Anion Gap 11.6 H BUN 19 H Creatinine 1.7 H Est GFR (CKD-EPI 2020) 29.02 Glucose 120 H Calcium 8.5 Magnesium 1.8 Iron 18 L TIBC 216 L Transferrin % Sat 8 L Ferritin 108 Vitamin B12 710 Folate 11.6 Free T3 pg/mL 1.7 L Add-On Test Request TNP Time Spent with Patient Time Spent with Patient: >50 minutes Time was spent: preparing to see the patient(eg.review tests), obtaining and/or reviewing separately otained hiistory, ordering medications,tests, procedures, referring, communicating with other health animal care attendant, indepentently interpreting results, counseling the patient and care coordination
[2023-08-20] MEDS: Polyethylene Glycol 3350 17 GM PACKET PO (16:50)
[2023-08-20 18:03] LABS: T3, Total 59 ng/dL (97-169)
[2023-08-20] MEDS: IRON SUCROSE COMPLEX 100 MG in Normal Saline 100 ML 400 MG IVPB (18:06)
[2023-08-20] MEDS: predniSONE 10 MG TAB 50 MG PO (18:07)
[2023-08-20 19:14] LABS: HBs Antibody, Qual Negative (See Note); HBs Antibody, Quant <3.1 mIU/mL (See Note); Hepatitis B Core Antibody Negative (Negative); Hepatitis B surface Ag Negative (Negative); Hepatitis C Ab w Rflx HCV PCR Negative (Negative)
[2023-08-20 19:32] VITALS: BP 112/65; PULSE 89; RESP 18; TEMP 36.9; O2SAT 95
[2023-08-20] MEDS: Docusate Sodium 100 MG CAP PO (21:08)
[2023-08-20] MEDS: Cefpodoxime 200 MG TAB PO (21:08)
[2023-08-20] MEDS: DULoxetine 30 MG CAP PO (21:09)
[2023-08-20] MEDS: Insulin Glargine 300 UNITS/3 ML PEN 25 UNITS SC (21:12)
[2023-08-20] MEDS: Melatonin 3 MG TAB PO (21:47)
[2023-08-20 23:18] VITALS: BP 121/62; PULSE 74; RESP 18; TEMP 36.4; O2SAT 98
[2023-08-21] MEDS: Heparin 5,000 UNITS/ML VIAL 5000 UNITS SC ×2 (00:34→08:13)
[2023-08-21 03:11] VITALS: BP 101/69; PULSE 71; RESP 18; TEMP 36; O2SAT 98
[2023-08-21] MEDS: Levothyroxine 125 MCG TAB PO (05:54)
[2023-08-21 07:34] VITALS: BP 93/54; PULSE 79; RESP 16; TEMP 36.2; O2SAT 97
[2023-08-21 07:51] LABS: Abs Immature Grans 0.03 10^3/uL (0.0-0.06); Absolute Basophil Count 0.01 10^3/uL (0.0-0.2); Absolute Monocyte Count 0.13 10^3/uL (0.1-0.8); Absolute Neutrophil Count 3.89 10^3/uL (1.2-6.7); Basophils % 0.2; HCT 29.9 % (36.0-46.0); HGB 9.6 g/dL (11.2-15.7); Immature Grans % 0.6; Lymphocytes % 18.1; MCH 27.5 pg (27.0-33.0); MCHC 32.1 % (32.0-36.0); MCV 86 fL (80-95); MPV 9.9 fL (8.0-11.0); Monocytes % 2.6; Neutrophils % 78.5; Platelet Count 205 10^3/uL (130-400); RBC 3.49 10^6/uL (3.93-5.22); RDW 14.1 % (11.7-14.6); RDW-SD 43.8 fL; WBC 4.96 10^3/uL (4.4-10.8)
[2023-08-21 07:56] LABS: Anion Gap 11.2 mmol/L (3-11); BUN 23 mg/dL (7-18); CO2 20.8 mmol/L (21.0-32.0); CREATININE 1.5 mg/dL (0.55-1.02); Calcium 8.5 mg/dL (8.5-10.1); Chloride 101 mmol/L (98-107); Estimated GFR 33.73 (mL/min/1.73m2); Glucose 219 mg/dL (74-106); Magnesium 1.7 mg/dL (1.8-2.4); Potassium 5.6 mmol/L (3.5-5.1); Sodium 133 mmol/L (136-145)
[2023-08-21] MEDS: Polyethylene Glycol 3350 17 GM PACKET PO (08:09)
[2023-08-21] MEDS: Cefpodoxime 200 MG TAB PO ×2 (08:10→21:01)
[2023-08-21] MEDS: Magnesium Chloride 64 MG TABCR PO ×2 (08:10→21:01)
[2023-08-21] MEDS: Docusate Sodium 100 MG CAP PO ×3 (08:11→21:02)
[2023-08-21] MEDS: Cyanocobalamin 500 MCG TAB 1000 MCG PO (08:11)
[2023-08-21] MEDS: Insulin Aspart 300 UNITS/3 ML PEN SC ×7 (08:12→21:03)
[2023-08-21 09:41] LABS: Potassium 5.3 mmol/L (3.5-5.1)
--- NOTE | 2023-08-21 11:34 | PGE_ITS ---
Date of Service Date of service: 08/21/23 Time of Service: 11:34 Assessment and Plan Assessment and plan (1) UTI (urinary tract infection): Status: Acute Assessment and plan: The patient with history of frequent recurrent UTIs in setting of chronic bilateral hydronephrosis with history of mutiple past intra-abdominal processes( no jimenez rquirement) Growing E-coli sensitive to cephalosporin. Will start cefpodoxime 200mg PO BID for a total of 7 days of coverage including the ceftriaxone course then will use Trimethoprim 100 mg PO daily for prophylaxis as per discussion with Dr. Durán -F/u in 6 weeks with urologgy Patient will have to f/u with PCP for monitoring of potassium levels as she is also on ACEI's at home Qualifiers: Urinary tract infection type: acute cystitis Hematuria presence: with hematuria Qualified Code(s): N30.01 - Acute cystitis with hematuria (2) Dehydration: Status: Resolved Assessment and plan: Continue to encourage oral fluids Monitor for adequate urine output BMP in AM (3) Pericardial effusion: Status: Acute Assessment and plan: As per echocardiogram:Trivial pericardial effusion , no hemodynamic instability Might be related to undertreated hypothyroidism Discontinue telemetry (4) Hypomagnesemia: Status: Chronic Assessment and plan: Resolved; mag in AM (5) Uncontrolled diabetes mellitus: Status: Chronic Assessment and plan: Her A1c is 13.0. Glucs 142 to 217 improved from prior with added carb coverage and long-acting insulin to her moderate sliding scale. Insulin Glargine increased to 25 units SC HS to achieve target glucoses of 140-180 while in the hospital. Continue Gluc AC and HS Qualifiers: Diabetes mellitus type: type 2 Glycemic state: with hyperglycemia Qualified Code(s): E11.65 - Type 2 diabetes mellitus with hyperglycemia (6) Anemia: Status: Chronic Assessment and plan: No evidence of active bleeding except for some hematuria on her urinalysis. Transfusion of 1 unit of packed red blood cells in the emergency department and stable H&H. Will order stool for occult blood Anemia studies: Fe 18, transferrin 8 -patient will benefit from IV iron once (PRBC X1 already given)and will premedicate with oral prednisone d/t multiple allergies- Oral iron supplementation as out patient Qualifiers: Anemia type: other cause Other causes of anemia: chronic disease, other Qualified Code(s): D63.8 - Anemia in other chronic diseases classified elsewhere (7) Chronic kidney disease, stage III (moderate): Status: Chronic Assessment and plan: Cr 1.7 from 1.3, will encourage oral fluid and monitor for addition of IVF BMP in AM Qualifiers: Chronic kidney disease stage 3 subtype: stage 3b (GFR 30-44) Qualified Code(s): N18.32 - Chronic kidney disease, stage 3b (8) Hypertension: Status: Chronic Assessment and plan: On Enalapril at home but none required during this stay, lowest MAP 66 today will continue to monitor, considering stress steroid dose in the setting of hypothyroidism Qualifiers: Hypertension type: primary hypertension Qualified Code(s): I10 - Essential (primary) hypertension (9) Acquired autoimmune hypothyroidism: Status: Chronic Assessment and plan: Continue Levothyroxine 125 mcg to be reevaluated by PCP in 4-6 weeks (10) Cirrhosis of liver: Status: Chronic Assessment and plan: The patient was not aware of this diagnosis. 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 Elizabeth: As per result of recommended CT :no official pleural thickening on read ( but might have been d/t scaring form past processes) - interstitial fibrosis non-ILD,with bronchiectasis and COPD Considering pulmonology in and outpatient f/u for further mangement (12) Pulmonary fibrosis: Status: Acute Assessment and plan: As above (13) Pleural effusion: Status: Acute Assessment and plan: Minimal and considering that it might be d/t low thyroid fucntion , very high TSH. Consider diuresing her as blood pressures permit. (14) DVT prophylaxis: Status: Acute Assessment and plan: Continue subcutaneous heparin. (15) Discharge planning issues: Status: Acute Assessment and plan: Palliative consult Home with HH services : need to convince patient as she states she is not sure if HH can come to her house Can be discharged after having a BM and ok on oral antibiotics overnight CM is f/u discussed with Dr Balderrama Subjective Subjective Patient reports: no new complaints Exam Const General: comfortable, no acute distress and frail appearing (slightly younger than stated age) Nutritional Appearance: average body habitus Orientation: alert, awake and oriented x3 HENMT Head: normocephalic and atraumatic General nose exam: external nose normal Face and sinus: normal facial exam Teeth and gingiva: other (missing teeth) Chest Chest: normal inspection of the chest Resp Effort & Inspection: normal respiratory effort Auscultation: clear to auscultation bilaterally Cardio Rate: regular rate Rhythm: regular rhythm GI Inspection: normal to inspection Palpation: soft and nontender Skin General skin exam: no rashes or lesions noted Neuro General: patient alert, patient awake, patient oriented x3 and no focal motor deficits Extrem General: normal to inspection, full ROM and no pedal edema Psych Mental Status: mental status grossly normal Speech and Movement: speech and movement normal Mood: congruent mood Affect: normal affect Objective Last Vital Signs Temp 36.2 C L 08/21/23 07:34 Pulse 79 08/21/23 07:34 Resp 16 08/21/23 07:34 BP 93/54 L 08/21/23 07:34 Pulse Ox 97 08/21/23 07:34 Laboratory Results - last 24 hr 08/21/23 08/21/23 08/21/23 07:10 07:10 09:30 WBC 4.96 RBC 3.49 L Hgb 9.6 L Hct 29.9 L MCV 86 MCH 27.5 MCHC 32.1 RDW 14.1 Plt Count 205 MPV 9.9 Immature Gran % 0.6 Neutrophils % 78.5 Lymphocytes % 18.1 Monocytes % 2.6 Eosinophils % 0.0 Basophils % 0.2 Nucleated RBC % 0.0 Absolute Neutrophils 3.89 Absolute Lymphocytes 0.90 L Absolute Monocytes 0.13 Absolute Eosinophils 0.00 Absolute Basophils 0.01 Sodium 133 L Potassium 5.6 H 5.3 H Chloride 101 Carbon Dioxide 20.8 L Anion Gap 11.2 H BUN 23 H Creatinine 1.5 H Est GFR (CKD-EPI 2020) 33.73 Glucose 219 H Calcium 8.5 Magnesium Cancelled 1.7 L 08/21/23 12:00 WBC RBC Hgb Hct MCV MCH MCHC RDW Plt Count MPV Immature Gran % Neutrophils % Lymphocytes % Monocytes % Eosinophils % Basophils % Nucleated RBC % Absolute Neutrophils Absolute Lymphocytes Absolute Monocytes Absolute Eosinophils Absolute Basophils Sodium Cancelled Potassium Cancelled Chloride Cancelled Carbon Dioxide Cancelled Anion Gap Cancelled BUN Cancelled Creatinine Cancelled Est GFR (CKD-EPI 2020) Cancelled Glucose Cancelled Calcium Cancelled Magnesium
[2023-08-21 11:50] VITALS: BP 98/62; PULSE 71; RESP 16; TEMP 36.8; O2SAT 99
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
--- NOTE | 2023-08-21 14:49 | PGE_ITS ---
Date of Service Date of service: 08/21/23 Time of Service: 14:49 Assessment and Plan Assessment and plan (1) UTI (urinary tract infection): Status: Acute Assessment and plan: history of frequent recurrent UTIs in setting of chronic bilateral hydronephrosis with history of mutiple past intra-abdominal processes( no jimenez requirement) Growing E-coli sensitive to cephalosporin. continue cefpodoxime 200mg PO BID for a total of 7 days Trimethoprim 100 mg PO daily for prophylaxis as per discussion with Dr. Luis Armando Mccloud/u in 6 weeks with urologgy Qualifiers: Hematuria presence: with hematuria Urinary tract infection type: acute cystitis Qualified Code(s): N30.01 - Acute cystitis with hematuria (2) Dehydration: Status: Resolved Assessment and plan: Continue to encourage oral fluids Monitor for adequate urine output BMP in AM (3) Pericardial effusion: Status: Acute Assessment and plan: As per echocardiogram:Trivial pericardial effusion , no hemodynamic instability Might be related to undertreated hypothyroidism Discontinue telemetry (4) Hypomagnesemia: Status: Chronic (5) Uncontrolled diabetes mellitus: Status: Chronic Assessment and plan: Her A1c is 13.0. Glucs 142 to 217 improved from prior with added carb coverage and long-acting insulin to her moderate sliding scale. Insulin Glargine increased to 25 units SC HS to achieve target glucoses of 140-180 while in the hospital. Continue Gluc AC and HS Qualifiers: Diabetes mellitus type: type 2 Glycemic state: with hyperglycemia Qualified Code(s): E11.65 - Type 2 diabetes mellitus with hyperglycemia (6) Anemia: Status: Chronic Assessment and plan: No evidence of active bleeding except for some hematuria on her urinalysis. Transfusion of 1 unit of packed red blood cells in the emergency department and stable H&H. stool for occult blood Anemia studies: Fe 18, transferrin 8 -patient will benefit from IV iron once (PRBC X1 already given)and will premedicate with oral prednisone d/t multiple allergies- Oral iron supplementation as out patient Qualifiers: Anemia type: other cause Other causes of anemia: chronic disease, other Qualified Code(s): D63.8 - Anemia in other chronic diseases classified elsewhere (7) Chronic kidney disease, stage III (moderate): Status: Chronic Assessment and plan: Cr 1.8 from 1.3, will encourage oral fluid and monitor for addition of IVF BMP in AM Qualifiers: Chronic kidney disease stage 3 subtype: stage 3b (GFR 30-44) Qualified Code(s): N18.32 - Chronic kidney disease, stage 3b (8) Hypertension: Status: Chronic Assessment and plan: On Enalapril at home but none required during this stay Qualifiers: Hypertension type: primary hypertension Qualified Code(s): I10 - Essential (primary) hypertension (9) Acquired autoimmune hypothyroidism: Status: Chronic Assessment and plan: Continue Levothyroxine 125 mcg to be reevaluated by PCP in 4-6 weeks (10) Cirrhosis of liver: Status: Chronic Assessment and plan: The patient was not aware of this diagnosis. 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 Elizabeth: As per result of recommended CT :no official pleural thickening on read ( but might have been d/t scaring form past processes) - interstitial fibrosis non-ILD,with bronchiectasis and COPD Considering pulmonology in and outpatient f/u for further mangement (12) Pulmonary fibrosis: Status: Acute Assessment and plan: As above (13) Pleural effusion: Status: Acute Assessment and plan: Minimal and considering that it might be d/t low thyroid fucntion , very high TSH. Consider diuresing her as blood pressures permit. (14) DVT prophylaxis: Status: Acute Assessment and plan: Continue subcutaneous heparin. (15) Discharge planning issues: Status: Acute Assessment and plan: Palliative consult recommend home with services : she is declining HH CM is f/u discussed with Dr Balderrama Subjective Subjective Patient reports: tolerating liquids well, tolerating a regular diet, no bowel movement and afebrile; denies shortness of breath Exam Const General: comfortable, no acute distress and frail appearing (slightly younger than stated age) Nutritional Appearance: average body habitus Orientation: alert, awake and oriented x3 HENMT Head: normocephalic and atraumatic General nose exam: external nose normal Face and sinus: normal facial exam Teeth and gingiva: other (missing teeth) Chest Chest: normal inspection of the chest Resp Effort & Inspection: normal respiratory effort Auscultation: clear to auscultation bilaterally Cardio Rate: regular rate Rhythm: regular rhythm GI Inspection: normal to inspection Palpation: soft and nontender Skin General skin exam: no rashes or lesions noted Neuro General: patient alert, patient awake, patient oriented x3 and no focal motor deficits Extrem General: normal to inspection, full ROM and no pedal edema Psych Mental Status: mental status grossly normal Speech and Movement: speech and movement normal Mood: congruent mood Affect: normal affect Objective Last Vital Signs Temp 36.8 C 08/21/23 11:50 Pulse 71 08/21/23 11:50 Resp 16 08/21/23 11:50 BP 98/62 L 08/21/23 11:50 Pulse Ox 99 08/21/23 11:50 Laboratory Results - last 24 hr 08/21/23 08/21/23 08/21/23 07:10 07:10 09:30 WBC 4.96 RBC 3.49 L Hgb 9.6 L Hct 29.9 L MCV 86 MCH 27.5 MCHC 32.1 RDW 14.1 Plt Count 205 MPV 9.9 Immature Gran % 0.6 Neutrophils % 78.5 Lymphocytes % 18.1 Monocytes % 2.6 Eosinophils % 0.0 Basophils % 0.2 Nucleated RBC % 0.0 Absolute Neutrophils 3.89 Absolute Lymphocytes 0.90 L Absolute Monocytes 0.13 Absolute Eosinophils 0.00 Absolute Basophils 0.01 Sodium 133 L Potassium 5.6 H 5.3 H Chloride 101 Carbon Dioxide 20.8 L Anion Gap 11.2 H BUN 23 H Creatinine 1.5 H Est GFR (CKD-EPI 2020) 33.73 Glucose 219 H Calcium 8.5 Magnesium Cancelled 1.7 L 08/21/23 12:00 WBC RBC Hgb Hct MCV MCH MCHC RDW Plt Count MPV Immature Gran % Neutrophils % Lymphocytes % Monocytes % Eosinophils % Basophils % Nucleated RBC % Absolute Neutrophils Absolute Lymphocytes Absolute Monocytes Absolute Eosinophils Absolute Basophils Sodium Cancelled Potassium Cancelled Chloride Cancelled Carbon Dioxide Cancelled Anion Gap Cancelled BUN Cancelled Creatinine Cancelled Est GFR (CKD-EPI 2020) Cancelled Glucose Cancelled Calcium Cancelled Magnesium Time Spent with Patient Time Spent with Patient: 35-49 minutes Time was spent: preparing to see the patient(eg.review tests), obtaining and/or reviewing separately otained hiistory, ordering medications,tests, procedures, indepentently interpreting results and counseling the patient
[2023-08-21] MEDS: Normal Saline Flush 10 ML SYR IVP ×2 (15:02→21:04)
[2023-08-21] MEDS: MAGNESIUM SULFATE 1 GM/100 ML BAG IVPB (15:07)
[2023-08-21 15:12] VITALS: BP 98/59; PULSE 81; RESP 16; TEMP 37.3; O2SAT 95
--- NOTE | 2023-08-21 15:28 | PT.INTREAT ---
Date of service: 08/21/23 Time of Service: 11:00 PT Notes Visit Reasons: UTI,Deydration with CKD, uncontrolled type 2 diabe Inpatient Physical Therapy Treatment Note [facility] Date: 10/20/2023 PRECAUTIONS: Fall, Standard Activity as tolerated, hard of hearing SUBJECTIVE: Stated she is doing okay but has been up going to the restroom a lot today and would prefer not to get out of bed. Willing to do bed exercises. OBJECTIVE: ? PAIN: No complaints of pain. ? Therapeutic Exercises ([id number]): Direct one-on-one instruction in therapeutic exercises to develop strength, endurance, range of motion and flexibility. ? Exercises: ? Supine ankle pumps x 15 reps, quad sets 10 reps x 2 sets, glut sets 10 reps x 2 sets, bilateral UE flexion for 10 reps x 2 sets, bilateral UE abd/ adduction 10 reps x 2 sets. Provided skilled instruction in proper exercise performance Provided skilled manual cues to facilitate proper muscle recruitment and/or form ASSESSMENT:? Performed ther exercises well but not able to convince her to get out of bed for ambulation or standing exercises. PLAN: Continue to focus on ADL function for improve mobility, as per supervising PT's POC. TREATMENT CODE/TIME: [id number], 11:00 to 11:15 (15')
[2023-08-21 16:16] LABS: Anion Gap 7.5 mmol/L (3-11); BUN 24 mg/dL (7-18); CO2 21.5 mmol/L (21.0-32.0); CREATININE 1.8 mg/dL (0.55-1.02); Calcium 8.3 mg/dL (8.5-10.1); Chloride 100 mmol/L (98-107); Glucose 386 mg/dL (74-106); Potassium 5.4 mmol/L (3.5-5.1); Sodium 129 mmol/L (136-145)
[2023-08-21] MEDS: Sodium Zirconium Cyclosilicate 10 GM PKT PO ×2 (16:26→21:01)
[2023-08-21 20:00] VITALS: BP 101/59; PULSE 87; RESP 16; TEMP 36.9; O2SAT 97
[2023-08-21] MEDS: Insulin Glargine 300 UNITS/3 ML PEN 25 UNITS SC (21:02)
[2023-08-21] MEDS: Melatonin 3 MG TAB PO (21:02)
[2023-08-21] MEDS: DULoxetine 30 MG CAP PO (21:02)
[2023-08-21 23:28] VITALS: BP 96/58; PULSE 84; RESP 16; TEMP 36.3; O2SAT 97
[2023-08-22 03:19] VITALS: BP 96/60; PULSE 75; RESP 16; TEMP 36.5; O2SAT 96
[2023-08-22] MEDS: Levothyroxine 125 MCG TAB PO (06:26)
[2023-08-22] MEDS: Sodium Zirconium Cyclosilicate 10 GM PKT PO (06:27)
[2023-08-22 06:48] LABS: Anion Gap 10.3 mmol/L (3-11); BUN 25 mg/dL (7-18); CO2 22.7 mmol/L (21.0-32.0); CREATININE 1.6 mg/dL (0.55-1.02); Calcium 8.8 mg/dL (8.5-10.1); Chloride 103 mmol/L (98-107); Estimated GFR 31.21 (mL/min/1.73m2); Glucose 66 mg/dL (74-106); Magnesium 1.7 mg/dL (1.8-2.4); Sodium 136 mmol/L (136-145)
[2023-08-22 06:52] LABS: Potassium 4.4 mmol/L (3.5-5.1)
[2023-08-22 07:40] VITALS: BP 94/52; PULSE 84; RESP 18; TEMP 36.2; O2SAT 96
[2023-08-22] MEDS: Cyanocobalamin 500 MCG TAB 1000 MCG PO (08:23)
[2023-08-22] MEDS: Magnesium Chloride 64 MG TABCR PO (08:24)
[2023-08-22] MEDS: Polyethylene Glycol 3350 17 GM PACKET PO (08:24)
[2023-08-22] MEDS: Insulin Aspart 300 UNITS/3 ML PEN SC ×3 (08:24→12:02)
[2023-08-22] MEDS: Cefpodoxime 200 MG TAB PO (08:24)
[2023-08-22] MEDS: Docusate Sodium 100 MG CAP PO (08:24)
[2023-08-22] MEDS: MAGNESIUM SULFATE 2 GM/50 ML BAG IVPB (08:54)
[2023-08-22 08:55] VITALS: BP 107/66; PULSE 71
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
--- NOTE | 2023-08-22 10:49 | PDOC.HHF2F_ITS ---
Home Health Referral Home Health Orders Clinical synopsis of why skilled professionals are needed: oversight of medication changes, blood sugar monitoring. Medical diagnosis necessitation home health referral: hypoglycemia, urinary tract infection, elevated TSH Registered Nurse: Check all that apply Instruct on new or changed medication(s)/assess compliance: Ordered Assess for exacerbation of medical condition, instruct patient/caregivers on signs and symptoms to report for early detection: Ordered Physical Therapist: Check all that apply Increase strength & endurance for safe mobility at home: Ordered To design/establish home maintenance program: Ordered Fall reduction therapy program for patient with history of frequent falls: Ordered Home safety evaluation and teaching/gait training including stair management (if applicable): Ordered Home Bound Status Requires the aid of supportive device (check all that apply): Walker Describe why leaving home would require a considerable and taxing effort: Requires frequent rest periods Encounter Date and Reason: I certify that a FTF encounter for this patient was performed on August 22, 2023 and that such encounter was related to the primary reason the patient requires home health services. The encounter was conducted in the following manner: * By me as the certifying physician, INFANTRY UNIT LEADER, PA or * By an inpatient physician, INFANTRY UNIT LEADER or PA during an inpatient stay who communicated findings to me, Certification And Authentication I certify that I composed the above information based on my clinical judgment relating to this patient's medical condition and, if applicable, clinical findings communicated to me by the NPP or inpatient physician who performed the FTF encounter. Name of Provider that will be monitoring home health services: Stephanie Erwin
--- NOTE | 2023-08-22 11:02 | PT.INNT ---
Date of service: 08/22/23 Time of Service: 11:02 PT Notes Visit Reasons: UTI,Deydration with CKD, uncontrolled type 2 diabe August 22, 2023 Fide refused PT services this morning x2. Hopeful she will be going home soon. Sleeping upon entering room for second request to participate.
[2023-08-22 11:17] VITALS: BP 95/60; PULSE 80; RESP 18; TEMP 36.5; O2SAT 96
--- NOTE | 2023-08-22 15:56 | CMDISCH_ITS ---
Date of service: 08/22/23 Time of Service: 15:56 Care Management Discharge Plan Reason for Hospitalization: UTI Discharge Plan: Fide will return home via private vehicle with her son, she is agreeable to home health services upon discharge, and will follow up with her PCP and plan of care as prescribed. Patient/Family Education Needs: Fide is lying in bed, eating her lunch. She reports calling her son to come pick her up at 1330. She shares that all is going well at home, with the support of her sons and daughter. She shares no concerns and does not identify any additional needs. She reports looking forward to returning home. SDOH Health Related Social Needs: Health related social needs inadequate housing Health related social needs: inadequate housing(Z59.1) Referrals and interventions: Is already in system with [facility] and other adult protective agencies
== END 2023-08-22 15:09 | disposition home health service (06) | DRG 690 ==
LOC: ER 08-19 07:32 → MS 08-19 09:26
PROVIDERS: Internal Medicine; Nurse Practitioner Acute Care; Student in an Organized Health Care Education/Training Program; Admitting Provider Family Medicine; Emergency Provider Physician Assistant; PCP Nurse Practitioner; Visit Provider Family Medicine
DX: N30.01 Acute cystitis with hematuria (principal); J90 Pleural effusion, not elsewhere classified; I31.39 Other pericardial effusion (noninflammatory); N13.30 Unspecified hydronephrosis; E86.0 Dehydration; E11.65 Type 2 diabetes mellitus with hyperglycemia; E83.42 Hypomagnesemia; D63.8 Anemia in other chronic diseases classified elsewhere; N18.32 Chronic kidney disease, stage 3b; I12.9 Hypertensive chronic kidney disease with stage 1 through stage 4 chronic kidney disease, or unspecified chronic kidney disease; E03.8 Other specified hypothyroidism; J92.9 Pleural plaque without asbestos; J84.10 Pulmonary fibrosis, unspecified; E11.22 Type 2 diabetes mellitus with diabetic chronic kidney disease; Z93.3 Colostomy status; Z85.038 Personal history of other malignant neoplasm of large intestine; E06.3 Autoimmune thyroiditis; Z85.3 Personal history of malignant neoplasm of breast; R41.89 Other symptoms and signs involving cognitive functions and awareness; R54 Age-related physical debility; E53.8 Deficiency of other specified B group vitamins; E11.3293 Type 2 diabetes mellitus with mild nonproliferative diabetic retinopathy without macular edema, bilateral; M54.42 Lumbago with sciatica, left side; F41.8 Other specified anxiety disorders; E11.40 Type 2 diabetes mellitus with diabetic neuropathy, unspecified; E78.5 Hyperlipidemia, unspecified; K21.9 Gastro-esophageal reflux disease without esophagitis; Z90.49 Acquired absence of other specified parts of digestive tract; K74.4 Secondary biliary cirrhosis; J47.9 Bronchiectasis, uncomplicated; J44.9 Chronic obstructive pulmonary disease, unspecified; Z87.440 Personal history of urinary (tract) infections; B96.20 Unspecified Escherichia coli [E. coli] as the cause of diseases classified elsewhere; Z92.3 Personal history of irradiation; Z79.4 Long term (current) use of insulin
CPT/HCPCS: 00123; 36410; 36415; 36416; 71250; 80048; 80053; 80076; 82306; 82533; 82550; 82805; 82962; 83690; 84145; 85027; 85652; 86704; 86706; 86803; 86850; 86900; 86901; 86920; 87077; 87340; 93005; 93306; 93308; 96365; 96366; 96367; 96375; 97110; 97162; 97530; 99222; 99285; 71045; 74176; 81003; 81015; 82140; 82607; 82728; 82746; 83036; 83540; 83550; 83605; 83735; 83880; 84132; 84439; 84443; 84480; 84481; 84484; 85014; 85018; 85025; 85610; 86140; 87086; 87186; 93010; 99223; 99232; 99233; 99239; J0696; J1644; J1756; J1815; J3475; J3480; J7512; P9016

== ENCOUNTER → 2023-08-19 07:39 | Outpatient (BNVA) | payer MEDICARE, SELFPAY | PROVIDERS: PCP Nurse Practitioner; Referring Provider Nurse Practitioner; Visit Provider Urology ==

== ENCOUNTER → 2023-08-19 09:20 | Outpatient (BNVA) | payer MEDICARE, SELFPAY | PROVIDERS: PCP Nurse Practitioner; Referring Provider Nurse Practitioner; Visit Provider Student in an Organized Health Care Education/Training Program ==

== ENCOUNTER 2023-11-24 12:15 | Outpatient (REF) | payer MEDICARE, SELFPAY ==
[2023-11-24 15:23] LABS: Abs Immature Grans 0.03 10^3/uL (0.0-0.06); Absolute Basophil Count 0.02 10^3/uL (0.0-0.2); Absolute Eosinophil Count 0.07 10^3/uL (0.0-0.7); Absolute Lymphocyte Count 1.09 10^3/uL (1.2-3.4); Absolute Monocyte Count 0.44 10^3/uL (0.1-0.8); Absolute Neutrophil Count 5.17 10^3/uL (1.2-6.7); Basophils % 0.3 %; HCT 33.7 % (36.0-46.0); HGB 10.9 g/dL (11.2-15.7); Immature Grans % 0.4 %; MCH 28.4 pg (27.0-33.0); MCHC 32.3 % (32.0-36.0); MCV 88 fL (80-95); MPV 10.4 fL (8.0-11.0); Monocytes % 6.5 %; Neutrophils % 75.8 %; Platelet Count 200 10^3/uL (130-400); RBC 3.84 10^6/uL (3.93-5.22); RDW 13.9 % (11.7-14.6); RDW-SD 44.8 fL; WBC 6.82 10^3/uL (4.4-10.8)
[2023-11-24 16:12] LABS: Magnesium 1.4 mg/dL (1.8-2.4)
[2023-11-24 16:53] LABS: ALT 20 U/L (14-59); AST 14 U/L (15-37); Albumin 2.9 g/dL (3.4-5.0); Alkaline Phosphatase 201 U/L (46-116); Anion Gap 10.7 mmol/L (3-11); BUN 25 mg/dL (7-18); Bilirubin, Total 0.4 mg/dL (0.2-1.0); CO2 22.3 mmol/L (21.0-32.0); CREATININE 1.8 mg/dL (0.55-1.02); Calcium 8.1 mg/dL (8.5-10.1); Chloride 101 mmol/L (98-107); Potassium 4.2 mmol/L (3.5-5.1); Sodium 134 mmol/L (136-145); TSH (W/Ref FT4) 178.97 uIU/mL (0.36-3.74)
[2023-11-24 16:59] LABS: Glucose 503 mg/dL (74-106)
[2023-11-24 17:16] LABS: FREE T4 0.26 ng/dL (0.76-1.46)
== END 2023-11-24 12:16 | disposition home or self-care (01) ==
LOC: LBN 12:15
PROVIDERS: PCP Nurse Practitioner; Visit Provider Nurse Practitioner
DX: R79.89 Other specified abnormal findings of blood chemistry (principal); E11.3293 Type 2 diabetes mellitus with mild nonproliferative diabetic retinopathy without macular edema, bilateral; E11.65 Type 2 diabetes mellitus with hyperglycemia; I10 Essential (primary) hypertension; R79.0 Abnormal level of blood mineral
CPT/HCPCS: 80053; 83735; 84439; 84443; 85025

== ENCOUNTER 2024-01-22 03:12 | Inpatient (IN) | payer MEDICARE, SELFPAY ==
[2024-01-22] VITALS (143 sets, daily range): BP systolic 80–154; BP diastolic 41–101; PULSE 58–122; RESP 14–38; TEMP 36–36.8; O2SAT 91–100
--- NOTE | 2024-01-22 03:00 | RT.EKG_ITS ---
APPROVED REPORT Exam: Resting ECG Reason for Exam: rapid heart rate Patient Location: E HR:117 bpm ECG Measurements Heart Rate 117 AXIS TX 168 P 46 QRSd 101 QRS -55 QT 340 T 106 QTc 475 Conclusion Sinus tachycardia...rate> 99 Probable left atrial enlargement...P >50mS, <-0.10mV V1 Physician: no stemi
--- NOTE | 2024-01-22 03:15 | DI.CT_ITS ---
Exam(s) CT CHEST/ABD/PEL WO EXAM: CT CHEST/ABD/PEL WO CLINICAL HISTORY: vomiting, sob, abd distension, eval for obstructio TECHNIQUE: Imaging Protocol: Axial computed tomography images with coronal and sagittal reformatted images were created and reviewed COMPARISON: CT CT RENAL COLIC WO from 08/18/2023 FINDINGS: CHEST: Tracheobronchial tree: Patent where visualized. Bronchiectasis is present. Pulmonary parenchyma: There is pulmonary fibrosis. No focal consolidating infiltrates. No bi solutions architect ural distortion. Mediastinum and Barbara: No dominant adenopathy or fluid collection. The esophagus is unremarkable. Pleura: No effusion or pneumothorax. Heart: The heart is not dilated. Coronary artery calcifications are present. No pericardial effusion . Aorta: Thoracic aorta non-dilated. Atherosclerotic calcifications are present. Lymph nodes: Within normal limits. Bones:Within normal limits for the patient's age. Soft tissues: Unremarkable. ABDOMEN: Liver: Normal density. The liver has a nodular contour suggestive of hepatic cirrhosis. Gallbladder and Biliary Tract: The gallbladder is absent. The common duct is unchanged. Pancreas: Normal density, no abnormal calcifications or inflammatory process. Spleen: Calcified granuloma are seen in the spleen. The spleen is enlarged. There is a stable hypod ensity in the lateral aspect of the spleen. This may represent a cyst or hemangioma. Adrenals: No masses seen. Kidneys: Normal size, contour and axis. No radiopaque stones are seen. There is stable dilatation of the ureters bilaterally to the level of the urinary bladder. No masses seen. Abdominal Aorta: Abdominal portion non-dilated. Atherosclerotic calcification is present. 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 There is a moderat e-sized hernia inferior and lateral to the colostomy containing unremarkable loops of small bowel. T here is no evidence of bowel obstruction. There is no evidence of appendicitis. There is also a mid line anterior abdominal wall hernia containing an unremarkable loop of small bowel. Peritoneal Cavity: No ascites, collection or mesenteric inflammatory response. No free air. Lymph Nodes: Within normal limits. Bones: Within normal limits for the patient's age. Bones are osteopenic. Soft Tissues: Please see the above section under bowel. PELVIS: Bladder: There is a catheter in the urinary bladder. There is persistent thickening of the wall of t he urinary bladder. There is air in the bladder which may be secondary to the catheter placement. T here is again seen a an air-fluid collection posterior to the urinary bladder. Due to the lack of th e contrast, it is indeterminate whether this communicates with the urinary bladder or not. Reproductive Organs: The uterus cannot be well distinguished. Lymph Nodes: Within normal limits. Bones: Within normal limits for the patient's age. IMPRESSION: 1. No acute pulmonary process. 2. There is again seen an air-fluid collection posterior to the urinary bladder. This may represent an abscess. 3. Persistent urinary bladder wall thickening. Cystitis versus neoplastic process. Chronic bladder outlet obstruction should also be considered. 4. There again seen anterior abdominal wall and bowel containing hernias. 5. Left lower quadrant colostomy. RADIATION DOSE DELIVERED: Total DLP Total DLP DATA REPOSITORY: All CT scans at this facility are submitted to the National Radiology Data Registry (NRDR) Dose Index Registry (DIR) with the [employer] ([employer]). RADIATION OPTIMIZATION: All CT scans at this facility use at least one of these dose optimization te chniques: automated exposure control; mA and/or kV adjustment per patient size (includes targeted exa ms where dose is matched to clinical indication); or iterative reconstruction.
[2024-01-22] MEDS: Lactated Ringers 1,000 ML 1000 ML IV ×2 (03:24→06:01)
[2024-01-22] MEDS: Ondansetron 4 MG/2 ML VIAL IVP (03:26)
[2024-01-22 03:35] LABS: BE (Venous) -7 mmol/L (-2-3); HCO3 (Venous) 20 mmol/L (23-28); O2 Sat (Venous) 56 %; TCO2 (Venous) 19 mmol/L (24-29); pCO2 (Venous) 45 mmHg (41-51); pH (Venous) 7.27 (7.31-7.41); pO2 (Venous) 34 mmHg
[2024-01-22 03:37] LABS: Abs Immature Grans 0.21 10^3/uL (0.0-0.06); Absolute Neutrophil Count 13.89 10^3/uL (1.2-6.7); Basophils % 0.3 %; Eosinophils % 2.2 %; HCT 32.7 % (36.0-46.0); Immature Grans % 1.3 %; Lymphocytes % 2.3 %; MCH 28.2 pg (27.0-33.0); MCHC 33.6 % (32.0-36.0); MCV 84 fL (80-95); MPV 10.7 fL (8.0-11.0); Monocytes % 5.8 %; Neutrophils % 88.1 %; Platelet Count 181 10^3/uL (130-400); RDW 13.6 % (11.7-14.6); RDW-SD 42.3 fL; WBC 15.77 10^3/uL (4.4-10.8)
[2024-01-22 03:38] LABS: Lactate 4.1 mmol/L (0.6-1.4)
[2024-01-22 03:39] LABS: Absolute Basophil Count 0.05 10^3/uL (0.0-0.2); Absolute Eosinophil Count 0.35 10^3/uL (0.0-0.7); Absolute Lymphocyte Count 0.36 10^3/uL (1.2-3.4); Absolute Monocyte Count 0.91 10^3/uL (0.1-0.8)
[2024-01-22] MEDS: Insulin REGULAR-Human 100 UNITS/ML UNIT 5.4 UNITS SC (03:43)
[2024-01-22] MEDS: INSULIN REGULAR IN 0.9 % NACL 100 UNIT/100 ML BAG 5.4 UNIT IV (03:44)
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
--- NOTE | 2024-01-22 03:49 | NUR.NOTE ---
Nursing Note: Pt arrives from home with vomit on her, the ostomy bag was not closed correctly so she had feces all the way down to her feet. Pt rich area was excoriated, swollen, red, tender and covered with yeast.
[2024-01-22 03:50] LABS: INR 1.2 (0.9-1.1); PTT Activated 28.5 sec (23.6-32.8); Prothrombin Time 12.1 sec (9.1-11.1)
[2024-01-22 03:54] LABS: Bilirubin Negative (Negative); Blood Large (Negative); Clarity Cloudy (Clear); Glucose >=1000 mg/dL (Negative); Ketones Trace mg/dL (Negative); Leukocyte Esterase Small (Negative); Nitrite Negative (Negative); Urobilinogen 0.2 mg/dL (Up to 0.2)
[2024-01-22 04:00] LABS: Bacteria Many HPF (Negative); Epithelial Cells Few HPF (Negative); Other Cells Few Yeast (Negative); WBC >50 HPF (0-5)
--- NOTE | 2024-01-22 04:00 | DI.CT_ITS ---
Exam(s) CT HEAD WO EXAM: CT HEAD WO CLINICAL HISTORY: altered, confused. TECHNIQUE: Imaging Protocol: Axial computed tomography images with coronal and sagittal reformatted images were created and reviewed COMPARISON: CT CT HEAD WO from 12/05/2022 FINDINGS: Ventricles and Extra axial spaces: Normal in size and morphology for the patient's age. Hemorrhage: None. Cerebral parenchyma: There are areas of decreased attenuation in the white matter most consistent wit h chronic microvascular ischemic disease. Midline shift: None. Brainstem/Cerebellum: Normal. Calvarium: Normal. Visualized Paranasal sinuses/Mastoids: Clear. Soft Tissues: Unremarkable. IMPRESSION: No acute intracranial process. RADIATION DOSE DELIVERED: Total DLP DATA REPOSITORY: All CT scans at this facility are submitted to the National Radiology Data Registry (NRDR) Dose Index Registry (DIR) with the [employer] ([employer]). RADIATION OPTIMIZATION: All CT scans at this facility use at least one of these dose optimization te chniques: automated exposure control; mA and/or kV adjustment per patient size (includes targeted exa ms where dose is matched to clinical indication); or iterative reconstruction.
[2024-01-22 04:01] LABS: C & S Indicated? Yes; Casts Negative LPF (Negative); Crystals Negative HPF (Negative); Mucus Moderate (Negative)
[2024-01-22 04:04] LABS: ALT 10 U/L (14-59); AST 7 U/L (15-37); Albumin 2.4 g/dL (3.4-5.0); Alkaline Phosphatase 137 U/L (46-116); Anion Gap 13.9 mmol/L (3-11); BUN 34 mg/dL (7-18); Bilirubin, Total 1.29 mg/dL (0.2-1.0); CO2 22.1 mmol/L (21.0-32.0); CREATININE 2.4 mg/dL (0.55-1.02); Calcium 8.2 mg/dL (8.5-10.1); Chloride 88 mmol/L (98-107); Estimated GFR 19.19 (mL/min/1.73m2); Lipase 29 U/L (16-77); Potassium 3.5 mmol/L (3.5-5.1); TSH (W/Ref FT4) 10.54 uIU/mL (0.36-3.74); Total Protein 7.3 g/dL (6.4-8.2); Troponin I < 50 ng/L (< or =60)
[2024-01-22 04:18] LABS: Glucose 624 mg/dL (74-106)
[2024-01-22 04:18] LABS: COVID-19 PCR Negative (Negative); Influenza A PCR Negative (Negative); Influenza B PCR Negative (Negative); RSV PCR Negative (Negative)
[2024-01-22 04:19] LABS: Source Nasopharynx
[2024-01-22] MEDS: PIPERACILLIN/TAZO 3.375 GM in Normal Saline 50 ML IVPB (05:03)
[2024-01-22] MEDS: VANCOMYCIN 1,100 MG in Normal Saline 500 ML 333.3333 MG IVPB (05:11)
[2024-01-22 05:16] LABS: FREE T4 1.25 ng/dL (0.76-1.46)
[2024-01-22] MEDS: POTASSIUM CHLORIDE 20 MEQ/100 ML BAG 50 MEQ IVINF (05:24)
--- NOTE | 2024-01-22 05:37 | DI.VRAD_ITS ---
PROCEDURE INFORMATION: Exam: CT Head Without Contrast Exam date and time: 01/22/2024 4:11 AM Age: 88 years old Clinical indication: Altered mental status/memory loss; Confusion or disorientation; Additional info: Altered, confused TECHNIQUE: Imaging protocol: Computed tomography of the head without contrast. COMPARISON: CT HEAD WO 12/05/2022 1:37 AM FINDINGS: Brain: Mild generalized volume loss of the brain. No brain edema. No intracranial hemorrhage. Cerebral ventricles: No ventriculomegaly. Paranasal sinuses: Visualized sinuses are unremarkable. No fluid levels. Mastoid air cells: Unremarkable. Bones: Unremarkable. No acute fracture. Soft tissues: Unremarkable. IMPRESSION: No acute brain findings. Dictated and Authenticated by: Ralph Red MD. Ordering:NICOLE Schumacher MD
[2024-01-22 05:43] LABS: Anion Gap 12.7 mmol/L (3-11); BUN 33 mg/dL (7-18); CO2 22.3 mmol/L (21.0-32.0); CREATININE 2.1 mg/dL (0.55-1.02); Calcium 7.9 mg/dL (8.5-10.1); Chloride 92 mmol/L (98-107); Estimated GFR 22.52 (mL/min/1.73m2); Potassium 3.5 mmol/L (3.5-5.1); Sodium 127 mmol/L (136-145)
--- NOTE | 2024-01-22 06:15 | DI.RAD_ITS ---
Exam(s) XR PORTABLE CHEST AP EXAM: XR PORTABLE CHEST AP CLINICAL HISTORY: post RIJ central line TECHNIQUE: 2D digital imaging was performed of the chest. One image was obtained. An AP view was ob tained. COMPARISON: CR,XR XR PORTABLE CHEST AP from 08/18/2023 FINDINGS: MEDIASTINUM: Normal. HEART: Normal. PULMONARY VASCULATURE: Normal. LUNGS: No focal consolidating infiltrates are seen. PLEURAL SPACE: No pleural effusion or pneumothorax. BONE:Within normal limits for the patient's age. OTHER FINDINGS:The patient has a right IJ catheter. The tip lies at the the superior vena cava/atria l junction. Surgical clips are seen in the left axilla. IMPRESSION: 1. No acute pulmonary findings. 2. The tip of the right IJ catheter lies at the superior vena cava/atrial junction. 3. No pneumothorax. DATA REPOSITORY: RADIATION DOSE DELIVERED:
[2024-01-22 06:16] LABS: Sodium 124 mmol/L (136-145)
[2024-01-22 06:22] LABS: Glucose 605 mg/dL (74-106)
--- NOTE | 2024-01-22 06:29 | DI.VRAD_ITS ---
PROCEDURE INFORMATION: Exam: CT Chest Without Contrast; Diagnostic Exam date and time: 01/22/2024 4:46 AM Age: 88 years old Clinical indication: Vomiting; Shortness of breath; Additional info: Vomiting, SOB, abd distension, eval for obstructio TECHNIQUE: Imaging protocol: Diagnostic computed tomography of the chest without contrast. 3D rendering (Not supervised by radiologist): MIP and/or 3D reconstructed images were created by the technologist. COMPARISON: CT CHEST WO 08/19/2023 11:34 AM FINDINGS: Lungs: Similar mild subpleural scarring in the left upper lobe and bibasilar bronchiectasis. No focal consolidation. Pleural spaces: Unremarkable. No pneumothorax. No pleural effusion. Heart: Unremarkable. No cardiomegaly. No pericardial effusion. Lymph nodes: Status post left axillary lymph node dissection. Vasculature: Unremarkable. No aortic aneurysm. Bones/joints: Unremarkable. No acute fracture. Soft tissues: Calcifications and postprocedural changes in the left breast. IMPRESSION: Fibrotic changes at the lung bases. No acute findings. PROCEDURE INFORMATION: Exam: CT Abdomen And Pelvis Without Contrast Exam date and time: 01/22/2024 4:46 AM Age: 88 years old Clinical indication: Vomiting; Shortness of breath; Additional info: Vomiting, SOB, abd distension, eval for obstructio TECHNIQUE: Imaging protocol: Computed tomography of the abdomen and pelvis without contrast. 3D rendering (Not supervised by radiologist): MIP and/or 3D reconstructed images were created by the technologist. COMPARISON: CT RENAL COLIC WO 08/18/2023 8:05 PM FINDINGS: Liver: Cirrhotic liver morphology. Gallbladder and biliary ducts: No calcified stones or ductal dilation. Pancreas: No ductal dilation. Spleen: Splenomegaly. Multifocal splenic calcifications, likely sequela of prior granulomatous disease. Adrenal glands: Unremarkable. Kidneys and ureters: Mild bilateral hydronephrosis, unchanged. Stomach and bowel: Postsurgical changes the colon with left lower quadrant colostomy. Parastomal and ventral hernias containing nondilated small bowel loops. Redemonstrated ill-defined now gas containing structure in the presacral space (series 3, image 106). Appendix: No evidence of appendicitis. Intraperitoneal space: No free air. No significant fluid collection. Vasculature: Unremarkable. Lymph nodes: No enlarged lymph nodes. Urinary bladder: Redemonstrated pelvic prolapse with thick-walled urinary bladder in surrounding fat stranding. Intraluminal gas within the urinary bladder. A Keene catheter is in place. Reproductive: Unremarkable as visualized. Bones/joints: Unremarkable. No acute fracture. Soft tissues: Presacral soft tissue stranding. IMPRESSION: 1. No bowel obstruction. 2. Redemonstrated ill-defined now gas containing structure in the presacral space which may reflect residual rectum versus presacral abscess. 3. Similar mild bilateral hydronephrosis, likely secondary to inflammatory changes in the pelvis. 4. Abnormal appearance of the bladder remains concerning for a cystitis, malignancy, or postradiation change. Dictated and Authenticated by: Josefa Joyce MD. Ordering:NICOLE Schumacher MD
--- NOTE | 2024-01-22 06:35 | NUR.NOTE ---
Nursing Note: finger stick 450
--- NOTE | 2024-01-22 06:46 | DI.VRAD_ITS ---
PROCEDURE INFORMATION: Exam: XR Chest Exam date and time: 01/22/2024 6:31 AM Age: 88 years old Clinical indication: Device placement; Other: Central line TECHNIQUE: Imaging protocol: Radiologic exam of the chest. Views: 1 view. COMPARISON: CT CHEST/ABD/PEL WO 01/22/2024 4:46 AM FINDINGS: Tubes, catheters and devices: Right IJ central venous catheter tip overlies the superior cavoatrial junction. Lungs: No consolidation. Pleural spaces: No sizable pleural effusion or pneumothorax. Heart/Mediastinum: No cardiomegaly. Bones/joints: Unremarkable. IMPRESSION: Right IJ central venous catheter tip overlies the superior cavoatrial junction. Dictated and Authenticated by: Josefa Joyce MD. Ordering:NICOLE Schumacher MD
[2024-01-22 06:59] LABS: Troponin I < 50 ng/L (< or =60)
[2024-01-22] MEDS: Norepinephrine in D5W 8 MG/250 ML BAG 9.4 MG IV (07:18)
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
[2024-01-22] MEDS: Lactated Ringers 1,000 ML 100 ML IV (09:34)
[2024-01-22] MEDS: CEFEPIME 2 GM in Normal Saline 100 ML IVPB (09:34)
[2024-01-22 10:50] LABS: Anion Gap 11.5 mmol/L (3-11); BUN 31 mg/dL (7-18); CO2 22.5 mmol/L (21.0-32.0); CREATININE 1.8 mg/dL (0.55-1.02); Calcium 8.1 mg/dL (8.5-10.1); Chloride 99 mmol/L (98-107); Glucose 323 mg/dL (74-106); Potassium 3.6 mmol/L (3.5-5.1); Sodium 133 mmol/L (136-145)
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
[2024-01-22] MEDS: Normal Saline Flush 10 ML SYR IVP ×4 (12:30→21:53)
[2024-01-22] MEDS: Pantoprazole 40 MG VIAL IVP (12:31)
[2024-01-22 12:55] LABS: Anion Gap 8.8 mmol/L (3-11); BUN 28 mg/dL (7-18); CO2 24.2 mmol/L (21.0-32.0); CREATININE 1.7 mg/dL (0.55-1.02); Calcium 8.2 mg/dL (8.5-10.1); Chloride 101 mmol/L (98-107); Estimated GFR 29.02 (mL/min/1.73m2); Glucose 274 mg/dL (74-106); Potassium 3.5 mmol/L (3.5-5.1); Sodium 134 mmol/L (136-145)
[2024-01-22] MEDS: POTASSIUM CHLORIDE/D5-0.45NACL 1,000 ML 150 MEQ IV (13:15)
[2024-01-22 15:19] LABS: Anion Gap 7.3 mmol/L (3-11); BUN 28 mg/dL (7-18); CO2 24.7 mmol/L (21.0-32.0); CREATININE 1.6 mg/dL (0.55-1.02); Calcium 8.1 mg/dL (8.5-10.1); Chloride 102 mmol/L (98-107); Estimated GFR 31.21 (mL/min/1.73m2); Glucose 256 mg/dL (74-106); Potassium 3.4 mmol/L (3.5-5.1); Sodium 134 mmol/L (136-145)
[2024-01-22] MEDS: POTASSIUM CHLORIDE/0.9% NACL 1,000 ML 100 MEQ IV (16:12)
[2024-01-22 17:28] LABS: BUN 27 mg/dL (7-18); CREATININE 1.6 mg/dL (0.55-1.02); Chloride 103 mmol/L (98-107); Estimated GFR 31.21 (mL/min/1.73m2); Glucose 144 mg/dL (74-106); Potassium 3.4 mmol/L (3.5-5.1); Sodium 136 mmol/L (136-145)
[2024-01-22] MEDS: Norepinephrine in D5W 8 MG/250 ML BAG 4.688 MG IV (17:36)
[2024-01-22 17:38] LABS: Calcium 8.3 mg/dL (8.5-10.1)
[2024-01-22 19:11] LABS: BUN 27 mg/dL (7-18); CREATININE 1.5 mg/dL (0.55-1.02); Calcium 8.2 mg/dL (8.5-10.1); Chloride 103 mmol/L (98-107); Estimated GFR 33.73 (mL/min/1.73m2); Glucose 139 mg/dL (74-106); Potassium 3.7 mmol/L (3.5-5.1); Sodium 135 mmol/L (136-145)
[2024-01-22 19:25] LABS: Vancomycin, Random 13.4 ug/mL
[2024-01-22 19:33] LABS: Anion Gap 8.2 mmol/L (3-11); CO2 23.8 mmol/L (21.0-32.0)
[2024-01-22] MEDS: VANCOMYCIN/WATER (PEG) 750 MG/150 ML BAG 150 MG IVPB (21:52)
[2024-01-22 22:06] LABS: BUN 27 mg/dL (7-18); CREATININE 1.6 mg/dL (0.55-1.02); Calcium 8.1 mg/dL (8.5-10.1); Chloride 103 mmol/L (98-107); Estimated GFR 31.21 (mL/min/1.73m2); Glucose 166 mg/dL (74-106); Potassium 3.7 mmol/L (3.5-5.1); Sodium 136 mmol/L (136-145)
[2024-01-22] MEDS: Normal Saline 500 ML IV (22:06)
[2024-01-23] VITALS (83 sets, daily range): BP systolic 90–137; BP diastolic 45–72; PULSE 70–99; RESP 11–42; TEMP 36.5–36.9; O2SAT 90–100
[2024-01-23 00:56] LABS: Anion Gap 10.8 mmol/L (3-11); BUN 27 mg/dL (7-18); CO2 21.2 mmol/L (21.0-32.0); CREATININE 1.5 mg/dL (0.55-1.02); Calcium 8.1 mg/dL (8.5-10.1); Chloride 103 mmol/L (98-107); Estimated GFR 33.73 (mL/min/1.73m2); Glucose 233 mg/dL (74-106); Potassium 4.1 mmol/L (3.5-5.1); Sodium 135 mmol/L (136-145)
[2024-01-23] MEDS: POTASSIUM CHLORIDE/0.9% NACL 1,000 ML 100 MEQ IV (05:58)
[2024-01-23] MEDS: Levothyroxine 100 MCG TAB PO (05:59)
[2024-01-23 06:41] LABS: HCT 30.2 % (36.0-46.0); MCHC 33.1 % (32.0-36.0); MCV 85 fL (80-95); MPV 10.3 fL (8.0-11.0); Platelet Count 172 10^3/uL (130-400); RBC 3.57 10^6/uL (3.93-5.22); RDW 13.6 % (11.7-14.6); RDW-SD 42.2 fL; WBC 11.76 10^3/uL (4.4-10.8)
[2024-01-23 06:59] LABS: ALT 10 U/L (14-59); AST 11 U/L (15-37); Albumin 1.8 g/dL (3.4-5.0); Alkaline Phosphatase 88 U/L (46-116); Anion Gap 13.5 mmol/L (3-11); BUN 27 mg/dL (7-18); Bilirubin, Total 0.58 mg/dL (0.2-1.0); CO2 18.5 mmol/L (21.0-32.0); CREATININE 1.6 mg/dL (0.55-1.02); Chloride 104 mmol/L (98-107); Estimated GFR 31.21 (mL/min/1.73m2); Glucose 331 mg/dL (74-106); Potassium 4.4 mmol/L (3.5-5.1); Sodium 136 mmol/L (136-145)
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
[2024-01-23] MEDS: Insulin Aspart 300 UNITS/3 ML PEN SC ×4 (08:26→23:11)
[2024-01-23] MEDS: Normal Saline Flush 10 ML SYR IVP ×2 (08:35→20:58)
[2024-01-23 09:25] LABS: Vancomycin, Trough 17.7 ug/mL (10.0-20.0)
[2024-01-23] MEDS: CEFEPIME 2 GM in Normal Saline 100 ML IVPB (09:44)
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
[2024-01-23] MEDS: Pantoprazole 40 MG VIAL IVP (11:38)
[2024-01-24] VITALS (29 sets, daily range): BP systolic 98–122; BP diastolic 49–79; PULSE 82–105; RESP 16–32; TEMP 36.6–37.7; O2SAT 96–100
--- NOTE | 2024-01-24 | DI.US_ITS ---
Exam(s) US RENAL EXAM: US RENAL CLINICAL HISTORY: urosepsis. TECHNIQUE: Torres scale, color and spectral Doppler were used. COMPARISON: CT CT RENAL COLIC WO from 08/18/[address] CHEST/ABD/PEL WO from 01/22/2024 FINDINGS: Right kidney: 9.2cm. No perinephric collection. Echogenicity: Normal Hydronephrosis: Mildly prominent right proximal ureter. Appears to have decreased in prominence from prior CT. Cyst or mass: No Nephrolithiasis: No Left kidney: 9.5cm. No perinephric collection. Echogenicity: Normal Hydronephrosis: Mild left hydronephrosis, decreased in prominence from prior CT. Cyst or mass: No Nephrolithiasis: No Bladder:Empty IMPRESSION: Mild bilateral hydronephrosis, decreased in prominence from recent CT. DATA REPOSITORY:
[2024-01-24] MEDS: Miconazole 2% Topical Powder 85 GM BTL (02:36)
[2024-01-24] MEDS: Levothyroxine 100 MCG TAB PO (05:33)
[2024-01-24 06:22] LABS: HCT 26.2 % (36.0-46.0); HGB 8.6 g/dL (11.2-15.7); MCH 27.4 pg (27.0-33.0); MCHC 32.8 % (32.0-36.0); MCV 83 fL (80-95); MPV 10.5 fL (8.0-11.0); Platelet Count 131 10^3/uL (130-400); RBC 3.14 10^6/uL (3.93-5.22); RDW 13.5 % (11.7-14.6); RDW-SD 41.2 fL; WBC 6.18 10^3/uL (4.4-10.8)
[2024-01-24 06:51] LABS: ALT 11 U/L (14-59); AST 14 U/L (15-37); Albumin 1.7 g/dL (3.4-5.0); Alkaline Phosphatase 83 U/L (46-116); Anion Gap 9.4 mmol/L (3-11); BUN 23 mg/dL (7-18); Bilirubin, Total 0.43 mg/dL (0.2-1.0); CO2 21.6 mmol/L (21.0-32.0); CREATININE 1.6 mg/dL (0.55-1.02); Calcium 7.9 mg/dL (8.5-10.1); Chloride 100 mmol/L (98-107); Estimated GFR 31.21 (mL/min/1.73m2); Glucose 384 mg/dL (74-106); Potassium 4.1 mmol/L (3.5-5.1); Sodium 131 mmol/L (136-145); Total Protein 5.7 g/dL (6.4-8.2)
[2024-01-24] MEDS: Insulin Glargine 300 UNITS/3 ML PEN 50 UNITS SC (08:29)
[2024-01-24] MEDS: Insulin Aspart 300 UNITS/3 ML PEN SC ×5 (08:29→22:29)
[2024-01-24] MEDS: Pantoprazole 40 MG VIAL IVP (08:32)
[2024-01-24] MEDS: Normal Saline Flush 10 ML SYR IVP ×2 (08:33→20:06)
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
--- NOTE | 2024-01-24 08:41 | CMPROGNOTE_ITS ---
Date of service: 01/24/24 Time of Service: 08:41 Care Management Progress Note Progress Note Text Progress Note Text: Fide was sitting up in bed when CM met with her. She was polite but did not volunteer much conversation. Fide stated that she is feeling a little better. In talking about her discharge, she reported that she will not be interested in having home health services. She stated that her son Td is with her all the time and can help her out. She also shared that her daughter will be staying with her for a while when she is discharged. Fide's son Miguelito was visiting when CM was with Fide and took the opportunity to have a private conversation. He informed CM that he and his Rhina are in the process of applying for emergency guardianship for Fide. They are hoping to secure safer housing for Fide and Td. Options were discussed and CM provided them with a ad terminal makeup operator Medicaid application in case that level of support becomes necessary. Discharge Potential Discharge Needs: PCP F/U Appt Anticipated Barriers to Discharge: None Identified Patient/Family Education Needs: Review discharge instructions, discuss Ask Me Three Transportation: Private vehicle Plan: Anticipate Fide will be discharged home when medically cleared. She will follow up with her PCP and plan of care and transport with family. CM will follow and continue to support discharge planning efforts. SDOH(Care Management) Screening Will the Patient Participate in the Screening?: Yes Do you worry about having a steady place to live?: no Problems where you live: pests such as bugs, ants or mice, mold, lack of heat, oven or stove not working and unsafe sharon/stairs In the past 12 months, have you had to go without electric, gas, oil or water in your home?: yes Have you or anyone in your house had to go without enough food to eat?: yes Has lack of transportation kept you from medical appointments or from doing things needed for daily living?: yes Has anyone in your support network made you feel unsafe for any reason?: yes Social Determinants of Health Comments(SDOH Details): pt has declined assistance in the past when arrangements have been made for asisistance Health Related Social Needs Health related social needs: inadequate housing(Z59.1), food insecurity(Z59.41), transportation insecurity(Z59.82), material hardship(utilities)(Z59.87) and problem related to primary support group(Z63.9)
[2024-01-24] MEDS: Heparin 5,000 UNITS/ML VIAL 5000 UNITS SC ×2 (09:51→18:02)
[2024-01-24] MEDS: Nystatin POWDER 15 GM JAR TP ×2 (09:52→20:12)
[2024-01-24 10:11] LABS: Lactate 0.9 mmol/L (0.6-1.4)
[2024-01-24] MEDS: CEFEPIME 2 GM in Normal Saline 100 ML IVPB (10:16)
[2024-01-24] MEDS: Normal Saline 500 ML IV (10:19)
--- NOTE | 2024-01-24 10:25 | PGE_ITS ---
Date of Service Date of service: 01/24/24 Time of Service: 10:26 Assessment and Plan Assessment and plan (1) Septic shock: Status: Acute Assessment and plan: Patient presented in septic shock requiring IV norepinephrine as she was unresponsive to IV fluid resuscitation. She has now been stable and off norepinephrine for 24 hours. Shock state is resolved acute kidney injury is resolving and she seems to be alert and oriented and hemodynamically stable. This point we will continue treatment for E. coli bacteremia and obtain imaging of her kidneys since none was done on admission. As she has renal insufficiency we will check renal ultrasound rather than a CT scan. If there is any question on renal imaging from ultrasound we will get a noncontrast CT of the abdomen. Critical care time spent interviewing and examining the patient, reviewing studies, discussing case with patient's nurse and consulting physicians was 45 minutes (2) Bacteremia due to Escherichia coli: Status: Acute Assessment and plan: Culture shows sensitivity to ceftriaxone will switch from cefepime to 2 g of ceftriaxone daily. (3) UTI (urinary tract infection): Status: Acute Qualifiers: Urinary tract infection type: acute cystitis Hematuria presence: with hematuria Qualified Code(s): N30.01 - Acute cystitis with hematuria (4) Encephalopathy acute: Status: Resolved Assessment and plan: Encephalopathy has improved she seems to be back to her baseline now. (5) DESTINEY (acute kidney injury): Status: Acute Assessment and plan: Improved. BUN and creatinine seem to be stable with a BUN 23 creatinine 1.6 she had presented with elevated BUN/creatinine of 34 and 2.4 and she now appears to be back to her baseline (6) Skin lesion: Status: Acute Assessment and plan: This is a seborrheic keratosis not a mole (7) Type 2 diabetes mellitus with mild nonproliferative diabetic retinopathy without macular edema, bilateral: Status: Chronic Assessment and plan: Poorly controlled type 2 diabetes mellitus requiring long-term insulin use. Complicated by diabetic retinopathy as well as diabetic nephropathy. Last glycohemoglobin A1c was 13% in July 2023. Will recheck her level but she needs more aggressive insulin coverage including BID dosing of Lantus as well as more aggressive sliding scale coverage. Of added mealtime coverage of her carbohydrates and a ratio of 2:10 and increased her NovoLog sliding scale to insulin resistant level. Will also ask master control engineer to work with her to improve her outpatient compliance. Qualifiers: Diabetes mellitus fci insulin use: with continuous churn buttermaker use Qualified Code(s): E11.3293 - Type 2 diabetes mellitus with mild nonproliferative diabetic retinopathy without macular edema, bilateral; Z79.4 - detention (current) use of insulin Subjective Subjective Interval history since last seen: Patient denies any new complaints denies any pain. She is eating well. Blood sugars are quite high despite resumption of her insulin. However she was just started on sliding scale NovoLog insulin sensitive scale where she should have been on insulin resistant. She just started back on her NPH this morning. Blood sugars are in the high 400s but she is not in DKA or hyperosmolar nonketotic hyperglycemia. Urine and blood cultures are positive for E. coli. She is currently on cefepime which I will switch to ceftriaxone 2 g daily. Exam Narrative Exam Narrative: Elderly white female sitting up in her chair eating her lunch in no acute distress alert oriented person place circumstance Lungs are clear to auscultation Heart regular rate and rhythm Abdomen soft nontender nondistended No flank tenderness Extremities without peripheral cyanosis or edema Urine Keene catheter with slightly cloudy yellow urine. Objective Last Vital Signs Temp 37.7 C H 01/24/24 09:14 Pulse 105 H 01/24/24 09:01 Resp 30 H 01/24/24 10:00 BP 108/62 01/24/24 09:01 Pulse Ox 99 01/24/24 07:30 Laboratory Results - last 24 hr 01/24/24 01/24/24 05:50 10:00 WBC 6.18 RBC 3.14 L Hgb 8.6 L Hct 26.2 L MCV 83 MCH 27.4 MCHC 32.8 RDW 13.5 Plt Count 131 MPV 10.5 VBG Lactate 0.9 Sodium 131 L Potassium 4.1 Chloride 100 Carbon Dioxide 21.6 Anion Gap 9.4 BUN 23 H Creatinine 1.6 H Est GFR (CKD-EPI 2020) 31.21 Glucose 384 H Calcium 7.9 L Total Bilirubin 0.43 AST 14 L ALT 11 L Alkaline Phosphatase 83 Total Protein 5.7 L Albumin 1.7 L Time Spent with Patient Time Spent with Patient: 35-49 minutes Time was spent: preparing to see the patient(eg.review tests), ordering medications,tests, procedures, referring, communicating with other health women's health care nurse practitioner, indepentently interpreting results, counseling the patient and care coordination
--- NOTE | 2024-01-24 10:30 | DI.US_ITS ---
APPROVED REPORT EXAM: Comprehensive 2D, Doppler, and color-flow Echocardiogram Patient Location: In-Patient Room/Bed: 219 Special Events Driver: Joseph Betancourt RDCS (AE) Indications: Septic shock Conclusion Normal left ventricular wall thickness and chamber size. Ejection fraction is 55%. Wall motion is n ormal Normal right ventricular size and function Both atria are normal in size There are no structural valvular abnormalities Mild mitral and tricuspid regurgitation Estimated right ventricular systolic pressure is 20 mmHg Wall motion Left Ventricle The left ventricle is normal size. The left ventricular systolic function is normal. The left ventric ular ejection fraction is within the normal range. There is normal left ventricular wall thickness. T here is normal LV segmental wall motion. There is no ventricular septal defect visualized. LVEF is 55 %. Right Ventricle The right ventricle is normal size. Right ventricular systolic function is grossly normal. Atria The left atrium size is normal. The right atrium size is normal. The interatrial septum is intact wit h no evidence for an atrial septal defect. Aortic Valve The aortic valve is normal in structure. Aortic valve is trileaflet. There is no aortic valvular sten osis. No aortic regurgitation is present. Mitral Valve The mitral valve is normal in structure. No evidence of mitral valve stenosis. Mild mitral regurgitat ion. Tricuspid Valve The tricuspid valve is normal in structure. There is no tricuspid valve stenosis. Mild tricuspid regu rgitation. The RVSP is 20.8 mmHg. Pulmonic Valve The pulmonary valve is normal in structure. There is no pulmonic valvular stenosis. There is no pulmo richie valvular regurgitation. Great Vessels The aortic root is normal in size. The ascending aorta is borderline dilated. Aortic arch is not well visualized. IVC is normal in size and collapses >50% with inspiration. Pericardium There is no pericardial effusion. 2D Dimensions IVSD d PLAX 0.59 cm F: 0.6-1.0 Ao Root d 2.86 cm F: 2.7 - 3.3 LVPW d PLAX 0.64 cm F: 0.6 - 1.0 Ao Asc Diam d 3.33 cm F: 2.3 - 3.1 LVID d PLAX 3.85 cm F: 3.8 - 5.2 LVDs 3.17 cm F: 2.2 - 3.5 LV EF Teichholz 37.5 % FS 17.71 % LV EDV (Teich) 63.9 mL LV ESV (Teich) 40.0 mL Stroke Vol Index (Teich) 16.07 Auto EF LV EDV A4C 92.4 mL LV EDV A2C 69.5 mL LV EDV BP LV ESV A4C 62.1 mL LV ESV A2C 47.0 mL LV ESV BP LVEF(%) A4C 32.9 % LVEF(%) A2C 32.4 % LVEF(%) BP LV SV A4C 30.4 ml LV SV A2C 22.5 ml LV SV BP LV CO A4C 2.9 L/min LV CO A2C 2.2 L/min LV CO BP HR A4C 94.98 BPM HR A2C 96.26 BPM LV EDV Index (BP) LA Volume LA Length A4C 3.4 cm LA Length A2C LA Area A4C s 7.96 cm2 LA Area A2C s LA Vol A4C A-L 15.90 mL LA Vol A2C A-L LA Vol Biplane A-L LA Vol A4C MOD 15.2 mL LA Vol A2C MOD LA Vol BP MOD RA Volume RA Area A4C 3.0 cm2 RA ESV A4C (A-L) 3.8mL RA Vol/BSA A4C A-L RA Length A4C 2.0 cm RA ESV A4C (MOD) 3.6mL LV Diastology MV E' medial 0.043 (>0.07 m/s) MV E Vmax 0.84 (0.4-1.3 m/s) MV E/E' MED 19.51 (<14) MV A Vmax 1.20 (0.4-1.3 m/s) MV E' lateral 0.088 (>0.1 m/s) E/A Ratio 0.7 MV E/E' LAT 9.51 (<14) MV E' Average 0.065 m/s MV E/E'(average) 12.79 Aortic Valve AoV Vmax 1.00 m/s LVOT Vmax 0.83 m/s AoV Peak Grad 4.0 mmHg LVOT Peak Grad 2.7 mmHg AoV Area (Vmax) 2.09 cm2 LVOT VTI 0.152 m AoV VTI 0.185 m LVOT Mean Grad 1.4 mmHg AoV Mean Alex. 0.79 m/s LVOT SV 38.13 mL AoV Mean Grad 2.7 mmHg LVOT Diam s 1.75 cm AoV Area (VTI) 2.06 cm2 AV Regurg Peak Gr. 3.98 mmHg Velocity Ratio 0.83 Mitral Valve MV DT 197 (160-240 msec) MV Vmax TIPS 1.29 m/s MV Mean Grad 2.1 (<2mmHg) MV VTI 0.227 m Pulmonary Valve PV Vmax 1.11 (0.5-1.5 m/s) RVOT Vmax 0.60 m/s PV Peak Grad 5.0 mmHg RVOT Peak Gr. 1.4 mmHg PV Mean Alex 0.75 m/s RVOT VTI 0.106 m PV Mean Grad 2.6 mmHg RVOT Mean Gr. 0.8 mmHg Tricuspid Valve RA Pressure 3.00 mmHg TR Vmax 2.11 m/s TR Peak Grad 17.8 mmHg RVSP (TR) 20.8 mmHg
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
[2024-01-24 12:30] LABS: Glucose 503 mg/dL (74-106)
[2024-01-24 12:31] LABS: Lab Add On Test DONE
[2024-01-24] MEDS: Insulin NPH-Human 300 UNITS/3 ML PEN 15 UNIT SC (12:44)
[2024-01-24] MEDS: Insulin Aspart 300 UNITS/3 ML PEN 15 UNITS SC (12:45)
[2024-01-24 13:29] LABS: Hemoglobin A1C > 13.0 % (<5.7)
--- NOTE | 2024-01-24 14:15 | W.INDIABCONS ---
Date of service: 01/24/24 Time of Service: 13:50 Diabetes Inpatient Consult Reason for Visit: Inpatient Diabetes Education/Mgt Consult DESCRIPTION/ASSESSMENT: 88yo female admitted with acute problems of septic shock/e. coli bactermia, UTI, encephalopathy, DESTINEY. PT has CKDIII and DMII chronically with DM being poorly controlled per her history and labs. A1c was 13 last July and >13 as of lab result this morning (01/24). FPG 01/23 was 384 with elevation to 503 by noontime. PT with history of colostomy. PT with fair to good PO intake, although lower total volume of food on trays (estimated 300kcals at bkfast 01/24). Weight history shows ~2kg wt gain x1year. Ordered for liquid protein concerntrate TID today (01/24) which will supply 45g protein daily. Noted variety of food allergies and relayed to kitchen staff. Pt getting ultrasound at bedside on visit. between being distracted with the US,difficult hearing, and perceived level of cognition/understanding I feel patient is poor historian and providing inaccurate responses - when asked to describe her insulin administration at home she indicated she takes basal insulin 3 times per day but was motioning a finger prick motion so I assume she meant she checks her glucose 3 times per day. Nursing agreed that diabetes education should be done with son, Hiram, present - according to Fide he helps her with shopping and she does the cooking (although nursing states she told them that he does most of the cooking earlier in the day). With changes to insulin therapy to include 2:10 coverage for CHO at meals, moderate sliding scale aspart at meals, and additional 10u glargine AM for 60units basal insulin, pt's glucose significantly has improved with 108 FPG this morning and 186 before breakfast and 170 prior to lunch. INTERVENTION: I attempted call to son Mann yesterday afternoon and left message to see when he comes in to visit if we can discuss mgt at home and have Fide and he come in for education and assistance with meal planning, CHO counting. Would recommend discharge with current insulin therapy. would recommend vitamin D labs as was lower last July or just order for 2,000IU vitamin D per day Will continue to try and contact son to set up outpatient nutrition visits for education. PLAN: will monitor glucose and labs, work on contact with family members to assist in her diabetes mgt. Time Spent in Nutritional Counseling and Treatment: 30 minutes
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
[2024-01-24] MEDS: Insulin Glargine 300 UNITS/3 ML PEN 25 UNITS SC (19:58)
[2024-01-24] MEDS: Polyethylene Glycol 3350 17 GM PACKET PO (20:15)
[2024-01-25] VITALS (9 sets, daily range): BP systolic 102–120; BP diastolic 60–69; PULSE 84–93; RESP 14–16; TEMP 36.5–36.8; O2SAT 96–100
[2024-01-25] MEDS: Heparin 5,000 UNITS/ML VIAL 5000 UNITS SC ×3 (02:38→19:52)
[2024-01-25] MEDS: Levothyroxine 100 MCG TAB PO (06:10)
[2024-01-25 07:12] LABS: Abs Immature Grans 0.03 10^3/uL (0.0-0.06); Absolute Basophil Count 0.01 10^3/uL (0.0-0.2); Absolute Eosinophil Count 0.06 10^3/uL (0.0-0.7); Absolute Lymphocyte Count 1.55 10^3/uL (1.2-3.4); Absolute Monocyte Count 0.62 10^3/uL (0.1-0.8); Absolute Neutrophil Count 3.36 10^3/uL (1.2-6.7); Basophils % 0.2 %; Eosinophils % 1.1 %; HCT 25.8 % (36.0-46.0); HGB 8.6 g/dL (11.2-15.7); Immature Grans % 0.5 %; Lymphocytes % 27.5 %; MCH 27.7 pg (27.0-33.0); MCHC 33.3 % (32.0-36.0); MCV 83 fL (80-95); MPV 10.5 fL (8.0-11.0); Neutrophils % 59.7 %; Platelet Count 121 10^3/uL (130-400); RDW 13.2 % (11.7-14.6); RDW-SD 40.5 fL; WBC 5.63 10^3/uL (4.4-10.8)
[2024-01-25 07:39] LABS: ALT 11 U/L (14-59); AST 14 U/L (15-37); Albumin 1.8 g/dL (3.4-5.0); Alkaline Phosphatase 80 U/L (46-116); Anion Gap 8.8 mmol/L (3-11); BUN 20 mg/dL (7-18); Bilirubin, Total 0.24 mg/dL (0.2-1.0); CO2 24.2 mmol/L (21.0-32.0); CREATININE 1.4 mg/dL (0.55-1.02); Calcium 8.2 mg/dL (8.5-10.1); Chloride 106 mmol/L (98-107); Estimated GFR 36.64 (mL/min/1.73m2); Glucose 108 mg/dL (74-106); Potassium 3.4 mmol/L (3.5-5.1); Sodium 139 mmol/L (136-145); Total Protein 5.9 g/dL (6.4-8.2)
[2024-01-25 07:56] LABS: Iron 20 ug/dL (50-170); Total Iron Binding Capacity 160 ug/dL (250-450); Transferrin Sat 13 % (15-50)
[2024-01-25 07:57] LABS: Lab Add On Test DONE
[2024-01-25 08:00] LABS: Magnesium 1.2 mg/dL (1.8-2.4)
[2024-01-25 08:24] LABS: Folate 6.3 ng/mL (8.6-20.0); Vitamin B12 599 pg/mL (193-986)
[2024-01-25] MEDS: Insulin Glargine 300 UNITS/3 ML PEN 50 UNITS SC (08:40)
[2024-01-25] MEDS: Potassium Chloride 10 MEQ CAPCR 20 MEQ PO ×3 (08:42→19:48)
[2024-01-25] MEDS: Multivitamin TAB 1 TAB PO (08:42)
[2024-01-25] MEDS: Cyanocobalamin 500 MCG TAB 1000 MCG PO (08:42)
[2024-01-25] MEDS: Pantoprazole 40 MG VIAL IVP (08:42)
[2024-01-25] MEDS: Normal Saline Flush 10 ML SYR IVP ×2 (08:43→20:10)
[2024-01-25] MEDS: Protein Nutritional Supplement 16 GM 1 OUNCE PACKET PO ×3 (08:43→19:47)
[2024-01-25] MEDS: Nystatin POWDER 15 GM JAR TP ×3 (10:00→20:10)
--- NOTE | 2024-01-25 10:06 | PT.INTREAT ---
PT Notes Visit Reasons: Septic shock,UTI, hyperglycemia Inpatient Physical Therapy Treatment Note [facility] Date: 01/25/24 PRECAUTIONS: fall, standard SUBJECTIVE: Fide reports headache this am. Tylenol provided by nursing prior to PT session. OBJECTIVE: ? Therapeutic Exercises (56836r5): Direct one-on-one instruction in therapeutic exercises to develop strength, endurance, range of motion and flexibility. BED MOBILITY/TRANSFERS? Supine-sit: min A? Sit-stand: min A ? Stand-sit: min A ? Bed-Chair: FWW, CGA? Ambulation ? Assistive Device: FWW ? Weight bearing: WBAT Assist: CGA ? Distance:? 25'x1, 6'x1 ? Deviation: slow, shuffling gait with limited foot clearance ? Neuromuscular Re-education ([id number]): Activities that facilitate re-education of movement balance, posture, coordination, and proprioception or kinesthetic sense, requiring skilled tactile and verbal cues Instructed in the following balance retraining activities: small CHRISTOPHER standing without UE support 30 seconds stand with diagonal punches, no UE support, CGA 10x each standing hip flexion, bilat UE support 10x each static stand for self-care, UE support throughout, 3 minutes ASSESSMENT:? Improved tolerance to ambulation today, although with significant limitations in activity tolerance and balance. PLAN: Continue progressing as tolerated TREATMENT CODE/TIME: 7760-1343 DISCHARGE RECOMMENDATION: home with PT vs SNF depending on progress toward goals
[2024-01-25] MEDS: Acetaminophen 325 MG TAB PO (10:17)
--- NOTE | 2024-01-25 10:20 | PGE_ITS ---
Date of Service Date of service: 01/25/24 Time of Service: 10:20 Assessment and Plan Assessment and plan (1) Septic shock: Status: Acute Assessment and plan: Patient presented in septic shock requiring IV norepinephrine as she was unresponsive to IV fluid resuscitation. She has now been stable and off norepinephrine for 48 hours. Shock state is resolved acute kidney injury is resolving and she seems to be alert and oriented and hemodynamically stable. Source of sepsis is secondary to E. coli bacteremia due to UTI. Patient has mild prominent bilateral hydronephrosis on ultrasound. When compared to recent CT of the abdomen pelvis from 01/22/2024 and has been a decrease in the degree of hydronephrosis. I suspect she has incomplete emptying of her bladder. Keene catheter has been removed. I will ask nursing to monitor postvoid residuals. She had no evidence of nephrolithiasis on her ultrasound. (2) Bacteremia due to Escherichia coli: Status: Acute Assessment and plan: Patient had 2 days worth of cefepime and now currently on ceftriaxone day #2, repeat blood cultures from yesterday are still pending. Once bacteremia is cleared we will switch her over to oral antibiotic and treat for 7 days. (3) UTI (urinary tract infection): Status: Acute Assessment and plan: As above Qualifiers: Urinary tract infection type: acute cystitis Hematuria presence: with hematuria Qualified Code(s): N30.01 - Acute cystitis with hematuria (4) Encephalopathy acute: Status: Resolved Assessment and plan: Encephalopathy has improved she seems to be back to her baseline now. (5) DESTINEY (acute kidney injury): Status: Acute Assessment and plan: Improved. BUN and creatinine seem to be stable with a BUN 23 creatinine 1.6 she had presented with elevated BUN/creatinine of 34 and 2.4 and she now appears to be back to her baseline (6) Skin lesion: Status: Acute Assessment and plan: This is a seborrheic keratosis not a mole (7) Type 2 diabetes mellitus with mild nonproliferative diabetic retinopathy without macular edema, bilateral: Status: Chronic Assessment and plan: Poorly controlled type 2 diabetes mellitus with complications including chronic kidney disease and diabetic retinopathy. Patient's blood sugars were in the 500s yesterday but has come down since reinstitution of basal bolus insulin and adjustment of her insulin including insulin resistant levels of sliding scale NovoLog as well as carbohydrate coverage. Blood sugars were low this morning in the 80s therefore cut back her evening dose of Lantus. Split dose Lantus with further adjustments based on her blood sugar response. 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 She is passing gas but no bowel movement through her ostomy yet. She did receive MiraLAX yesterday but has not received anything today for her bowels. I will put her on a strong bowel regimen of senna twice a day MiraLAX scheduled twice a day and as needed Dulcolax tablets. She has an allergy to aspartame and cannot take the Metamucil. Patient is inquiring when she can go home I told her that we have repeat blood cultures pending and until we get the negative blood cultures we cannot switch her over to an oral antibiotic. Exam Narrative Exam Narrative: Fide is sitting up in her chair visiting with family. I came by to see her this morning but she had family visiting as well as a volunteer [employer] for so I returned at lunchtime found her sitting up in her chair eating lunch and talking with her family. She is alert and oriented to person place and circumstance. Lungs are clear to auscultation Heart is regular rate and rhythm Abdomen soft nondistended nontender she has gas in her ostomy bag No CVA tenderness Extremities without edema Objective Last Vital Signs Temp 36.8 C 01/25/24 07:18 Pulse 93 H 01/25/24 07:18 Resp 14 01/25/24 07:18 BP 102/60 01/25/24 07:18 Pulse Ox 98 01/25/24 07:18 Laboratory Results - last 24 hr 01/24/24 01/24/24 01/24/24 05:50 12:05 12:29 WBC RBC Hgb Hct MCV MCH MCHC RDW Plt Count MPV Immature Gran % Neutrophils % Lymphocytes % Monocytes % Eosinophils % Basophils % Nucleated RBC % Absolute Neutrophils Absolute Lymphocytes Absolute Monocytes Absolute Eosinophils Absolute Basophils Sodium Potassium Chloride Carbon Dioxide Anion Gap BUN Creatinine Est GFR (CKD-EPI 2021) Glucose 503 H* Hemoglobin A1c > 13.0 H Calcium Magnesium Iron TIBC Transferrin % Sat Total Bilirubin AST ALT Alkaline Phosphatase Total Protein Albumin Vitamin B12 Folate Add-On Test Request DONE 01/25/24 01/25/24 05:40 06:00 WBC 5.63 RBC 3.10 L Hgb 8.6 L Hct 25.8 L MCV 83 MCH 27.7 MCHC 33.3 RDW 13.2 Plt Count 121 L MPV 10.5 Immature Gran % 0.5 Neutrophils % 59.7 Lymphocytes % 27.5 Monocytes % 11.0 Eosinophils % 1.1 Basophils % 0.2 Nucleated RBC % 0.0 Absolute Neutrophils 3.36 Absolute Lymphocytes 1.55 Absolute Monocytes 0.62 Absolute Eosinophils 0.06 Absolute Basophils 0.01 Sodium 139 Potassium 3.4 L Chloride 106 Carbon Dioxide 24.2 Anion Gap 8.8 BUN 20 H Creatinine 1.4 H Est GFR (CKD-EPI 2020) 36.64 Glucose 108 H Hemoglobin A1c Calcium 8.2 L Magnesium 1.2 L Iron 20 L TIBC 160 L Transferrin % Sat 13 L Total Bilirubin 0.24 AST 14 L ALT 11 L Alkaline Phosphatase 80 Total Protein 5.9 L Albumin 1.8 L Vitamin B12 599 Folate 6.3 L Add-On Test Request DONE Time Spent with Patient Time Spent with Patient: 35-49 minutes Time was spent: preparing to see the patient(eg.review tests), ordering medications,tests, procedures, referring, communicating with other health housekeeper caregiver, indepentently interpreting results, counseling the patient (And family members) and care coordination
[2024-01-25] MEDS: MAGNESIUM SULFATE 4 GM/100 ML BAG IVINF (10:57)
[2024-01-25] MEDS: Magnesium Gluconate 500 MG TAB PO (10:57)
[2024-01-25] MEDS: Senna TAB 1 TAB PO ×2 (12:40→19:52)
[2024-01-25] MEDS: Bisacodyl 5 MG TABEC PO (12:41)
[2024-01-25] MEDS: Insulin Aspart 300 UNITS/3 ML PEN SC ×5 (12:42→22:37)
[2024-01-25 12:49] LABS: Lab Add On Test DONE
[2024-01-25 13:12] LABS: Ferritin 143 ng/mL (8-252)
[2024-01-25] MEDS: Polyethylene Glycol 3350 17 GM PACKET PO (19:47)
[2024-01-25] MEDS: Insulin Glargine 300 UNITS/3 ML PEN 10 UNITS SC (19:52)
--- NOTE | 2024-01-25 22:41 | NUR.NOTE ---
Nursing Note: Mepilex placed on old puncture site on abd per prior note after gauze drsg became saturated. Nursing general car yard supervisor also made aware of situation.
[2024-01-26] VITALS (13 sets, daily range): BP systolic 96–120; BP diastolic 52–74; PULSE 83–96; RESP 16; TEMP 36.2; O2SAT 81–99
--- NOTE | 2024-01-26 02:40 | NUR.NOTE ---
Nursing Note: On reassessment of bleeding site on abd, drsg appears to remain C/D/I at this time.
[2024-01-26 05:40] LABS: Abs Immature Grans 0.06 10^3/uL (0.0-0.06); Absolute Basophil Count 0.01 10^3/uL (0.0-0.2); Absolute Eosinophil Count 0.09 10^3/uL (0.0-0.7); Absolute Lymphocyte Count 1.64 10^3/uL (1.2-3.4); Absolute Monocyte Count 0.49 10^3/uL (0.1-0.8); Absolute Neutrophil Count 3.43 10^3/uL (1.2-6.7); Basophils % 0.2 %; Eosinophils % 1.6 %; HGB 8.8 g/dL (11.2-15.7); Lymphocytes % 28.7 %; MCH 27.5 pg (27.0-33.0); MCHC 32.6 % (32.0-36.0); MCV 84 fL (80-95); Monocytes % 8.6 %; Neutrophils % 59.9 %; Platelet Count 131 10^3/uL (130-400); RDW 13.5 % (11.7-14.6); WBC 5.72 10^3/uL (4.4-10.8)
[2024-01-26 05:51] LABS: Anion Gap 8.1 mmol/L (3-11); BUN 26 mg/dL (7-18); CO2 23.9 mmol/L (21.0-32.0); CREATININE 1.6 mg/dL (0.55-1.02); Calcium 8.5 mg/dL (8.5-10.1); Chloride 104 mmol/L (98-107); Estimated GFR 31.21 (mL/min/1.73m2); Glucose 192 mg/dL (74-106); Potassium 4.2 mmol/L (3.5-5.1); Sodium 136 mmol/L (136-145)
[2024-01-26] MEDS: Levothyroxine 100 MCG TAB PO (06:28)
[2024-01-26] MEDS: Magnesium Gluconate 500 MG TAB PO (08:32)
[2024-01-26] MEDS: Cyanocobalamin 500 MCG TAB 1000 MCG PO (08:32)
[2024-01-26] MEDS: Folic Acid 1 MG TAB 5 MG PO (08:32)
[2024-01-26] MEDS: Multivitamin TAB 1 TAB PO (08:33)
[2024-01-26] MEDS: Pantoprazole 20 MG TABCR PO (08:33)
[2024-01-26] MEDS: Senna TAB 1 TAB PO (08:33)
[2024-01-26] MEDS: Insulin Aspart 300 UNITS/3 ML PEN SC ×4 (08:34→13:53)
[2024-01-26] MEDS: Insulin Glargine 300 UNITS/3 ML PEN 50 UNITS SC (08:38)
[2024-01-26] MEDS: Polyethylene Glycol 3350 17 GM PACKET PO (08:39)
[2024-01-26] MEDS: Normal Saline Flush 10 ML SYR IVP (08:39)
[2024-01-26] MEDS: Nystatin POWDER 15 GM JAR TP (08:40)
--- NOTE | 2024-01-26 08:44 | PDOC.CMPRO ---
Date of service: 01/26/24 Time of Service: 08:44 Care Management Progress Note Discharge Potential Discharge Needs: PCP F/U Appt Anticipated Barriers to Discharge: None Identified Patient/Family Education Needs: Review discharge instructions, discuss Ask Me Three Transportation: Private vehicle Plan: Anticipate Fide will be discharged home when medically cleared. She will follow up with her PCP and plan of care and transport with family. CM will follow and continue to support discharge planning efforts. SDOH(Care Management) Screening Will the Patient Participate in the Screening?: Yes Do you worry about having a steady place to live?: no Problems where you live: pests such as bugs, ants or mice, mold, lack of heat, oven or stove not working and unsafe sharon/stairs In the past 12 months, have you had to go without electric, gas, oil or water in your home?: yes Have you or anyone in your house had to go without enough food to eat?: yes Has lack of transportation kept you from medical appointments or from doing things needed for daily living?: yes Has anyone in your support network made you feel unsafe for any reason?: yes Social Determinants of Health Comments(SDOH Details): pt has declined assistance in the past when arrangements have been made for asisistance Health Related Social Needs Health related social needs: inadequate housing(Z59.1), food insecurity(Z59.41), transportation insecurity(Z59.82), material hardship(utilities)(Z59.87) and problem related to primary support group(Z63.9)
--- NOTE | 2024-01-26 10:25 | PTTR_ITS ---
PT Notes Visit Reasons: Septic shock,UTI, hyperglycemia Inpatient Physical Therapy Treatment Note [facility] Date: 01/26/24 PRECAUTIONS: fall, standard SUBJECTIVE: Fide states that she is anxious to return home. States that she feels as though she's moving around as well as she normally does, although she feels weak. OBJECTIVE: ? Therapeutic Activities (04077d8): Direct one-on-one instruction in dynamic activities to improve functional performance. ? BED MOBILITY/TRANSFERS? Supine-sit: ? not assessed today; min A 01/25/24? Sit-supine: not assessed today; min A 01/25/24? Sit-stand: supervision? Stand-sit: supervision ? GAIT? Assistive Device: FWW ? Weight bearing: WBAT Assist: supervision ? Distance:? 75'x2 ? Deviation: slow, shuffling gait, but with good equipment management and navigation around obstacles ? Neuromuscular Re-education (41340s9): Activities that facilitate re-education of movement balance, posture, coordination, and proprioception or kinesthetic sense, requiring skilled tactile and verbal cues ?Instructed in the following balance activities: sit-stand 3x small CHRISTOPHER standing, no UE support, 30 seconds standing with trunk rotation 10x, max cues throughout, supervision standing august, requiring bilat UE support, 10x each ASSESSMENT:? Improving independence and mobility. Requires FWW for safe household ambulation, which she is agreeable to. PLAN: Continue PT intervention during course of hospital stay to maximize safety and mobility. Will issue FWW prior to discharge, as patient requires one for safe ambulation. Additionally recommend HH PT , which patients states she will not accept. TREATMENT CODE/TIME: 2998-8625 ([id number]) DISCHARGE RECOMMENDATION: Home with HH PT (patient declines HH PT despite recommendation) Ofe Harry, PT, DPT [facility]
[2024-01-26 10:35] LABS: Transferrin 135 mg/dL (201-352)
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
--- NOTE | 2024-01-26 11:11 | PDOC.HHF2F_ITS ---
Home Health Referral Home Health Orders Clinical synopsis of why skilled professionals are needed: Patient was admitted w/ sepsis from urinary tract infection. Patient need nursing to evaluate compliance w/ medications and resolution of UTI and home P.T. is needed for improving her gait and balance and strength due to general weakness from her recent infection. Nursing to monitor diabetes response to recent changes in her insulin. Medical diagnosis necessitation home health referral: sepsis from UTI, acute kidney injury d/t sepsis, uncontrolled diabetes mellitus Registered Nurse: Check all that apply Instruct on new or changed medication(s)/assess compliance: Ordered Assess for exacerbation of medical condition, instruct patient/caregivers on signs and symptoms to report for early detection: Ordered Physical Therapist: Check all that apply Increase strength & endurance for safe mobility at home: Ordered To design/establish home maintenance program: Ordered Fall reduction therapy program for patient with history of frequent falls: Ordered Home safety evaluation and teaching/gait training including stair management (if applicable): Ordered Home Bound Status Requires the aid of supportive device (check all that apply): Walker Describe why leaving home would require a considerable and taxing effort: Requires frequent rest periods, Incontinence, Confusion and Safety Concerns: describe (at risk for falls due to gait instability) Encounter Date and Reason: I certify that a FTF encounter for this patient was performed on January 26, 2024 and that such encounter was related to the primary reason the patient requires home health services. The encounter was conducted in the following manner: * By me as the certifying physician, APARTMENT LEASING AGENT, PA or * By an inpatient physician, APARTMENT LEASING AGENT or PA during an inpatient stay who communicated findings to me, Certification And Authentication I certify that I composed the above information based on my clinical judgment relating to this patient's medical condition and, if applicable, clinical findings communicated to me by the NPP or inpatient physician who performed the FTF encounter. Name of Provider that will be monitoring home health services: Stephanie Erwin
[2024-01-26] MEDS: Bacitracin 1 PACKET TP (13:30)
--- NOTE | 2024-01-26 13:51 | PDOC.CMDIS ---
Date of service: 01/26/24 Time of Service: 13:51 LACE Index Scoring Tool Questions: Length of Stay (in days): 4 - 6 Was the patient admitted via the E.D.?: Yes Comorbidities: Diabetes w/o Complication, Any Tumor and Liver or Renal Disease E.D. Visits: 2 Answers: Total Score: 14 Risk of Readmission: High Risk Care Management Discharge Plan Reason for Hospitalization: septic shock Discharge Plan: Fide will be discharged home with new orders for home health PT. It is unlikely she will initiate services however as she does not want anyone in her home. She stated that she is in the process of collecting donations and her house is a mess. Patient/Family Education Needs: Review of discharge instructions, activity, limitations, follow up plan and discuss Ask Me Three Services Needed at Discharge: Home Health Care Services (PT - patient will likely refuse services) SDOH Health Related Social Needs: Health related social needs inadequate housing Health related social needs: inadequate housing(Z59.1), food insecurity(Z59.41), transportation insecurity(Z59.82), material hardship(utilities)(Z59.87) and problem related to primary support group(Z63.9)
[2024-01-26 20:11] LABS: Homocysteine 8.1 umol/L (5.0-13.9)
[2024-02-02 10:13] LABS: Methylmalonic Acid 0.21 nmol/mL (<=0.40)
== END 2024-01-26 15:00 | disposition home health service (06) | DRG 871 ==
LOC: ER 08:22 → ICU 08:53
PROVIDERS: Family Medicine; Admitting Provider Internal Medicine; Emergency Provider Student in an Organized Health Care Education/Training Program; PCP Nurse Practitioner; Visit Provider Internal Medicine
DX: A41.51 Sepsis due to Escherichia coli [E. coli] (principal); R65.21 Severe sepsis with septic shock; N30.01 Acute cystitis with hematuria; N17.9 Acute kidney failure, unspecified; E87.20 Acidosis, unspecified; G93.40 Encephalopathy, unspecified; T74.91XA Unspecified adult maltreatment, confirmed, initial encounter; F41.9 Anxiety disorder, unspecified; F32.A Depression, unspecified; Z93.3 Colostomy status; I12.9 Hypertensive chronic kidney disease with stage 1 through stage 4 chronic kidney disease, or unspecified chronic kidney disease; Y07.499 Other family member, perpetrator of maltreatment and neglect; B96.20 Unspecified Escherichia coli [E. coli] as the cause of diseases classified elsewhere; E11.3293 Type 2 diabetes mellitus with mild nonproliferative diabetic retinopathy without macular edema, bilateral; E11.22 Type 2 diabetes mellitus with diabetic chronic kidney disease; Z79.4 Long term (current) use of insulin; N18.32 Chronic kidney disease, stage 3b; E11.65 Type 2 diabetes mellitus with hyperglycemia; K74.69 Other cirrhosis of liver; K75.81 Nonalcoholic steatohepatitis (NASH); Z85.038 Personal history of other malignant neoplasm of large intestine; J84.10 Pulmonary fibrosis, unspecified; R41.89 Other symptoms and signs involving cognitive functions and awareness; E53.8 Deficiency of other specified B group vitamins; M54.42 Lumbago with sciatica, left side; D50.9 Iron deficiency anemia, unspecified; Z85.3 Personal history of malignant neoplasm of breast; E83.42 Hypomagnesemia; E06.3 Autoimmune thyroiditis; L82.1 Other seborrheic keratosis; R33.8 Other retention of urine
CPT/HCPCS: 00123; 36410; 36415; 36416; 36556; 36592; 51702; 71250; 76770; 80048; 80053; 80186; 82805; 82947; 82962; 83090; 83690; 85027; 87040; 87077; 87637; 93005; 93306; 96365; 96366; 96367; 96375; 97110; 97112; 97162; 97530; 99222; 99291; 70450; 71045; 74176; 80202; 81003; 81015; 82270; 82607; 82728; 82746; 83036; 83540; 83550; 83605; 83735; 84439; 84443; 84466; 84484; 85025; 85610; 85730; 87086; 87186; 93010; 99223; 99232; 99233; 99238; J0692; J0696; J1644; J1815; J2405; J2470; J2543; J3370; J3372; J3475; J3480

== ENCOUNTER 2024-03-28 15:18 | Emergency (ER) | payer MEDICARE, SELFPAY ==
[2024-03-28 15:41] VITALS: BP 124/80; PULSE 110; RESP 10; TEMP 36.9; O2SAT 96
--- NOTE | 2024-03-28 15:45 | DI.US_ITS ---
Exam(s) US PELVIS TRANSVAGINAL EXAM: US PELVIS TRANSVAGINAL CLINICAL HISTORY: vaginal bleeding/post menopausal. TECHNIQUE: Transabdominal and transvaginal pelvic ultrasound was performed using standard protocol. COMPARISON: CT CT CHEST/ABD/PEL W from 12/05/[address] RENAL COLIC WO from 08/18/[address] CHEST/ABD/PEL WO from 01/22/2024 FINDINGS: There is again seen a complex fluid in solid collection in the pelvis measuring 6.3 x 6.0 x 7.1 cm. This is identified on the CT scan of the chest abdomen and pelvis from 01/22/2024. The collection has a similar size compared to the CT examination from 01/22/2024. On the CT scan from 01/22/2024, there was a catheter with in the collection. There is no longer catheter identified. IMPRESSION: 1. Persistent 7 cm complex fluid collection in the pelvis. The origin of the fluid collection is dif ficult to evaluate on this pelvic ultrasound. A CT scan of the abdomen and pelvis is recommended wit h 10-15 minute delayed images through the pelvis for evaluation of the urinary bladder. 2. The uterus is not definitely visualized. 3. Findings were discussed with Alyssa Orta at 5:20 p.m. on 03/28/2024. DATA REPOSITORY:
[2024-03-28 17:21] LABS: Abs Immature Grans 0.03 10^3/uL (0.0-0.06); Absolute Basophil Count 0.04 10^3/uL (0.0-0.2); Absolute Eosinophil Count 0.08 10^3/uL (0.0-0.7); Absolute Lymphocyte Count 1.75 10^3/uL (1.2-3.4); Absolute Monocyte Count 0.62 10^3/uL (0.1-0.8); Absolute Neutrophil Count 4.26 10^3/uL (1.2-6.7); Basophils % 0.6 %; Eosinophils % 1.2 %; HCT 32.1 % (36.0-46.0); HGB 10.1 g/dL (11.2-15.7); Immature Grans % 0.4 %; Lymphocytes % 25.8 %; MCH 27.1 pg (27.0-33.0); MCHC 31.5 % (32.0-36.0); MCV 86 fL (80-95); MPV 9.8 fL (8.0-11.0); Monocytes % 9.1 %; Neutrophils % 62.9 %; Platelet Count 217 10^3/uL (130-400); RBC 3.73 10^6/uL (3.93-5.22); RDW 13.8 % (11.7-14.6); RDW-SD 43.4 fL; WBC 6.78 10^3/uL (4.4-10.8)
[2024-03-28 17:53] LABS: Prothrombin Time 10.3 sec (9.1-11.1)
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
[2024-03-28 18:02] LABS: ALT 15 U/L (14-59); AST 11 U/L (15-37); Albumin 2.8 g/dL (3.4-5.0); Alkaline Phosphatase 102 U/L (46-116); Anion Gap 9.4 mmol/L (3-11); BUN 38 mg/dL (7-18); Bilirubin, Total 0.47 mg/dL (0.2-1.0); CO2 25.6 mmol/L (21.0-32.0); CREATININE 2.3 mg/dL (0.55-1.02); Calcium 9.4 mg/dL (8.5-10.1); Chloride 96 mmol/L (98-107); Estimated GFR 20.19 (mL/min/1.73m2); Glucose 386 mg/dL (74-106); Potassium 4.6 mmol/L (3.5-5.1); Sodium 131 mmol/L (136-145); Total Protein 7.9 g/dL (6.4-8.2)
[2024-03-28] MEDS: Normal Saline 500 ML IV (18:13)
--- NOTE | 2024-03-28 18:15 | DI.CT_ITS ---
Exam(s) CT ABDOMEN PELVIS WO EXAM: CT ABDOMEN PELVIS WO CLINICAL HISTORY: rcnt blad sling, now crn for bladder/vag fistula. TECHNIQUE: Imaging Protocol: Axial computed tomography images with coronal and sagittal reformatted images were created and reviewed. COMPARISON: CT CT CHEST/ABD/PEL WO from 01/22/2024 FINDINGS: The examination is limited due to patient motion artifact. ABDOMEN: Lung Bases: Coronary artery calcifications are present. There is fibrosis seen in the lung bases. Liver: Normal density. No measurable mass. Gallbladder and biliary tract: There is persistent dilatation of the common bile duct which is unchan ged. No definite intrahepatic biliary ductal dilatation is present. Pancreas: Normal density, no abnormal calcifications or inflammatory process. Spleen: The spleen is mildly enlarged. Calcifications are again seen in the spleen. There is a stab le area of decreased attenuation in the lateral aspect of the spleen. This may represent a cyst or h emangioma. Kidneys: Normal size, contour and axis.There is stable dilatation of the renal collecting systems int o the pelvis to the region of the complex air-fluid collection. The previously seen catheter has bee n removed from the pelvic fluid collection. The collection measures 7.8 x 7.6 cm (series 7, image 12 1). There is now soft tissue density material in the dependent portion of the presumed urinary bladd er. This may represent hemorrhagic material or soft tissue mass. There is no evidence of nephrolith iasis. No ureterolithiasis is present. Adrenal glands: No mass is seen. Lymph nodes: Within normal limits. Abdominal Aorta: Abdominal portion non-dilated. Atherosclerotic calcification is present PELVIS: Bladder:Please see above under kidneys. Bowel: The patient has a left lower quadrant colostomy. There is a peristomal hernia consisting of s igmoid colon. No evidence of bowel obstruction. There is also a midline infraumbilical anterior abd ominal wall hernia. It contains an unremarkable loop of bowel. No evidence of bowel obstruction or incarceration is seen. There is a moderate amount of stool in the colon. No evidence of bowel wall thickening is seen. No evidence of appendicitis. Peritoneal cavity: No ascites, collection or mesenteric inflammatory response. No free air. Reproductive organs: The uterus appears to sit atop the presumed urinary bladder. There is again see n an air collection posterior to the presumed urinary bladder. Differential considerations include t he vagina or possible residual rectal sigmoid colon. Please correlate with patient's bowel surgical history. There is unchanged presacral soft tissue thickening. Bones: No change in appearance of the osseous structures compared to the prior examination. Soft Tissues: Within normal limits. IMPRESSION: 1. 7.8 x 7.6 cm fluid collection in the pelvis. There is air seen internally. The ureters appear to empty into this fluid collection suggesting this is the urinary bladder. Since the prior examinatio n there has developed soft tissue in the dependent portion of the collection. Hemorrhagic component/ clot versus soft tissue mass/neoplasm. There has been interval removal of the catheter. 2. Status post bowel resection involving the sigmoid colon. There is a left lower quadrant colostomy with a parastomal hernia without evidence of obstruction. 3. Bowel containing infraumbilical midline abdominal wall hernia without evidence of obstruction. 4. Structure containing air posterior to the presumed urinary bladder which may represent the vagina or residual colon. Please correlate with the patient's clinical history. With the patient's clinica l history per the ordering physician the possibility of a cysto-vaginal fistula should be considered. 5. Stable presacral soft tissue thickening. 6. An MRI of the pelvis should be considered for better characterization of the pelvic structures. RADIATION DOSE DELIVERED: 279.46mGy.cm Total DLP DATA REPOSITORY: All CT scans at this facility are submitted to the National Radiology Data Registry (NRDR) Dose Index Registry (DIR) with the [employer] (ACR). RADIATION OPTIMIZATION: All CT scans at this facility use at least one of these dose optimization te chniques: automated exposure control; mA and/or kV adjustment per patient size (includes targeted exa ms where dose is matched to clinical indication); or iterative reconstruction.
[2024-03-28 18:25] LABS: BE (Venous) 0 mmol/L (-2-3); HCO3 (Venous) 25 mmol/L (23-28); O2 Sat (Venous) 63 %; TCO2 (Venous) 24 mmol/L (24-29); pCO2 (Venous) 39 mmHg (41-51); pH (Venous) 7.42 (7.31-7.41); pO2 (Venous) 34 mmHg
[2024-03-28 18:32] VITALS: PULSE 94; RESP 16; TEMP 36.4; O2SAT 93
[2024-03-28 19:19] LABS: Clarity Cloudy (Clear)
[2024-03-28 19:57] LABS: Specific Gravity 1.021 (1.005-1.025)
[2024-03-28 19:58] LABS: Glucose Color Interference mg/dL (Negative); Leukocyte Esterase Color Interference (Negative); Nitrite Color Interference (Negative)
[2024-03-28 19:59] LABS: Bilirubin Color Interference (Negative); Blood Color Interference (Negative); Ketones Color Interference mg/dL (Negative); Urobilinogen Color Interference mg/dL (Up to 0.2)
[2024-03-28 20:00] LABS: C & S Indicated? Yes; RBC >50 HPF (0-2)
[2024-03-28] MEDS: cefTRIAXone 1 GM/50 ML BAG IVPB (20:03)
[2024-03-28 23:48] VITALS: BP 145/76; PULSE 97; RESP 16; TEMP 36.8; O2SAT 97
== END 2024-03-28 23:56 | disposition home or self-care (01) ==
PROVIDERS: Emergency Provider Physician Assistant; PCP Nurse Practitioner
DX: D49.4 Neoplasm of unspecified behavior of bladder (principal); R31.9 Hematuria, unspecified; N82.8 Other female genital tract fistulae; E11.22 Type 2 diabetes mellitus with diabetic chronic kidney disease; I12.9 Hypertensive chronic kidney disease with stage 1 through stage 4 chronic kidney disease, or unspecified chronic kidney disease; N18.30 Chronic kidney disease, stage 3 unspecified; Z79.84 Long term (current) use of oral hypoglycemic drugs; Z79.4 Long term (current) use of insulin; Z93.3 Colostomy status; E11.319 Type 2 diabetes mellitus with unspecified diabetic retinopathy without macular edema
CPT/HCPCS: 80053; 82805; 86850; 86900; 86901; 87077; 96361; 96365; 99284; 74176; 76830; 76856; 81003; 81015; 85025; 85610; 87086; 87186; J0696

== ENCOUNTER 2025-03-12 18:48 | Outpatient (REF) | payer MEDICARE, SELFPAY ==
[2025-03-12 20:26] LABS: TSH (W/Ref FT4) 1.54 uIU/mL (0.36-3.74)
== END 2025-03-12 18:49 | disposition home or self-care (01) ==
LOC: LBN 18:48
PROVIDERS: Visit Provider Nurse Practitioner Gerontology
DX: R53.82 Chronic fatigue, unspecified (principal)
CPT/HCPCS: 84443

== ENCOUNTER 2025-06-11 18:38 | Outpatient (REF) | payer MEDICARE, SELFPAY ==
[2025-06-11 19:52] LABS: Abs Immature Grans 0.04 10^3/uL (0.0-0.06); HCT 25.9 % (36.0-46.0); HGB 8.3 g/dL (11.2-15.7); Immature Grans % 0.7 %; MCH 26.8 pg (27.0-33.0); MCHC 32.0 % (32.0-36.0); MCV 84 fL (80-95); MPV 10.6 fL (8.0-11.0); Platelet Count 221 10^3/uL (130-400); RBC 3.10 10^6/uL (3.93-5.22); RDW 13.3 % (11.7-14.6); RDW-SD 40.4 fL; WBC 6.03 10^3/uL (4.4-10.8)
[2025-06-11 20:13] LABS: Hemoglobin A1C 11.0 % (<5.7)
[2025-06-11 20:22] LABS: Hypochromasia 1+
== END 2025-06-11 18:39 | disposition home or self-care (01) ==
LOC: LBN 18:38
PROVIDERS: PCP Legal Medicine; Visit Provider Nurse Practitioner Gerontology
DX: E11.9 Type 2 diabetes mellitus without complications (principal)
CPT/HCPCS: 83036; 85025